=== PATIENT | female | born 1970 | race Caucasian/White ===

== ENCOUNTER 2022-03-29 09:17 | Inpatient (IN) | payer MEDICARE, SELFPAY ==
[2022-03-29] VITALS (14 sets, daily range): BP systolic 128–147; BP diastolic 73–97; PULSE 75–103; RESP 18–20; TEMP 36.6–36.9; O2SAT 88–97; BMI 38.6
--- NOTE | 2022-03-29 09:51 | CRLHL7_ITS ---
For Patients: As a result of the Cures Act, medical imaging exams and procedure reports are released immediately into your electronic medical record. You may view this report before your referring provider. If you have questions, please contact your health care provider. INDICATION: DISORIENTED, RECENT COVID TECHNIQUE: Chest 1 view COMPARISON: 02/08/2019 FINDINGS: Lower lung volumes. No dense infiltrate. No CHF or effusion. No pneumothorax. Stable mediastinum. IMPRESSION: Lower lung volumes. No infiltrate. Dictated by All Otero MD @ 03/29/2022 10:33:55 AM (Electronically Signed)
--- NOTE | 2022-03-29 09:51 | CRLHL7_ITS ---
For Patients: As a result of the Cures Act, medical imaging exams and procedure reports are released immediately into your electronic medical record. You may view this report before your referring provider. If you have questions, please contact your health care provider. INDICATION: DISORIENTED RECENT COVID COMPARISON: 02/03/2020 TECHNIQUE: A CT volumetric acquisition was performed of the brain without IV contrast. Please note that all CT scans at this facility use dose modulation, iterative reconstruction, and/or weight-based dosing when appropriate to reduce radiation dose to as low as reasonably achievable. FINDINGS: The CT images reveal a normal appearance of the cerebral ventricles and basal cisterns. There is no evidence of intracranial hemorrhage, tissue infarction or mass effect. The mastoid air cells and middle ear cavities are clear. The calvarium appears intact. Mild fluid is now present within the paranasal sinuses bilaterally. Clear middle ear cavities and mastoid air cells. IMPRESSION: No intracranial pathology. Acute bilateral pansinus disease. Please note that all CT scans at this facility use dose modulation, iterative reconstruction, and/or weight-based dosing when appropriate to reduce radiation dose to as low as reasonably achievable. Dictated by All Otero MD @ 03/29/2022 10:32:46 AM (Electronically Signed)
--- NOTE | 2022-03-29 09:54 | ED.GENADULT ---
HPI - General Adult General Time Seen by Provider: 09:55 Date Seen: 03/29/22 Chief complaint: Dizziness/Vertigo Stated complaint: Nauseous, disoriented Time Seen by Provider: 03/29/22 09:50 Source: patient, RN notes reviewed and old records reviewed Mode of arrival: ambulatory Limitations: altered mental status ( Patient wildly awake and alert but disoriented, having difficulty with recollection) History of Present Illness HPI narrative: patient is a 51-year-old female coming into the ER stating she just does not feel well. She had COVID maybe about a week and a half ago, admit she can not really remember the details. She remembers that she had a cough and fever, is still coughing. Her main concern is she is extremely nauseated. She has not thrown up. She states she has had abdominal surgery before. She states she has had a bowel blockage, has had mesh put in her abdomen. Review of outside records show she has had a gastric bypass. She has maybe had a little bit of a headache. Her main complaint is nausea. Maybe some mild abdominal pain, she is not really sure. No diarrhea. She has not been eating or drinking. Does not think she has had ongoing fevers. She states she just does not feel good. She can not remember her medicines. Nursing staff was able to go on to [facility] and obtain some information. Will have to review that and get appropriate labs on her. She certainly knows where she is but states she just is really disoriented and very nauseated. There is no focal deficits to her exam. She is not giving me any history of arms or legs not working she is able to speak to me. 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 We will certainly watch her closely, review or history and treat accordingly here in the ED. Related Data Home Medications Medication Instructions Recorded Confirmed dextroamphetamine-amphetamine 30 03/29/22 mg tablet epinephrine 0.3 mg/0.3 mL 03/29/22 injection, auto-injector ferrous gluconate 324 mg (38 mg mg 03/29/22 iron) tablet gabapentin 400 mg capsule mg 03/29/22 lorazepam 1 mg tablet mg 03/29/22 naloxone 4 mg/actuation nasal spray intranasal 03/29/22 quetiapine 50 mg tablet mg 03/29/22 Allergies Allergy/AdvReac Type Severity Reaction Status Date / Time erythromycin base Allergy Hives Verified 03/29/22 11:12 Penicillins Allergy Hives Verified 03/29/22 11:12 shellfish derived Allergy Anaphylaxis Verified 03/29/22 10:20 Sulfa (Sulfonamide Allergy hives, Verified 03/29/22 11:12 Antibiotics) angioedema tetracycline Allergy Hives Verified 03/29/22 11:12 venom-honey bee Allergy Anaphylaxis Verified 03/29/22 10:20 cyclobenzaprine AdvReac psychosis Verified 03/29/22 10:20 diphenhydramine AdvReac agitation Verified 03/29/22 10:20 [From Benadryl] duloxetine [From Cymbalta] AdvReac restless Verified 03/29/22 11:12 legs escitalopram AdvReac behavioral Verified 03/29/22 11:12 disturbances ibuprofen [From Advil] AdvReac stomach Verified 03/29/22 10:20 upset methocarbamol AdvReac tremors Verified 03/29/22 11:12 naproxen AdvReac gi upset Verified 03/29/22 11:12 olanzapine [From Zyprexa] AdvReac restless Verified 03/29/22 11:12 legs pregabalin [From Lyrica] AdvReac mental Verified 03/29/22 11:12 status change prochlorperazine AdvReac behavioral Verified 03/29/22 11:12 disturbances risperidone AdvReac anxiety Verified 03/29/22 11:12 and stuttering sumatriptan AdvReac tachycardia Verified 03/29/22 11:12 venlafaxine [From Effexor] AdvReac mental Verified 03/29/22 11:12 status change Review of Systems Status of ROS: Reports: unobtainable due to mental status ( she is disoriented but alert and interactive.) PFSH PFSH Social History Smoking Status: Never smoker How often do you have a drink containing alcohol: never AUDIT-C Alcohol total score: 0 Non-prescribed substance use: denies use Exam Const: Vital Signs, click to edit/add: Vital Signs - 24 hr 03/29/22 09:27 03/29/22 10:28 03/29/22 11:00 Temperature 98.4 F Pulse Rate [Left P ulse Oximeter] 79 85 Respiratory Rate 18 18 Blood Pressure [Ri ght Upper Arm] 133/81 131/84 Pulse Oximetry 96 90 96 Oxygen Delivery Me thod Room Air Nasal Cannula Oxygen Flow Rate 1 03/29/22 11:00 03/29/22 11:30 03/29/22 12:00 Temperature Pulse Rate [Left P ulse Oximeter] 103 H 93 Respiratory Rate 18 18 Blood Pressure [Ri t Upper Arm] 147/86 H 130/74 Pulse Oximetry 88 Oxygen Delivery Me thod Room Air Nasal Cannula Room Air Oxygen Flow Rate 1 1 Documenting provider has reviewed patient's vital signs: yes Common normals: no limitations, alert and well nourished General appearance: cooperative and comfortable Nutritional appearance: obese Orientation/consciousness: Yes awake, Yes oriented to person and Yes confused (Is readily awake, but certainly disoriented) Other: She is confused about her own medical conditions but is alert and interactive. Skin is cool and she is sweaty. HENMT: Common normals: normocephalic, head/scalp atraumatic, hearing grossly normal bilaterally, external ears normal, EAC's normal, TM's normal bilaterally, external nose normal and nasal mucous membranes and turbinates normal Head and scalp: normocephalic and atraumatic Nose: external nose normal and nasal mucous membranes and turbinates normal External ear: external ears normal External auditory canal: EAC's normal Tympanic membrane: TM's normal bilaterally Other: She has got sick stranding of her saliva in her mouth. Membranes are dry. Dentition otherwise normal. Eye: Common normals: PERRL, EOMs intact bilaterally, conjunctivae normal and no scleral icterus Conjunctiva: conjunctiva(e) normal Pupil: PERRL Neck & C-Spine: Common normals: full ROM, no lymphadenopathy, supple, no meningeal signs, no JVD and thyroid normal Thyroid: thyroid normal Resp: Common normals: normal respiratory effort, no retractions and no use of accessory muscles Other: I do think a hear crackles posteriorly along her right lung base but her inspiratory effort is not that good. Cardio: Common normals: no JVD, regular rate, regular rhythm, S1 normal heart sound, S2 normal heart sound, no gallops, no clicks and no murmurs Rate: regular rate Rhythm: regular rhythm Heart sounds: S1 normal and S2 normal GI: Other: Abdomen is obese baseline, difficult to say if there is distension, do not hear much for bowel sounds. Does not seem to be tender when I palpate, no rebound or guarding. Extremity: Common normals: no calf tenderness and no pedal edema Neuro: Common normals: CN's II-XII intact bilaterally, moves all extremities, no focal motor deficits and no sensory deficits noted Sensorium/orientation: awake, alert and oriented to person Meningeal signs: no meningeal signs Speech: speech normal Course Course Hospital Course: We are going to establish an IV, have her on cardiac monitoring pulse oximetry. Will obtain an EKG as well. I will start with a portable chest x-ray, head CT. She may need further advanced imaging including but not limited to her head, chest, abdomen pelvis. This could be COVID encephalopathy, cardiac complications, metabolic derangements, infectious etiology, ongoing COVID issues. Differential is vast. Will watch her closely. She is obviously dry with the nausea and will initiate a L of fluid over 2 hours, 4 mg Zofran. When I talked about anti nausea medicines she did recollect that she cannot tolerate some of them, believes that her intolerance is are to things like Compazine and other nausea medicines. Reevaluation(s) Reevaluation #1: Patient is feeling better from her nausea. Upon talking to her now, she thinks maybe her home test was positive a couple days ago. She is really unclear. She feels quite disoriented. She knows her date of and can arrival that off, can rattle some normal statistics about her life like her address. She really can not tell me what day or date it is. She does not feel safe with her current mental status. 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 She has had some episodes of mild hypoxia but has recovered here back in the low 90s, 92-93%. Her CT showing some sinusitis disease but I do wonder if it is COVID. Her white count is normal, no evidence that this should necessarily be treated with antibiotics. She states she is no longer on Suboxone but does endorse she has used in the past. Time: 11:40 Consultations Consultation #1: Have called our hospitalist, they will finish up there current details and come down to the ED to talk to me about this patient. I am requesting hospitalization, need to sort out whether or not we consider giving her remdesivir or not. She would not at this time get the dosing for hypoxia but could consider the 3 day dosing. I will need to talk to the hospitalist about this, admittedly it is unclear as to how long she has been sick. Time: 11:54 Vital Signs Vital signs: Initial Vital Signs Temperature 98.4 F 03/29/22 09:27 Temperature Source Oral 03/29/22 09:27 Pulse Rate 79 03/29/22 09:27 Respiratory Rate 18 03/29/22 09:27 Blood Pressure 133/81 03/29/22 09:27 Blood Pressure Mean 98 03/29/22 09:27 Blood Pressure Position Supine 03/29/22 09:27 Pulse Oximetry 96 03/29/22 09:27 Oxygen Delivery Method 03/29/22 09:27 Vital Signs Temperature 98.4 F 03/29/22 09:27 Pulse Rate 79 03/29/22 09:27 Respiratory Rate 18 03/29/22 09:27 Blood Pressure 133/81 03/29/22 09:27 Pulse Oximetry 96 03/29/22 09:27 Oxygen Delivery Method 03/29/22 09:27 Temperature 98.4 F 03/29/22 09:27 Pulse Rate 93 03/29/22 12:00 Respiratory Rate 18 03/29/22 12:00 Blood Pressure 130/74 03/29/22 12:00 Pulse Oximetry 88 03/29/22 11:00 Oxygen Delivery Method 03/29/22 12:00 Oxygen Flow Rate 1 03/29/22 11:30 Medical Decision Making Medical Records Medical records reviewed: Yes I reviewed the patient's medical records Medical records narrative: Allergies are multiple and include Benadryl with agitation, shellfish with anaphylaxis, Hymenoptera with honey bee anaphylaxis, ibuprofen with stomach upset, cyclobenzaprine with behavioral disturbances, Cymbalta with restless leg, Effexor with mental status change, erythromycin with hives, escitalopram with behavioral disturbances, Lyrica with mental status change, methocarbamol with tremors, naproxen with GI upset, penicillin with hives, prochlorperazine with behavioral disturbances, risperidone with anxiety, sulfa with hives and angioedema, sumatriptan with tachycardia, tetracycline with hives, Zyprexa with restless legs/feet. Current medicines listed in epic are vitamin-C, vitamin-D, vitamin B12, EpiPen p.r.n., ferrous gluconate, gabapentin, hydroxyzine, Lamictal, multivitamin, Seroquel, Suboxone which patient states she is not taking. Past medical history is noted to be significant for DVT of upper extremities listed in 2009 Migraines Narcotic abuse Mild major depression Sleep apnea History of abnormal Pap smear History of surgery for bowel obstruction in 2014, prior gastric bypass in 2007 History of right shoulder surgery 2011 Lab Data Lab results reviewed: Yes I reviewed the patient's lab results Labs: Lab Results 03/29/22 03/29/22 03/29/22 Range/Units 10:07 10:07 10:07 WBC 4.80 (4.50-11.00) K/uL RBC 5.09 (4.00-5.20) m/uL Hgb 13.9 (12.0-16.0) gm/dL Hct 44.0 (33.0-51.0) % MCV 86 (80-100) fL MCH 27 (26-34) pg MCHC 32 (32-36) gm/dL RDW Coeff of Yessi 15.9 H (11.5-15.5) % Plt Count 306 (140-440) K/uL Neut % (Auto) 69.2 (42.0-72.0) % Lymph % (Auto) 24.2 (20-44) % [place] % (Auto) 5.4 (0.0-11.0) % Eos % (Auto) 0.8 (0.0-7.0) % Baso % (Auto) 0.4 (0.0-3.0) % Neut # (Auto) 3.32 (1.7-7.0) K/uL Lymph # (Auto) 1.16 (0.90-2.90) K/uL [place] # (Auto) 0.30 (0.00-0.90) K/UL Eos # (Auto) 0.04 (0.00-0.50) K/uL Baso # (Auto) 0.02 (0.00-0.30) K/uL Abs Immat Gran (auto) 0.00 (0.00-0.30) K/uL Diff Slide Review Acceptable Review (Acceptable) D-Dimer Quant (PE/DVT) 0.41 (0.00-0.50) ug/ml VBG pH (7.32-7.43) VBG pCO2 (40-50) mmHG VBG pO2 (25-47) mmHG VBG HCO3 (21-28) mmol/L Sodium 138 (135-149) mmol/L Potassium 3.8 (3.6-5.1) mmol/L Chloride 106 (96-114) mmol/L Carbon Dioxide 21 (20-32) mmol/L BUN 9 (7-30) mg/dL Creatinine 0.5 (0.5-1.5) mg/dL Estimated Creat Clear 140.71 Estimated GFR 112 ml/min Glucose 122 H (60-115) mg/dL Lactate (0.5-1.9) mmol/L Calcium 9.8 (8.4-10.6) mg/dL Magnesium 1.7 (1.5-2.6) mg/dL Total Bilirubin 0.5 (0.1-1.5) mg/dL AST 43 H (12-35) U/L ALT 66 H (4-35) U/L Alkaline Phosphatase 160 H (40-150) U/L C-Reactive Protein 1.6 H (0.5-1.0) mg/dL NT-Pro-B Natriuret Pep 363 H (0-125) PG/mL Total Protein 7.3 (6.0-8.3) g/dL Albumin 4.3 (3.3-5.0) g/dL Procalcitonin (<0.50) ng/mL Urine Color (Yellow) Urine Appearance (Clear) Urine pH (5.0-8.5) Ur Specific [place] (1.000-1.030) Urine Protein (Negative) Urine Glucose (UA) (Negative) Urine Ketones (Negative) Urine Blood (Negative) Urine Nitrite (Negative) Urine Bilirubin (Negative) Urine Urobilinogen (0.2-1.0) Ur Leukocyte Esterase (Negative) Urine RBC (0-2) Urine WBC (0-5) Ur Squamous Epith Cells (None-Few) Urine Bacteria (None) Urine Opiates Screen (Negative) Ur Oxycodone Screen (Negative) Urine Methadone Screen (Negative) Ur Propoxyphene Screen (Negative) Ur Barbiturates Screen (Negative) U Tricyclic Antidepress (Negative) Ur Phencyclidine Scrn (Negative) Ur Amphetamines Screen (Negative) U Methamphetamines Scrn (Negative) U Benzodiazepines Scrn (Negative) Urine Cocaine Screen (Negative) U Marijuana (THC) Screen (Negative) Ur Drug Screen Comment SARS-CoV-2 Ag (Rapid) (Negative) POC Troponin I (0.01-0.04) ng/ml 03/29/22 03/29/22 03/29/22 Range/Units 10:07 10:07 10:07 WBC (4.50-11.00) K/uL RBC (4.00-5.20) m/uL Hgb (12.0-16.0) gm/dL Hct (33.0-51.0) % MCV (80-100) fL MCH (26-34) pg MCHC (32-36) gm/dL RDW Coeff of Yessi (11.5-15.5) % Plt Count (140-440) K/uL Neut % (Auto) (42.0-72.0) % Lymph % (Auto) (20-44) % [place] % (Auto) (0.0-11.0) % Eos % (Auto) (0.0-7.0) % Baso % (Auto) (0.0-3.0) % Neut # (Auto) (1.7-7.0) K/uL Lymph # (Auto) (0.90-2.90) K/uL [place] # (Auto) (0.00-0.90) K/UL Eos # (Auto) (0.00-0.50) K/uL Baso # (Auto) (0.00-0.30) K/uL Abs Immat Gran (auto) (0.00-0.30) K/uL Diff Slide Review (Acceptable) D-Dimer Quant (PE/DVT) (0.00-0.50) ug/ml VBG pH 7.472 H (7.32-7.43) VBG pCO2 32 L (40-50) mmHG VBG pO2 62.1 H (25-47) mmHG VBG HCO3 24 (21-28) mmol/L Sodium (135-149) mmol/L Potassium (3.6-5.1) mmol/L Chloride (96-114) mmol/L Carbon Dioxide (20-32) mmol/L BUN (7-30) mg/dL Creatinine (0.5-1.5) mg/dL Estimated Creat Clear Estimated GFR ml/min Glucose (60-115) mg/dL Lactate 1.1 (0.5-1.9) mmol/L Calcium (8.4-10.6) mg/dL Magnesium (1.5-2.6) mg/dL Total Bilirubin (0.1-1.5) mg/dL AST (12-35) U/L ALT (4-35) U/L Alkaline Phosphatase (40-150) U/L C-Reactive Protein (0.5-1.0) mg/dL NT-Pro-B Natriuret Pep (0-125) PG/mL Total Protein (6.0-8.3) g/dL Albumin (3.3-5.0) g/dL Procalcitonin 0.10 (<0.50) ng/mL Urine Color (Yellow) Urine Appearance (Clear) Urine pH (5.0-8.5) Ur Specific [place] (1.000-1.030) Urine Protein (Negative) Urine Glucose (UA) (Negative) Urine Ketones (Negative) Urine Blood (Negative) Urine Nitrite (Negative) Urine Bilirubin (Negative) Urine Urobilinogen (0.2-1.0) Ur Leukocyte Esterase (Negative) Urine RBC (0-2) Urine WBC (0-5) Ur Squamous Epith Cells (None-Few) Urine Bacteria (None) Urine Opiates Screen (Negative) Ur Oxycodone Screen (Negative) Urine Methadone Screen (Negative) Ur Propoxyphene Screen (Negative) Ur Barbiturates Screen (Negative) U Tricyclic Antidepress (Negative) Ur Phencyclidine Scrn (Negative) Ur Amphetamines Screen (Negative) U Methamphetamines Scrn (Negative) U Benzodiazepines Scrn (Negative) Urine Cocaine Screen (Negative) U Marijuana (THC) Screen (Negative) Ur Drug Screen Comment SARS-CoV-2 Ag (Rapid) (Negative) POC Troponin I 0.02 (0.01-0.04) ng/ml 03/29/22 03/29/22 03/29/22 Range/Units 10:33 11:30 11:37 WBC (4.50-11.00) K/uL RBC (4.00-5.20) m/uL Hgb (12.0-16.0) gm/dL Hct (33.0-51.0) % MCV (80-100) fL MCH (26-34) pg MCHC (32-36) gm/dL RDW Coeff of Yessi (11.5-15.5) % Plt Count (140-440) K/uL Neut % (Auto) (42.0-72.0) % Lymph % (Auto) (20-44) % [place] % (Auto) (0.0-11.0) % Eos % (Auto) (0.0-7.0) % Baso % (Auto) (0.0-3.0) % Neut # (Auto) (1.7-7.0) K/uL Lymph # (Auto) (0.90-2.90) K/uL [place] # (Auto) (0.00-0.90) K/UL Eos # (Auto) (0.00-0.50) K/uL Baso # (Auto) (0.00-0.30) K/uL Abs Immat Gran (auto) (0.00-0.30) K/uL Diff Slide Review (Acceptable) D-Dimer Quant (PE/DVT) (0.00-0.50) ug/ml VBG pH (7.32-7.43) VBG pCO2 (40-50) mmHG VBG pO2 (25-47) mmHG VBG HCO3 (21-28) mmol/L Sodium (135-149) mmol/L Potassium (3.6-5.1) mmol/L Chloride (96-114) mmol/L Carbon Dioxide (20-32) mmol/L BUN (7-30) mg/dL Creatinine (0.5-1.5) mg/dL Estimated Creat Clear Estimated GFR ml/min Glucose (60-115) mg/dL Lactate (0.5-1.9) mmol/L Calcium (8.4-10.6) mg/dL Magnesium (1.5-2.6) mg/dL Total Bilirubin (0.1-1.5) mg/dL AST (12-35) U/L ALT (4-35) U/L Alkaline Phosphatase (40-150) U/L C-Reactive Protein (0.5-1.0) mg/dL NT-Pro-B Natriuret Pep (0-125) PG/mL Total Protein (6.0-8.3) g/dL Albumin (3.3-5.0) g/dL Procalcitonin (<0.50) ng/mL Urine Color Yellow (Yellow) Urine Appearance Slightly Cloudy A (Clear) Urine pH 7.0 (5.0-8.5) Ur Specific [place] 1.025 (1.000-1.030) Urine Protein Trace A (Negative) Urine Glucose (UA) Negative (Negative) Urine Ketones 4+ A (Negative) Urine Blood Negative (Negative) Urine Nitrite Negative (Negative) Urine Bilirubin 1+ A (Negative) Urine Urobilinogen 1.0 (0.2-1.0) Ur Leukocyte Esterase Negative (Negative) Urine RBC 0-2 (0-2) Urine WBC 0-2 (0-5) Ur Squamous Epith Cells Few (None-Few) Urine Bacteria Few A (None) Urine Opiates Screen POSITIVE A* (Negative) Ur Oxycodone Screen Negative (Negative) Urine Methadone Screen Negative (Negative) Ur Propoxyphene Screen Negative (Negative) Ur Barbiturates Screen Negative (Negative) U Tricyclic Antidepress Negative (Negative) Ur Phencyclidine Scrn Negative (Negative) Ur Amphetamines Screen Negative (Negative) U Methamphetamines Scrn Negative (Negative) U Benzodiazepines Scrn POSITIVE A* (Negative) Urine Cocaine Screen Negative (Negative) U Marijuana (THC) Screen Negative (Negative) Ur Drug Screen Comment See Note SARS-CoV-2 Ag (Rapid) positive (Negative) POC Troponin I (0.01-0.04) ng/ml Imaging Data CT scan - head: Attestation: I have reviewed the pertinent imaging results. Radiologist's impression: Patient: CLIFTON GARCIA Facility:?[facility] Patient ID:?[id number] Site Patient ID:?[id number]. Site :?[id number] Study:?CT Head WITHOUT-03/29/2022 10:19:11 AM Ordering Physician:Stevo Benitez Final Report: INDICATION: DISORIENTED RECENT COVID COMPARISON: 02/03/2020 TECHNIQUE: A CT volumetric acquisition was performed of the brain without IV contrast. Please note that all CT scans at this facility use dose modulation, iterative reconstruction, and/or weight-based dosing when appropriate to reduce radiation dose to as low as reasonably achievable. FINDINGS: The CT images reveal a normal appearance of the cerebral ventricles and basal cisterns. There is no evidence of intracranial hemorrhage, tissue infarction or mass effect. The mastoid air cells and middle ear cavities are clear. The calvarium appears intact. Mild fluid is now present within the paranasal sinuses bilaterally. Clear middle ear cavities and mastoid air cells. IMPRESSION: No intracranial pathology. Acute bilateral pansinus disease. Please note that all CT scans at this facility use dose modulation, iterative reconstruction, and/or weight-based dosing when appropriate to reduce radiation dose to as low as reasonably achievable. Dictated by All Otero MD @ 03/29/2022 10:32:46 AM (Electronic Signature) Chest x-ray: Attestation: I have reviewed the pertinent imaging results. Radiologist's impression: Patient: CLIFTON GARCIA Facility:?[facility] Patient ID:?[id number] Site Patient ID:?[id number]. Site :?[id number] Study:?XRay Chest 1 VIEW-03/29/2022 10:22:27 AM Ordering Physician:?Marily Benitez Final Report: INDICATION: DISORIENTED, RECENT COVID TECHNIQUE: Chest 1 view COMPARISON: 02/08/2019 FINDINGS: Lower lung volumes. No dense infiltrate. No CHF or effusion. No pneumothorax. Stable mediastinum. IMPRESSION: Lower lung volumes. No infiltrate. Dictated by All Otero MD @ 03/29/2022 10:33:55 AM (Electronic Signature) ECG Data Attestation: I personally reviewed and interpreted this ECG as follows: (Sinus rhythm, 88 beats per minute. No acute ischemic change. QT corrected 459 milliseconds.) Discharge Plan Discharge Clinical Impression: Acute dehydration, Encephalopathy due to 2019 novel coronavirus, COVID-19 Patient Disposition: Admitted As Inpatient Condition: Stable Prescriptions: No Action gabapentin 400 mg capsule Label Comments: TAKE 1 CAPSULE BY MOUTH FOUR TIMES DAILY dextroamphetamine-amphetamine 30 mg tablet lorazepam 1 mg tablet Label Comments: TAKE 1 TABLET BY MOUTH TWICE DAILY NEEDED epinephrine 0.3 mg/0.3 mL auto-injector Label Comments: INJECT 0.3 ML INTRAMUSCULARLY ONCE FOR 1 DOSE quetiapine 50 mg tablet Label Comments: TAKE 1 TABLET BY MOUTH THREE TIMES DAILY NEEDED ferrous gluconate 324 mg (38 mg iron) tablet naloxone 4 mg/actuation spray,non-aerosol INTRANASAL Label Comments: CALL 911. SPR CONTENTS OF ONE SPRAYER (0.1ML) INTO ONE NOSTRIL. REPEAT IN 2-3 MIN IF SYMPTOMS OF OPIOID EMERGENCY PERSIST, ALTERNATE NOSTRILS
--- OUTSIDE RECORDS SUMMARY | 2022-03-29 10:06 | XMS_ITS | Encounter Summary ---
:1970 Author Organization [facility] Address [address] [place] [address] Care Team Providers Name Role Phone Taylor Downing MD Primary Care Provider Reason for Visit Reason Comments Medication Request Encounter Details Date Type Department Care Team Description 02/05/2022 Telephone [facility] Taylor Downing MD Medication Request Practice [id number] [facility] [address] [place], [place] [id number] [phone] (Wo rk) Social History Tobacco Use Types Packs/Day Years Used Date Smoking Tobacco: Former Cigarettes 06/1998 - 02/04/2009 Smokeless Tobacco: Never Alcohol Use Standard Drinks/Week Comments No 0 (1 standard drink = 0.6 oz pure alcoho l) Sex Assigned at Date Recorded Female 06/28/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 Pharmacy states: Drug not covered by patient plan. The preferred alternative is Alt drug therapy preferred product required. Please call/fax the pharmacy to change medication along with strength, directions, quantity, and refills. documented in this encounter Plan of Treatment Upcoming Encounters Date Type Specialty Care Team Description 05/04/2022 Appointment Gastroenterology Inés Levy MD [address] [facility] [address] [id number] (Wo rk) documented as of this encounter Visit Diagnoses Not on filedocumented in this encounter Care Teams Hide Dropper Relationship Specialty Start Date End Date Taylor Downing MD PCP - General Family Practice 02/01/19 [address] [place] [address] documented as of this encounter
--- OUTSIDE RECORDS SUMMARY | 2022-03-29 10:06 | XMS_ITS | Clinical Summary ---
:1970 Author Organization [facility] Address [address] [place] [address] Care Team Providers Name Role Phone Taylor Downing MD Primary Care Provider Source Comments You are receiving this document as you are listed as the primary care provider,follow-up provider, or the patient has been referred to you for consultation.This is in compliance with the Medicare and Medicaid EHR Incentive Program,which states Providers who transition their patient to another setting of careor provider of care or refers their patient to another provider of care shouldprovide summarycare record for each transition of care or referral. [place] Allergies Active Allergy Reactions Severity Noted Date Comments Bee Venom Anaphylaxis High 07/31/2015 Cyclobenzaprine 05/03/2004 PN: LW React ion: Stimulation; HU T Comment: Psycho sis ; HUT Reaction: Behavioral Disturbances; H UT Noted: [id number] Diphenhydramine 05/03/2004 PN: LW React ion: Stimulation; HU T Comment: Advers e reaction; HUT Reaction: Agita tion; HUT Severity: H igh; HUT Noted: 2016 1127 Duloxetine Other, see comments 02/02/2016 HUT Reac tion: Restless Legs/F eet; HUT Noted: 2015 828 Erythromycin 05/03/2004 PN: LW Reaction : HIVES; HUT Reac tion: Hives; HUT Note d: [id number] Escitalopram Other, see comments 06/09/2010 HUT Reac tion: Behavioral Disturbances; H UT Noted: [id number] Honey Bee Venom Anaphylaxis High 07/31/2015 Ibuprofen Other, see comments 12/17/2015 HUT Reac tion: Stomach Upset; HUT Reaction Type: Intolerance; HU T Noted: [id number] Iodine-131 Other, see comments 11/17/2010 Pregabalin Other, see comments 02/10/2016 Psychosi s; HUT Reaction: Menta l Status Change; HUT Noted: [id number] Methocarbamol Other, see comments 05/13/2017 Tremors ; HUT Reaction: Tremo rs; HUT Noted: 2014 115 Naproxen Gastrointestinal 11/07/2009 HUT Reactio n: Gastrointestina l; HUT Noted: 2009 603 Nsaids Other, see comments 11/17/2010 Olanzapine Other, see comments 04/10/2018 HUT Reac tion: Restless Legs/F eet Penicillins 05/03/2004 PN: LW Reaction : HIVES; HUT Reac tion: Hives; HUT Note d: [id number] Prochlorperazine 05/03/2004 PN: LW Reac tion: Stimulation; HU T Comment: Compaz ine; HUT Reaction: Behavioral Disturbances; H UT Noted: [id number] Risperidone Anxiety 05/23/2017 Also stuttering ; HUT Comment: Al so stuttering ; HU T Reaction: Anxie ty; HUT Noted: 2016 1217 Shellfish-Derived Anaphylaxis High 07/31/2015 HUT Reacti on: Products Anaphylaxis; HU T Severity: High; HUT Noted: [id number] Sulfa Antibiotics 05/03/2004 PN: LW Georgiana ction: Anaphylatic Rx; HUT Reaction: Hives ; HUT Reaction: Angioedema; HUT Noted: [id number] Sumatriptan Tachycardia 07/03/2010 HUT Reaction: Tachycardia; HU T Noted: [id number] Tetracycline 05/03/2004 PN: LW Reaction : HIVES; HUT Reac tion: Hives; HUT Note d: [id number] Venlafaxine Other, see comments 12/17/2015 Venlafaxine & Related Other, see comments 12/17/2015 HUT Reaction: Mental Status Change Medications Medication Sig Dispensed Refills Start Date End Date Status amphetamine-dextroamphe TK 1 T PO TID 0 01/30/2018 Active tamine (ADDERALL) 20 MG PRN tablet ascorbic acid 500 MG Take 500 mg by 0 08/08/2015 Active tablet mouth. Cyanocobalamin (B-12) Take 1,000 mcg 0 09/17/2016 Active 1000 MCG TBCR by mouth. Cholecalciferol Take 5,000 Units 0 04/22/2017 Active (VITAMIN D3) 5000 units by mouth. TABS QUEtiapine (SEROQUEL) TK 1 T PO BID 0 02/03/2018 Active 50 MG tablet multivitamin with Take 1 Tablet by 0 09/17/2016 Active minerals tablet mouth. LORazepam (ATIVAN) 0.5 TK 1 T PO BID 0 03/03/2020 Active MG tablet PRN methylPREDNISolone Follow package 21 Tablet 0 06/27/2021 Active (MEDROL 21 TABLET directions DOSEPACK) 4 MG tabletIndications: Chronic bilateral low back pain without sciatica gabapentin (NEURONTIN) Take 1 Capsule 270 Capsule 1 02/05/2022 Active 400 MG capsule (400 mg) by mouth 4 times a day. lamoTRIgine (LAMICTAL) Take 1 Tablet 360 Tablet 0 02/05/2022 Active 25 MG tablet (25 mg) by mouth daily. ferrous gluconate Take 1 Tablet 180 Tablet 3 02/05/2022 Active (FERGON) 324 (38 Fe) MG (324 mg) by tabletIndications: mouth two times Restless legs syndrome a day with (RLS) meals. aluminum chloride apply sparingly 35 mL 02/05/2022 Active (DRYSOL) 20 % external to skin with solutionIndications: excessive Axillary hyperhidrosis sweating for 1-5 nights to get appropriate response hydrocortisone 2.5 % Apply topically 30 g 1 02/05/2022 Active cream two times a day. For 2-3 weeks Active Problems Problem Noted Date Physical deconditioning 03/02/2019 Hernia of abdominal wall 03/02/2019 Opioid use disorder, severe, on maintenance therapy Drug abuse 05/10/2017 Overview: Pharmacy reports gabapetnin abuse According to the SUBSTATION OPERATOR HELPER, between March 21 and May 07, 2017 she filled prescriptions for 240 tabs of 600 mg, 388 tabs of 300 mg, 150 tabs of 400 mg, 60 tabs of 100 mg. Bipolar affective disorder, current episode mixed 06/2016 Chronic low back pain 04/21/2017 History of narcotic use 03/21/2017 History of migraine 03/21/2017 Migraine without status migrainosus, not intractable 0 09/27/2016 Sleep disturbance 08/11/2016 Status post gastric bypass for obesity 02/10/2016 Attention deficit hyperactivity disorder 02/10/2016 Fibromyalgia 02/10/2016 Severe episode of recurrent major depressive disorder 07/31/2015 Stimulant abuse 07/18/2015 Benzodiazepine overdose of undetermined intent 016 Bipolar affective disorder 07/01/2015 Fibromyalgia 04/18/2012 B12 deficiency 07/27/2011 Recurrent cold sores 10/12/2010 Vitamin D deficiency 09/11/2010 Overview: vitamin D deficiency OCD (obsessive compulsive disorder) 06/09/2010 Anemia 05/12/2010 ADD (attention deficit disorder) 05/12/2010 Insomnia 04/26/2010 Overview: Insomnia, unspecified S/P gastric bypass 11/07/2009 Other abnormal Papanicolaou smear of cervix and cervic al HPV(795.09) 11/07/2009 Sleep apnea 11/07/2009 Major depressive disorder, recurrent episode, severe 0 11/07/2009 Overview: depression Migraines 11/07/2009 Overview: Horrible reaction to Imitrex Severe obesity (BMI 35.0-39.9) with comorbidity 2009 Resolved Problems Problem Noted Date Resolved Date CAREPLAN: CONTROLLED SUBSTANCE 08/11/2016 0 Overview: 08/11/2016 Patient currently using hydrocodone 5 mg tablets, 75 per month, for her fibromyalgia. It is my hope that she will be returning to the pain specialist in [place] this summer. Explained to her that I would be willing to use hydrocodone until that time. Encounter for long-term (current) use of high-risk medicatio n 03/08/2012 04/21/2017 Overview: Controlled substance agreement for Adder all XR 20 mg daily, dispense 30 tabs monthly on file and signed 03/08/12 . Designated pharmacy: [facility]. Prescribing physician: Dr Sha arias. Diagnosis: ADD Pain medication agreement 01/04/2012 04/21/2017 Overview: Controlled substance agreement for Adder all XR 30mg Qty. 30 , Adderall 30mg 3 times a day Qty. 90 on file and s igned 01/04/12. Designated pharmacy: [facility] Prescribing radha regalado: Dr. Renee Diagnosis: ADD. 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 Tramadol 50 mg tablets number 60 per mon th. DVT of upper extremity (deep vein thrombosis) 07/03/2010 05/23/2017 Overview: At site of IV. 8.1.2009. 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 [facility] 12/29-12/31/09 Encounters Date Type Specialty Care Team Description 03/09/2022 Telephone Family Taylor Deleon MD 02/05/2022 Lab Visit Laboratory H/O gastric byp ass; Screening for t hyroid disorder; High risk medic ation use; Screening for d iabetes mellitus; Screening rhett sterol level 02/05/2022 Office Visit Family Taylor Deleon MD [facility] for Medicare annual wellness exam (Primary Dx); Restless legs s yndrome (RLS); Axillary hyperh idrosis; H/O gastric byp ass; Screening for t hyroid disorder; High risk medic ation use; Screening for d iabetes mellitus; Screening rhett sterol level; Screening for c ervical cancer; Screen for colo n cancer; Encounter for s creening mammogram for malignant neoplasm of breast; Rectal pain 02/05/2022 Telephone Family Taylor Deleon MD Medicati on Request 02/03/2022 Nurse Triage Family Taylor Deleon MD RECTAL P AIN from Last 3 Months Immunizations Name Administration Dates Next Due DTaP 10/31/2001, 01/06/1998, 04/02/1997, 02/05/1997, 11/27/1996 HepA Ped/Adol (1-18 yrs) 09/13/2007 HepB Ped/Adol (0-18 yrs) 07/30/1997, 10/11/1996 Hib (PRP-D) 01/06/1998 IPV (Polio) 10/31/2001 MMR 10/31/2001 Meningococcal, Unspecified 09/13/2007 Formulation Pneumococcal 7, PED 09/23/2000 Td 12/04/2002 Tdap 11/30/2012 Varicella 09/13/2007, 10/25/1997 Family History Medical History Relation Name Comments Cancer Father Heart Disease Father Hyperlipidemia Father Hypertension Father Hyperlipidemia Mother Cancer, Prostate Maternal Grandfather Psychiatry Maternal Grandmother Stroke Maternal Grandmother Cancer, Colon No Family History 1 Cancer, Breast No Family History 2 Cancer, Ovary No Family History 3 Relation Name Status Comments Father Mother Alive Brother Alive Daughter Zully Alive Maternal Grandfather Maternal Grandmother No Family History 1 No Family History 2 No Family History 3 Paternal Grandfather Paternal Grandmother Son Hermes Alive Social History Tobacco Use Types Packs/Day Years Used Date Smoking Tobacco: Former Cigarettes 1 06/1998 - 02/04/2009 Smokeless Tobacco: Never Alcohol Use Standard Drinks/Week Comments No 0 (1 standard drink = 0.6 oz pure alcoho l) Sex Assigned at Date Recorded Female 06/28/2021 5:52 PM [employer] Last Filed Vital Signs Vital Sign Reading Time Taken Comments Blood Pressure 132/93 02/05/2022 10:16 AM CDT Pulse 110 02/05/2022 10:16 AM CDT Temperature 36.6 ??C (97.9 ??F) 06/27/2021 10:22 AM [employer] Respiratory Rate 16 07/04/2019 12:32 PM [employer] Oxygen Saturation 96% 07/04/2019 12:32 PM [employer] Inhaled Oxygen Concentration - - Weight 121.1 kg (267 lb) 02/05/2022 10:13 AM CDT Height 177.8 cm (5' 10) 02/05/2022 10:13 AM CDT Body Mass Index 38.31 02/05/2022 10:13 AM CDT Plan of Treatment Upcoming Encounters Date Type Specialty Care Team Description 05/04/2022 Appointment Gastroenterology Inés Levy MD [address] [facility] [address] [address] (Wo rk) Health Maintenance Due Date Last Done Comments Hep C Screening (Preventive 1970 Services) HepB (1) 1970 07/30/1997, 10/11/1996 Mammogram 1970 COVID-19 Vaccine (#1) 1970 FIT Colon Cancer Screening 2012 Zoster/Shingles (1 of 2) 2018 Influenza (#1) 2022 Medicare Annual Wellness 02/05/2023 02/05/2022, 04/30/2019 Visit SMI: Fasting Lipid 02/05/2023 02/05/2022, 04/30/2019 SMI: Hgb A1C 02/05/2023 02/05/2022, 02/05/2022, 07/02/2019, Additional history exists DTaP/Tdap/Td (9 - Tdap) 09/11/2026 09/11/2016, 11/30/2012, 12/04/2002, Additional history exists Pap 02/05/2027 02/05/2022, 06/06/2008 (Completed) Hib Aged Out 01/06/1998 No longer eligib le based on patient 's age to complete this topic Pneumococcal Aged Out 09/23/2000 No longer eligib le based on patient 's age to complete this topic IPV (Polio) Aged Out 10/31/2001 No longer eligib le based on patient 's age to complete this topic HepA Aged Out 09/13/2007, 09/13/2007 No longer eligible based on patient 's age to complete this topic MCV4 Aged Out 09/13/2007 No longer eligib le based on patient 's age to complete this topic HIV Screening (Preventive Completed 04/30/2019 Services) Procedures Procedure Name Priority Date/Time Associated Diagnosis Comme nts HPV WITH 16 18 Routine 02/05/2022 1:33 PM Screening for Result s for this GENOTYPING, CDT cervical cancer procedure ar e in CERVICAL/ENDOCERVIC the resu lts AL section. PAP TEST Routine 02/05/2022 1:33 PM Screening for Results for this CDT cervical cancer procedure ar e in the results section. LIPID PANEL AND Routine 02/05/2022 10:59 AM Screening Resul ts for this DIRECT LDL(IF CDT cholesterol level procedure are in NEEDED) the results section. HGB A1C Routine 02/05/2022 10:59 AM Screening for Results for this CDT diabetes mellitus procedure are in the results section. COMP METABOLIC Routine 02/05/2022 10:59 AM High risk medicatio n Results for this PANEL CDT use procedure are i n the results section. TSH, SENSITIVE Routine 02/05/2022 10:59 AM Screening for Resul ts for this CDT thyroid disorder procedure a re in the results section. VITAMIN D Routine 02/05/2022 10:59 AM H/O gastric bypass Re sults for this 25-HYDROXY, TOTAL CDT procedure are in the results section. VITAMIN B12 ONLY Routine 02/05/2022 10:59 AM H/O gastric bypas s Results for this CDT procedure are i n the results section. FERRITIN Routine 02/05/2022 10:59 AM H/O gastric bypass Re sults for this CDT procedure are i n the results section. IRON PROFILE Routine 02/05/2022 10:59 AM H/O gastric bypass Re sults for this (IRON,TIBC,%SAT.(CA CDT procedur e are in LC)) the results section. COMPLETE BLOOD Routine 02/05/2022 10:59 AM H/O gastric bypass Results for this COUNT-NO DIFF CDT procedure are in the results section. from Last 3 Months Results PAP Test (02/05/2022 1:33 PM CDT) Component Value Ref Test Analysis Performed Pathologis t Range Method Time At Signature Case Report Pap ? Case: [id number] ? 02/25/2022 [facility] Authorizing Provider: ??Taylor Downing MD ? Collected: ? 02/05/2022 1333 ? 10:42 AM HOSP ITAL Ordering Location: ? [facility] ?Received: ?02/05/2022 1620 ? CDT ? Practice ? First Screen: ? Bonita Schroeder, CT (ASCP) ? Specimen: ?Pap Test, Rou mason, Cervix/Endocervix ? Pap Specimen Satisfactory for 02/25/2022 [facility] Adequacy evaluation, 10:42 AM HOSPITAL endocervical/israel CDT sformation zone component present. Pap (NILM) Negative 02/25/2022 [facility] Josephine ctronically Interpretation for 10:42 AM HOSPITAL billy d by lesly Schroeder CDT Bonita N, CT (ASCP) lesion or on 02/26/20 at malignancy. 10:42 AM Pap Other Atrophy. 02/25/2022 [facility] Findings 10:42 AM HOSPITAL CDT Pap Disclaimer The Pap test is a 02/25/2022 [facility] screening test 10:42 AM HOSPITAL designed to aid CDT in the detection of cervical cancer and its precursor lesions. It is not a diagnostic procedure and should not be used as the sole means of detecting cervical cancer. Both false-positive and false-negative results may occur. Gross The specimen is 02/25/2022 [facility] Description received in 10:42 AM [facility] SurePath fixative CDT and properly labeled. 1 Pap-stained SurePath slide is prepared. Embedded Images 02/25/2022 [facility] 10:42 AM HOSPITAL CDT Specimen Anatomical Collection Method Collection Time Receive d Time (Source) Location / / Volume Laterality Other Specimen ENTIRE ENDOCERVIX 02/05/2022 1:33 PM 4:20 Type / Unknown CDT PM CDT Comment: LMP: Patient's last menstrual p eriod was 04/26/2017. Taylor Downing MD LAB PATHOLOGY Performing Organization Address City/State/ZIP Code Phon e Number [address] [address] HPV with 16 18 Genotyping (02/05/2022 1:33 PM CDT) [facility] Method Time Signature HPV High Risk Not Detected Not detected 02/10/2022 [facility] Type 16 PCR 1:13 PM CDT HOSPITAL HPV High Risk Not Detected Not Detected 02/10/2022 [facility] Type 18 PCR 1:13 PM CDT HOSPITAL HPV High Risk Not Detected Not detected 02/10/2022 [facility] Other Than 1:13 PM CDT HOSPITAL 16/18 Specimen Anatomical Collection Method Collection Time Receive d Time (Source) Location / / Volume Laterality Cervical Broom ENTIRE ENDOCERVIX 02/05/2022 1:33 PM 4:20 / Unknown CDT PM CDT [facility] - 02/10/2022 1:13 PM CD T The [facility] HPV test is a qualitative in vitro test for the detection of Human Papillomavirus in SurePath patient specimens. The test utilizes amplification of target DNA by Polymerase Chain Reaction (PCR ) and nucleic acid hybridization for the detection of 14 high-risk (HR) HPV types. The assay tests for high risk types (16, 18, 31, 33, 35, 39, 45, 51, 52, 56, 58, 59, 66, and 68). Taylor Downing MD LAB_1 Performing Organization Address City/State/ZIP Code Phon e Number [address] [address] (ABNORMAL) Lipid Panel and Direct LDL(If Needed) (02/05/2022 10:59 AM CDT) [facility] Method Time Signature Cholesterol 240 (H) 0 - 199 02/05/2022 [facility] mg/dL 3:53 PM CDT CENTRAL LAB Triglyceride 200 (H) <=149 02/05/2022 [facility] mg/dL 3:53 PM CDT C[facility]AL LAB HDL Cholesterol 52 >=40 02/05/2022 [facility] mg/dL 3:53 PM CDT C[facility]AL [facility] LDL, Calculated 148 (H) <130 02/05/2022 [facility] mg/dL 3:53 PM CDT CEN[facility]AL LAB Non HDL Chol, 188 (H) <=159 02/05/2022 [facility] Calculated mg/dL 3:53 PM CDT CENTRAL LAB Cholesterol/HDL 4.6 02/05/2022 [facility] Ratio 3:53 PM CDT C[facility]TRAL LAB Hours Fasting N/A 02/05/2022 [facility] 3:53 PM CDT Specimen Anatomical Collection Method / Collection Time Recei carl Time (Source) Location / Volume Laterality Blood Venipuncture / 02/05/2022 10:59 2 Unknown AM CDT 10:59 AM CDT Taylor Downing MD LAB_1 Performing Organization Address City/[facility]/ZIP Code Phon e Number [facility] CENTRAL LAB [address] [address] [facility] [address] [place], [place] [phone], [facility] Vitamin D 25-Hydroxy, Total (02/05/2022 10:59 AM CDT) [facility] Method Time Signature Vitamin D, 33 30 - 80 02/05/2022 [email or web address] 25-OH, Total ng/mL 3:59 PM CDT CENTRAL LAB Specimen Anatomical Collection Method / Collection Time Recei carl Time (Source) Location / Volume Laterality Blood Venipuncture / 02/05/2022 10:59 2 Unknown AM CDT 10:59 AM CDT Taylor Downing MD LAB_1 Performing Organization Address City/State/ZIP Code Phon e Number [email or web address] CENTRAL LAB [address] [address] Comp Metabolic Panel (02/05/2022 10:59 AM CDT) [facility] [employer] Method Time Signature Sodium 142 136 - 145 02/05/2022 [email or web address] mmol/L 3:53 PM CDT CENTRAL LAB Potassium 3.8 3.5 - 5.1 02/05/2022 [email or web address] mmol/L 3:53 PM CDT CENTRAL LAB Chloride 107 98 - 109 02/05/2022 [facility] mmol/L 3:53 PM CDT CENTRAL LAB CO2 24 20 - 29 02/05/2022 [email or web address] mmol/L 3:53 PM CDT CENTRAL LAB Anion Gap 11 7 - 16 02/05/2022 [email or web address] mmol/L 3:53 PM CDT CENTRAL LAB Calcium 9.3 8.4 - 02/05/2022 [facility] 10.4 3:53 PM CDT CENTRAL LAB mg/dL BUN 9 7 - 26 02/05/2022 [facility] mg/dL 3:53 PM CDT CENTRAL LAB Creatinine 0.72 0.55 - 02/05/2022 [facility] 1.02 3:53 PM CDT CENTRAL LAB mg/dL GFR, Estimated >60 >60 02/05/2022 [facility] mL/min/1. 3:53 PM CDT CENTRAL LAB 73m2 Alkaline 127 40 - 150 02/05/2022 [facility] Phosphatase U/L 3:53 PM CDT CENTRAL LAB AST (SGOT) 12 10 - 40 02/05/2022 [facility] U/L 3:53 PM CDT CENTRAL LAB ALT (SGPT) 27 0 - 55 02/05/2022 [facility] U/L 3:53 PM CDT CENTRAL LAB Bilirubin, 0.2 0.2 - 1.2 02/05/2022 [facility] Total mg/dL 3:53 PM CDT CENTRAL LAB Protein, Total 6.9 6.4 - 8.3 02/05/2022 [facility] g/dL 3:53 PM CDT CENTRAL LAB Albumin 3.6 3.5 - 5.0 02/05/2022 [facility] g/dL 3:53 PM CDT CENTRAL LAB Glucose 85 70 - 100 02/05/2022 [facility] mg/dL 3:53 PM CDT CENTRAL LAB Comment: The given reference range is fo r the fasting state. Non-fasting reference range for glucose is 70 - 180 mg/dL. Hours Fasting N/A 02/05/2022 3:53 PM CDT [facility] Specimen Anatomical Collection Method / Collection Time Recei carl Time (Source) Location / Volume Laterality Blood Venipuncture / 02/05/2022 10:59 2 Unknown AM CDT 10:59 AM CDT Taylor Downing MD LAB_1 Performing Organization Address City/[facility] Code Phon e Number [email or web address] CENTRAL LAB [address] [address] [facility] [address] [place] [address] TSH (02/05/2022 10:59 AM CDT) [facility] gist Method Time Signature TSH, Sensitive 1.54 0.30 - 02/05/2022 [facility] 4.50 3:59 PM CDT CENTRAL LAB uIU/mL Specimen Anatomical Collection Method / Collection Time Recei carl Time (Source) Location / Volume Laterality Blood Venipuncture / 02/05/2022 10:59 2 Unknown AM CDT 10:59 AM CDT Taylor Downing MD LAB_1 Performing Organization Address [facility]/ZIP Code Phon e Number [email or web address] CENTRAL LAB [address] [address] (ABNORMAL) Complete Blood Count-No Diff (02/05/2022 10:59 AM CDT) athologist Signature WBC 6.6 3.5 - 10.5 02/05/2022 [facility] x10(9)/L 11:25 AM CDT LAB RBC 4.66 3.90 - 5.03 02/05/2022 [facility] x10(12)/L 11:25 AM CDT LAB Hemoglobin 12.9 12.0 - 15.5 02/05/2022 [facility] g/dL 11:25 AM CDT LAB HCT 41.2 34.9 - 44.5 02/05/2022 [facility] % 11:25 AM CDT LAB MCV 88.4 80.0 - 02/05/2022 [facility] 100.0 fL 11:25 AM CDT LAB MCH 27.7 27.6 - 33.3 02/05/2022 [facility] pg 11:25 AM CDT LAB MCHC 31.3 (L) 31.5 - 35.2 02/05/2022 [facility] g/dL 11:25 AM CDT LAB RDW 17.4 (H) 11.9 - 15.5 02/05/2022 [facility] % 11:25 AM CDT LAB Platelets 321 150 - 450 02/05/2022 [facility] x10(9)/L 11:25 AM CDT LAB Specimen Anatomical Collection Method / Collection Time Recei carl Time (Source) Location / Volume Laterality Blood Venipuncture / 02/05/2022 10:59 2 Unknown AM CDT 10:59 AM CDT Taylor Downing MD LAB_1 Performing Organization Address City/State/ZIP Code Phon e Number [facility] [address] [place] [phone] Ferritin (02/05/2022 10:59 AM CDT) athologist Signature Ferritin 24 - 02/05/2022 [facility] ng/mL 3:59 PM CDT CENTRAL LAB Specimen Anatomical Collection Method / Collection Time Recei carl Time (Source) Location / Volume Laterality Blood Venipuncture / 02/05/2022 10:59 2 Unknown AM CDT 10:59 AM CDT Taylor Downing MD LAB_1 Performing Organization Address City/[facility]/ZIP Code Phon e Number [facility] CENTRAL LAB [address] [address] (ABNORMAL) Hgb A1C (02/05/2022 10:59 AM CDT) Patholo gist Method Time Signature Hemoglobin A1C 5.9 (H) <=5.6 % 02/05/2022 [facility] 4:47 PM CDT CENTRAL LAB Specimen Anatomical Collection Method / Collection Time Recei carl Time (Source) Location / Volume Laterality Blood Venipuncture / 02/05/2022 10:59 2 Unknown AM CDT 10:59 AM CDT Narrative [facility] CENTRAL LAB - 02/05/2022 4:47 PM CDT For patients not previously diagnosed with diabetes: 5.7-6.4%: Increased risk for diabetes 6.5% and greater: Diagnostic for diabete s For patients diagnosed with diabetes: <8.0%: Goal of therapy for ages 18-75 Clinicians may recommend a higher or low er goal for specific individuals. Taylor Downing MD LAB_1 Performing Organization Address [facility]/ZIP Code Phon e Number [facility] [address] [place] [phone] Vitamin B12 Only (02/05/2022 10:59 AM CDT) P athologist Signature Vitamin B12 680 213 - 816 02/05/2022 [facility] pg/mL 3:59 PM CDT CENTRAL LAB Specimen Anatomical Collection Method / Collection Time Recei carl Time (Source) Location / Volume Laterality Blood Venipuncture / 02/05/2022 10:59 2 Unknown AM CDT 10:59 AM CDT Taylor Downing MD LAB_1 Performing Organization Address [facility] Phon e Number [facility] CENTRAL LAB [address] [address] (ABNORMAL) Iron Profile (Iron,TIBC,%Sat.(Calc)) (02/05/2022 10:59 AM CDT) Component Value Ref Test Analysis Performed At [facility] gist Range Method Time Signature Iron 40 (L) 50 - 170 02/05[facility]2022 [facility] mcg/dL 3:53 PM CDT CENTRAL LAB Transferrin 282 180 - 02/05/2022 [facility] 382 3:53 PM CDT CENTRAL LAB mg/dL TIBC, Calculated 353 240 - 02/05/2022 [facility] 450 3:53 PM CDT CENTRAL LAB mcg/dL % Saturation, 11 10 - 50 02/05/2022 [facility] Calculated % 3:53 PM CDT CENTRAL LAB TIBC Low iron, 02/05/2022 [facility] Interpretation normal 3:53 PM CDT CENTRAL LAB TIBC, possible iron deficiency. Specimen Anatomical Collection Method / Collection Time Recei carl Time (Source) Location / Volume Laterality Blood Venipuncture / 02/05/2022 10:59 2 Unknown AM CDT 10:59 AM CDT Taylor Downing MD LAB_1 Performing Organization Address City/State/ZIP Code Phon e Number [facility] CENTRAL LAB [address] [address] from Last [address] (Home) [facility] [phone] [place], [place] (Work) [address] Yessica Herrera Personal/Family Self 1970 [address] (Home) [place] [address] Yessica Herrera Personal/Family Self 1970 [address] (Home) [place] [address] Yessica Herrera Conversion No Self 1970 [address] Payment Plan (Home) [place] [address] Advance Directives Latest Code Status on File Code Status Date Activated Date Inactivated Comments Full Code 07/31/2015 3:00 AM 07/30/2015 6:00 PM Full Code 07/31/2015 3:00 AM 08/08/2015 4:50 AM Care Teams Alum Operator Relationship Specialty Start Date End Date Taylor Downing MD PCP - General Family Practice 02/01/19 [address] [place] [address]
--- OUTSIDE RECORDS SUMMARY | 2022-03-29 10:07 | XMS_ITS | Encounter Summary ---
:1970 Author Organization [facility] Address [address] [place] [address] Care Team Providers Name Role Phone Taylor Downing MD Primary Care Provider Encounter Details Date Type Department Care Team Description 02/05/2022 Lab Visit [place] Zainab ory H/O gastric bypass; [address] [facility] Screening for thyroid disord er; [place], [place] [address] High risk medication use; [phone] Screening for d iabetes mellitus; Screening rhett sterol level Social History Tobacco Use Types Packs/Day Years Used Date Smoking Tobacco: Former Cigarettes 1 06/1998 - 02/04/2009 Smokeless Tobacco: Never Alcohol Use Standard Drinks/Week Comments No 0 (1 standard drink = 0.6 oz pure alcoho l) Sex Assigned at Date Recorded 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 VITAMIN D Routine 02/05/2022 10:59 AM H/O gastric bypass Re sults for this 25-HYDROXY, TOTAL CDT procedure are in the results section. COMP METABOLIC Routine 02/05/2022 10:59 AM High risk medicatio n Results for this PANEL CDT use procedure are i n the results section. TSH, SENSITIVE Routine 02/05/2022 10:59 AM Screening for Resul ts for this CDT thyroid disorder procedure a re in the results section. COMPLETE BLOOD Routine 02/05/2022 10:59 AM H/O gastric bypass Results for this COUNT-NO DIFF CDT procedure are in the results section. FERRITIN Routine 02/05/2022 10:59 AM H/O gastric bypass Re sults for this CDT procedure are i n the results section. HGB A1C Routine 02/05/2022 10:59 AM Screening for Results for this CDT diabetes mellitus procedure are in the results section. VITAMIN B12 ONLY Routine 02/05/2022 10:59 AM H/O gastric bypas s Results for this CDT procedure are i n the results section. IRON PROFILE Routine 02/05/2022 10:59 AM H/O gastric bypass Re sults for this (IRON,TIBC,%SAT.(CA CDT procedur e are in LC)) the results section. documented in this encounter Results (ABNORMAL) Lipid Panel and Direct LDL(If Needed) (02/05/2022 10:59 AM CDT) [facility] Method Time Signature Cholesterol 240 (H) 0 - 199 02/05/2022 [facility] mg/dL 3:53 PM CDT CENTRAL LAB Triglyceride 200 (H) <=149 02/05/2022 [facility] mg/dL 3:53 PM CDT CENTRAL LAB HDL Cholesterol 52 >=40 02/05/2022 [facility] mg/dL 3:53 PM CDT CENTRAL LAB LDL, Calculated 148 (H) <130 02/05/2022 [facility] mg/dL 3:53 PM CDT CENTRAL LAB Non HDL Chol, 188 (H) <=159 02/05/2022 [facility] Calculated mg/dL 3:53 PM CDT CENTRAL LAB Cholesterol/HDL 4.6 02/05/2022 [facility] Ratio 3:53 PM CDT CENTRAL LAB Hours Fasting N/A 02/05/2022 [facility] 3:53 PM CDT Specimen Anatomical Collection Method / Collection Time Recei carl Time (Source) Location / Volume Laterality Blood Venipuncture / 02/05/2022 10:59 2 Unknown AM CDT 10:59 AM CDT Taylor Downing MD LAB_1 Performing Organization Address [facility] Phon e Number [facility] CENTRAL LAB [address] [address] [facility] [address] [place] [address], [facility] (ABNORMAL) Hgb A1C (02/05/2022 10:59 AM CDT) [employer] Method Time Signature Hemoglobin A1C 5.9 (H) <=5.6 % [facility] C[facility]AL LAB Specimen Anatomical Collection Method / Collection Time Recei carl Time (Source) Location / Volume Laterality Blood Venipuncture / 02/05/2022 10:59 2 Unknown AM CDT 10:59 AM CDT Narrative [facility] CENTRAL LAB - 02/05/2022 4:47 PM CDT For patients not previously diagnosed with diabetes: 5.7-6.4%: Increased risk for diabetes 6.5% and greater: Diagnostic for diabete s For patients diagnosed with diabetes: <8.0%: Goal of therapy for ages 18-75 Clinicians may recommend a higher or low er goal for specific individuals. Taylor Downing MD LAB_1 Performing Organization Address [facility] Phon e Number [facility] LAB [address] [address] Comp Metabolic Panel (02/05/2022 10:59 AM CDT) [employer] Method Time Signature Sodium 142 136 - 145 02/05/2022 [facility] mmol/L 3:53 PM CDT CENTRAL LAB Potassium 3.8 3.5 - 5.1 02/[facility]/2022 [facility]/L 3:53 PM CDT CENTRAL LAB Chloride 107 98 - 109 02/05/2022 [facility] mmol/L 3:53 PM CDT CENTRAL LAB CO2 24 20 - 29 02/05/2022 [facility] mmol/L 3:53 PM CDT CENTRAL LAB Anion Gap 11 7 - 16 02/05/2022 [facility] mmol/L 3:53 PM CDT CENTRAL LAB Calcium 9.3 8.4 - 02/05/2022 [facility] 10.4 3:53 PM CDT CENTRAL LAB mg/dL BUN 9 7 - 26 02/05/2022 [facility] mg/dL 3:53 PM CDT CENTRAL LAB Creatinine 0.72 0.55 - 02/05/2022 [facility] 1.02 3:53 PM CDT CENTRAL LAB mg/dL GFR, Estimated >60 >60 02/05/2022 [facility] mL/min/1. 3:53 PM CDT CENTRAL LAB 73m2 Alkaline 127 40 - 150 02/05/2022 [facility] Phosphatase U/L 3:53 PM CDT CENTRAL LAB AST (SGOT) 12 10 - 40 02/05/2022 [facility] U/L 3:53 PM CDT CENTRAL LAB ALT (SGPT) 27 0 - 55 02/05/2022 [facility] U/L 3:53 PM CDT CENTRAL LAB Bilirubin, 0.2 0.2 - 1.2 02/05/2022 [facility] Total mg/dL 3:53 PM CDT CENTRAL LAB Protein, Total 6.9 6.4 - 8.3 02/05/2022 [facility] g/dL 3:53 PM CDT CENTRAL LAB Albumin 3.6 3.5 - 5.0 02/05/2022 [facility] g/dL 3:53 PM CDT CENTRAL LAB Glucose 85 70 - 100 02/05/2022 [facility] mg/dL 3:53 PM CDT CENTRAL [...] Taylor Downing MD LAB_1 Performing Organization Address City/[facility]/ZIP Code Phon e Number [facility] CENTRAL LAB [address] [address] [facility] [address] [place] [address], [facility] TSH (02/05/2022 10:59 AM CDT) [facility] Method Time Signature TSH, Sensitive 1.54 0.30 - 02/05/2022 [facility] 4.50 3:59 PM CDT CENTRAL LAB uIU/mL Specimen Anatomical Collection Method / Collection Time Recei carl Time (Source) Location / Volume Laterality Blood Venipuncture / 02/05/2022 10:59 2 Unknown AM CDT 10:59 AM CDT Taylor Downing MD LAB_1 Performing Organization Address [facility]/ZIP Code Phon e Number [facility] CENTRAL LAB [address] [address] Vitamin D 25-Hydroxy, Total (02/05/2022 10:59 AM CDT) [facility] Method Time Signature Vitamin D, 33 30 - 80 02/05/2022 [facility] 25-OH, Total ng/mL 3:59 PM CDT CENTRAL LAB Specimen Anatomical Collection Method / Collection Time Recei carl Time (Source) Location / Volume Laterality Blood Venipuncture / 02/05/2022 10:59 2 Unknown AM CDT 10:59 AM CDT Taylor Downing MD LAB_1 Performing Organization Address City/[facility]/ZIP Code Phon e Number [facility] CENTRAL LAB [address] [address] Vitamin B12 Only (02/05/2022 10:59 AM CDT) athologist Signature Vitamin B12 680 213 - 816 02/05/2022 [facility] pg/mL 3:59 PM CDT CENTRAL LAB Specimen Anatomical Collection Method / Collection Time Recei carl Time (Source) Location / Volume Laterality Blood Venipuncture / 02/05/2022 10:59 2 Unknown AM CDT 10:59 AM CDT Taylor Downing MD LAB_1 Performing Organization Address [facility] Phon e Number [facility] CENTRAL LAB [address] [address] Ferritin (02/05/2022 10:59 AM CDT) P athologist Signature Ferritin 24 02/05/2022 [facility] ng/mL 3:59 PM CDT CENTRAL LAB Specimen Anatomical Collection Method / Collection Time Recei carl Time (Source) Location / Volume Laterality Blood Venipuncture / 02/05/2022 10:59 2 Unknown AM CDT 10:59 AM CDT Taylor Downing MD LAB_1 Performing Organization Address [facility] Phon e Number [facility] CENTRAL LAB [address] [address] (ABNORMAL) Iron Profile (Iron,TIBC,%Sat.(Calc)) (02/05/2022 10:59 AM CDT) Component Value Ref Test Analysis [facility] gist Range Method Time Signature Iron 40 (L) 50 - 170 02/05/2022 [facility] mcg/dL 3:53 PM CDT CENTRAL LAB Transferrin 282 180 - 02/05/2022 [facility] 382 3:53 PM CDT CENTRAL LAB mg/dL TIBC, Calculated 353 240 - 02/05/2022 [facility] 450 3:53 PM CDT CENTRAL LAB mcg/dL % Saturation, 11 10 - 50 02/05/2022 [facility] Calculated % 3:53 PM CDT CENTRAL LAB TIBC Low iron, 02/05/2022 [facility] Interpretation normal 3:53 PM CDT CENTRAL LAB TIBC, possible iron deficiency. Specimen Anatomical Collection Method / Collection Time Recei carl Time (Source) Location / Volume Laterality Blood Venipuncture / 02/05/2022 10:59 2 Unknown AM CDT 10:59 AM CDT Taylor Downing MD LAB_1 Performing Organization Address [facility] Phon e Number [facility] CENTRAL LAB [address] [address] (ABNORMAL) Complete Blood Count-No Diff (02/05/2022 10:59 AM CDT) P athologist Signature WBC 6.6 3.5 - 10.5 02/05/2022 [facility] x10(9)/L 11:25 AM CDT LAB RBC 4.66 3.90 - 5.03 02/05/2022 [place] x10(12)/L 11:25 AM CDT LAB Hemoglobin 12.9 12.0 - 15.5 02/05/2022 [facility] g/dL 11:25 AM CDT LAB HCT 41.2 34.9 - 44.5 02/05/2022 [facility] % 11:25 AM CDT LAB MCV 88.4 80.0 - 02/05/2022 [place] 100.0 fL 11:25 AM CDT LAB MCH 27.7 27.6 - 33.3 02/05/2022 [facility] pg 11:25 AM CDT LAB MCHC 31.3 (L) 31.5 - 35.2 02/05/2022 [facility] g/dL 11:25 AM CDT LAB RDW 17.4 (H) 11.9 - 15.5 02/05/2022 [place] % 11:25 AM CDT LAB Platelets 321 150 - 450 02/05/2022 [place] x10(9)/L 11:25 AM CDT LAB Specimen Anatomical Collection Method / Collection Time Recei carl Time (Source) Location / Volume Laterality Blood Venipuncture / 02/05/2022 10:59 2 Unknown AM CDT 10:59 AM CDT Taylor Downing MD LAB_1 Performing Organization Address City/State/ZIP Code Phon e Number [facility] [address] [place] [address] documented in this encounter Visit Diagnoses Diagnosis H/O gastric bypass Bariatric surgery status Screening for thyroid disorder High risk medication use Encounter for long-term (current) use of other medications Screening for diabetes mellitus Screening cholesterol level Screening for lipoid disorders documented in this encounter Care Teams Engraving Supervisor Relationship Specialty Start Date End Date Taylor Downing MD PCP - General Family Practice 02/01/19 [address] [place] [address] documented as of this encounter
--- OUTSIDE RECORDS SUMMARY | 2022-03-29 10:07 | XMS_ITS | Encounter Summary ---
:1970 Author Organization [employer] Address [address] [place] [address] Care Team Providers Name Role Phone Taylor Downing MD Primary Care Provider Reason for Visit Reason Onset Date Comments Refill 03/25/2020 traMADol (ULTRAM) 50 MG tablet Encounter Details Date Type Department Care Team Description 03/25/2020 Refill [facility] Taylor Downing MD Refill (traMADol Practice [address] (ULTRAM) 50 MG tablet) [address] [place], [place] [address] [phone] (Wo rk) Social History Tobacco Use Types Packs/Day Years Used Date Smoking Tobacco: Former Cigarettes 1 06/1998 - 02/04/2009 Smokeless Tobacco: Never Alcohol Use Standard Drinks/Week Comments No 0 (1 standard drink = 0.6 oz pure alcoho l) Sex Assigned at Date Recorded 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 She reports that she is taking one in the morning and one at bedtime and is requesting a refill to get her through until she is seen on 04/[address] Downing. She wants this sent to covering provider since PCP is not in clinic today. Med pended. Oliva Pierce LPN 03/27/2020, 9:47 AM Savana Spivey - 03/27/2020 9:12 AM CDT Pt scheduled VV for next week Tuesday. Pt is wondering if she could get enough medication to last her till appt. No medication left. Savana Spivey 03/27/2020, 9:16 AM Taylor Downing MD - 03/26/2020 12:56 PM CDT Please have patient schedule STV or video visit to discuss refill, thanks. Taylor Downing MD 03/26/2020, 12:56 PM Interface, Out [employer] Prov Query - 03/25/2020 10:40 AM CDT traMADol (ULTRAM) 50 MG tablet None Exists (controlled substance) -> Medication cannot be delegated. Last qualifying visit: 03/12/2020 (with TAYLOR DOWNING) Next scheduled visit: None Last ordered by TAYLOR DOWNING: 03/12/2020 (13 days ago) QTY: 15, Refills: 0, Sig: take 1 tablet by mouth at bedtime as needed for pain. (unchanged) Powered by [facility], Reference: [id number], 03/25/2020 10:40:25 AM CDT, Pool: BRITO RN ([id number]) Interface, Out [facility] [employer] Query - 03/25/2020 10:40 AM CDT The following is the most recent Careplan note pulled in by [facility]: 08/11/2016 Patient currently using hydrocodone 5 mg tablets, 75 per month, for her fibromyalgia. It is my hope that she will be returning to the pain specialist in [place] this summer. Explained to her that I would be willing to use hydrocodone until that time. documented in this encounter Plan of Treatment Upcoming Encounters Date Type Specialty Care Team Description 05/04/2022 Appointment Gastroenterology Inés Levy MD [address] [place] [address] (Wo rk) documented as of this encounter Visit Diagnoses Diagnosis Restless legs syndrome (RLS) Muscle spasm Spasm of muscle documented in this encounter Care Teams Forge Utility Worker Relationship Specialty Start Date End Date Taylor Downing MD PCP - General Family Practice 02/01/19 [address] [place] [address] documented as of this encounter
--- OUTSIDE RECORDS SUMMARY | 2022-03-29 10:07 | XMS_ITS | Encounter Summary ---
:1970 Author Organization [facility] Address [address] [place] [address] Care Team Providers Name Role Phone Taylor Downing MD Primary Care Provider Reason for Visit Reason Onset Date Comments Refill 03/25/2021 Encounter Details Date Type Department Care Team Description 03/25/2021 Refill [facility] Taylor Downing MD Refill [address] 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
--- OUTSIDE RECORDS SUMMARY | 2022-03-29 10:07 | XMS_ITS | Encounter Summary ---
:1970 Author Organization [facility] Address [address] [place] [address] Care Team Providers Name Role Phone Taylor Downing MD Primary Care Provider Reason for Visit Reason Comments BACK PAIN Encounter Details Date Type Department Care Team Description 06/19/2021 Nurse Triage 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 Directed to [facility] urgent care. Pt will go this weekend, unable to go today. Call sooner prn Reason for Disposition ??? Patient wants to be seen Answer Assessment - Initial Assessment Questions 1. ONSET: When did the pain begin? 3 weeks 2. LOCATION: Where does it hurt? (upper, mid or lower back) Low back 3. SEVERITY: How bad is the pain? (e.g., Scale 1-10; mild, moderate, or severe) - MILD (1-3): doesn't interfere with normal activities - MODERATE (4-7): interferes with normal activities or awakens from sleep - SEVERE (8-10): excruciating pain, unable to do any normal activities #7-8 4. PATTERN: Is the pain constant? (e.g., yes, no; constant, intermittent) constant 5. RADIATION: Does the pain shoot into your legs or elsewhere? buttocks 6. CAUSE: What do you think is causing the back pain? May have over done a few weeks ago. lifting 7. BACK OVERUSE: Any recent lifting of heavy objects, strenuous work or exercise? As above 8. MEDICATIONS: What have you taken so far for the pain? (e.g., nothing, acetaminophen, NSAIDS) Tylenol, prednisone 9. NEUROLOGIC SYMPTOMS: Do you have any weakness, numbness, or problems with bowel/bladder control? no 10. OTHER SYMPTOMS: Do you have any other symptoms? (e.g., fever, abdominal pain, burning with urination, blood in urine) none 11. : Is there any chance you are ? (e.g., yes, no; LMP) Protocols used: BACK [id number] ONAL COVERAGE SPECIALIST Andree Herrera - 06/19/2021 9:52 AM CST Symptoms Describe your symptoms (if pain, include location): Low back pain numbness and tingling with sharp pain When did they start? About 3 weeks ago What have you tried at home (please specify medication name, if any)? Heat made it worse, ice did not help at all Have you recently been seen for this? No [Building Illuminating Engineer/Appt Center: Refer to Symptoms Indicating Need for Triage list to determine urgency level and next steps - if Urgent or Routine, schedule appointment within the appropriate timeframe.If patient wants to speak to an RN, please warm transfer/route to RN for further triage.] [Building Illuminating Engineer/Appt Center: Add/verify patient preferred pharmacy is highlighted in blue in the Pharmacy Selection under Meds & Orders] [Building Illuminating Engineer/Appt Center: If this call is after 3 p.m., communicate to patient: If we are not able to get back to you by the end of the day and your symptoms worsen, please contact the Careline [phone] OR at .] Is it okay to leave a detailed message on your voicemail? Yes I can transfer you to talk to a Triage Nurse or I am happy to get you scheduled with your primary wound care physician or one of their partners for a Video/Phone Visit to take care of your concern. Which would you prefer? Triage Nurse Andree Herrera Please warm transfer/route to Care Team Support RN / Primary RN / Triage Pool for further triage -OR- follow your regular process ONAL COVERAGE SPECIALIST documented in this encounter Plan of Treatment Upcoming Encounters Date Type Specialty Care Team Description 05/04/2022 Appointment Gastroenterology Inés Levy MD [address] [facility] [address] [address] (Wo rk) documented as of this encounter Visit Diagnoses Not on filedocumented in this encounter Care Teams Ladies' Locker Room Attendant Relationship Specialty Start Date End Date Taylor Downing MD PCP - General Family Practice 02/01/19 [address] [place] [address] documented as of this encounter
--- OUTSIDE RECORDS SUMMARY | 2022-03-29 10:07 | XMS_ITS | Encounter Summary ---
:1970 Author Organization [facility] Address [address] [place] [address] Care Team Providers Name Role Phone Taylor Downing MD Primary Care Provider Encounter Details Date Type Department Care Team Description 03/25/2020 Lab Visit [facility] Restless legs syndrome (RLS) ; [address] [facility] Status post gastric bypass f or obesity [place], [place] [address] Social History Tobacco Use Types Packs/Day Years Used Date Smoking Tobacco: Former Cigarettes 1 06/1998 - 02/04/2009 Smokeless Tobacco: Never Alcohol Use Standard Drinks/Week Comments No 0 (1 standard drink = 0.6 oz pure alcoho l) Sex Assigned at Date Recorded 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 Has she been taking her iron supplement over the last several months? Taylor Downing MD 03/26/2020, 5:21 PM Taylor Downing MD - 03/25/2020 10:50 AM CDT STV on 04/02. Taylor Downing MD 03/31/2020, 9:25 AM documented in this encounter Plan of Treatment Upcoming Encounters Date Type Specialty Care Team Description 05/04/2022 Appointment Gastroenterology Inés Levy MD [address] [place] [address] (Wo rk) documented as of this encounter Procedures Procedure Name Priority Date/Time Associated Comments Diagnosis CBC AND DIFFERENTIAL Routine 03/25/2020 10:49 Restless legs Re sults for this PANEL AM CDT syndrome (RLS) procedure are in the results section. COMPLETE BLOOD Routine 03/25/2020 10:49 Restless legs Results for this COUNT-W/DIFF AM CDT syndrome (RLS) procedure are in the results section. FERRITIN Routine 03/25/2020 10:49 Restless legs Results fo r this AM CDT syndrome (RLS) procedure are in the results section. VITAMIN B12 ONLY Routine 03/25/2020 10:49 Status post gastric Results for this AM CDT bypass for obesity procedure are in the results section. IRON PROFILE Routine 03/25/2020 10:49 Restless legs Results fo r this (IRON,TIBC,%SAT.(CALC AM CDT syndrome (RLS) proc edure are in )) the results section. documented in this encounter Results Vitamin B12 Only (03/25/2020 10:49 AM CDT) P athologist Signature Vitamin B12 306 213 - 816 03/28/2020 [facility] pg/mL 12:13 PM CDT [facility] Specimen Anatomical Collection Method / Collection Time Recei cral Time (Source) Location / Volume Laterality Blood Venipuncture / 03/25/2020 10:49 0 Unknown AM CDT 10:49 AM CDT Taylor Downing MD LAB_1 Performing Organization Address City/State/ZIP Code Phon e Number [facility] [address] [place] [address] (ABNORMAL) Complete Blood Count-W/Diff (03/25/2020 10:49 AM CDT) Analysis Performed At Patho logist Time Signature WBC 6.7 3.5 - 10.5 03/25/2020 [facility] x10(9)/L 10:51 AM CDT LAB RBC 5.11 (H) 3.90 - 03/25/2020 [facility] 5.03 10:51 AM CDT LAB x10(12)/L Hemoglobin 13.9 12.0 - 03/25/2020 [facility] 15.5 g/dL 10:51 AM CDT LAB HCT 43.5 34.9 - 03/25/2020 [facility] 44.5 % 10:51 AM CDT LAB MCV 85.1 80.0 - 03/25/2020 [facility] 100.0 fL 10:51 AM CDT LAB MCH 27.2 (L) 27.6 - 03/25/2020 [place] 33.3 pg 10:51 AM CDT LAB MCHC 32.0 31.5 - 03/25/2020 [place] 35.2 g/dL 10:51 AM CDT LAB RDW 14.7 11.9 - 03/25/2020 [facility] 15.5 % 10:51 AM CDT LAB Platelets 345 150 - 450 03/25/2020 [place] x10(9)/L 10:51 AM CDT LAB Neutrophil 3.5 1.7 - 7.0 03/25/2020 [place] Absolute 10(9)/L 10:51 AM CDT LAB Lymphocyte 2.3 1.0 - 4.8 03/25/2020 [place] Absolute 10(9)/L 10:51 AM CDT LAB Monocytes 0.4 0.2 - 0.9 03/25/2020 [place] Absolute 10(9)/L 10:51 AM CDT LAB Eosinophil 0.4 0.0 - 0.5 03/25/2020 [place] Absolute 10(9)/L 10:51 AM CDT LAB Basophil 0.1 0.0 - 0.3 03/25/2020 [place] Absolute 10(9)/L 10:51 AM CDT LAB Immature Gran % 0.0 0.0 - 0.5 03/25/2020 [facility] % 10:51 AM CDT LAB Specimen Anatomical Collection Method / Collection Time Recei carl Time (Source) Location / Volume Laterality Blood Venipuncture / 03/25/2020 10:49 0 Unknown AM CDT 10:49 AM CDT Taylor Downing MD LAB_1 Performing Organization Address City/[facility]/ZIP Code Phon e Number [facility] [address] [place] [address] Ferritin (03/25/2020 10:49 AM CDT) P athologist Signature Ferritin 9 9 - 204 03/25/2020 [facility] ng/mL 3:14 PM CDT CENTRAL [facility] Specimen Anatomical Collection Method / Collection Time Recei carl Time (Source) Location / Volume Laterality Blood Venipuncture / 03/25/2020 10:49 0 Unknown AM CDT 10:49 AM CDT Taylor Downing MD LAB_1 Performing Organization Address [facility] Code Phon e Number [facility] [address] [address] (ABNORMAL) Iron Profile (Iron,TIBC,%Sat.(Calc)) (03/25/2020 10:49 AM CDT) Component Value Ref Test Analysis Performed At Patholo gist Range Method Time Signature Iron 39 (L) 50 - 170 03/25/2020 [facility] mcg/dL 2:56 PM CDT CEN[facility]AL [facility] Transferrin 371 180 - 03/25/2020 [facility] 382 2:56 PM CDT CEN[facility]AL LAB mg/dL TIBC, Calculated 464 (H) 240 - 03/25/2020 [facility] 450 2:56 PM CDT CENTRAL LAB mcg/dL % Saturation, 8 (L) 10 - 50 03/25/2020 [facility] Calculated % 2:56 PM CDT CENTRAL LAB TIBC Pattern of 03/25/2020 [facility] Interpretation iron 2:56 PM CDT C[facility]AL [facility] deficiency . Specimen Anatomical Collection Method / Collection Time Recei carl Time (Source) Location / Volume Laterality Blood Venipuncture / 03/25/2020 10:49 0 Unknown AM CDT 10:49 AM CDT Taylor Downing MD LAB_1 Performing Organization Address City/[facility]/ZIP Code Phon e Number [facility] [address] [address] documented in this encounter Visit Diagnoses Diagnosis Restless legs syndrome (RLS) Status post gastric bypass for obesity Bariatric surgery status documented in this encounter Care Teams Singer Back Tender Relationship Specialty Start Date End Date Taylor Downing MD PCP - General Family Practice 02/01/19 [address] [place] [address] documented as of this encounter
--- OUTSIDE RECORDS SUMMARY | 2022-03-29 10:07 | XMS_ITS | Encounter Summary ---
:1970 Author Organization [facility] Address [address] [place] [address] Care Team Providers Name Role Phone Taylor Downing MD Primary Care Provider Reason for Visit Reason Comments Prior Authorization For Medication Encounter Details Date Type Department Care Team Description 03/13/2020 Telephone [facility] Taylor Downing MD Prior Authorization For Practice [address] [facility] Medication [address] [place], [place] [address] [phone] Social History Tobacco Use Types Packs/Day Years Used Date Smoking Tobacco: Former Cigarettes 06/1998 - 02/04/2009 Smokeless Tobacco: Never Alcohol Use Standard Drinks/Week Comments No 0 (1 standard drink = 0.6 oz pure alcoho l) Sex Assigned at Date Recorded 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 Roopa Mortensen CMA 03/20/2020, 2:33 PM Rosemarie Castillo LPN - 03/19/2020 1:40 PM CDT [id number] [id number]'s phone number. Rosemarie SofíaPhyllis Castillo LPN Roopa Mortensen CMA - 03/18/2020 6:46 PM CDT Left patient message to call back. Roopa Mortensen CMA 03/18/2020, 6:46 PM Roopa Mortensen CMA - 03/14/2020 6:11 PM CDT Left patient message to call back. Roopa Mortensen CMA 03/14/2020, 6:11 PM Taylor Downing MD - 03/14/2020 8:22 AM CDT Dry katty is not covered under insurance. There is an OTC option called Certain Melecio I would recommend-should be available at most drug stores. Taylor Downing MD 03/14/2020, 8:23 AM Evelyn Lara [facility] - 03/13/2020 4:42 PM CDT PA was denied for aluminum chloride (DRYSOL) 20 % external solution Reasoning: The Medicare rule in the Prescription Drug Manual (Chapter 6, Section 20.1) says drugs used for the treatment and maintenance of cosmetic purposes are excluded from Medicare Part D coverage. [employer] follows Medicare rules. The information we have about your case says your drug is being used for cosmetic purposes and per Medicare rules is not covered. Payer: [employer] Electronic appeal: Supported Appeal deadline: March 20, 2020 (In 1 week) View History Please send alternative medication if appropriate or appeal the denial in prior auth folder Evelyn Lara CMA 03/13/2020, 4:43 PM Evelyn Lara CMA - 03/13/2020 4:42 PM CDT ----- Message from KAILASH Alvarez sent at 03/13/2020 4:39 PM CDT ----- Regarding: FW: Rx Prior Auth Response ----- Message ----- From: Interface, In Pharmacy [facility] Sent: 03/13/2020 4:38 PM CDT To: [facility] Subject: Rx Prior Auth Response Electronic Prior Authorization message received. documented in this encounter Plan of Treatment Upcoming Encounters Date Type Specialty Care Team Description 05/04/2022 Appointment Gastroenterology Inés Levy MD [address] [facility] N [address] (Wo rk) documented as of this encounter Visit Diagnoses Not on filedocumented in this encounter Care Teams Hospital Nursing Assistant Relationship Specialty Start Date End Date Taylor Downing MD PCP - General Family Practice 02/01/19 [address] [place] [address] documented as of this encounter
--- OUTSIDE RECORDS SUMMARY | 2022-03-29 10:07 | XMS_ITS | Encounter Summary ---
:1970 Author Organization [facility] Address [address] [place] [address] Care Team Providers Name Role Phone Taylor Downing MD Primary Care Provider Encounter Details Date Type Department Care Team Description 07/05/2019 Notes/Orders [facility] Taylor Downing MD Low iron stores Practice [address] [facility] (Primary Dx) [address] [place] [address] [phone] Social History Tobacco Use Types Packs/Day Years Used Date Smoking Tobacco: Former Cigarettes Quit : 02/04/2009 Smokeless Tobacco: Never Alcohol Use Standard Drinks/Week Comments No 0 (1 standard drink = 0.6 oz pure alcoho l) Sex Assigned at Date Recorded 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
--- OUTSIDE RECORDS SUMMARY | 2022-03-29 10:07 | XMS_ITS | Encounter Summary ---
:1970 Author Organization [facility] Address [address] [place] [address] Care Team Providers Name Role Phone Taylor Downing MD Primary Care Provider Reason for Visit Reason Comments Refill traMADol (ULTRAM) 50 MG tabl et [Pharmacy Med Name: TRAMADOL 50MG TABLETS] Encounter Details Date Type Department Care Team Description 03/27/2020 Refill [facility] Taylor Downing MD Refill (traMADol Practice [address] (ULTRAM) 50 MG tablet [address] [place], [place] [Pharmacy Med Name: [place], [place] [address] TRAMADOL 50MG TABLETS]) [phone] (Wo rk) Social History Tobacco Use Types Packs/Day Years Used Date Smoking Tobacco: Former Cigarettes 1 06/1998 - 02/04/2009 Smokeless Tobacco: Never Alcohol Use Standard Drinks/Week Comments No 0 (1 standard drink = 0.6 oz pure alcoho l) Sex Assigned at Date Recorded 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 It is my hope that she will be returning to the pain specialist in [place] this summer. Explained to her that I would be willing to use hydrocodone until that time. Interface, Out [employer] Prov Query - 03/27/2020 11:41 AM CDT traMADol (ULTRAM) 50 MG tablet [Pharmacy Med Name: TRAMADOL 50MG TABLETS] None Exists (controlled substance) -> Medication cannot be delegated. Last qualifying visit: 03/12/2020 (with TAYLOR DOWNING) Next scheduled visit: 04/02/2020 (with TAYLOR DOWNING) Last ordered by TAYLOR DOWNING: 03/12/2020 (15 days ago) QTY: 15, Refills: 0, Sig: take 1 tablet by mouth at bedtime as needed for pain. (unchanged) Powered by [employer], Reference: [id number], 03/27/2020 11:41:01 AM CDT, Pool: BRITO RN ([id number]) documented in this encounter Plan of Treatment Upcoming Encounters Date Type Specialty Care Team Description 05/04/2022 Appointment Gastroenterology Inés Levy MD [address] [place] [address] (Wo rk) documented as of this encounter Visit Diagnoses Diagnosis Restless legs syndrome (RLS) Muscle spasm Spasm of muscle documented in this encounter Care Teams Processing Rep Relationship Specialty Start Date End Date Taylor Downing MD PCP - General Family Practice 02/01/19 [address] [place] [address] documented as of this encounter
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
--- OUTSIDE RECORDS SUMMARY | 2022-03-29 10:07 | XMS_ITS | Encounter Summary ---
:1970 Author Organization [facility] Address [address] [place] [address] Care Team Providers Name Role Phone Taylor Downing MD Primary Care Provider Reason for Visit Reason Comments SKIN PROBLEM inner thighs cry patches Hair/Scalp Problem Consult/Transfer Care (Routine) - Closed Specialty Diagnoses / Procedures Referred By Contact Refer red To Contact Diagnoses Seborrheic dermatitis of scalp Hair loss Hilario Dupree, ROGELIOC [address] [place], [place] [address] Referral ID Status Reason Start Date Expiration Date Visits Requ ested Visits Authorized [id number] Closed 04/30/2019 07/29/2020 1 1 Encounter Details Date Type Department Care Team Description 05/11/2019 Initial Consult Inés Pierce, Androgene tic alopecia (Primary Dx); Dermatology MD Seborrheic keratoses; [address] Encounter for long-term (cur rent) [place] [address] [facility] [phone] [place], [place] [id number] Social History Tobacco Use Types Packs/Day Years Used Date Smoking Tobacco: Former Cigarettes Quit : 02/04/2009 Smokeless Tobacco: Never Alcohol Use Standard Drinks/Week Comments No 0 (1 standard drink = 0.6 oz pure alcoho l) Sex Assigned at Date Recorded 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 SKIN PROBLEM inner thighs cry patches ??? Hair/Scalp Problem SUBJECTIVE: HPI: Yessica Herrera is a 48 y.o. female presenting for evaluation of hair loss on her scalp for the past six weeks. She denies it following up more than normal, but she just notices is thinner than it used to be. She is using minoxidil solution for the past three weeks. She also has some rough bumps on her upper thighs that she would like me to look at. ROS: Feeling well overall. Skin as above. Medications and allergies were reviewed and updated in the electronic health record. Past medical history was reviewed and was significant for no history of renal disease or family history of breast cancer PHYSICAL EXAM: No acute distress. Alert and oriented. Well-nourished. Visible skin exam was conducted to include the head/face, ears, eyelids/conjunctiva, lips, neck, right and left hands including fingernails and was normal with the following exceptions: nonscarring alopecia on the vertex and bilateral frontotemporal scalp Neg hair pull Stuck-on brown papule(s) on upper thighs ASSESSMENT AND PLAN: Yessica was seen today for skin problem and hair/scalp problem. Diagnoses and all orders for this visit: Androgenetic alopecia - spironolactone (ALDACTONE) 100 MG tablet; Take 1 Tablet by mouth daily. -5% minoxidil to scalp once daily Seborrheic keratoses Reassurance given Encounter for long-term (current) use of medications - Basic Metabolic Panel (BMP); Future -2 weeks Follow-up 6 mo Inés Mcallister MD NESS SUPPORT ASSOCIATE documented in this encounter Plan of Treatment Upcoming Encounters Date Type Specialty Care Team Description 05/04/2022 Appointment Gastroenterology Inés Levy MD [address] [place] [facility] N [address] (Wo rk) documented as of this encounter Visit Diagnoses Diagnosis Androgenetic alopecia - Primary Other alopecia Seborrheic keratoses Encounter for long-term (current) use of medications Encounter for long-term (current) use of other medications documented in this encounter Care Teams Dispensary Technician Relationship Specialty Start Date End Date Taylor Downing MD PCP - General Family Practice 02/01/19 [address] [place] [address] documented as of this encounter
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
--- OUTSIDE RECORDS SUMMARY | 2022-03-29 10:07 | XMS_ITS | Encounter Summary ---
:1970 Author Organization [facility] Address [address] [place] [address] Care Team Providers Name Role Phone Taylor Downing MD Primary Care Provider Encounter Details Date Type Department Care Team Description 11/20/2020 Notes/Orders [facility] Taylor Downing MD Screening for colon Medicine [address] [facility] cancer [address] [place], [place] [phone] Social History Tobacco Use Types Packs/Day Years Used Date Smoking Tobacco: Former Cigarettes 06/1998 - 02/04/2009 Smokeless Tobacco: Never Alcohol Use Standard Drinks/Week Comments No 0 (1 standard drink = 0.6 oz pure alcoho l) Sex Assigned at Date Recorded 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
--- OUTSIDE RECORDS SUMMARY | 2022-03-29 10:07 | XMS_ITS | Encounter Summary ---
:1970 Author Organization [email or web address] Address [address] [place] [address] Care Team Providers Name Role Phone Taylor Downing MD Primary Care Provider Encounter Details Date Type Department Care Team Description 07/02/2019 Lab Visit [facility] Restless legs syndrome [address] 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 METHYLMALONIC ACID Routine 07/02/2019 9:48 AM Restless legs Re sults for this QUANT [facility]NAGERS syndrome (RLS) procedure are in the results section. COMPLETE BLOOD Routine 07/02/2019 9:48 AM Restless legs Result s for this COUNT-W/DIFF [facility]ACTICE MANAGERS syndrome (RLS) procedure are in the results section. BASIC METABOLIC PANEL Routine 07/02/2019 9:48 AM Restless legs Results for this PRACTICE MANAGERS syndrome (RLS) procedure are in the results section. MAGNESIUM Routine 07/02/2019 9:48 AM Restless legs Results for this PRACTICE MANAGERS syndrome (RLS) procedure are in the results section. FERRITIN Routine 07/02/2019 9:48 AM Restless legs Results for this PRACTICE MANAGERS syndrome (RLS) procedure are in the results section. TSH, SENSITIVE (WITH Routine 07/02/2019 9:48 AM Restless legs Results for this REFLEX) PRACTICE MANAGERS syndrome (RLS) procedure are in the results section. VITAMIN B12 ONLY Routine 07/02/2019 9:48 AM Restless legs Resu lts for this [facility]ACTICE MANAGERS syndrome (RLS) procedure are in the results section. IRON PROFILE Routine 07/02/2019 9:48 AM Restless legs Results for this (IRON,TIBC,%SAT.(CALC) PRACTICE MANAGERS syndrome (RLS) pro cedure are in ) the results section. documented in this encounter Results (ABNORMAL) Complete Blood Count-W/Diff (07/02/2019 9:48 AM PRACTICE MANAGERS) Analysis Performed At Patho logist Time Signature WBC 7.1 3.5 - 10.5 07/02/2019 [facility] x10(9)/L 10:08 AM [facility] RBC 4.34 3.90 - 07/02/2019 [facility] 5.03 10:08 AM [facility] x10(12)/L Hemoglobin 12.0 12.0 - 07/02/2019 [facility] 15.5 g/dL 10:08 AM [facility] HCT 38.6 34.9 - 07/02/2019 [facility] 44.5 % 10:08 AM [facility] MCV 88.9 80.0 - 07/02/2019 [facility] 100.0 fL 10:08 AM [facility] MCH 27.6 27.6 - 07/02/2019 [facility] 33.3 pg 10:08 AM [facility] MCHC 31.1 (L) 31.5 - 07/02/2019 [facility] 35.2 g/dL 10:08 AM [facility] RDW 14.9 11.9 - 07/02/2019 [facility] 15.5 % 10:08 AM [facility] Platelets 364 150 - 450 07/02/2019 [facility] x10(9)/L 10:08 AM [facility] Neutrophil 5.4 1.7 - 7.0 07/02/2019 [facility] Absolute 10(9)/L 10:08 AM [facility] Lymphocyte 1.3 1.0 - 4.8 07/02/2019 [facility] Absolute 10(9)/L 10:08 AM [facility] Monocytes 0.3 0.2 - 0.9 07/02/2019 [facility] Absolute 10(9)/L 10:08 AM [facility] Eosinophil 0.1 0.0 - 0.5 07/02/2019 [facility] Absolute 10(9)/L 10:08 AM [facility] Basophil 0.0 0.0 - 0.3 07/02/2019 [facility] Absolute 10(9)/L 10:08 AM [facility] Immature Gran % 0.0 0.0 - 0.5 07/02/2019 [facility] % 10:08 AM [facility] Specimen Anatomical Collection Method / Collection Time Recei carl Time (Source) Location / Volume Laterality Blood Venipuncture / 07/02/2019 9:48 07/02/2019 9:48 Unknown AM [facility] AM [facility] Taylor Downing MD LAB_1 Performing Organization Address City/[facility]/ZIP Code Phon e Number [facility] [address] [place] [address] Magnesium (07/02/2019 9:48 AM [facility]) P athologist Signature Magnesium 1.9 1.6 - 2.6 07/02/2019 [facility] mg/dL 3:09 PM [facility] Specimen Anatomical Collection Method / Collection Time Recei carl Time (Source) Location / Volume Laterality Blood Venipuncture / 07/02/2019 9:48 07/02/2019 9:48 Unknown AM [facility] AM [facility] Taylor Downing MD LAB_1 Performing Organization Address City/[facility]/ZIP Code Phon e Number [facility] [address] [address] Basic Metabolic Panel (07/02/2019 9:48 AM [facility]) Patholo gist Method Time Signature Sodium 143 136 - 145 07/02/2019 [facility] mmol/L 3:09 PM [facility] Potassium 3.7 3.5 - 5.1 07/02/2019 [facility] mmol/L 3:09 PM [facility] Chloride 108 98 - 109 07/02/2019 [facility] mmol/L 3:09 PM [facility] CO2 28 20 - 29 07/02/2019 [facility] mmol/L 3:09 PM [facility] Anion Gap 7 7 - 16 07/02/2019 [facility] mmol/L 3:09 PM [facility] Calcium 10.2 8.4 - 07/02/2019 [facility] 10.4 3:09 PM [facility] mg/dL BUN 8 7 - 26 07/02/2019 [facility] mg/dL 3:09 PM [facility] Creatinine 0.79 0.55 - 07/02/2019 [facility] 1.02 3:09 PM [facility] mg/dL GFR, Estimated >60 >60 07/02/2019 [facility] mL/min/1. 3:09 PM [facility] 73m2 GFR, Est If >60 >60 07/02/2019 [facility] mL/min/1. 3:09 PM [facility] Serbian 73m2 Glucose 96 70 - 100 07/02/2019 [facility] mg/dL 3:09 PM [facility] Comment: The given reference range is fo r the fasting state. Non-fasting reference range for glucose is 70 - 180 mg/dL. Hours Fasting 12 07/02/2019 3:09 PM PRACTICE MANAGERS [facility] Specimen Anatomical Collection Method / Collection Time Recei carl Time (Source) Location / Volume Laterality Blood Venipuncture / 07/02/2019 9:48 07/02/2019 9:48 Unknown AM [facility]ACT[facility] AM [facility] Taylor Downing MD LAB_1 Performing Organization Address City/State/ZIP Code Phon e Number [facility] [address] [address] [facility] [address] [place], [place] [phone], [place] TSH, SENSITIVE with FT4, FT3 (if needed) (07/02/2019 9:48 AM [facility]ACT[facility]ERS) athologist Signature TSH, Reflex 3.46 0.30 - 07/02/2019 [facility] 4.50 3:42 PM [facility] uIU/mL Specimen Anatomical Collection Method / Collection Time Recei carl Time (Source) Location / Volume Laterality Blood Venipuncture / 07/02/2019 9:48 07/02/2019 9:48 Unknown AM [facility]ACT[facility]ERS AM [facility] Narrative [facility] - 07/02/2019 3:42 PM [facility] Lab will automatically reflex to Free T4 when TSH results are <0.30 uIU/mL or >4.50 mIU/mL. Taylor Downing MD LAB_1 Performing Organization Address City/[facility]/ZIP Code Phon e Number [facility] [address] [address] Methylmalonic Acid Quant (07/02/2019 9:48 AM [facility]) [facility] gist Method Time Signature Methylmalonic 0.17 0.00 - 07/04/2019 [facility] Acid 0.40 12:41 PM [facility] umol/L Comment: INTERPRETIVE INFORMATION: MMA Serum/Plas ma, ?V itamin B12 Status Test developed and characteristics deter mined by [facility]. See Compliance Statement B : [email or web address] [employer]/CS Performed by [facility], [address] [place] [id number] [email or web address], Zhang Phillips MD, Lab. Director Specimen Anatomical Collection Method / Collection Time Recei carl Time (Source) Location / Volume Laterality Blood Venipuncture / 07/02/2019 9:48 07/02/2019 9:48 Unknown AM [facility]ACT[facility]ERS AM [facility] Taylor Downing MD LAB_1 Performing Organization Address [facility] Phon e Number [facility] [address] [phone] Vitamin B12 Only (07/02/2019 9:48 AM [facility]) athologist Signature Vitamin B12 321 213 816 07/02/2019 [facility] pg/mL 3:39 PM [facility] Specimen Anatomical Collection Method / Collection Time Recei carl Time (Source) Location / Volume Laterality Blood Venipuncture / 07/02/2019 9:48 07/02/2019 9:48 Unknown AM PRACTICE [facility]NAGERS AM [facility] Taylor Downing MD LAB_1 Performing Organization Address [facility] Phon e Number [facility] [address] [address] Ferritin (07/02/2019 9:48 AM [facility]) P athologist Signature Ferritin 39 9 - 204 07/02/2019 [facility] ng/mL 3:42 PM [facility] Specimen Anatomical Collection Method / Collection Time Recei carl Time (Source) Location / Volume Laterality Blood Venipuncture / 07/02/2019 9:48 07/02/2019 9:48 Unknown AM PRACTICE [facility]NAGERS AM [facility] Taylor Downing MD LAB_1 Performing Organization Address [facility] Phon e Number [facility] [address] [address] (ABNORMAL) Iron Profile (Iron,TIBC,%Sat.(Calc)) (07/02/2019 9:48 AM [facility]ACT[facility]) Component Value Ref Test Analysis Performed At [facility] gist Range Method Time Signature Iron 36 (L) 50 - 170 07/02/2019 [facility] mcg/dL 3:09 PM [facility] Transferrin 270 180 - 07/02/2019 [facility] 382 3:09 PM [facility] mg/dL TIBC, Calculated 338 240 - 07/02/2019 [facility] 450 3:09 PM [facility] mcg/dL % Saturation, 11 10 - 50 07/02/2019 [facility] Calculated % 3:09 PM [facility] TIBC Low iron, 07/02/2019 [facility] Interpretation normal 3:09 PM [facility] TIBC, possible iron deficiency. Specimen Anatomical Collection Method / Collection Time Recei carl Time (Source) Location / Volume Laterality Blood Venipuncture / 07/02/2019 9:48 07/02/2019 9:48 Unknown AM PRACTICE [facility]NAGERS AM [facility] Taylor Downing MD LAB_1 Performing Organization Address [facility] Phon e Number [facility] [address] [address] documented in this encounter Visit Diagnoses Diagnosis Restless legs syndrome (RLS) documented in this encounter Care Teams Home Designer Relationship Specialty Start Date End Date Taylor Downing MD PCP - General Family Practice 02/01/19 [address] [place] [address] documented as of this encounter
--- OUTSIDE RECORDS SUMMARY | 2022-03-29 10:07 | XMS_ITS | Encounter Summary ---
:1970 Author Organization [employer] Address [address] [place] [address] Care Team Providers Name Role Phone Taylor Downing MD Primary Care Provider Encounter Details Date Type Department Care Team Description 04/30/2019 Lab Visit [facility] S/P gastric bypass; [address] [facility] Screening cholesterol level; [place], [place] [address] Screening for diabetes diogo brewster; [phone] Screening for H IV (human immunodeficiency virus) Social History Tobacco Use Types Packs/Day Years Used Date Smoking Tobacco: Former Cigarettes Quit : 02/04/2009 Smokeless Tobacco: Never Alcohol Use Standard Drinks/Week Comments No 0 (1 standard drink = 0.6 oz pure alcoho l) Sex Assigned at Date Recorded Female 06/28/2021 5:52 PM INFANT CHILDCARE PROVIDER documented as of this encounter Progress Notes Hilario Dupree PA-C - 04/30/2019 12:30 PM CST Your lab results are in and look pretty good. Your electrolytes, hemoglobin, Iron, vit d and b12, and blood sugars were all within normal limits. Your cholesterol was elevated but overall your 10 year cardiac risk is low at 1.63%. All in all, everything looks really good. If you have any further questions or concerns please let me know. NT CHILDCARE PROVIDER documented in this encounter Plan of Treatment Upcoming Encounters Date Type Specialty Care Team Description 05/04/2022 Appointment Gastroenterology Inés Levy MD [address] [place] [address] (Wo rk) documented as of this encounter Procedures Procedure Name Priority Date/Time Associated Diagnosis Comme nts CBC AND DIFFERENTIAL Routine 04/30/2019 11:24 S/P gastric bypa ss Results for this PANEL AM INFANT CHILDCARE PROVIDER procedure are i n the results section. HIV 1/2 AG/AB 4TH Routine 04/30/2019 11:24 Screening for HIV R esults for this GEN AM INFANT CHILDCARE PROVIDER (human immunodeficiency proc edure are in virus) the results section. LIPID PANEL AND Routine 04/30/2019 11:24 Screening cholesterol Results for this DIRECT LDL(IF AM INFANT CHILDCARE PROVIDER level procedure are in NEEDED) the results section. VITAMIN D Routine 04/30/2019 11:24 S/P gastric bypass Resul ts for this 25-HYDROXY, TOTAL AM INFANT CHILDCARE PROVIDER procedure are in the results section. COMPLETE BLOOD Routine 04/30/2019 11:24 S/P gastric bypass Res ults for this COUNT-W/DIFF AM INFANT CHILDCARE PROVIDER procedure are i n the results section. COMP METABOLIC PANEL Routine 04/30/2019 11:24 S/P gastric bypa ss Results for this AM INFANT CHILDCARE PROVIDER procedure are i n the results section. FERRITIN Routine 04/30/2019 11:24 S/P gastric bypass Resul ts for this AM INFANT CHILDCARE PROVIDER procedure are i n the results section. HGB A1C Routine 04/30/2019 11:24 Screening for diabetes R esults for this AM INFANT CHILDCARE PROVIDER mellitus procedure are i n the results section. VITAMIN B12 ONLY Routine 04/30/2019 11:24 S/P gastric bypass R esults for this AM INFANT CHILDCARE PROVIDER procedure are i n the results section. IRON PROFILE Routine 04/30/2019 11:24 S/P gastric bypass Resul ts for this (IRON,TIBC,%SAT.(LORY AM INFANT CHILDCARE PROVIDER procedu re are in C)) the results section. documented in this encounter Results (ABNORMAL) Complete Blood Count-W/Diff (04/30/2019 11:24 AM INFANT CHILDCARE PROVIDER) Analysis Performed At Patho logist Time Signature WBC 6.8 3.5 - 10.5 04/30/2019 [facility] x10(9)/L 11:53 AM INFANT CHILDCARE PROVIDER LAB RBC 4.70 3.90 - 04/30/2019 [facility] 5.03 11:53 AM INFANT CHILDCARE PROVIDER LAB x10(12)/L Hemoglobin 13.3 12.0 - 04/30/2019 [facility] 15.5 g/dL 11:53 AM INFANT CHILDCARE PROVIDER LAB HCT 42.5 34.9 - 04/30/2019 [facility] 44.5 % 11:53 AM INFANT CHILDCARE PROVIDER LAB MCV 90.4 80.0 - 04/30/2019 [facility] 100.0 fL 11:53 AM INFANT CHILDCARE PROVIDER LAB MCH 28.3 27.6 - 04/30/2019 [facility] 33.3 pg 11:53 AM INFANT CHILDCARE PROVIDER LAB MCHC 31.3 (L) 31.5 - 04/30/2019 [facility] 35.2 g/dL 11:53 AM INFANT CHILDCARE PROVIDER LAB RDW 14.3 11.9 - 04/30/2019 [facility] 15.5 % 11:53 AM INFANT CHILDCARE PROVIDER LAB Platelets 332 150 - 450 04/30/2019 [facility] x10(9)/L 11:53 AM INFANT CHILDCARE PROVIDER LAB Neutrophil 4.7 1.7 - 7.0 04/30/2019 [facility] Absolute 10(9)/L 11:53 AM INFANT CHILDCARE PROVIDER LAB Lymphocyte 1.6 1.0 - 4.8 04/30/2019 [facility] Absolute 10(9)/L 11:53 AM INFANT CHILDCARE PROVIDER LAB Monocytes 0.3 0.2 - 0.9 04/30/2019 [facility] Absolute 10(9)/L 11:53 AM INFANT CHILDCARE PROVIDER LAB Eosinophil 0.2 0.0 - 0.5 04/30/2019 [facility] Absolute 10(9)/L 11:53 AM INFANT CHILDCARE PROVIDER LAB Basophil 0.0 0.0 - 0.3 04/30/2019 [facility] Absolute 10(9)/L 11:53 AM INFANT CHILDCARE PROVIDER LAB Immature Gran % 0.0 0.0 - 0.5 04/30/2019 [facility] % 11:53 AM INFANT CHILDCARE PROVIDER LAB Specimen Anatomical Collection Method / Collection Time Recei carl Time (Source) Location / Volume Laterality Blood Venipuncture / 04/30/2019 11:24 9 Unknown AM INFANT CHILDCARE PROVIDER 11:24 AM INFANT CHILDCARE PROVIDER Hilario Dupree PA-C LAB_1 Performing Organization Address City/State/ZIP Code Phon e Number [facility] [address] [place] [address] HIV 1/2 Ag/Ab 4th Generation (04/30/2019 11:24 AM INFANT CHILDCARE PROVIDER) [facility] Signature HIV 1/2 Negative Negative 04/30/2019 [facility] Antigen/Anti (Non (Non 3:42 PM INFANT CHILDCARE PROVIDER CENTRAL LAB body (4th Reactive) Reactive) generation) Comment: HIV-1 p24 Antigen and HIV-1/HIV -2 Antibody not detected Specimen Anatomical Collection Method / Collection Time Recei carl Time (Source) Location / Volume Laterality Blood Venipuncture / 04/30/2019 11:24 9 Unknown AM INFANT CHILDCARE PROVIDER 11:24 AM INFANT CHILDCARE PROVIDER Hilario Dupree PA-C LAB_1 Performing Organization Address [facility] Phon e Number [facility] [address] [address] Hgb A1C (04/30/2019 11:24 AM INFANT CHILDCARE PROVIDER) [facility] Signature Hemoglobin A1C 5.3 <=5.6 % 04/30/2019 [facility] 3:37 PM INFANT CHILDCARE PROVIDER CENTRAL LAB Specimen Anatomical Collection Method / Collection Time Recei carl Time (Source) Location / Volume Laterality Blood Venipuncture / 04/30/2019 11:24 9 Unknown AM INFANT CHILDCARE PROVIDER 11:24 AM INFANT CHILDCARE PROVIDER Hilario Dupree PA-C LAB_1 Performing Organization Address City/[facility] Phon e Number [facility] [address] [address] (ABNORMAL) Lipid Panel and Direct LDL(If Needed) (04/30/2019 11:24 AM INFANT CHILDCARE PROVIDER) [facility] Signature Cholesterol 230 (H) 0 - 199 04/30/2019 [facility] mg/dL 3:34 PM INFANT CHILDCARE PROVIDER CENTRAL LAB Triglyceride 187 (H) <=149 04/30/2019 [facility] mg/dL 3:34 PM INFANT CHILDCARE PROVIDER CENTRAL LAB HDL Cholesterol 49 >=40 04/30/2019 [facility] mg/dL 3:34 PM INFANT CHILDCARE PROVIDER CENTRAL LAB LDL, Calculated 144 (H) <130 04/30/2019 [facility] mg/dL 3:34 PM INFANT CHILDCARE PROVIDER CENTRAL LAB Non HDL Chol, 181 mg/dL 04/30/2019 [facility] Calculated 3:34 PM INFANT CHILDCARE PROVIDER CENTRAL LAB Cholesterol/HDL 4.7 04/30/2019 [facility] Ratio 3:34 PM INFANT CHILDCARE PROVIDER CENTRAL LAB Hours Fasting 12 04/30/2019 [facility] B 3:34 PM INFANT CHILDCARE PROVIDER Specimen Anatomical Collection Method / Collection Time Recei carl Time (Source) Location / Volume Laterality Blood Venipuncture / 04/30/2019 11:24 9 Unknown AM INFANT CHILDCARE PROVIDER 11:24 AM INFANT CHILDCARE PROVIDER Hilario Dupree PA-C LAB_1 Performing Organization Address City/State/ZIP Code Phon e Number [facility] [address] [phone] [facility] [address] [place], [place] [phone] 0 [phone], [facility] CMP - Comp Metabolic Panel (04/30/2019 11:24 AM INFANT CHILDCARE PROVIDER) [facility] gist Method Time Signature Sodium 145 136 - 145 04/30/2019 [facility] mmol/L 3:34 PM INFANT CHILDCARE PROVIDER CENTRAL LAB Potassium 4.0 3.5 - 5.1 04/30/2019 [facility] mmol/L 3:34 PM INFANT CHILDCARE PROVIDER CENTRAL LAB Chloride 109 98 - 109 04/30/2019 [facility] mmol/L 3:34 PM INFANT CHILDCARE PROVIDER CENTRAL LAB CO2 26 20 - 29 04/30/2019 [facility] mmol/L 3:34 PM INFANT CHILDCARE PROVIDER CENTRAL LAB Anion Gap 10 7 - 16 04/30/2019 [facility] mmol/L 3:34 PM INFANT CHILDCARE PROVIDER CENTRAL LAB Calcium 10.4 8.4 - 04/30/2019 [facility] 10.4 3:34 PM INFANT CHILDCARE PROVIDER CENTRAL LAB mg/dL BUN 10 7 - 26 04/30/2019 [facility] mg/dL 3:34 PM INFANT CHILDCARE PROVIDER CENTRAL LAB Creatinine 0.80 0.55 - 04/30/2019 [facility] 1.02 3:34 PM INFANT CHILDCARE PROVIDER CENTRAL LAB mg/dL GFR, Estimated >60 >60 04/30/2019 [facility] mL/min/1. 3:34 PM INFANT CHILDCARE PROVIDER CENTRAL LAB 73m2 GFR, Est If >60 >60 04/30/2019 [facility] mL/min/1. 3:34 PM INFANT CHILDCARE PROVIDER CENTRAL LAB Swiss 73m2 Alkaline 131 40 - 150 04/30/2019 [facility] Phosphatase U/L 3:34 PM INFANT CHILDCARE PROVIDER CENTRAL LAB AST (SGOT) 14 10 - 40 04/30/2019 [facility] U/L 3:34 PM INFANT CHILDCARE PROVIDER CENTRAL LAB ALT (SGPT) 16 0 - 55 04/30/2019 [facility] U/L 3:34 PM INFANT CHILDCARE PROVIDER CENTRAL LAB Bilirubin, 0.3 0.2 - 1.2 04/30/2019 [facility] Total mg/dL 3:34 PM INFANT CHILDCARE PROVIDER CENTRAL LAB Protein, Total 7.0 6.4 - 8.3 04/30/2019 [facility] g/dL 3:34 PM INFANT CHILDCARE PROVIDER CENTRAL LAB Albumin 3.9 3.5 - 5.0 04/30/2019 [facility] g/dL 3:34 PM INFANT CHILDCARE PROVIDER CENTRAL LAB Glucose 98 70 - 100 04/30/2019 [facility] mg/dL 3:34 PM INFANT CHILDCARE PROVIDER CENTRAL LAB Comment: The given reference range is fo r the fasting state. Non-fasting reference range for glucose is 70 - 180 mg/dL. Hours Fasting 12 04/30/2019 3:34 PM INFANT CHILDCARE PROVIDER [facility] Specimen Anatomical Collection Method / Collection Time Recei carl Time (Source) Location / Volume Laterality Blood Venipuncture / 04/30/2019 11:24 9 Unknown AM INFANT CHILDCARE PROVIDER 11:24 AM INFANT CHILDCARE PROVIDER Hilario Dupree PA-C LAB_1 Performing Organization Address City/[facility] Code Phon e Number [facility] [address] [address] [facility] [address] [place] [address], [place] Ferritin (04/30/2019 11:24 AM INFANT CHILDCARE PROVIDER) P athologist Signature Ferritin 53 9 - 204 04/30/2019 [facility] ng/mL 3:43 PM INFANT CHILDCARE PROVIDER CENTRAL LAB Specimen Anatomical Collection Method / Collection Time Recei carl Time (Source) Location / Volume Laterality Blood Venipuncture / 04/30/2019 11:24 9 Unknown AM INFANT CHILDCARE PROVIDER 11:24 AM INFANT CHILDCARE PROVIDER Hilario Dupree PA-C LAB_1 Performing Organization Address [facility]/ZIP [facility] Phon e Number [facility] [address] [address] Iron Profile (Iron,TIBC,%Sat.(Calc)) (04/30/2019 11:24 AM INFANT CHILDCARE PROVIDER) [facility] Method Time Signature Iron 51 50 - 170 04/30/2019 [facility] mcg/dL 3:34 PM INFANT CHILDCARE PROVIDER CENTRAL LAB Transferrin 256 180 - 382 04/30/2019 [facility] mg/dL 3:34 PM INFANT CHILDCARE PROVIDER CENTRAL LAB TIBC, 320 240 - 450 04/30/2019 [facility] Calculated mcg/dL 3:34 PM INFANT CHILDCARE PROVIDER CENTRAL LAB % Saturation, 16 10 - 50 % 04/30/2019 [facility] Calculated 3:34 PM INFANT CHILDCARE PROVIDER CENTRAL LAB Specimen Anatomical Collection Method / Collection Time Recei carl Time (Source) Location / Volume Laterality Blood Venipuncture / 04/30/2019 11:24 9 Unknown AM INFANT CHILDCARE PROVIDER 11:24 AM INFANT CHILDCARE PROVIDER Hilario Dupree PA-C LAB_1 Performing Organization Address [facility]/ZIP Code Phon e Number [facility] CENTRAL LAB [address] [address] Vitamin B12 Only (04/30/2019 11:24 AM INFANT CHILDCARE PROVIDER) athologist Signature Vitamin B12 441 213 - 816 04/30/2019 [facility] pg/mL 3:51 PM INFANT CHILDCARE PROVIDER CENTRAL LAB Specimen Anatomical Collection Method / Collection Time Recei carl Time (Source) Location / Volume Laterality Blood Venipuncture / 04/30/2019 11:24 9 Unknown AM INFANT CHILDCARE PROVIDER 11:24 AM INFANT CHILDCARE PROVIDER Hilario Dupree PA-C LAB_1 Performing Organization Address City/[facility] Phon e Number [facility] C[facility]AL [facility] [address] [address] Vitamin D 25-Hydroxy, Total (04/30/2019 11:24 AM INFANT CHILDCARE PROVIDER) [facility] Method Time Signature Vitamin D, 48 30 - 80 04/30/2019 [facility] 25-OH, Total ng/mL 3:44 PM INFANT CHILDCARE PROVIDER CENTRAL LAB Specimen Anatomical Collection Method / Collection Time Recei carl Time (Source) Location / Volume Laterality Blood Venipuncture / 04/30/2019 11:24 9 Unknown AM INFANT CHILDCARE PROVIDER 11:24 AM INFANT CHILDCARE PROVIDER Hilario Dupree PA-C LAB_1 Performing Organization Address City/State/ZIP Code Phon e Number [facility] [address] [address] documented in this encounter Visit Diagnoses Diagnosis S/P gastric bypass Bariatric surgery status Screening cholesterol level Screening for lipoid disorders Screening for diabetes mellitus Screening for HIV (human immunodeficienc y virus) Special screening examination for other specified viral diseases documented in this encounter Care Teams Grounds Manager Relationship Specialty Start Date End Date Taylor Downing MD PCP - General Family Practice 02/01/19 [address] [place] [address] documented as of this encounter
--- OUTSIDE RECORDS SUMMARY | 2022-03-29 10:07 | XMS_ITS | Encounter Summary ---
:1970 Author Organization [employer] Address [address] [place] [address] Care Team Providers Name Role Phone Taylor Downing MD Primary Care Provider Encounter Details Date Type Department Care Team Description 04/28/2020 Notes/Orders [place] Taylor Downing MD Contact with or Family Practice [address] [facility] exposure to viral [address] [place], [place] [phone] Social History Tobacco Use Types Packs/Day Years Used Date Smoking Tobacco: Former Cigarettes 06/1998 - 02/04/2009 Smokeless Tobacco: Never Alcohol Use Standard Drinks/Week Comments No 0 (1 standard drink = 0.6 oz pure alcoho l) Sex Assigned at Date Recorded Female 06/28/2021 5:52 PM PANELBEATER documented as of this encounter Plan of Treatment Upcoming Encounters Date Type Specialty Care Team Description 05/04/2022 Appointment Gastroenterology Inés Levy MD [address] [facility] N [address] (Wo rk) documented as of this encounter Results Asymptomatic - 2019 Novel Coronavirus (COVID-19) (04/28/2020 2:55 PM PANELBEATER) [facility] Method Time Signature SARS Not Detected Not Detected 05/01/2020 [facility] CORONAVIRUS 2 10:22 AM RNA IN PANELBEATER RESPIRATORY SPECIMEN BY ABBE W Comment: Results and Interpretation Negative: SARS-CoV-2 not detected Testing did not identify the presence of SARS-CoV-2 (the virus that causes COVID-19) in the patient's sample. Many factors can impact the sensitivity of this test, including variability in sample collection technique, stage of infection, or the presence of interfering substances. Collection of multiple samples may be necessary to detect the SARS-CoV- 2 virus. If clinically indicated, consider collecting a new sample for COVID-19 testing or testing for other respiratory viruses. Methods and Limitations This test was developed for the detectio n of nucleic acids from the SARS-CoV-2 virus by RT-PCR in individuals who meet SARS-CoV-2 clinical and/or epidemiological criteria. This test has not been FDA cleared or ap proved. This test has been authorized by FDA und er an EUA for use by the authorized laboratory. This test is only authorized for the duration of time that the Auto Air Conditioning Apprentice of the [facility] declares circumstances exist j ustifying the authorization of the emerg ency use of in vitro diagnostic tests for detection of SARS-CoV-2 virus and/or diagnosis of COVID-19 infection under section 564(b)(1) of the Act, 21 U.S.C. 360bb b-3(b)(1), unless the authorization is t erminated or revoked sooner. To learn more about this test, go to htt [email or web address]/-yilqmpl Performed by: LACEY Worrell [id number], CLIA [id number], [address] [place] [address] Membership Director: Te Colin, Ph D, FAC, FFSC ([facility]) Specimen Anatomical Collection Method Collection Time Receive d Time (Source) Location / / Volume Laterality Swab (Source Non-blood 04/28/2020 2:55 PM 0 4:59 Required) Collection / PANELBEATER PM PANELBEATER Unknown Taylor Downing MD LAB_1 Performing Organization Address City/State/ZIP Code Phon e Number [place] [address] [facility] [place] [address] documented in this encounter Visit Diagnoses Diagnosis Contact with or exposure to viral diseas e Contact with or exposure to other viral diseases documented in this encounter Care Teams Managed Care Manager Relationship Specialty Start Date End Date Taylor Downing MD PCP - General Family Practice 02/01/19 [address] [place] [address] documented as of this encounter
--- OUTSIDE RECORDS SUMMARY | 2022-03-29 10:07 | XMS_ITS | Encounter Summary ---
:1970 Author Organization [facility] Address [address] [place] [address] Care Team Providers Name Role Phone Taylor Downing MD Primary Care Provider Reason for Referral Consult/Transfer Care (Routine) - New Request Specialty Diagnoses / Procedures Referred By Contact Refer red To Contact Diagnoses [place] [address] [place], [place] [address] Referral ID Status Reason Start Date Expiration Date Visits V isits Requested Authorized [id number] New Request 02/05/2022 05/07/2023 1 1 Scheduling Instructions Your provider has recommended an appoint ment with [facility] Surgery Department. You may call [phone] to schedule yo ur appointment. Procedure/Equipment (Routine) - Incomplete Specialty Diagnoses / Procedures Referred By Contact Refer red To Contact Diagnoses Encounter for screening mammogram for malignant neoplasm of breast Taylor Downing MD Procedures MM Mammogram Screening Bilat W 3D Ti W CAD [address] [place], [place] [address] Referral ID Status Reason Start Date Expiration Date Visits V isits Requested Authorized [id number] Incomplete 02/05/2022 05/07/2023 1 1 Procedure/Equipment (Routine) - New Request Specialty Diagnoses / Procedures Referred By Contact Refer red To Contact Diagnoses Screen [place] [address] [place], [place] [address] Referral ID Status Reason Start Date Expiration Date Visits V isits Requested Authorized [id number] New Request 02/05/2022 05/07/2023 1 1 Scheduling Instructions Your provider has recommended an appoint ment with [facility]. You can quickly make your appoin tment online at [employer]/schedule. You can also call [phone] for help scheduling your appointment. We suggest you call your health insurance company about your coverage and benefits for this appointment. Reason for Visit Reason Comments Medicare Annual Wellness RECTAL PAIN Encounter Details Date Type Department Care Team Description 02/05/[address] [facility] Taylor Downing MD Encounter for Medicare annual wellness e xam (Primary Dx); Practice [address] [facility] Restless legs syndrome (RLS); [address] [place], [place] Axillary hyperhidrosis; [place] [address] H/O gastric bypass; [id number] Screening for thyroid disord er; High risk medication use; Screening for diabetes mellitus; Screening rhett sterol level; Screening for c ervical cancer; Screen for colo n cancer; Encounter for s creening mammogram for malignant neoplasm of breast; Rectal pain Social History Tobacco Use Types Packs/Day Years Used Date Smoking Tobacco: Former Cigarettes 1 06/1998 - 02/04/2009 Smokeless Tobacco: Never Alcohol Use Standard Drinks/Week Comments No 0 (1 standard drink = 0.6 oz pure alcoho l) Sex Assigned at Date Recorded Female 06/28/2021 5:52 PM [employer] documented as of this encounter Last Filed Vital Signs Vital Sign Reading Time Taken Comments Blood Pressure 132/93 02/05/2022 10:16 AM CDT Pulse 110 02/05/2022 10:16 AM CDT Temperature - - Respiratory Rate - - Oxygen Saturation - - Inhaled Oxygen Concentration - - Weight 121.1 kg (267 lb) 02/05/2022 10:13 AM CDT Height 177.8 cm (5' 10) 02/05/2022 10:13 AM CDT Body Mass Index 38.31 02/05/2022 10:13 AM CDT documented in this encounter Patient Instructions Patient InstructionsRoopa Mortensen, [place] - 02/05/2022 10:00 AM CDT Annual Wellness Visit Summary Your care team is recommending the following tests, procedures or services. Some of these recommendations may not be fully covered by Medicare or your insurance. If you have questions, check with your insurance to determine coverage before completing these services. Health Maintenance Due Health Maintenance Due Topic Date Due ??? Hep C Screening (Preventive Services) Never done ??? Cervical Cancer Screening Due Never done ??? HepB (1) 1970 ??? Mammogram Never done ??? COVID-19 Vaccine (1) Never done ??? FIT Colon Cancer Screening Never done ??? Zoster/Shingles (1 of 2) Never done ??? SMI: Fasting Lipid 04/30/2020 ??? SMI: Hgb A1C 07/02/2020 ??? Influenza (1) Never done If your Medicare Welcome or Annual Wellness Visit is showing you are due in the above list, this will be updated after this visit. You had this completed today and are not due for another year. Healthy Weight Matters Understanding body mass index Your BMI is on your After Visit Summary under ???Today???s Visit.?? You can also find a BMI calculator on the National [place] of Health website at www.nhlbi.nih.gov/health/educational/lose_wt/BMI/bmicalc.htm. BMI ranges for adults BMI BMI categories Below 18.5 Underweight 18.5 to 24.9 Normal weight 25.0 to 29.9 Overweight 30.0 and above Obese If you are overweight or have obesity, your risk increases for developing health problems, such as type 2 diabetes, heart disease, high blood pressure and stroke. Your BMI measurement alone cannot predict your health risk. But if you know your BMI is high, you can take steps to set healthy goals and improve your overall well-being. What can I do to improve my BMI? Losing weight is an important way to reduce your BMI and improve your overall health and well- being. Start small. Aim to lose a few pounds to begin rather than worry about your ideal weight. Here are some tips: + Be physically active. Do activities that you enjoy, give you energy and are safe for you to do.Gradually build up the intensity (how hard your body is working) of activity. Long-term, aim for 30 minutes or more of activity most days of the week. Remember to check with your doctor before starting anyphysical activity program. + Eat real (not processed) food. Eat mostly vegetables, fruit, whole grains and lean proteins. That way, you--not food manufacturers--control the ingredients that go into your meals. + Aim for 5 servings of fruits and vegetables a day. Choose a variety of vegetables with different colors. Have fresh fruit for dessert. Limit deep-fried vegetables, such as luxembourger fries. + Choose lean protein, such as chicken or fish. Try non-meat sources of protein such as beans, soy and other legumes. + Choose whole grains. Whole grain foods, such as whole-wheat bread, brown rice, barley, quinoa and oatmeal, contain the entire grain kernel and are better for your health. Limit refined grains, such as white bread and rice. + Satisfy hunger with unsaturated fat. Fat helps you feel satisfied. Choose unsaturated fats, such as canola or olive oils, nuts and seeds, oil-based dressings and avocados. Limit saturated fats, whichare found in animal products and some plant oils, such as coconut and palm oils. + Pay attention to portion sizes. Use smaller plates, bowls and glasses. Portion out foods before you eat. + Drink water or unsweetened beverages. Avoid soda, sweetened coffees and teas, energy drinks and sports drinks, which are full of added sugar that your body does not need. Water is always the best option. + Eat mindfully. Take time to fully enjoy your food and pay attention to what you are eating. Make meals last 15 to 30 minutes. This gives your body a chance to become satisfied and tell your brain to stop eating. Pay attention to what you are eating, rather than doing other activities such as watching TV or driving. This helps you pay attention to your body???s signals of hunger and fullness. + Share meals when eating at restaurants, or put half of the entr??e in a to-go container before youstart eating. Nutrition Services One-on-one visits with a registered dietitian are available at various clinic locations to help you develop a personalized plan for managing your weight. We also offer classes led by dietitians on a variety of topics. To schedule an appointment, find the clinic that works best for you. + For [facility], call [phone]. + For [facility], call [phone]. + For [facility], call [phone]. + For [facility], call [phone]. + For [facility], call [phone]. [id number] (10/2018) ??[facility] documented in this encounter Progress Notes Taylor Downing MD - 02/05/2022 10:00 AM CDT Addended by: TAYLOR DOWNING on: 02/11/2022 10:57 AM Modules accepted: Orders Taylor Downing MD - 02/05/2022 10:00 AM CDT Medicare Annual Wellness Visit Subjective/Historical: Yessica Herrera is a 51 y.o. old female with h/o gastric bypass, bipolar, ADHD: Chief Complaint Patient presents with Medicare Annual Wellness RECTAL PAIN Current Concerns: Other Symptoms Description: Rectal pain, on and off a few times a week for the last 3 months, usually has looser stools, has done sitz baths with no relief How long have you had the symptoms? 3 month(s) How frequent are your symptoms: comes and goes How often do you have these symptoms? several times a week What seems to trigger or make symptoms worse? Having to bear down to have a BM What seems to make symptoms better? N/A Last Pap 2011. She typically has loose stools at baseline since her gastric bypass, usually about 3 stools daily. Her stools haven't changed from her baseline however she will experience rectal pain following some BM's, BM's are not hard/she is not straining, and then pain will last about 2-3 hours after BM's. Feelslike rectal pain may be triggered when she bears down to have BM but isn't pushing harder than usual. Ongoing sx x 3 months. Denies fevers, chills, tactile fevers, SOB, chest pain/pressure/tightness, wheezing, nausea, vomiting, abdominal pain, lightheadedness/dizziness/passing out, fatigue, muscle aches, BRBPR, darkening stools, changes in appetite, rectal drainage/discharge. Has not had prior colonoscopy. States she's been working on her diet, eating when she's hungry and choosing healthy options. Medicare Annual Wellness Smart Form MEDICARE ANNUAL WELLNESS CONCERNS 02/05/2022 Unable to complete Mini-Cog due to: - In general, would you say your health is: Fair In general, would you say your dental health is: Fair Do you or any of your family members have any concerns about your memory? No Does urination or leaking urine cause any problems with your daily activities or sleep? Do you have difficulty hearing? Do you have concerns about your sexual health? How many servings of fruits and vegetables do you eat a day? 0 to 1 Do you get at least 2 1/2 hours of physical activity in an average week? No Do you have anyone nearby who can help you when needed? Do you have difficulty doing any of the following activities? No difficulties Do you have someone to help you with the activities that are difficult? - Do you miss taking medicine or skip a dose more than once a week? Do you feel unsteady when walking? Yes If yes, do you use a? None Do you have rugs (not carpet) in your home? Have you had any auto accidents in the last 12 months while you were driving? Do you always fasten your seat belt when you are in an automobile? Do you take illegal drugs or use prescription medications for reasons other than prescribed by a doctor? Do you have concerns about your finances? Do you ever worry you'll run out of food or medicines before you have money to buy more? Mini-Cog Assessment Word Recall: 2 Clock Draw: 2 Total: 4 Her mom is in memory care now due to dementia, this has been difficult. Mood is overall OK, follows with outside psych. Has been taking oral iron supplement, would like rx refill today. Review of Systems CONSTITUTIONAL: Negative EYES: no visual blurring, no double vision, no glaucoma, no cataracts, no eye pain, no color blindness ENT: no abnormally frequent URIs, no decrease in hearing, no persistently sore throat, no tinnitus, no vertigo RESPIRATORY: no shortness of breath, no cough, no sputum CARDIOVASCULAR: no palpitations, no irregular heart beats, no chest pain, no exertional chest pain or pressure GASTROINTESTINAL: normal appetite, no dysphagia, no nausea, no abdominal pain, no melena GENITOURINARY: no dysuria, no frequency, no hematuria MUSCULOSKELETAL: no weakness, no nocturnal cramping, no muscle pains SKIN: no rash, no itch, no scaling, no hair changes, no nail changes NEUROLOGIC: no numbness or tingling of hands, no numbness or tingling of feet, no syncope PSYCHIATRIC: no sleep disturbances, no anxiety, no depression HEMATOLOGIC/LYMPHATIC/IMMUNOLOGIC: no fevers, no night sweats, no chills, no weight loss ENDOCRINE: no cold intolerance, no heat intolerance, no polydypsia, no polyphagia Observed BP (!) 132/93 (BP Location: Right Arm, BP Cuff Size: Large) Pulse (!) 110 Ht 5' 10 (1.778 m) Wt 267 lb (121.1 kg) LMP 04/26/2017 BMI 38.31 kg/m?? repeat P 96 General: patient appears well, alert and oriented x 3, pleasant, cooperative. Neck: supple and free of adenopathy, or masses. No thyromegaly. Eyes: PERRL, no conjunctival injection b/l. Ears: normal Chest: clear to IPPA. Heart: heart sounds are normal, no murmurs, clicks, gallops or rubs. Peripheral pulses are normal. Abdomen: soft, no tenderness, masses or organomegaly. Breasts: deferred Pelvis: EGBUS showing atrophic changes, normal cervix without lesions, polyps or tenderness, uterus normal size, shape, consistency, no mass or tenderness, adnexa not palpated. Extremities are normal. Neuro: screening neurological exam is normal without focal findings. Rectal: no mucosal inflammation/drainage/discharge, skin tag at 6 o clock that appears mildly erythematous. LN: No palpable cervical, supraclavicular or inguinal LN's. Assessment/Plan 1. Encounter for Medicare annual wellness exam 2. Restless legs syndrome (RLS) 3. Axillary hyperhidrosis 4. H/O gastric bypass 5. Screening for thyroid disorder 6. High risk medication use 7. Screening for diabetes mellitus 8. Screening cholesterol level 9. Screening for cervical cancer 10. Screen for colon cancer 11. Encounter for screening mammogram for malignant neoplasm of breast 12. Rectal pain Refills for drysol, epipen, ferrous sulfate per Epic, SERD. F/u basic BW. Discussed trying anusol for irritated skin tag, SERD however this does not explain patient's reported intermittent rectal pain, sometimes occurring following BM's, over the last 3 months. Advised visitwith colorectal, order placed. Advised colonoscopy, order placed. Mammo order placed. Declinles COVID 19 and flu vaccines. I spent an additional 40 minutes discussing non MAW related issues with patient today. Counseling and education provided today includes proper nutrition and health habits, fall prevention, and for those items ordered above. See plan for future preventive services in Patient Instructions. Taylor Downing MD 02/05/2022, 10:18 AM documented in this encounter Plan of Treatment Upcoming Encounters Date Type Specialty Care Team Description 05/04/2022 Appointment Gastroenterology Inés Levy MD [address] [facility] N [id number] (Wo rk) Scheduled Orders Name Type Priority Associated Diagnoses Order S chedule MM Mammogram Screening Imaging New Routine Encounter for Expe cted: 02/05/2022 Bilat W 3D Ti W CAD screening mammogram (Approximate), for malignant neoplasm Expir es: 02/05/2023 of breast Iron Profile Lab Routine H/O gastric bypass Expected: (Iron,TIBC,%Sat.(Calc) 05/13, Expires: ) 06/13/2022 Complete Blood Lab Routine H/O gastric bypass Expecte d: Count-No Diff 05/13/2022, Ex jeffrey: 06/13/2022 Ferritin Lab Routine H/O gastric bypass Expected: 05/13/2022, Exp ires: 06/13/2022 Scheduled Referrals Name Type Priority Associated Diagnoses Order S chedule Colonoscopy-Preventative Referral Routine Screen for colon cancer Ordered: 02/05/2022 Colorectal Surgery Referral Routine Rectal pain Ordered: 02/05/2022 Consult-Adults documented as of this encounter Procedures Procedure Name Priority Date/Time Associated Diagnosis Comme nts PAP TEST Routine 02/05/2022 1:33 PM Screening for Results for this CDT cervical cancer procedure ar e in the results section. HPV WITH 16 18 Routine 02/05/2022 1:33 PM Screening for Result s for this GENOTYPING, CDT cervical cancer procedure ar e in CERVICAL/ENDOCERVIC the resu lts [place] section. documented in this encounter Results HPV with 16 18 Genotyping (02/05/2022 1:33 PM CDT) [facility] Method Time Signature HPV High Risk Not Detected Not detected 02/10/2022 [facility] Type 16 PCR 1:13 PM CDT HOSPITAL HPV High Risk Not Detected Not Detected 02/10/2022 [facility] Type 18 PCR 1:13 PM CDT HOSPITAL HPV High Risk Not Detected Not detected 02/10/2022 [facility] Other Than 1:13 PM CDT [facility] 16/18 Specimen Anatomical Collection Method Collection Time Receive d Time (Source) Location / / Volume Laterality Cervical Broom ENTIRE ENDOCERVIX 02/05/2022 1:33 PM 4:20 / Unknown CDT PM CDT [facility] - 02/10/2022 1:13 PM CD [...] Organization Address City/State/ZIP Code Phon e Number [facility] [address] [address] PAP Test (02/05/2022 1:33 PM CDT) Component Value Ref Test Analysis Performed Pathologis t Range Method Time At Signature Case Report Pap ? Case: [id number] ? 02/25/2022 [facility] Authorizing Provider: ??Taylor Downing MD ? Collected: ? 02/05/2022 1333 ? 10:42 AM HOSP ITAL Ordering Location: ? [facility] Family ?Received: ?02/05/2022 1620 ? CDT ? Practice ? First Screen: ? Alexandre, Bonita N, CT (ASCP) ? Specimen: ?Pap Test, Rou mason, Cervix/Endocervix ? Pap Specimen Satisfactory for 02/25/2022 [facility] Adequacy evaluation, 10:42 AM HOSPITAL endocervical/israel CDT sformation zone component present. Pap (NILM) Negative 02/25/2022 [facility] Josephine ctronically Interpretation for 10:42 AM HOSPITAL billy d by Alexandre intraepithelial CDT Bonita Marci, CT (ASCP) lesion or on 02/26/20 at malignancy. 10:42 AM Pap Other Atrophy. 02/25/2022 [facility] Findings 10:42 AM HOSPITAL CDT Pap Disclaimer [...] may occur. Gross The specimen is 02/25/2022 [facility] Description received in 10:42 AM [facility] SurePath fixative CDT and properly labeled. 1 Pap-stained SurePath slide is prepared. Embedded Images 02/25/2022 [facility] 10:42 AM HOSPITAL CDT Specimen Anatomical Collection Method Collection Time Receive d Time (Source) Location / / Volume Laterality Other Specimen ENTIRE ENDOCERVIX 02/05/2022 1:33 PM 4:20 Type / Unknown CDT PM CDT Comment: LMP: Patient's last menstrual p eriod was 04/26/2017. Taylor Downing MD LAB PATHOLOGY Performing Organization Address City/State/ZIP Code Phon e Number [address] [address] (ABNORMAL) Lipid Panel and Direct LDL(If Needed) (02/05/2022 10:59 AM CDT) [facility] Method Time Signature Cholesterol 240 (H) [...] CDT [facility]AL [facility] Hours Fasting N/A 02/05/2022 [facility] 3:53 PM CDT Specimen Anatomical Collection Method / Collection Time Recei carl Time (Source) Location / Volume Laterality Blood Venipuncture / 02/05/2022 10:59 2 Unknown AM CDT 10:59 AM CDT Taylor Downing MD LAB_1 Performing Organization Address [facility] Phon e Number [facility] [address] [address] [facility] [address] [place] [address], [facility] (ABNORMAL) Hgb A1C (02/05/2022 10:59 AM CDT) [facility] Method Time Signature Hemoglobin A1C 5.9 (H) <=5.6 % 02/05/2022 [facility] 4:47 PM CDT CENTRAL LAB Specimen Anatomical Collection Method / Collection Time Recei carl Time (Source) Location / Volume Laterality Blood Venipuncture / 02/05/2022 10:59 2 Unknown AM CDT 10:59 AM CDT Narrative [facility] - 02/05/2022 4:47 PM CDT For patients not previously diagnosed with diabetes: 5.7-6.4%: Increased risk for diabetes 6.5% and greater: Diagnostic for diabete s For patients diagnosed with diabetes: <8.0%: Goal of therapy for ages 18-75 Clinicians may recommend a higher or low er goal for specific individuals. Taylor Downing MD LAB_1 Performing Organization Address City/[facility] Phon e Number [facility] [address] [address] Comp Metabolic Panel (02/05/2022 10:59 AM CDT) [facility] Method Time Signature Sodium 142 136 - 145 [facility] mmol/L 3:53 PM CDT [facility]AL LAB Potassium 3.8 3.5 - 5.1 02/05/2022 [facility] mmol/L 3:53 PM CDT CENTRAL LAB Chloride 107 98 - 109 02/05/2022 [facility] mmol/L 3:53 PM CDT CENTRAL LAB CO2 24 20 - 29 02/05/2022 [facility] mmol/L 3:53 PM CDT CENTRAL LAB Anion Gap 11 7 - 16 02/05/2022 [facility] mmol/L 3:53 PM CDT CENTRAL LAB Calcium 9.3 8.4 - 02/05/2022 [facility] 10.4 3:53 PM CDT CENTRAL LAB mg/dL BUN 9 7 - 26 02/05/2022 [facility] mg/dL 3:53 PM CDT CENTRAL LAB Creatinine 0.72 0.55 - 02/05/2022 [facility] 1.02 3:53 PM CDT CENTRAL LAB mg/dL GFR, Estimated >60 >60 02/05/2022 [facility] mL/min/1. 3:53 PM CDT CENTRAL LAB 73m2 Alkaline 127 40 - 150 02/05/2022 [facility] Phosphatase U/L 3:53 PM CDT CENTRAL LAB AST (SGOT) 12 10 - 40 02/05/2022 [facility] U/L 3:53 PM CDT CENTRAL LAB ALT (SGPT) 27 0 - 55 02/05/2022 [facility] U/L 3:53 PM CDT CENTRAL LAB Bilirubin, 0.2 0.2 - 1.2 02/05/2022 [facility] Total mg/dL 3:53 PM CDT CENTRAL LAB Protein, Total 6.9 6.4 - 8.3 02/05/2022 [facility] g/dL 3:53 PM CDT CENTRAL LAB Albumin 3.6 3.5 - 5.0 02/05/2022 [facility] g/dL 3:53 PM CDT CENTRAL LAB Glucose 85 70 - 100 02/05/2022 [facility] mg/dL 3:53 PM CDT CENTRAL LAB Comment: The given reference range is fo r the fasting state. Non-fasting reference range for glucose is 70 - 180 mg/dL. Hours Fasting N/A 02/05/2022 3:53 PM CDT [facility] LAB Specimen Anatomical Collection Method / Collection Time Recei carl Time (Source) Location / Volume Laterality Blood Venipuncture / 02/05/2022 10:59 2 Unknown AM CDT 10:59 AM CDT Taylor Downing MD LAB_1 Performing Organization Address [facility]/[place] [facility] [place] Number [facility]AL LAB [address] [address] [facility] [address] [place], [place] [phone], [place] TSH (02/05/2022 10:59 AM CDT) [facility] Method Time Signature TSH, Sensitive 1.54 0.30 - 02/05/2022 [facility] 4.50 3:59 PM CDT CENTRAL LAB uIU/mL Specimen Anatomical Collection Method / Collection Time Recei carl Time (Source) Location / Volume Laterality Blood Venipuncture / 02/05/2022 10:59 2 Unknown AM CDT 10:59 AM CDT Taylor Downing MD LAB_1 Performing Organization Address [facility]/ZIP Code Phon e Number [facility] C[facility]AL LAB [address] [address] Vitamin D 25-Hydroxy, Total (02/05/2022 10:59 AM CDT) [facility] Method Time Signature Vitamin D, 33 30 - 80 02/05/2022 [facility] 25-OH, Total ng/mL 3:59 PM CDT CENTRAL LAB Specimen Anatomical Collection Method / Collection Time Recei carl Time (Source) Location / Volume Laterality Blood Venipuncture / 02/05/2022 10:59 2 Unknown AM CDT 10:59 AM CDT Taylor Downing MD LAB_1 Performing Organization Address [facility]/ZIP Code Phon e Number [facility] C[facility]AL LAB [address] [address] Vitamin B12 Only (02/05/2022 10:59 AM CDT) athologist Signature Vitamin B12 680 213 - 816 02/05/2022 [facility] pg/mL 3:59 PM CDT CENTRAL LAB Specimen Anatomical Collection Method / Collection Time Recei carl Time (Source) Location / Volume Laterality Blood Venipuncture / 02/05/2022 10:59 2 Unknown AM CDT 10:59 AM CDT Taylor Downing MD LAB_1 Performing Organization Address [facility] Phon e Number [facility] C[facility]AL LAB [address] [address] Ferritin (02/05/2022 10:59 AM CDT) P athologist Signature Ferritin 24 - 02/05/2022 [facility] ng/mL 3:59 PM CDT CENTRAL LAB Specimen Anatomical Collection Method / Collection Time Recei carl Time (Source) Location / Volume Laterality Blood Venipuncture / 02/05/2022 10:59 2 Unknown AM CDT 10:59 AM CDT Taylor Downing MD LAB_1 Performing Organization Address [facility] Phon e Number [facility] C[facility]TRAL [facility] [address] [address] (ABNORMAL) Iron Profile (Iron,TIBC,%Sat.(Calc)) (02/05/2022 10:59 AM CDT) Component Value Ref Test Analysis Performed At [facility] gist Range Method Time Signature Iron 40 (L) 50 - 170 02/05/2022 [facility] mcg/dL 3:53 PM CDT CENTRAL LAB Transferrin 282 180 - 02/05/2022 [facility] 382 3:53 PM CDT CENTRAL LAB mg/dL TIBC, Calculated 353 240 - 02/05/2022 [facility] RS 450 3:53 PM CDT CENTRAL LAB mcg/dL % Saturation, 11 10 - 50 02/05/2022 [facility] Calculated % 3:53 PM CDT CENTRAL LAB TIBC Low iron, 02/05/2022 [facility] Interpretation normal 3:53 PM CDT CENTRAL LAB TIBC, possible iron deficiency. Specimen Anatomical Collection Method / Collection Time Recei carl Time (Source) Location / Volume Laterality Blood Venipuncture / 02/05/2022 10:59 2 Unknown AM CDT 10:59 AM CDT Taylor Downing MD LAB_1 Performing Organization Address City/State/ZIP Code Phon e Number [facility] [address] [address] (ABNORMAL) Complete Blood Count-No Diff (02/05/2022 10:59 AM CDT) P athologist Signature WBC 6.6 3.5 - 10.5 02/05/2022 [facility] x10(9)/L 11:25 AM CDT LAB RBC 4.66 3.90 - 5.03 02/05/2022 [facility] x10(12)/L 11:25 AM CDT LAB Hemoglobin 12.9 12.0 - 15.5 02/05/2022 [facility] g/dL 11:25 AM CDT LAB HCT 41.2 34.9 - 44.5 02/05/2022 [facility] % 11:25 AM CDT LAB MCV 88.4 80.0 - 02/05/2022 [facility] 100.0 fL 11:25 AM CDT LAB MCH 27.7 27.6 - 33.3 02/05/2022 [facility] pg 11:25 AM CDT LAB MCHC 31.3 (L) 31.5 - 35.2 02/05/2022 [facility] g/dL 11:25 AM CDT LAB RDW 17.4 (H) 11.9 - 15.5 02/05/2022 [facility] % 11:25 AM CDT LAB Platelets 321 150 - 450 02/05/2022 [facility] x10(9)/L 11:25 AM CDT LAB Specimen Anatomical Collection Method / Collection Time Recei carl Time (Source) Location / Volume Laterality Blood Venipuncture / 02/05/2022 10:59 2 Unknown AM CDT 10:59 AM CDT Taylor Downing MD LAB_1 Performing Organization Address City/[facility]/ZIP Code Phon e Number [facility] [address] [place] [phone] documented in this encounter Visit Diagnoses Diagnosis Encounter for Medicare annual wellness e xam - Primary Restless legs syndrome (RLS) Axillary hyperhidrosis Primary focal hyperhidrosis H/O gastric bypass Bariatric surgery status Screening for thyroid disorder High risk medication use Encounter for long-term (current) use of other medications Screening for diabetes mellitus Screening cholesterol level Screening for lipoid disorders Screening for cervical cancer Screening for malignant neoplasm of the cervix Screen for colon cancer Special screening for malignant neoplasm s, colon Encounter for screening mammogram for ma lignant neoplasm of breast Other screening mammogram Rectal pain Anal or rectal pain documented in this encounter Care Teams Resaw Carriage Operator Relationship Specialty Start Date End Date Taylor Downing MD PCP - General Family Practice 02/01/19 [address] [place] [address] documented as of this encounter
--- OUTSIDE RECORDS SUMMARY | 2022-03-29 10:07 | XMS_ITS | Encounter Summary ---
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 documented as of this encounter Progress Notes Michael Larry MD - 07/04/2019 12:00 AM CST [facility] Maintenance Report 07/04/2019 Yessica Herrera Health Maintenance Date Due Completion Dates Mammogram for age 45-75 2013 11/25/2011 Pap test for age 21-65 11/24/2014 11/25/2011, 06/06/2008 (Outside) Override on 06/06/2008: Completed outside of [facility] Colonoscopy through age 75 2018 --- Zoster (shingles) series for age 50+ (1 of 2) 2018 --- BMI (ht and wt on same day) for age 18+ 11/09/2018 05/11/2018, 03/21/2017, 02/02/2016, 11/10/2015, 10/28/2015, 09/29/2015, 09/22/2015 Influenza for age 50-64 02/04/2019 --- Depression screening for age 12+ 07/07/2019 07/07/2018, 07/04/2018, 06/25/2018, 06/14/2018, 03/29/2018, 03/20/2018, 03/20/2018, 03/20/2018, 03/19/2018, 03/10/2018, 09/08/2017, 07/28/2017, 07/28/2017, 07/15/2017, 07/13/2017, 06/28/2017, 06/27/2017, 06/14/2017, 05/06/2017, 05/06/2017, 05/06/2017, 05/04/2017, 05/04/2017, 05/04/2017, 04/06/2017, 03/21/2017, 02/02/2016, 01/23/2016, 01/21/2016, 11/10/2015, 09/04/2015, 09/04/2015, 07/30/2015, 07/16/2015, 07/08/2015, 07/01/2015 Lipids for age 45-75 04/21/2022 04/21/2017, 11/25/2011, 02/15/2011 Tetanus booster 11/30/2022 11/30/2012, 12/04/2002 ING ASSISTANT documented in this encounter Plan of Treatment Upcoming Encounters Date Type Specialty Care Team Description 05/04/2022 Appointment Gastroenterology Inés Levy MD [address] [facility] N [id number] (Wo rk) documented as of this encounter Visit Diagnoses Not on filedocumented in this encounter Care Teams Phlebotomy Coordinator Relationship Specialty Start Date End Date Taylor Downing MD PCP - General Family Practice 02/01/19 [address] [place] [address] documented as of this encounter
--- OUTSIDE RECORDS SUMMARY | 2022-03-29 10:07 | XMS_ITS | Encounter Summary ---
:1970 Author Organization [employer] Address [address] [place] [address] Care Team Providers Name Role Phone Taylor Downing MD Primary Care Provider Reason for Visit Reason Comments RECTAL PAIN Encounter Details Date Type Department Care Team Description 02/03/2022 Nurse Triage [facility] Taylor Downing MD RECTAL PAIN Practice [address] [facility] [address] [place] [address] [place], [place] [address] [phone] Social History Tobacco Use Types Packs/Day Years Used Date Smoking Tobacco: Former Cigarettes 1 06/1998 - 02/04/2009 Smokeless Tobacco: Never Alcohol Use Standard Drinks/Week Comments No 0 (1 standard drink = 0.6 oz pure alcoho l) Sex Assigned at Date Recorded Female 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 Nithya Ramírez RN - 02/03/2022 10:03 AM CDT Time placed on hold for pt to see Taylor Downing MD for rectal pain, on 02/05/22 at 10 am. CA, please schedule pt. Nithya Ramírez RN 02/03/2022, 10:03 AM Nithya Ramírez RN - 02/03/2022 10:00 AM CDT Reason for Disposition ??? MODERATE-SEVERE rectal pain (i.e., interferes with school, work, or sleep) Answer Assessment - Initial Assessment Questions 1. SYMPTOM: What's the main symptom you're concerned about? (e.g., pain, itching, swelling, rash) Rectal pain 2. ONSET: When did the pain start? 3 months 3. RECTAL PAIN: Do you have any pain around your rectum? How bad is the pain? (Scale 1-10; or mild, moderate, severe) - MILD (1-3): doesn't interfere with normal activities - MODERATE (4-7): interferes with normal activities or awakens from sleep, limping - SEVERE (8-10): excruciating pain, unable to have a bowel movement moderate 4. RECTAL ITCHING: Do you have any itching in this area? How bad is the itching? (Scale 1-10; ormild, moderate, severe) - MILD - doesn't interfere with normal activities - MODERATE-SEVERE: interferes with normal activities or awakens from sleep no 5. CONSTIPATION: Do you have constipation? If Yes, ask: How bad is it? no 6. CAUSE: What do you think is causing the anus symptoms? unknown 7. OTHER SYMPTOMS: Do you have any other symptoms? (e.g., rectal bleeding, abdominal pain, vomiting, fever) Occasional rectal bleeding 8. : Is there any chance you are ? When was your last menstrual period? Recent period Protocols used: Rectal [id number] Andree Herrera - 02/03/2022 9:56 AM CDT Symptoms Describe your symptoms (if pain, include location): Rectal pain, bleeding not severe, same days worse than others When did they start? Been ongoing for 3 months What have you tried at home (please specify medication name, if any)? Suppositories, preperation H, and tucks no relief Have you recently been seen for this? No [Quality Management Coordinator/Appt Center: Refer to Symptoms Indicating Need for Triage list to determine urgency level and next steps - if Urgent or Routine, schedule appointment within the appropriate timeframe.If patient wants to speak to an RN, please warm transfer/route to RN for further triage.] [Quality Management Coordinator/Appt Center: Add/verify patient preferred pharmacy is highlighted in blue in the Pharmacy Selection under Meds & Orders] [Quality Management Coordinator/Appt Center: If this call is after 3 p.m., communicate to patient: If we are not able to get back to you by the end of the day and your symptoms worsen, please contact the Careline [phone] OR at .] Is it okay to leave a detailed message on your voicemail? Yes I can transfer you to talk to a Triage Nurse or I am happy to get you scheduled with your primary critical care technician or one of their partners for a Video/Phone Visit to take care of your concern. Which would you prefer? Triage Nurse Andree Herrera Please warm transfer/route to Care Team Support RN / Primary RN / Triage Pool for further triage -OR- follow your regular process documented in this encounter Plan of Treatment Upcoming Encounters Date Type Specialty Care Team Description 05/04/2022 Appointment Gastroenterology Inés Levy MD [address] [facility] N [address] (Wo rk) documented as of this encounter Visit Diagnoses Not on filedocumented in this encounter Care Teams Dairy Specialist Relationship Specialty Start Date End Date Taylor Downing MD PCP - General Family Practice 02/01/19 [address] [place] [address] documented as of this encounter
--- OUTSIDE RECORDS SUMMARY | 2022-03-29 10:07 | XMS_ITS | Encounter Summary ---
:1970 Author Organization [employer] Address [address] [place] [address] Care Team Providers Name Role Phone Taylor Downing MD Primary Care Provider Encounter Details Date Type Department Care Team Description 04/28/[address] [address] [facility] [facility] [place] [address] disease [phone] Social History Tobacco Use Types Packs/Day Years Used Date Smoking Tobacco: Former Cigarettes 06/1998 - 02/04/2009 Smokeless Tobacco: Never Alcohol Use Standard Drinks/Week Comments No 0 (1 standard drink = 0.6 oz pure alcoho l) Sex Assigned at Date Recorded Female 06/28/2021 5:52 PM CERTIFIED OPHTHALMIC ASSISTANT documented as of this encounter Plan of Treatment Upcoming Encounters Date Type Specialty Care Team Description 05/04/2022 Appointment Gastroenterology Inés Levy MD [address] [facility] N [id number] (Wo rk) documented as of this encounter Procedures Procedure Name Priority Date/Time Associated Comments Diagnosis 2019 NOVEL Routine 04/28/2020 2:55 PM Contact with or Result s for this CORONAVIRUS CERTIFIED OPHTHALMIC ASSISTANT exposure to viral procedure are in disease the results section. documented in this encounter Results Asymptomatic - 2019 Novel Coronavirus (COVID-19) (04/28/2020 2:55 PM CERTIFIED OPHTHALMIC ASSISTANT) [facility] Method Time Signature SARS Not Detected Not Detected 05/01/2020 ROHIT CORONAVIRUS 2 10:22 AM RNA IN CERTIFIED OPHTHALMIC ASSISTANT RESPIRATORY SPECIMEN BY ABBE W Comment: Results [...] for the duration of time that the Doll Eye Setter of the [facility] declares circumstances exist j ustifying the authorization of the emerg ency use of in vitro diagnostic tests for detection of SARS-CoV-2 virus and/or diagnosis of COVID-19 infection under section 564(b)(1) of the Act, 21 U.S.C. 360bb b-3(b)(1), unless the authorization is t erminated or revoked sooner. To learn more about this test, go to htt ps://www.[employer]/pages/ejpmo34-ujrvcdk Performed by: LACEY Worrell [id number], CLIA [id number], [address] [place] [address] Ticketing Agent: Te Colin, Ph D, [facility] ([facility]) Specimen Anatomical Collection Method Collection Time Receive d Time (Source) Location / / Volume Laterality Swab (Source Non-blood 04/28/2020 2:55 PM 0 4:59 Required) Collection / CERTIFIED OPHTHALMIC ASSISTANT PM CERTIFIED OPHTHALMIC ASSISTANT Unknown Taylor Downing MD LAB_1 Performing Organization Address City/State/ZIP Code Phon e Number [place] [address] [place] [address] documented in this encounter Visit Diagnoses Diagnosis Contact with or exposure to viral diseas e Contact with or exposure to other viral diseases documented in this encounter Care Teams Organizational Development Manager Relationship Specialty Start Date End Date Taylor Downing MD PCP - General Family Practice 02/01/19 [address] [place] [address] documented as of this encounter
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
--- OUTSIDE RECORDS SUMMARY | 2022-03-29 10:07 | XMS_ITS | Encounter Summary ---
:1970 Author Organization [employer] Address [address] [place] [address] Care Team Providers Name Role Phone Taylor Downing MD Primary Care Provider Reason for Visit Reason Comments BACK PAIN, LOW Encounter Details Date Type Department Care Team Description 06/27/2021 Office Visit [facility] Te Vega, Chroni c bilateral low Orthopedic Urgent DO back pain without Care [address] red (HRC) [address] [place], [place] (Primary Dx) [place], [place] [phone] Social History Tobacco Use Types Packs/Day Years Used Date Smoking Tobacco: Former Cigarettes 1 06/1998 - 02/04/2009 Smokeless Tobacco: Never Alcohol Use Standard Drinks/Week Comments No 0 (1 standard drink = 0.6 oz pure alcoho l) Sex Assigned at Date Recorded Female 06/28/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 [facility] Medication Requests: Prescriptions are not filled on Weekends or on Weekdays after 3:00PM For all medication refills: Request a refill using [employer]bitt or contact your Pharmacy NOTE: As always, if prescribed a new medication today, inquire with your pharmacist on any potential interaction with you current medications, or potential side effects. Discontinue the new medication and notify us if you have any concerning side effects. MRI Scheduling: To schedule an MRI at [facility] please call [phone] Paperwork Requests: Questions regarding FMLA or disability paperwork please call [phone] Phone lines are answered 8AM to 5PM Tuesday - Tuesday. General Scheduling: To schedule an appointment, please call [phone] [facility] Nurse Line: [phone] Workers??? Compensation: Please contact our department for any Work Comp concerns at Email: [email or web address] Diagnosis: Chronic Low Back Pain Back Strain Plan: Follow Up: As needed if symptoms are not improving or worsen. If you have any questions regarding your visit or next steps, please contact us at [phone]. Medications: Your physician has sent a prescription for a Medrol Dosepak and Tizanadine to your preferred pharmacy. Take this medication as instructed. Please be sure to review all information providedon your prescription regarding this drug and any potential side effects you may experience. Ask yourpharmacist if any questions arise. Please note: Refills of any prescribed medications are not guaranteed and are at the discretion of your provider. Imaging Research Phlebotomist: [facility] [address] [place] [address]. Call [phone] to schedule. Medication Requests: Prescriptions are filled on Weekdays before 3:00PM For all medication refills: Request a refill using [employer] or contact your Pharmacy Paperwork Requests: FMLA or disability paperwork can be faxed to: Wanda - [phone] Please allow 7-10 business days for completion of all paperwork. [facility] Worker's Compensation Services: E-mail Address: [email or web address] To request copies of your medical records, call: [phone] (option 4) ERIZER documented in this encounter Progress Notes Te Ya, DO - 06/27/2021 12:00 AM CST NAME: YESSICA HERRERA CSN: [id number] CLINIC NOTE DATE OF SERVICE: 06/27/2021 : 1970 CHIEF COMPLAINT: Low back pain. DATE OF INJURY: 2 weeks ago. HPI: This is a 51-year-old female who says she was lifting and turning her 3- pound grandson about 2 weeks ago. She started having pain in the low back bilaterally. She has a history of right-sided low back pain that comes and goes. She says the pain is not going down her legs. It is about an 8/10 on the pain scale and feels like someone pushing constantly in the low back area. She notes in the pastshe has had prescriptions of tizanidine, Medrol Clive and Ultram, which helped her. She came in today as it is not getting better with Tylenol and she says she can't take Advil due to gastric bypass. However, he she did take some yesterday and it tore my stomach up. VITAL SIGNS: Patient's height 70 inches, weight 280 pounds, temp 98 degrees Fahrenheit and on physical exam actually. PAST MEDICAL HISTORY: Significant for fibromyalgia, bipolar disorder, opiate use disorder and morbidobesity as well as 31 total comorbidities. PHYSICAL EXAM: GENERAL: This is an overall well-appearing morbidly obese 51-year-old female in no acute distress. PSYCH: Normal affect. CARDIOVASCULAR: Pulses regular and equal in both lower extremities. NEUROLOGIC: Sensation is preserved in the legs. It is equal on both sides. RHEUM: No deformities barber ggesting autoimmune disease. RESPIRATORY: Patient is breathing normally. SKIN: No ecchymosis or lesions. LOW BACK MSK: Exam reveals a negative straight leg test bilaterally, 5/5 lower extremity strength with knee flexion, extension and hip flexion. Patient has slightly increased lordosis of the lumbarspine. Increased kyphotic curve of the thoracic spine. She is quite tender to palpation. Quadratus lumborum bilaterally. Diminished range of motion with flexion and extension. ASSESSMENT: Low back strain, acute on chronic back pain. PLAN: I go over options with Yessica. Tizanidine and Medrol worked for her before, so I do prescribe for her both of those things. Tizanidine 4 mg up to 3 times daily and a Medrol Clive. Additionally, we talked about additional pain medications. I recommend she stick to Tylenol for oral medications for pain and offered a Toradol injection in clinic, which would not affect her gastric bypass as this bypasses the stomach. She is in agreement with that plan and she will follow up as needed. She declined any acute physical therapy today. DO MALCOLM GARBER/RODRIGO /[id number] ERIZER documented in this encounter Plan of Treatment Upcoming Encounters Date Type Specialty Care Team Description 05/04/2022 Appointment Gastroenterology Inés Levy MD [address] [facility] N [address] (Wo rk) documented as of this encounter Visit Diagnoses Diagnosis Chronic bilateral low back pain without sciatica - Primary documented in this encounter Administered Medications Inactive Administered Medications - up to 3 most recent administrations Medication Order MAR Action Action Date Dose Rate Site ketorolac (TORADOL) Given 06/27/2021 11:22 AM 15 mg Right Deltoid injection 15 mg MERCERIZER 15 mg, Intramuscular, ONCE, On 06/27/21 at 1145, For 1 dose documented in this encounter Care Teams On Call Pharmacy Technician Relationship Specialty Start Date End Date Taylor Downing MD PCP - General Family Practice 02/01/19 [address] [place] [address] documented as of this encounter
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
--- OUTSIDE RECORDS SUMMARY | 2022-03-29 10:08 | XMS_ITS | Encounter Summary ---
:1970 Author Organization [employer] Address [address] [place] [address] Care Team Providers Name Role Phone Justine Blake MD Primary Care Provider Reason for Visit Reason Comments External Hospital Follow-up Suicide attemp Patient Care Coordination Encounter Details Date Type Department Care Team Description 09/21/2016 Telephone [place] [facility] Justine Blake, [facility] MD Follow-up (Suicide [address] attemp); Patient Care [place], [place] [address] [place], [place] Coordination [phone] (Wo rk) Social History Tobacco Use Types Packs/Day Years Used Date Smoking Tobacco: Never Sex Assigned at Date Recorded Female 06/28/2021 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 Hospital Discharge: Patient did not qualify: Patient discharged from the mental health, See note 09/15 per PCP documented in this encounter Plan of Treatment Upcoming Encounters Date Type Specialty Care Team Description 05/04/2022 Appointment Gastroenterology Inés Levy MD [address] [facility] [address] [address] (Wo rk) documented as of this encounter Visit Diagnoses Not on filedocumented in this encounter Care Teams Ceramist Relationship Specialty Start Date End Date Justine Blake MD PCP - General 07/18/00 01/31/19 [address] [place], [place] [id number] documented as of this encounter
--- OUTSIDE RECORDS SUMMARY | 2022-03-29 10:08 | XMS_ITS | Encounter Summary ---
:1970 Author Organization [facility] Address [address] [place] [address] Care Team Providers Name Role Phone Justine Blake MD Primary Care Provider Reason for Referral Consult/Transfer Care (Routine) - Closed Specialty Diagnoses / Procedures Referred By Contact Refer red To Contact Diagnoses Fibromyalgia Carolina Guzman MD [address] [place], [place] [address] Referral ID Status Reason Start Date Expiration Date Visits Requ ested Visits Authorized [id number] Closed 05/12/2017 08/11/2018 1 1 Scheduling Instructions Your provider has recommended an appoint ment for a pain consultation within [facility]. For scheduling at our [facility] or [place] location please call [phone]. To schedule at our [facility] location call [phone]. If you prefer, a torch solderer will contact you eddie stoner the next 3 business days to assist you in setting up this appointment. 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 documented as of this encounter Last Filed Vital Signs Vital Sign Reading Time Taken Comments Blood Pressure 116/89 05/12/2017 10:22 AM SELF SEALING FUEL TANK BUILDER Pulse 130 05/12/2017 10:22 AM SELF SEALING FUEL TANK BUILDER Temperature 36.9 ??C (98.4 ??F) 05/12/2017 10:22 AM SELF SEALING FUEL TANK BUILDER Respiratory Rate 20 05/12/2017 10:22 AM SELF SEALING FUEL TANK BUILDER Oxygen Saturation - - Inhaled Oxygen Concentration - - Weight 114.3 kg (252 lb) 05/12/2017 10:22 AM SELF SEALING FUEL TANK BUILDER Height - - Body Mass Index 37.21 09/06/2016 4:59 PM CDT documented in this encounter Progress Notes Carolina Guzman MD - 05/12/2017 10:40 AM CST Review of her record from [facility] and from [place] through care everywhere: Last visit here 09/27/16 She has been seeing [place] doctors in [facility] in [place]. There is a note on May 06 that they would no longer refill her gabapentin. According to the ETHNOGRAPHIC MATERIALS CONSERVATOR, between March 21 and May 07 she filled prescriptions for 240 tabs of 600 mg, 388 tabs of 300 mg, 150 tabs of 400 mg, 60 tabs of 100 mg. She also filled 60 tabs of 5 mg zolpidem, 10 tabs of 5 mg oxycodone, and 60 tabs of 50 mg tramadol, the last on April 21. Current Outpatient Prescriptions (issued from [facility]) ??? gabapentin (NEURONTIN) 100 MG capsule 1-2 tabs daily 60 Cap April 04, 2017 0 ??? gabapentin (NEURONTIN) 400 MG capsule Take 1 Cap three times a day. 270 Cap January 17. 1 ??? lamoTRIgine (LAMICTAL) 25 MG tablet Take 2 two times a day. 360 Tab September 27. Ran out late December.0 ??? topiramate (TOPAMAX) 100 MG tablet Take 1 Tab daily. 90 Tab September 27. Ran out late March 06 ??? venlafaxine (EFFEXOR) 75 MG tablet Take 2 Tabs two times a day. 3601 Tab September 27. Ran out late March. 1 Meds from [place] 09/17/16: Lamictal 25mg QD Topamax 150mg QD Effexor 125mg BID From outside medication reconciliation record: gabapentin 600mg QID, #120, 3 dispenses in 3 months. Last 04/08/17 gabapentin 300mg TID, #90, 8 dispenses in 3 months, last 04/28/17 Oxycodone 5mg #10, 03/30/17 #18 03/01/17 Tramadol 50mg BID, #60, 04/21/17 Zolpidem 5mg HS, #30 05/06/17. 2 dispense in 2 months. Resperidone 1mg daily #30, 05/06/17 and 0.25mg BID PRN #60 05/06/17. Atomoxetine 40mg QD, 3 dispense in 2 months, #30, last 04/14/17. Adderall 20mg TID, #90 03/01/17 SEALING FUEL TANK BUILDER Carolina Guzman MD - 05/12/2017 10:40 AM CST Historical: Chief Complaint Patient presents with ??? MEDICATION CHECK Medication Check: Which medication(s) are you here to have reviewed/refilled? Gabapentin Do you have difficulty taking medications as prescribed? No Do you have medication side effect concerns? No Patient requested gabapentin 600 mg. She states that she has been adjusting the dose and now wants to go back to 600 mg. Says that she takes it 4 times a day. She takes it for fibromyalgia and joint pain. I reviewed the ETHNOGRAPHIC MATERIALS CONSERVATOR with her noting the multiple prescriptions for gabapentin as noted below. She said that she had left her medications in [place] when she had to come [facility] the [facility] because of an emergency with one of her children. She asked for a few days worth until she could arrange to get the meds that were left behind, but later said that she had no way to get them as there was no one who could send him to her. She told me that she has been traveling a lot and is not sure where she will end up living. I have personally reviewed the patient's allergies, medications and past medical history in detail and updated the patient record as necessary. Observed:BP 116/89 Pulse (!) 130 Temp 98.4 ??F (36.9 ??C) (Oral) Resp 20 Wt 252 lb (114.3 kg) LMP 04/26/2017 BMI 37.21 kg/m2 Assessment/Plan: Excessive use of gabapentin. I explained to the patient that given the large amount of gabapentin she has received in the last 7 weeks, I could not give her a prescription for any controlled medication. I offered her a pain clinicreferral. Carolina Guzman MD SEALING FUEL TANK BUILDER documented in this encounter Plan of Treatment Upcoming Encounters Date Type Specialty Care Team Description 05/04/2022 Appointment Gastroenterology Inés Levy MD [address] [facility] [address] (Wo rk) Scheduled Referrals Name Type Priority Associated Diagnoses Order S chedule Pain Consult - Adult Referral Routine Fibromyalgia Ordered : 05/12/2017 documented as of this encounter Visit Diagnoses Diagnosis Fibromyalgia - Primary Mylagia and myositis, unspecified documented in this encounter Care Teams Slabber Light Relationship Specialty Start Date End Date Justine Blake MD PCP - General 07/18/00 01/31/19 [address] [place] [address] documented as of this encounter
--- OUTSIDE RECORDS SUMMARY | 2022-03-29 10:08 | XMS_ITS | Encounter Summary ---
:1970 Author Organization [employer] Address [address] [place] [address] Care Team Providers Name Role Phone Justine Blake MD Primary Care Provider Reason for Visit Reason Comments Medication Questions red flags cna gna Encounter Details Date Type Department Care Team Description 08/21/[address] [facility] Gillian Kirk, 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 Patient needs to be seen to establish care before further refills will be given Gillian Kirk PA-C Herbie Beverly - 08/21/2018 2:50 PM CDT Re: gabapentin 100 mg, based on ACCOUNTS OFFICER report, is Dr. Yelena rodriguez for pharmacy to fill the rx? Per [facility] [place], filled 400 mg 2 days ago and 600 mg in June, but I'd recommend running the ACCOUNTS OFFICER report as there is a 300 mg rx as well as multiple other controlled substances including Suboxone, Zubsolv, Zolpidem, lorazepam, and Vyvanse filled at various pharmacies from various prescribers in [place], [place], and [place] and 6 different pharmacies. There is also a note in Epic from February about drug-seeking behavior at [facility] and they wanted to get pt off meds due to significant abuse. Please call pharmacy to inform whether we should continue with fill. Thanks! Herbie Beverly 08/21/2018, 2:54 PM documented in this encounter Plan of Treatment Upcoming Encounters Date Type Specialty Care Team Description 05/04/2022 Appointment Gastroenterology Inés Levy MD [address] [facility] [address] [address] (Wo rk) documented as of this encounter Visit Diagnoses Not on filedocumented in this encounter Care Teams Business Support Administrator Relationship Specialty Start Date End Date Justine Blake MD PCP - General 07/18/00 01/31/19 [address] [place] [address] documented as of this encounter
--- OUTSIDE RECORDS SUMMARY | 2022-03-29 10:08 | XMS_ITS | Encounter Summary ---
:1970 Author Organization [facility] Address [address] [place] [address] Care Team Providers Name Role Phone Justine Blake MD Primary Care Provider Reason for Referral Procedure/Equipment (Routine) - Incomplete Specialty Diagnoses / Procedures Referred By Contact Refer red To Contact Diagnoses Fibromyalgia Kirby Mercado DPM Procedures XR Foot Rt AP/Lat Standing [address] [place] [address] Referral ID Status Reason Start Date Expiration Date Visits V isits Requested Authorized [id number] Incomplete 02/14/2018 05/16/2019 1 1 Procedure/Equipment (Routine) - Incomplete Specialty Diagnoses / Procedures Referred By Contact Refer red To Contact Diagnoses Fibromyalgia Kirby Mercado DPM Procedures XR Foot Lt AP/Lat Standing [address] [place] [address] Referral ID Status Reason Start Date Expiration Date Visits V isits Requested Authorized [id number] Incomplete 02/14/2018 05/16/2019 1 1 Reason for Visit Consult/Transfer Care (Routine) - Closed Specialty Diagnoses / Procedures Referred By Contact Refer red To Contact Diagnoses Pain in both feet Rashard De MD [address] [place], [place] [address] Referral ID Status Reason Start Date Expiration Date Visits Requ ested Visits Authorized [id number] Closed 02/13/2018 2019 1 1 Encounter Details Date Type Department Care Team Description 02/14/2018 Office Visit [facility] Kirby Mercado Fibr omyalgia (Primary Ankle Surgery/Podiat ry DPM Dx) 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 non-diabetic female who presents for initial evaluation Chief complaint: Bilateral foot pain Preferred name: Yessica Blood sugar this a.m.: NA Accompanied by: unaccompanied. How long have you had this problem: Over 5 year. Increased past 6 months History of condition: numbness, constant, worsening, radiating, recurrent, tightness/pain and pulling feeling Treatment so far: ice, new shoes, stretching, store-bought inserts, injection and decreased activity Pain scale: 3-5 at rest, 8 at it's worst Employment status: retired Occupation: Daily activities: care taking in general, movies, crafts Tobacco use: Quit 2008 Positive review of systems: chills, joint stiffness, limping, numbness, weakness, depression, anxiety, back pain and joint or muscle pain. Negative review of systems: fever, heartburn, rash, open wound, blood in stool, chest pain with activity, leg pain when walking, shortness of breath with activity, chronic cough, easy bleeding/bruising, excessive thirst, fatigue, swelling of ankles and painful urination Personal medical history: Mental health problems; Bipolar Family medical history: osteoporosis, heart disease and Cancer and stroke Other pertinent history: n/a Specific questions or requests from the provider? Xrays requested Did you have X-rays taken today? No; requesting to be done today Long-standing bilateral foot pain, focusing around the left first metatarsal phalangeal joint. She describes hypersensitivity and irregular temperature sensation. Symptoms radiate up the leg, but not past the knee. Already diagnosed with fibromyalgia. History of hammertoe correction in the past. Currently on gabapentin. History of drug seeking behavior. She wants tramadol today. Objective: General Assessment: Patient is alert and fully cooperative with history and exam. No sign of emotional or physical distress is noted during the visit. Musculoskeletal: Hammertoes of the lesser digits bilaterally. X-rays show hammertoe correction of the bilateral fifth toes and the left fourth toe. Some degenerative change at the left fourth metatarsal phalangeal joint. Calcaneal spurs. Vascular: Adequate pedal pulses bilaterally. Neurologic: Altered sensation in hypersensitivity, worse around the left first metatarsal phalangealjoint. Integument: Skin is intact today. Heme/Lymph/Immunologic: No lower extremity lymphedema is noted. No urticaria or rash. Respiratory: Breathing is regular and unlabored while sitting. No evidence of respiratory distress. HEENT: Hearing is intact to spoken word. No evidence of visual impairment is identified that would impact self care or ambulation. Patient is verbal. Psychiatric: Affect is pleasant and appropriate. No unusual or concerning anxiety or depression is noted. Patient appears motivated to follow directions and improve health. Assessment: Fibromyalgia, peripheral neuropathy, hammertoes Plan: Treatment options for this type nerve pain are poor. Continue with gabapentin. She asks me for tramadol today, but I would refer her back to primary care for that sort of treatment. She might consider hammertoe surgery in the future. documented in this encounter Plan of Treatment Upcoming Encounters Date Type Specialty Care Team Description 05/04/2022 Appointment Gastroenterology Inés Levy MD [address] [facility] [place] [address] (Wo rk) documented as of this encounter Results XR Foot Lt AP/Lat Standing (02/14/2018 3:16 PM CDT) Anatomical Region Laterality Modality Lower Extremity, Foot, Foot & Ankle Comp uted Radiography Specimen (Source) Anatomical Collection Method Collection Time Re ceived Time Location / / Volume Laterality 02/14/2018 3:16 PM CDT Narrative 02/14/2018 9:14 PM CDT [facility] XR FOOT LT AP/LAT STANDING 02/14/2018 3:16 PM INDICATION: Pain, hammertoes COMPARISON: None. FINDINGS: No fracture or dislocation. Sm all plantar and Achilles heel spurs. Hammertoe deformities of the second through fifth toes. Procedure Note Chaparro Ledezma MD - 02/14/2018Form atting of this note might be different from the original. [facility] XR FOOT LT AP/LAT STANDING 02/14/2018 3:16 PM INDICATION: Pain, hammertoes COMPARISON: None. FINDINGS: No fracture or dislocation. Sm all plantar and Achilles heel spurs. Hammertoe deformities of the second through fifth toes. Kirby RICO RAD GD XR Foot Rt AP/Lat Standing (02/14/2018 3:16 PM CDT) Anatomical Region Laterality Modality Lower Extremity, Foot, Foot & Ankle Comp uted Radiography Specimen (Source) Anatomical Collection Method Collection Time Re ceived Time Location / / Volume Laterality 02/14/2018 3:16 PM CDT Narrative 02/14/2018 9:15 PM CDT [facility] XR FOOT RT AP/LAT STANDING 02/14/2018 3:16 PM INDICATION: Pain, hammertoes. COMPARISON: None. FINDINGS: No fracture or dislocation. No significant degenerative changes in the right foot. Small plantar calcaneal spur. Hammertoe deformities of the third through fifth toes. Procedure Note Chaparro Ledezma MD - 02/14/2018Form atting of this note might be different from the original. [facility] XR FOOT RT AP/LAT STANDING 02/14/2018 3:16 PM INDICATION: Pain, hammertoes. COMPARISON: None. FINDINGS: No fracture or dislocation. No significant degenerative changes in the right foot. Small plantar calcaneal spur. Hammertoe deformities of the third through fifth toes. Kirby T [place] DPM RAD GD documented in this encounter Visit Diagnoses Diagnosis Fibromyalgia - Primary Mylagia and myositis, unspecified Fibromyalgia Mylagia and myositis, unspecified Fibromyalgia Mylagia and myositis, unspecified documented in this encounter Care Teams Continuous Process Coffee Roaster Relationship Specialty Start Date End Date Justine Blake MD PCP - General 07/18/00 01/31/19 [address] [place] [address] documented as of this encounter
--- OUTSIDE RECORDS SUMMARY | 2022-03-29 10:08 | XMS_ITS | Encounter Summary ---
:1970 Author Organization [facility] Address [address] [place] [address] Care Team Providers Name Role Phone Justine Blake MD Primary Care Provider Reason for Visit Reason Comments External Hospital Follow-up suicidal ideation Patient Care Coordination Encounter Details Date Type Department Care Team Description 09/14/2016 Telephone [facility] Justine Blake, [facility] MD Follow-up (suicidal [address] ideation); Patient Care [place], [place] [address] [place], [place] Coordination [phone] (Wo rk) Social History Tobacco Use Types Packs/Day Years Used Date Smoking Tobacco: Never Sex Assigned at Date Recorded 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 Suicideal ideation documented in this encounter Plan of Treatment Upcoming Encounters Date Type Specialty Care Team Description 05/04/2022 Appointment Gastroenterology Inés Levy MD [address] [facility] [address] [address] (Wo rk) documented as of this encounter Visit Diagnoses Not on filedocumented in this encounter Care Teams Tunneling Machine Operator Relationship Specialty Start Date End Date Justine Blake MD PCP - General 07/18/00 01/31/19 [address] [place] [address] documented as of this encounter
--- OUTSIDE RECORDS SUMMARY | 2022-03-29 10:08 | XMS_ITS | Encounter Summary ---
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 [place] [address] (Wo rk) documented as of this encounter Visit Diagnoses Not on filedocumented in this encounter Care Teams Reactor Fueling Supervisor Relationship Specialty Start Date End Date Taylor Downing MD PCP - General Family Practice 02/01/19 [address] [place], [place] [id number] documented as of this encounter
--- OUTSIDE RECORDS SUMMARY | 2022-03-29 10:08 | XMS_ITS | Encounter Summary ---
:1970 Author Organization [facility] Address [address] [place] [address] Care Team Providers Name Role Phone Justine Costa MD Primary Care Provider Reason for Visit Reason Onset Date Comments Refill 02/15/2018 gabapentin 100 Encounter Details Date Type Department Care Team Description 02/15/2018 Refill [facility] Unassigned, Provider Refill (gabapentin 100) Pharmacy [address] [place] [id number] [place] [address] Social History Tobacco Use Types Packs/Day Years Used Date Smoking Tobacco: Never Smokeless Tobacco: Never Sex Assigned at Date Recorded 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 Last qualifying visit: 05/12/2017 (in [facility]) Next scheduled visit: None Last ordered by JUSTINE COSTA: 04/04/2017 (317 days ago) QTY: 60, Refills: 0, Si-2 tabs daily (unchanged) Powered by [employer], Reference: [id number], 02/15/2018 11:09:42 AM CDT, Pool: BRITO RN ([id number]) Jeana Farrar - 02/15/2018 11:09 AM CDT Last fill from a [facility] on 08-30-2016 for a quantity of 540. documented in this encounter Plan of Treatment Upcoming Encounters Date Type Specialty Care Team Description 05/04/2022 Appointment Gastroenterology Inés Levy MD [address] [facility] [address] [address] (Wo rk) documented as of this encounter Visit Diagnoses Not on filedocumented in this encounter Care Teams Precision Inspector Relationship Specialty Start Date End Date Justine Costa MD PCP - General 07/18/00 01/31/19 [address] [place] [address] documented as of this encounter
--- OUTSIDE RECORDS SUMMARY | 2022-03-29 10:08 | XMS_ITS | Encounter Summary ---
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 Gabapentin. Pharmacist went into the monitoringprogram. Patient has been getting from different doctors,pharmacies and paying [place] for some. MOGRAPH OBSERVER documented in this encounter Plan of Treatment Upcoming Encounters Date Type Specialty Care Team Description 05/04/2022 Appointment Gastroenterology Inés Levy MD [address] [place] [address] [address] (Wo rk) documented as of this encounter Visit Diagnoses Not on filedocumented in this encounter Care Teams Compensation Specialist Relationship Specialty Start Date End Date Justine Blake MD PCP - General 07/18/00 01/31/19 [address] [place] [address] documented as of this encounter
--- OUTSIDE RECORDS SUMMARY | 2022-03-29 10:08 | XMS_ITS | Encounter Summary ---
:1970 Author Organization [facility] Address [address] [place] [address] Care Team Providers Name Role Phone Justine Blake MD Primary Care Provider Reason for Visit Reason Comments FOLLOW-UP,HOSPITAL Encounter Details Date Type Department Care Team Description 09/27/2016 Office Visit [facility] Justine Blake lar affective disorder, remission status unspecified (Primary Dx); Derrick Calderon MD Fibromyalgia; [address] [facility] [address] [facility] Other migraine without status migrainosu s, [place] [id number] Social History Tobacco Use Types Packs/Day Years Used Date Smoking Tobacco: Never Sex Assigned at Date Recorded 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 She has a history of bipolar disorder, ADD, drug abuse and recent admission for suicide attempt. I did talk to one of the physicians a few of them. I agreed to take her back as a patient. They were adjusting her medications. They cautioned about prescribing any type of narcotic or benzodiazepine. I am in agreement with her plan. She is here today to get refills on her medications and adjustment on the doses. She is going to be moving to [place] on September 29. Likely she will be back sometime in January for a short time and then back again to [place]. She does have a pain clinic out there and hopefully she will find behavioral health so that she can establish a relationship with the counselor out there. Objective:BP 121/82 mmHg Pulse 76 Resp 20 She appears well. Somewhat anxious. Assessment: Medication adjustment. Plan: She is given refills today on her Lamictal, gabapentin, Effexor and Topamax. I had upped the dose on all of these medications. She is going to gradually titrate up once she gets down to [place]. She did ask for some hydrocodone for her chronic pain. This was declined today. Hopefully with the higher dose of gabapentin, things will start to improve. documented in this encounter Plan of Treatment Upcoming Encounters Date Type Specialty Care Team Description 05/04/2022 Appointment Gastroenterology Inés Levy MD [address] [facility] N [address] (Wo rk) documented as of this encounter Visit Diagnoses Diagnosis Bipolar affective disorder, remission st atus unspecified ([facility]) - Primary Fibromyalgia Mylagia and myositis, unspecified Other migraine without status migrainosu s, not intractable documented in this encounter Care Teams Department Clinician Relationship Specialty Start Date End Date Justine Blake MD PCP - General 07/18/00 01/31/19 [address] [place] [address] documented as of this encounter
--- OUTSIDE RECORDS SUMMARY | 2022-03-29 10:08 | XMS_ITS | Encounter Summary ---
:1970 Author Organization [facility] Address [address] [place] [address] Care Team Providers Name Role Phone Taylor Downing MD Primary Care Provider Reason for Visit Reason Comments BLOATED ABDOMINAL PAIN Encounter Details Date Type Department Care Team Description 02/01/2019 Nurse Triage Careline Tricia Fowler, BLOATED; ABDOMINAL [address] 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 Pain is mainly in upper abdomen (if needed ask: is it mainly above the belly button?) ? ? [1] SEVERE pain (e.g., excruciating) AND [2] present > 1 hour Pain is present and severe only when she presses on LUQ. Answer Assessment - Initial Assessment Questions 1. LOCATION: Where does it hurt? LUQ 2. RADIATION: Does the pain shoot anywhere else? (e.g., chest, back) Yes shoots into LLQ when she presses on it and tends to drift to RUQ 3. ONSET: When did the pain begin? (e.g., minutes, hours or days ago) Pain with pressing on it started 1 months ago, bloating started 6-8 months ago, has gotten worse over last 2-3 months 4. SUDDEN: Gradual or sudden onset? gradual 5. PATTERN Does the pain come and go, or is it constant? - If constant: Is it getting better, staying the same, or worsening? (Note: Constant means the pain never goes away completely; most serious pain is constant and it progresses) - If intermittent: How long does it last? Do you have pain now? (Note: Intermittent means the pain goes away completely between bouts) Comes and goes 6. SEVERITY: How bad is the pain? (e.g., Scale 1-10; mild, moderate, or severe) - MILD (1-3): doesn't interfere with normal activities, abdomen soft and not tender to touch - MODERATE (4-7): interferes with normal activities or awakens from sleep, tender to touch - SEVERE (8-10): excruciating pain, doubled over, unable to do any normal activities severe 7. RECURRENT SYMPTOM: Have you ever had this type of abdominal pain before? If so, ask: When was the last time? and What happened that time? no 8. CAUSE: What do you think is causing the abdominal pain? No idea afraid it may be related to her Gastric Bypass, done in 2007 9. RELIEVING/AGGRAVATING FACTORS: What makes it better or worse? (e.g., movement, antacids, bowel movement) Just leaving abd alone, not pushing on it 10. OTHER SYMPTOMS: Has there been any vomiting, diarrhea, constipation, or urine problems? Loose stool yesterday. Over the past 2-3 months put on additional 40 lbs, (Was 220, now is 260 lbs) Protocols used: ABDOMINAL PAIN - [id number], ABDOMINAL PAIN - [id number] Tricia Fowler RN - 02/01/2019 2:12 PM CDT Verified patient identity using three identifiers: Yes Situation/Background (brief explanation of current symptoms/situation): Pt c/o I have a massive stomach, it looks like I am 9 month , but I am 48 yrs old, has been this way for past 2-3 months. Denies constipation, but has irregular BM's, some BM's cause severe rectal pain with trying to have a BM, then when the BM finally comes pt reports rectal burning and smell is atrocious. Last BM was yesterday , it was very loose and color was greenish brown. Diet has been consistent due to Hx Gastric Bypass in 2003. Bloated all the time, if I push on LUQ it causes nausea and makes her feel like shecould pass out, it so painful. Without pushing I'm fine, but with pushing on left side pain is a 9/10. Pain just noticed 1 month. Has not had the time to call to make appt due to travel to [place]. I cannot loose weight, I swim, walk. My stomach has passed my bra size of 44 D. Denies nausea, vomitingor fever. Denies UTI sxs. Not drinking much so urine bright yellow. Mouth is dry, denies dizziness or lightheadedness, last voided this morning at 8 AM, of a normal amt. It is harder to pee due to theGabapentin (has been on it for past 2 yrs for Fibromyalgia). Reviewed with patient pertinent medical history(as it related to the call):Hx Gastric Bypass 2007, Hx Bowel Obstruction 2014, Had emergency surgery, for twisted intestine. Hx Umbilical Hernia Repair, at time of Gastric Bypass, 2007 Reviewed with patient pertinent medications (as they relate to call):yes Gabapentin, Suboxin, Lamictal, Reviewed with patient pertinent allergies (as they relate to call). Yes Bee venom; Shellfish-derivedproducts; Cyclobenzaprine; Diphenhydramine; Duloxetine; Erythromycin; Escitalopram; Ibuprofen; Iodine-131; Lyrica [pregabalin]; Methocarbamol; Naproxen; Nsaids; Penicillins; Prochlorperazine; Risperidone; Sulfa antibiotics; Sumatriptan; Tetracycline; and Venlafaxine documented in this encounter Plan of Treatment Upcoming Encounters Date Type Specialty Care Team Description 05/04/2022 Appointment Gastroenterology Inés Levy MD [address] [place] [address] [address] (Wo rk) documented as of this encounter Visit Diagnoses Not on filedocumented in this encounter Care Teams Catshovel Driver Relationship Specialty Start Date End Date Taylor Downing MD PCP - General Family Practice 02/01/19 [address] [place] [address] documented as of this encounter
--- OUTSIDE RECORDS SUMMARY | 2022-03-29 10:08 | XMS_ITS | Encounter Summary ---
:1970 Author Organization [employer] Address [address] [place] [address] Care Team Providers Name Role Phone Justine Blake MD Primary Care Provider Reason for Visit Reason Comments Refill gabapentin (NEURONTIN) 400 M G capsule [Pharmacy Med Name: GABAPENTIN 400MG CAPSULES] Encounter Details Date Type Department Care Team Description 02/01/2017 Refill [facility] Wes Wright MD Refill (gabapentin Practice [address] (NEURONTIN) 400 MG [address] [place], [place] capsule [Pharmacy Med [place], [place] [phone] Name: GABAPENTIN 400MG [phone] (Wo rk) CAPSULES]) Social History Tobacco Use Types Packs/Day Years Used Date Smoking Tobacco: Never Sex Assigned at Date Recorded 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 -> This medication cannot be delegated per protocol. Last qualifying visit: 09/27/2016 (in Family Practice) Next scheduled visit: None Last ordered by WES WRIGHT M: 01/17/2017 (15 days ago) QTY: 270, Refills: 1, Sig: take 1 cap by mouth three times a day. (changed but equivalent) Powered by [employer], Reference: [id number], 02/01/2017 3:34:28 AM CDT, Pool: AV REFILL RN ([id number]) documented in this encounter Plan of Treatment Upcoming Encounters Date Type Specialty Care Team Description 05/04/2022 Appointment Gastroenterology Inés Levy MD [address] [facility] N [address] (Wo rk) documented as of this encounter Visit Diagnoses Not on filedocumented in this encounter Care Teams Certified Ophthalmic Technician Relationship Specialty Start Date End Date Justine Blake MD PCP - General 07/18/00 01/31/19 [address] [place] [address] documented as of this encounter
--- OUTSIDE RECORDS SUMMARY | 2022-03-29 10:08 | XMS_ITS | Encounter Summary ---
:1970 Author Organization [employer] Address [address] [place] [address] Care Team Providers Name Role Phone Justine Blake MD Primary Care Provider Reason for Visit Reason Comments Refill gabapentin (NEURONTIN) 100 M G capsule [Pharmacy Med Name: GABAPENTIN 100MG CAPS] Encounter Details Date Type Department Care Team Description 05/29/2018 Refill [facility] Gillian Kaufman, Ref ill (gabapentin Practice PA-C (NEURONTIN) 100 MG [address] [address] capsule [Pharmacy Med [place], [place] [address] [place], [place] Name: GABAPENTIN 100MG [phone] [address] CAPS]) [phone] (Wo rk) Social History Tobacco Use Types Packs/Day Years Used Date Smoking Tobacco: Never Smokeless Tobacco: Never Sex Assigned at Date Recorded 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 -> Medication cannot be delegated. Last qualifying visit: 05/12/2017 (in FAMILY PRACTICE) Next scheduled visit: None Last ordered by GILLIAN KAUFMAN M: 04/03/2018 (56 days ago) QTY: 60, Refills: 1, Si-2 caps daily (changed) Powered by [employer], Reference: [id number], 05/29/2018 9:42:39 AM AUTOMOBILE SERVICE STATION MECHANIC, Pool: REFILL RN ([id number]) MOBILE SERVICE STATION MECHANIC documented in this encounter Plan of Treatment Upcoming Encounters Date Type Specialty Care Team Description 05/04/2022 Appointment Gastroenterology Inés Levy MD [address] [facility] N [address] (Wo rk) documented as of this encounter Visit Diagnoses Not on filedocumented in this encounter Care Teams Will Call Clerk Relationship Specialty Start Date End Date Justine Blake MD PCP - General 07/18/00 01/31/19 [address] [place] [address] documented as of this encounter
--- OUTSIDE RECORDS SUMMARY | 2022-03-29 10:08 | XMS_ITS | Encounter Summary ---
:1970 Author Organization [employer] Address [address] [place] [address] Care Team Providers Name Role Phone Taylor Downing MD Primary Care Provider Reason for Referral Consult/Transfer Care (Routine) - Closed Specialty Diagnoses / Procedures Referred By Contact Refer red To Contact Diagnoses Seborrheic dermatitis of scalp Hair loss Hilario Dupree PA-C [address] [place], [place] [address] Referral ID Status Reason Start Date Expiration Date Visits Requ ested Visits Authorized [id number] Closed 04/30/2019 07/29/2020 1 1 Scheduling Instructions Your provider has recommended an appoint ment with Letty Mcfarlane. You may call [phone] to schedule your appoi ntment. If you do not schedule an appointment within the next 1 to 3 business days, we will call you to help arrange your appointment. We suggest you call your [employer] insurance company about your coverage and benefits for this appointment. TANK WORKER Reason for Visit Reason Comments CYST on head becoming painful Medicare Annual Wellness Encounter Details Date Type Department Care Team Description 04/30/2019 Office Visit [facility] Hilario Dupree for Medicare annual wellness exam (Primary Dx); Derrick Matta PA-C Seborrheic dermatitis of scalp; [address] [facility] [address] Screening for breast cancer; [place], [place] Screen for colon cancer; [phone] Encounter for screening for malignant ne oplasm of colon; [phone] S/P gastric byp ass; (Work) Screening cholesterol level; [phone] Screening for d iabetes mellitus; (Fax) Screening for H IV (human immunodeficiency virus); Hair loss Social History Tobacco Use Types Packs/Day Years Used Date Smoking Tobacco: Former Cigarettes Quit : 02/04/2009 Smokeless Tobacco: Never Alcohol Use Standard Drinks/Week Comments No 0 (1 standard drink = 0.6 oz pure alcoho l) Sex Assigned at Date Recorded Female 06/28/2021 5:52 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 documented as of this encounter Last Filed Vital Signs Vital Sign Reading Time Taken Comments Blood Pressure 124/87 04/30/2019 11:00 AM PAN TANK WORKER Pulse 88 04/30/2019 11:00 AM PAN TANK WORKER Temperature - - Respiratory Rate 18 04/30/2019 11:00 AM PAN TANK WORKER Oxygen Saturation - - Inhaled Oxygen Concentration - - Weight 101.2 kg (223 lb) 04/30/2019 11:00 AM PAN TANK WORKER Height 175.3 cm (5' 9) 04/30/2019 11:00 AM PAN TANK WORKER Body Mass Index 32.93 04/30/2019 11:00 AM PAN TANK WORKER documented in this encounter Patient Instructions Patient InstructionsEvelyn Lara, [place] - 04/30/2019 11:10 AM CST Annual Wellness Visit Summary Your care team is recommending the following tests, procedures or services. Some of these recommendations may not be fully covered by Medicare or your insurance. If you have questions, check with your insurance to determine coverage before completing these services. Health Maintenance Due Health Maintenance Due Topic Date Due ??? SMI: Fasting Lipid 1970 ??? SMI: Glucose 1970 ??? Drug Screen 1970 ??? Careplan Update 1970 ??? Prescription Monitoring Program 1968 ??? Medicare Annual Wellness Visit 1970 ??? Colon Cancer Screening Plan Due 1970 ??? Cervical Cancer Screening Due 1968 ??? Mammogram 1970 ??? HIV Screening (Preventive Services) 1984 ??? Zoster (1 of 2) 2018 ??? Influenza (1) 02/04/2019 If your Medicare Welcome or Annual Wellness Visit is showing you are due in the above list, this will be updated after this visit. You had this completed today and are not due for another year. Fecal Immunochemical Test Instructions We have ordered a FIT (Fecal Immunochemical testing) test for you today. The test will look for the presence of blood in your stool. This test order is effective for 5 years. You will repeat this test annually. There will be specific instructions inside the kit on how you obtain the sample and details on how you return the kit once the sample is collected. For the following four years, the kit will be mailed directly to you. Please return the kit as soon as possible. TANK WORKER documented in this encounter Progress Notes Hilario Dupree PA-C - 04/30/2019 11:10 AM CST Medicare Annual Subjective/Historical: Yessica Herrera is a 48 y.o. old female Chief Complaint Patient presents with ??? CYST on head becoming painful ??? Medicare Annual Wellness Yessica Herrera is a 48 y.o. female who presents with concerns for hair loss and painful cysts of her scalp. She endorsed a chronic history of cysts on her scalp and hair loss. These symptoms have been present for many years and she is treating her hair loss with Shukri. She denied any OTC medicated shampoo use. Has not tried any prescription medications for this. Denied any fevers or chills. She endorsed that her flares worsen with product use in her hair. Denied any other rashes or bruising. Expressed interest in routine metabolic lab work with recommended screenings. No additional concerns were addressed, and remainder of ROS was negative. Current Concerns: Painful cysts on head x many years, but worsening in the past 6 mo Mini-Cog Assessment Not performed due to pt being < 65 years old with no cognitive or memory impairment Additional Assessments Completed: PHQ9 was administered today with a total score of: 16 Has a Health Care Directive on file? no. Pertinent Positives from Medicare Wellness Form: No flowsheet data found. The patient's health maintenance, problem list, past medical history, past surgical history, family history, medication list, allergies, and immunization records have been reviewed and updated in the patient record as necessary. Observed Vitals: BP 124/87 (BP Location: Right Arm, BP Cuff Size: Large) Pulse 88 Resp 18 Ht 5' 9 (1.753 m) Wt 223 lb (101.2 kg) LMP 04/26/2017 BMI 32.93 kg/m?? Physical Exam: General Appearance: alert, well appearing and in no apparent distress HEENT: lids normal, sclera clear and conjunctiva normal and oropharynx clear, ear canals clear and TMs normal Neck: no lymphadenopathy and no thyromegaly or nodules Heart: regular rate and rhythm and no murmurs, gallops or rubs Lungs: clear to ausculation and no wheezes, rales or rhonchi Abdomen: soft, nondistended, nontender, no palpable masses and no organomegaly Skin: multiple scabbed papules on scalp Assessment/Plan Encounter for Medicare annual wellness exam Seborrheic dermatitis of scalp - fluocinonide (LIDEX) 0.05 % external solution; Apply to scalp 2 times per day for no more than twoweeks as needed for dermatitis. - Dermatology Consult-Adult/Peds Screening for breast cancer - MM Mammogram Screening Bilat W 3D Ti W CAD; Future Screen for colon cancer - MM Mammogram Screening Bilat W 3D Ti W CAD; Future Encounter for screening for malignant neoplasm of colon - FIT Collection Kit Prep - FIT COLON RECTAL CANCER SCREENING - Year 1; Future - FIT COLON RECTAL CANCER SCREENING - Year 2; Future - FIT COLON RECTAL CANCER SCREENING - Year 3; Future - FIT COLON RECTAL CANCER SCREENING - Year 4; Future - FIT COLON RECTAL CANCER SCREENING - Year 5; Future S/P gastric bypass - Vitamin D 25-Hydroxy, Total; Future - Vitamin B12 Only; Future - Complete Blood Count -W/Diff; Future - Iron Profile (Iron,TIBC,%Sat.(Calc)); Future - Ferritin; Future - CMP - Comp Metabolic Panel; Future Screening cholesterol level - Lipid Panel and Direct LDL(If Needed); Future Screening for diabetes mellitus - Hgb A1C; Future Screening for HIV (human immunodeficiency virus) - HIV 1/2 Ag/Ab 4th Generation; Future Hair loss - Dermatology Consult-Adult/Peds MDM: It was a pleasure meeting eYssica today, and I was happy to assist with her concerns. Her signs and symptoms were consistent with seborrheic dermatitis of the scalp and elected to treat with Lidex topical solution. Administration and side effects were discussed, and all questions were answered. I also elected to provide her a referral for Dermatology for her concerns of hair loss. Discussed that Iwould follow up with her lab results, and she was agreeable to fit colon cancer screening, as well as, fit colon cancer screening. Advised follow-up in clinic for any other acute changes in her health.Patient was in agreement with plan, and had no further questions. Counseling and education provided today includes proper nutrition and health habits, fall prevention, and for those items ordered above. Plan for future preventive services in Patient Instructions. Hilario Dupree PA-C 04/27/2019, 11:23 AM Voice recognition software ([employer]) was used to generate this note. As a result, wrong word or '[id number]' substitutions may have occurred due to the inherent limitations of voice recognition software. There may be errors in the script that have gone undetected. Please consider this when interpreting information found in this chart. TANK WORKER documented in this encounter Plan of Treatment Upcoming Encounters Date Type Specialty Care Team Description 05/04/2022 Appointment Gastroenterology Inés Levy MD [address] [facility] N [address] (Wo rk) Scheduled Orders Name Type Priority Associated Diagnoses Order S chedule FIT COLON RECTAL CANCER Lab Routine Encounter for scr eening Expected: 04/29/2021, SCREENING - Year 3 for malignant neoplasm of Expires: 04/29/2022 colon FIT COLON RECTAL CANCER Lab Routine Encounter for scr eening Expected: 04/29/2022, SCREENING - Year 4 for malignant neoplasm of Expires: 04/29/2023 colon FIT COLON RECTAL CANCER Lab Routine Encounter for scr eening Expected: 04/29/2023, SCREENING - Year 5 for malignant neoplasm of Expires: 04/28/2024 colon Scheduled Referrals Name Type Priority Associated Diagnoses Order S chedule Dermatology Referral Routine Seborrheic dermatitis Ordere d: 04/30/2019 Consult-Adult/Peds of scalp Hair loss documented as of this encounter Procedures Procedure Name Priority Date/Time Associated Comments Diagnosis FIT COLLECTION KIT Routine 04/30/2019 11:11 AM Encounter for R esults for this PREP PAN TANK WORKER screening for procedure are in malignant neoplasm the resul ts of colon section. documented in this encounter Results HIV 1/2 Ag/Ab 4th Generation (04/30/2019 11:24 AM PAN TANK WORKER) [facility] Method Time Signature HIV 1/2 Negative Negative 04/30/2019 [facility]/Anti (Non (Non 3:42 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 CENTRAL LAB body (4th Reactive) Reactive) generation) Comment: HIV-1 p24 Antigen and HIV-1/HIV -2 Antibody not detected Specimen Anatomical Collection Method / Collection Time Recei carl Time (Source) Location / Volume Laterality Blood Venipuncture / 04/30/2019 11:24 9 Unknown AM PAN TANK WORKER 11:24 AM PAN TANK WORKER Hilario Dupree PA-C LAB_1 Performing Organization Address [facility] Phon e Number Fusion [facility] C[facility]AL LAB [address] [address] Hgb A1C (04/30/2019 11:24 AM PAN TANK WORKER) [facility] Time Signature Hemoglobin A1C 5.3 <=5.6 % 04/30/2019 [facility] 3:37 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 CENTRAL LAB Specimen Anatomical Collection Method / Collection Time Recei carl Time (Source) Location / Volume Laterality Blood Venipuncture / 04/30/2019 11:24 9 Unknown AM PAN TANK WORKER 11:24 AM PAN TANK WORKER Hilario Dupree PA-C LAB_1 Performing Organization Address [facility] Phon e Number [facility] CENTRAL LAB [address] [address] (ABNORMAL) Lipid Panel and Direct LDL(If Needed) (04/30/2019 11:24 AM PAN TANK WORKER) [facility] Method Time Signature Cholesterol 230 (H) 0 - 199 04/30/2019 [facility] mg/dL 3:34 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 CENTRAL LAB Triglyceride 187 (H) <=149 04/30/2019 [facility] mg/dL 3:34 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 CENTRAL LAB HDL Cholesterol 49 >=40 04/30/2019 [facility] mg/dL 3:34 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 CENTRAL LAB LDL, Calculated 144 (H) <130 04/30/2019 [facility] mg/dL 3:34 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 CENTRAL LAB Non HDL Chol, 181 mg/dL 04/30/2019 [facility] Calculated 3:34 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 CENTRAL LAB Cholesterol/HDL 4.7 04/30/2019 [facility] Ratio 3:34 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 CENTRAL LAB Hours Fasting 12 04/30/2019 [place] 3:34 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 Specimen Anatomical Collection Method / Collection Time Recei carl Time (Source) Location / Volume Laterality Blood Venipuncture / 04/30/2019 11:24 9 Unknown AM PAN TANK WORKER 11:24 AM PAN TANK WORKER Hilario Dupree PA-C LAB_1 Performing Organization Address City/State/ZIP Code Phon e Number [facility] C[facility]AL LAB [address] [address] [place] [facility] [address] [place] [address], [facility] CMP - Comp Metabolic Panel (04/30/2019 11:24 AM PAN TANK WORKER) [facility] Method Time Signature Sodium 145 136 - 145 04/30/2019 [facility] mmol/L 3:34 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 CENTRAL LAB Potassium 4.0 3.5 - 5.1 04/30/2019 [facility] mmol/L 3:34 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 CENTRAL LAB Chloride 109 98 - 109 04/30/2019 [facility] mmol/L 3:34 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 CENTRAL LAB CO2 26 20 - 29 04/30/2019 [facility] mmol/L 3:34 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 CENTRAL LAB Anion Gap 10 7 - 16 04/30/2019 [facility] mmol/L 3:34 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 CENTRAL LAB Calcium 10.4 8.4 - 04/30/2019 [facility] 10.4 3:34 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 CENTRAL LAB mg/dL BUN 10 7 - 26 04/30/2019 [facility] mg/dL 3:34 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 CENTRAL LAB Creatinine 0.80 0.55 - 04/30/2019 [facility] 1.02 3:34 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 CENTRAL LAB mg/dL GFR, Estimated >60 >60 04/30/2019 [facility] mL/min/1. 3:34 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 CENTRAL LAB 73m2 GFR, Est If >60 >60 04/30/2019 [facility] mL/min/1. 3:34 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 CENTRAL LAB Moldovan 73m2 Alkaline 131 40 - 150 04/30/2019 [facility] Phosphatase U/L 3:34 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 CENTRAL LAB AST (SGOT) 14 10 - 40 04/30/2019 [facility] U/L 3:34 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 CENTRAL LAB ALT (SGPT) 16 0 - 55 04/30/2019 [facility] U/L 3:34 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 CENTRAL LAB Bilirubin, 0.3 0.2 - 1.2 04/30/2019 [facility] Total mg/dL 3:34 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 CENTRAL LAB Protein, Total 7.0 6.4 - 8.3 04/30/2019 [facility] g/dL 3:34 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 CENTRAL LAB Albumin 3.9 3.5 - 5.0 04/30/2019 [facility] g/dL 3:34 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 CENTRAL LAB Glucose 98 70 - 100 04/30/2019 [facility] mg/dL 3:34 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 CENTRAL LAB Comment: The given reference range is fo r the fasting state. Non-fasting reference range for glucose is 70 - 180 mg/dL. Hours Fasting 12 04/30/2019 3:34 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 [facility] LAB Specimen Anatomical Collection Method / Collection Time Recei carl Time (Source) Location / Volume Laterality Blood Venipuncture / 04/30/2019 11:24 9 Unknown AM PAN TANK WORKER 11:24 AM PAN TANK WORKER Hilario Dupree PA-C LAB_1 Performing Organization Address City/State/ZIP Code Phon e Number [facility] [address] [address] [place] [facility] [address] [place], [place] [phone], [facility] Ferritin (04/30/2019 11:24 AM PAN TANK WORKER) athologist Signature Ferritin 53 9 - 204 04/30/2019 [facility] ng/mL 3:43 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 CENTRAL LAB Specimen Anatomical Collection Method / Collection Time Recei carl Time (Source) Location / Volume Laterality Blood Venipuncture / 04/30/2019 11:24 9 Unknown AM PAN TANK WORKER 11:24 AM PAN TANK WORKER Hilario Dupree PA-C LAB_1 Performing Organization Address [facility]/ZIP Code Phon e Number [facility] [address] [address] Iron Profile (Iron,TIBC,%Sat.(Calc)) (04/30/2019 11:24 AM PAN TANK WORKER) [facility] Method Time Signature Iron 51 50 - 170 04/30/2019 [facility] mcg/dL 3:34 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 CENTRAL LAB Transferrin 256 180 - 382 04/30/2019 [facility] mg/dL 3:34 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 CENTRAL LAB TIBC, 320 240 - 450 04/30/2019 [facility] Calculated mcg/dL 3:34 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 CENTRAL LAB % Saturation, 16 10 - 50 % 04/30/2019 [facility] Calculated 3:34 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 CENTRAL LAB Specimen Anatomical Collection Method / Collection Time Recei carl Time (Source) Location / Volume Laterality Blood Venipuncture / 04/30/2019 11:24 9 Unknown AM PAN TANK WORKER 11:24 AM PAN TANK WORKER Hilario Dupree PA-C LAB_1 Performing Organization Address [facility]/ZIP Code Phon e Number [facility] [address] [address] Vitamin B12 Only (04/30/2019 11:24 AM PAN TANK WORKER) P athologist Signature Vitamin B12 441 213 - 816 04/30/2019 [facility] pg/mL 3:51 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 CENTRAL LAB Specimen Anatomical Collection Method / Collection Time Recei carl Time (Source) Location / Volume Laterality Blood Venipuncture / 04/30/2019 11:24 9 Unknown AM PAN TANK WORKER 11:24 AM PAN TANK WORKER Hilario Dupree PA-C LAB_1 Performing Organization Address [facility] Phon e Number [facility] CENTRAL LAB [address] [address] Vitamin D 25-Hydroxy, Total (04/30/2019 11:24 AM PAN TANK WORKER) Patholo gist Method Time Signature Vitamin D, 48 30 - 80 04/30/2019 [facility] 25-OH, Total ng/mL 3:44 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 CENTRAL LAB Specimen Anatomical Collection Method / Collection Time Recei carl Time (Source) Location / Volume Laterality Blood Venipuncture / 04/30/2019 11:24 9 Unknown AM PAN TANK WORKER 11:24 AM PAN TANK WORKER Hilario Dupree PA-C LAB_1 Performing Organization Address City/[facility]/ZIP Code Phon e Number [facility] CENTRAL LAB [address] [address] FIT Collection Kit Prep (04/30/2019 11:11 AM PAN TANK WORKER) P athologist Signature FIT Kit Prep Fit Kit 04/30/2019 [place] Given 1:00 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 LAB Specimen Anatomical Collection Method Collection Time Receive d Time (Source) Location / / Volume Laterality Stool 04/30/2019 11:11 04/30/2019 AM PAN TANK WORKER 11:11 AM PAN TANK WORKER Hilario Dupree PA-C LAB_1 Performing Organization Address City/[facility] Phon e Number [place] [facility] [address] [place] [phone] documented in this encounter Visit Diagnoses Diagnosis Encounter for Medicare annual wellness e xam - Primary Seborrheic dermatitis of scalp Other seborrheic dermatitis Screen for colon cancer Special screening for malignant neoplasm s, colon Encounter for screening for malignant ne oplasm of colon Special screening for malignant neoplasm s, colon S/P gastric bypass Bariatric surgery status Screening cholesterol level Screening for lipoid disorders Screening for diabetes mellitus Screening for HIV (human immunodeficienc y virus) Special screening examination for other specified viral diseases Hair loss Alopecia, unspecified documented in this encounter Care Teams Front Office Specialist Relationship Specialty Start Date End Date Taylor Downing MD PCP - General Family Practice 02/01/19 [address] [place], [place] [phone] documented as of this encounter
--- OUTSIDE RECORDS SUMMARY | 2022-03-29 10:08 | XMS_ITS | Encounter Summary ---
:1970 Author Organization [facility] Address [address] [place] [address] Care Team Providers Name Role Phone Justine Blake MD Primary Care Provider Reason for Visit Procedure/Equipment (Routine) - Incomplete Specialty Diagnoses / Procedures Referred By Contact Refer red To Contact Diagnoses Fibromyalgia Kirby Mercado DPM Procedures XR Foot Lt AP/Lat Standing [address] [place] [address] Referral ID Status Reason Start Date Expiration Date Visits V isits Requested Authorized [id number] Incomplete 02/14/2018 05/16/2019 1 1 Encounter Details Date Type Department Care Team Description 02/14/2018 Imaging [facility] Kirby Shultz DPM Fibromyalgia Radiology [address] 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 documented in this encounter Results XR Foot Lt AP/Lat Standing (02/14/2018 3:16 PM CDT) Anatomical Region Laterality Modality Lower Extremity, Foot, Foot & Ankle Comp uted Radiography Specimen (Source) Anatomical Collection Method Collection Time Re ceived Time Location / / Volume Laterality 02/14/2018 3:16 PM CDT Narrative 02/14/2018 9:14 PM CDT [facility] XR FOOT LT AP/LAT STANDING 02/14/2018 3:16 PM INDICATION: Pain, hammertoes COMPARISON: None. FINDINGS: No fracture or dislocation. Sm all plantar and Achilles heel spurs. Hammertoe deformities of the second through fifth toes. Procedure Note Chaparro Ledezma MD - 02/14/2018Form atting of this note might be different from the original. [facility] XR FOOT LT AP/LAT STANDING 02/14/2018 3:16 PM INDICATION: Pain, hammertoes COMPARISON: None. FINDINGS: No fracture or dislocation. Sm all plantar and Achilles heel spurs. Hammertoe deformities of the second through fifth toes. Kirby Meracdo DPM RAD GD documented in this encounter Visit Diagnoses Diagnosis Fibromyalgia Mylagia and myositis, unspecified documented in this encounter Care Teams Nuclear Operations Specialist Relationship Specialty Start Date End Date Justine Blake MD PCP - General 07/18/00 01/31/19 [address] [place] [address] documented as of this encounter
--- OUTSIDE RECORDS SUMMARY | 2022-03-29 10:08 | XMS_ITS | Encounter Summary ---
:1970 Author Organization [employer] Address [address] [place] [address] Care Team Providers Name Role Phone Justine Blake MD Primary Care Provider Reason for Visit Reason Comments QUESTIONS, GENERAL Continuation of Care w/ PCP after suicide attempt Encounter Details Date Type Department Care Team Description 09/15/2016 Telephone [facility] Justine Blake, Lalo RAMOS, database designer (Continuation of Care [address] [facility] [address] [facility] w/ PCP after suicide [place], [place] [address] [place], [place] attempt) [phone] (Wo rk) Social History Tobacco Use Types Packs/Day Years Used Date Smoking Tobacco: Never Sex Assigned at Date Recorded Female 06/28/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 Hamilton at the [facility]. Apparently, she attempted suicide. She took an overdose of medication as well as several lacerations to her forearms. She is stablenow. Dr. Hamilton is calling to see if we would continue to follow her as an outpatient. She wanted tofollow with us but was concerned because she had not been completely honest regarding her drug use and so forth. I told him that we would be happy to follow her again. She is planning on going to [place] between October and January. She then will be back with us when she returns. She had been seeing behavioral health so hopefully she will go back to counseling as well. Currently, they are starting her on Effexor as well as Lamictal. She is also on gabapentin. He emphasizes the fact that she is not receiving any narcotics. No benzodiazepines. No Ambien. So, if patient calls for any of those medications, they will be denied. We will wait for the patient to contact our clinic. Federica Drew - 09/15/2016 10:[address] Hamilton is calling to speak directly to pt's provider. Transferred to PCP. Federica Drew 09/15/2016, 10:43 AM documented in this encounter Plan of Treatment Upcoming Encounters Date Type Specialty Care Team Description 05/04/2022 Appointment Gastroenterology Inés Levy MD [address]roc[address] [facility] N [address] (Wo rk) documented as of this encounter Visit Diagnoses Not on filedocumented in this encounter Care Teams Wood Fence Installer Relationship Specialty Start Date End Date Justine Blake MD PCP - General 07/18/00 01/31/19 [address] [place] [address] documented as of this encounter
--- OUTSIDE RECORDS SUMMARY | 2022-03-29 10:08 | XMS_ITS | Encounter Summary ---
:1970 Author Organization [employer] Address [address] [place] [address] Care Team Providers Name Role Phone Taylor Downing MD Primary Care Provider Reason for Referral Procedure/Equipment (Routine) - Closed Specialty Diagnoses / Procedures Referred By Contact Refer red To Contact Diagnoses Encounter for long-term (current) [place] [address] [place], [place] [address] Referral ID Status Reason Start Date Expiration Date Visits Requ ested Visits Authorized [id number] Closed 01/18/2017 04/19/2018 1 1 Scheduling Instructions Your provider has recommended that you s chedule a Lab Visit. A personnel scheduler will contact you within the next 3 business days to a ssist you in setting up this appointment. If you have not been contacted please call your clinic to schedule your appointment. Encounter Details Date Type Department Care Team Description 01/17/[address] 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 Referral order placed in chart. Nima Mora CMA 01/18/2017, 10:02 AM documented in this encounter Plan of Treatment Upcoming Encounters Date Type Specialty Care Team Description 05/04/2022 Appointment Gastroenterology Inés Levy MD [address] [facility] N [address] (Wo rk) Scheduled Referrals Name Type Priority Associated Diagnoses Order S chedule Lab Visit Referral Routine Encounter for long-term (cur rent) use Ordered: 01/18/2017 of medications documented as of this encounter Visit Diagnoses Diagnosis Encounter for long-term (current) use of medications - Primary Encounter for long-term (current) use of other medications documented in this encounter Care Teams Marketing Development Manager Relationship Specialty Start Date End Date Taylor Downing MD PCP - General Family Practice 02/01/19 [address] [place] [address] documented as of this encounter
--- OUTSIDE RECORDS SUMMARY | 2022-03-29 10:08 | XMS_ITS | Encounter Summary ---
:1970 Author Organization [employer] Address [address] [place] [address] Care Team Providers Name Role Phone Justine Blake MD Primary Care Provider Reason for Visit Reason Onset Date Comments Refill Refill 08/18/2018 Encounter Details Date Type Department Care Team Description 08/18/2018 Refill [facility] Uriah Patel MD Refill; Refill [address] [facility] [address] [place], [place] [address] [place] [address] [phone] (Wo rk) Social History Tobacco Use Types Packs/Day Years Used Date Smoking Tobacco: Never Smokeless Tobacco: Never Sex Assigned at Date Recorded 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 Medication already sent - Letter sent as follow up. Rebekah Lozoya Rebekah Lozoya - 08/21/2018 8:43 AM CDT Medication Refill - Overdue Visit Called patient, was: Unable to reach patient 1st call attempted. Left message to call back. Rebekah Lozoya Gillian Kirk PA-C - 08/18/2018 5:14 PM CDT Please let her know gabapentin was refilled but it's been over a year since she was last seen. Needsto pick a new PCP and schedule OV Gillian Kirk PA-C Interface, Out Surescripts Prov Query - 08/18/2018 4:44 PM CDT gabapentin (NEURONTIN) 100 MG capsule [Pharmacy Med Name: GABAPENTIN 100MG CAPS] None Exists -> Medication cannot be delegated. Last qualifying visit: 05/12/2017 ([facility]) Next scheduled visit: None Last ordered by URIAH PATEL: 05/31/2018 (79 days ago) QTY: 60, Refills: 1, Sig: take one to two capsules by mouth every day (unchanged) Powered by [employer], Reference: [id number], 08/18/2018 4:44:34 PM CDT, Pool: SURYA REFILL RN ([id number]) documented in this encounter Plan of Treatment Upcoming Encounters Date Type Specialty Care Team Description 05/04/2022 Appointment Gastroenterology Inés Levy MD [address] [place] [address] [address] (Wo rk) documented as of this encounter Visit Diagnoses Not on filedocumented in this encounter Care Teams Rn Maternal Child Relationship Specialty Start Date End Date Justine Blake MD PCP - General 07/18/00 01/31/19 [address] [place] [address] documented as of this encounter
--- OUTSIDE RECORDS SUMMARY | 2022-03-29 10:08 | XMS_ITS | Encounter Summary ---
:1970 Author Organization [employer] Address [address] [place] [address] Care Team Providers Name Role Phone Justine Blake MD Primary Care Provider Reason for Visit Reason Onset Date Comments Refill 04/03/2018 100MG GABAPENTIN Encounter Details Date Type Department Care Team Description 04/03/2018 Refill [facility] Uriah Patel, Doris fill (100MG Pharmacy GABAPENTIN) [address] [facility] [address] [place], [place] [address] [place], [place] [phone] (Wo rk) Social History Tobacco Use Types Packs/Day Years Used Date Smoking Tobacco: Never Smokeless Tobacco: Never Sex Assigned at Date Recorded 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 Last qualifying visit: 05/12/2017 (in [facility]) Next scheduled visit: None Last ordered by URIAH PATEL: 02/15/2018 (47 days ago) QTY: 60, Refills: 0, Si-2 tabs daily(unchanged) Powered by [employer], Reference: [id number], 04/03/2018 11:55:28 AM CDT, Pool: AV REFILL RN ([id number]) Jeana Farrar - 04/03/2018 11:54 AM CDT Last fill from a [facility] on 02-15-2018 for a quantity of 60. documented in this encounter Plan of Treatment Upcoming Encounters Date Type Specialty Care Team Description 05/04/2022 Appointment Gastroenterology Inés Levy MD [address] [facility] N [address] (Wo rk) documented as of this encounter Visit Diagnoses Not on filedocumented in this encounter Care Teams Junior Qa Analyst Relationship Specialty Start Date End Date Justine Blake MD PCP - General 07/18/00 01/31/19 [address] [place] [address] documented as of this encounter
--- OUTSIDE RECORDS SUMMARY | 2022-03-29 10:08 | XMS_ITS | Encounter Summary ---
:1970 Author Organization [facility] Address [address] [place] [address] Care Team Providers Name Role Phone Justine Blake MD Primary Care Provider Reason for Visit Procedure/Equipment (Routine) - Incomplete Specialty Diagnoses / Procedures Referred By Contact Refer red To Contact Diagnoses Fibromyalgia Kirby Mercado DPM Procedures XR Foot Rt AP/Lat Standing [address] [place] [address] Referral ID Status Reason Start Date Expiration Date Visits V isits Requested Authorized [id number] Incomplete 02/14/2018 05/16/2019 1 1 Encounter Details Date Type Department Care Team Description 02/14/2018 Imaging [facility] Kirby Shultz DPM Fibromyalgia Radiology [address] 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 documented in this encounter Results XR Foot Rt AP/Lat Standing (02/14/2018 3:16 PM CDT) Anatomical Region Laterality Modality Lower Extremity, Foot, Foot & Ankle Comp uted Radiography Specimen (Source) Anatomical Collection Method Collection Time Re ceived Time Location / / Volume Laterality 02/14/2018 3:16 PM CDT Narrative 02/14/2018 9:15 PM CDT [facility] XR FOOT RT AP/LAT STANDING 02/14/2018 3:16 PM INDICATION: Pain, hammertoes. COMPARISON: None. FINDINGS: No fracture or dislocation. No significant degenerative changes in the right foot. Small plantar calcaneal spur. Hammertoe deformities of the third through fifth toes. Procedure Note Chaparro Ledezma MD - 02/14/2018Form atting of this note might be different from the original. [facility] XR FOOT RT AP/LAT STANDING 02/14/2018 3:16 PM INDICATION: Pain, hammertoes. COMPARISON: None. FINDINGS: No fracture or dislocation. No significant degenerative changes in the right foot. Small plantar calcaneal spur. Hammertoe deformities of the third through fifth toes. Kirby Mercado DPM RAD GD documented in this encounter Visit Diagnoses Diagnosis Fibromyalgia Mylagia and myositis, unspecified documented in this encounter Care Teams Automotive Brake Specialist Relationship Specialty Start Date End Date Justine Blake MD PCP - General 07/18/00 01/31/19 [address] [place] [address] documented as of this encounter
--- OUTSIDE RECORDS SUMMARY | 2022-03-29 10:08 | XMS_ITS | Encounter Summary ---
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
--- OUTSIDE RECORDS SUMMARY | 2022-03-29 10:09 | XMS_ITS | Encounter Summary ---
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
--- OUTSIDE RECORDS SUMMARY | 2022-03-29 10:09 | XMS_ITS | Encounter Summary ---
:1970 Author Organization [employer] Address [address] [place] [address] Care Team Providers Name Role Phone Justine Blake MD Primary Care Provider Reason for Visit Reason Comments MEDICATION CHECK MENOPAUSE, MENOPAUSAL, SYMPTOMS, NOS Encounter Details Date Type Department Care Team Description 08/11/2016 Office Visit [facility] Justine Blake tijerry depression (Primary Dx); Derrick Calderon MD Fibromyalgia; [address] [facility] [address] [facility] [place] [address] [phone] Social History Tobacco Use Types Packs/Day Years Used Date Smoking Tobacco: Never Assessed Sex Assigned at Date Recorded Female 06/28/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 documented as of this encounter Last Filed Vital Signs Vital Sign Reading Time Taken Comments Blood Pressure 109/66 08/11/2016 1:08 PM GUARD IMMIGRATION Pulse 86 08/11/2016 1:08 PM GUARD IMMIGRATION Temperature - - Respiratory Rate - - Oxygen Saturation - - Inhaled Oxygen Concentration - - Weight 98.7 kg (217 lb 9.6 oz) 08/11/2016 1:08 PM GUARD IMMIGRATION Height 176.5 cm (5' 9.5) 08/11/2016 1:08 PM GUARD IMMIGRATION Body Mass Index 31.67 08/11/2016 1:08 PM GUARD IMMIGRATION documented in this encounter Progress Notes Justine Blake MD - 08/11/2016 2:23 PM CST Subjective: 38-year-old female with history of fibromyalgia comes in to discuss her medications. Allyson has been traveling from [place] to help with her mother's issues and then to [place] to help with her daughter who is going blind. She is having a lot of situational stress. Not sleeping well. She has a history of fibromyalgia and it has been more painful lately. Also going through menopause. She finds herself in a very dark place. She is not suicidal but wonders if maybe she should talk to someone. I totally agree that I think she would benefit from some kind of counseling. She is encouraged to make an appointment. In the meantime, we talked about sleeping better. She has tried trazodone and states that it does not work. I do not want her to be on an addictive medication. Had been on gabapentin but is noticing more and more that it seems to be giving her some diarrhea. We talked about amitriptyline and she wouldbe willing to try that. A prescription is given today. In addition to this, she uses gabapentin as well as hydrocodone for her chronic pain. States that she saw a pain specialist on an [place]. Planning to go back to see him when she returns this summer. In the meantime, she is requesting a hydrocodone prescription. I explained to her that I was not comfortable using narcotics for chronic pain. However, I would be willing to cover her for a couple of months until she returns to [place]. She also uses Adderall for attention deficit/hyperactivity disorder. Does not feel that this is related to her not sleeping at night as she feels it is worn off easily before it is time for her to go to bed. Objective:BP 109/66 mmHg Pulse 86 Ht 5' 9.5 (1.765 m) Wt 217 lb 9.6 oz (98.703 kg) BMI 31.68 kg/m2 LMP 12/12/2015 She is alert. Comfortable. I did not examine her further today. Assessment: Situational stress. Chronic pain with her fibromyalgia. Menopausal symptoms. Plan: I did refill her hydrocodone today. I also gave her prescription for amitriptyline. She is given information on menopause. Strongly encouraged her to set up an appointment with behavioral health for counseling. Will call as needed. D IMMIGRATION documented in this encounter Plan of Treatment Upcoming Encounters Date Type Specialty Care Team Description 05/04/2022 Appointment Gastroenterology Inés Levy MD [address] [facility] [address] (Wo rk) documented as of this encounter Visit Diagnoses Diagnosis Reactive depression (HRC) - Primary Dysthymic disorder Fibromyalgia Mylagia and myositis, unspecified Sleep disturbance Sleep disturbance, unspecified documented in this encounter Care Teams Stripper Black And White Relationship Specialty Start Date End Date Justine Blake MD PCP - General 07/18/00 01/31/19 [address] [place] [address] documented as of this encounter
--- OUTSIDE RECORDS SUMMARY | 2022-03-29 10:09 | XMS_ITS | Encounter Summary ---
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
--- OUTSIDE RECORDS SUMMARY | 2022-03-29 10:09 | XMS_ITS | Encounter Summary ---
:1970 Author Organization [employer] [facility] Address [address] [place] [address] Care Team Providers Name Role Phone Justine Blake MD Primary Care Provider Reason for Visit Reason Comments PHP Screening Encounter Details Date Type Department Care Team Description 08/24/2016 Telephone [facility] Partial Mario Andres MD PHP Screening Hospitalization Prog estefanía [address] [facility] [address] [place] [address] [place] [address] [phone] Social History Tobacco Use Types Packs/Day Years Used Date Smoking Tobacco: Never Assessed Sex Assigned at Date Recorded 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 Winnie Ramirez LICSW - 08/24/2016 2:51 PM CDT Telephone Call: Rn Informatics LM with client requesting a call back. Plan to screen for [facility]. SURESH Garza 08/24/2016, 2:52 PM Leena Valderrama - 08/24/2016 9:35 AM CDT Received order for [facility]. documented in this encounter Plan of Treatment Upcoming Encounters Date Type Specialty Care Team Description 05/04/2022 Appointment Gastroenterology Inés Levy MD [address] [facility] N [address] (Wo rk) documented as of this encounter Visit Diagnoses Not on filedocumented in this encounter Care Teams Home Teaching Grades 7 And 8 Teacher Relationship Specialty Start Date End Date Justine Blake MD PCP - General 07/18/00 01/31/19 [address] [place] [address] documented as of this encounter
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
--- OUTSIDE RECORDS SUMMARY | 2022-03-29 10:09 | XMS_ITS | Encounter Summary ---
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
--- OUTSIDE RECORDS SUMMARY | 2022-03-29 10:09 | XMS_ITS | Encounter Summary ---
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
--- OUTSIDE RECORDS SUMMARY | 2022-03-29 10:09 | XMS_ITS | Encounter Summary ---
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 Last Filed Vital Signs Vital Sign Reading Time Taken Comments Blood Pressure 130/80 08/29/2006 1:16 PM CDT Pulse 70 08/29/2006 1:16 PM CDT Temperature - - Respiratory Rate - - Oxygen Saturation - - Inhaled Oxygen Concentration - - Weight - - Height - - Body Mass Index - - documented in this encounter Progress Notes Vito Bentley MD - 08/29/2006 12:01 AM CDT Progress Notes signed by Vito Bentley MD at 08/29/06 4298 Author: Vito Bentley MD Service: (none) Author Type: Physician Filed: 09/25/10 1811 Note Time: 08/29/06 0001 Status: Signed Attorney Law Clerk: Vito Bentley MD (Physician) COMPANY NAME: [employer] DATE OF INJURY: July 30, 2006 IS CONDITION WORK RELATED: Yes SUBJECTIVE The patient returns complaining of increased low back pain. She was last seen by Dr. Werner, on August 04, and was doing well. Dr. Werner returned her to full activity, recommended she follow-up in one week's time she states she was doing okay never made a follow-up visit. She has now had a recurrence of low back pain. It's worse on the left side, but is bilateral she really doesn't have any pain lower extremities, denies any numbness tingling or weakness. She has run out of Vicodin, states that she finds the pain intolerable. She does have a few of the muscle relaxants left. She is also using ibuprofen as needed. She now states that she's had waxing and waning back pain throughout the month, and thinks that she should fully comply with the therapy program to see if she can return to full activity. Apparently she didn't complete the program as previously recommended. Adverse Drug Reactions: Patient has multiple allergies and adverse reactions, see last word. Medications: Reviewed. See Medication List in LastWord. OBJECTIVE: Vital Signs : Blood pressure is 130/80 Reviewed; See Flowsheet Charting in LastWord. On examination the patient is in obvious discomfort, has some difficulty getting up from a seated position. In the standing position she has normal lumbar lordosis. There is palpation tenderness in the left low back and upper buttock area. There is less tenderness in the right low back area. There is no pelvic tilt or shift. When asked to bend forward, she brings her fingertips down to about mid thigh height. Extension is about 25% of normal. In the seated position DTRs are symmetric and within normal limits at the knees and ankles. Straight leg raising is productive of mild low back pain. Cutaneous sensation is intact to light touch. ASSESSMENT: Low back pain recurrent PLAN: We discussed appropriate pain medication. I told her that I was reluctant to give her much of the Vicodin, which is more for acute pain, and her pain is getting to be more chronic.. I will give her 10 tablets for this acute flare. I will also renew her muscle relaxant, and encourage her to take the ibuprofen as she is doing. I think is most important that she gets into his therapy program, and I would like to refer her to Dr Bray at the [facility] [place]. I have emphasized the importance of structured therapy. 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 See her back in about two weeks' time for recheck. The patient was discharged ambulatory and in stable condition. *SH~DNS~SOAP documented in this encounter Plan of Treatment Upcoming Encounters Date Type Specialty Care Team Description 05/04/2022 Appointment Gastroenterology Inés Levy MD [address] [facility] N [address] (Wo rk) documented as of this encounter Visit Diagnoses Not on filedocumented in this encounter Care Teams Metal Sprayer Relationship Specialty Start Date End Date Justine Blake MD PCP - General 07/18/00 01/31/19 [address] [place] [address] documented as of this encounter
--- OUTSIDE RECORDS SUMMARY | 2022-03-29 10:09 | XMS_ITS | Encounter Summary ---
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 Please refer to previous notes. In summary, Yessica was hospitalized for a drug overdose, extreme depression and chemical dependency. She is now in an after care program and is drug free. She is feeling much better. She has more energy. She no longer gets as many headaches or has as many physical complaints. Her marriage is going well. Her children are doing well. She's in today to discuss a few things as her insurance will be changing this August. She would like some medication for acne. She is allergic to PEN, EES, and TCN. Because of this she is given Retin A gel 0.1% to be used daily. She is to avoid moisturizers. Also, we discussed recurrent lower right abdominal pain. This has been ongoing for months. Comes and goes. Lasts about an hour when it is present. There does not seem to be any pattern to it. She has been worked up for this in the past with normal ultrasounds. She is s/p cholecystectomy and perhaps she does have some adhesions. Otherwise this may be a bowel complaint. At any rate, it sounds mechanical in that at times when she is lifting something she will note transient pain. She is reassured about this and will return at a time when she is symptomatic and then we can decide if she needs any further workup. Finally, she is requesting medication for her migraines. Apparently the Imitrex takes her headache away but leaves her with significant side effects that are uncomfortable and she prefers not to use that. She does not want an narcotics. She was given Midrin and instructed on it's use. Will get back to me as needed. cc: CTOR OF HUMAN RESOURCES documented in this encounter Plan of Treatment Upcoming Encounters Date Type Specialty Care Team Description 05/04/2022 Appointment Gastroenterology Inés Levy MD [address] [facility] N [address] (Wo rk) documented as of this encounter Visit Diagnoses Diagnosis Other, mixed, or unspecified nondependen t drug abuse, unspecified Other acne Abdominal pain, unspecified site Headache(784.0) Headache documented in this encounter Care Teams Gum Sprayer Relationship Specialty Start Date End Date Justine Blake MD PCP - General 05/18/1996 07/15/00 [address] [place] [address] documented as of this encounter
--- OUTSIDE RECORDS SUMMARY | 2022-03-29 10:09 | XMS_ITS | Encounter Summary ---
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 Last Filed Vital Signs Vital Sign Reading Time Taken Comments Blood Pressure 117/82 09/06/2016 4:59 PM CDT Pulse 91 09/06/2016 4:59 PM CDT Temperature 36.4 ??C (97.5 ??F) 09/06/2016 4:59 PM CDT Respiratory Rate 18 09/06/2016 4:59 PM CDT Oxygen Saturation 96% 09/06/2016 4:59 PM CDT Inhaled Oxygen Concentration - - Weight 103.4 kg (228 lb) 09/06/2016 4:59 PM CDT Height 175.3 cm (5' 9) 09/06/2016 4:59 PM CDT Body Mass Index 33.67 09/06/2016 4:59 PM CDT documented in this encounter Progress Notes Lena Gonzalez MD - 09/06/2016 8:55 PM CDT SUBJECTIVE: This is a 46-year-old female who comes in today complaining of a migraine headache that has been going on for couple days. Is actually her first a couple of months but she does have a history and she has been on a number of different medications for pain can she also is being treated for fibromyalgia.Presently she is on gabapentin seen and she does have some hydrocodone. She came in tonight mainly with tramadol in mind. She emailed Dr. Page earlier today and was told that she should be seen by Dr. Page prior to receiving any tramadol. I offered her some Toradol which we generally use for migraines in urgent care. The patient said that the migraine is typical on the right side into and behind her right eye and then in the posterior skull without any aura. She did try one hydrocodone without any relief. OBJECTIVE: 46-year-old female who is awake and talkative, she does not appear to be uncomfortable. Skin is warmdry and color is good. Pupils are equal and reactive and cranial nerves II through XII are intact. She is slightly photophobic Patient has a supple neck. She has good strength in upper and lower extremities. ASSESSMENT: Migraine headache PLAN: I offered the patient the Toradol injection and before the nurse could draw it up and return to the room to administer if the patient had left. She did not say think anybody and she left the clinic. documented in this encounter Nursing Notes Lena Gonzalez MD - 09/06/2016 5:10 PM CDT Administer zofran 4 mg now. Lena Gonzalez MD documented in this encounter Plan of Treatment Upcoming Encounters Date Type Specialty Care Team Description 05/04/2022 Appointment Gastroenterology Inés Levy MD [address] [facility] [address] (Wo rk) documented as of this encounter Visit Diagnoses Diagnosis Migraine without aura and with status mi grainosus, not intractable - Primary Migraine without aura, without mention o f intractable migraine with status migrainosus documented in this encounter Care Teams Aircraft Steel Fabricator Relationship Specialty Start Date End Date Justine Blake MD PCP - General 07/18/00 01/31/19 [address] [place] [address] documented as of this encounter
--- OUTSIDE RECORDS SUMMARY | 2022-03-29 10:09 | XMS_ITS | Encounter Summary ---
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 documented as of this encounter Last Filed Vital Signs Vital Sign Reading Time Taken Comments Blood Pressure 140/70 08/01/2006 3:22 PM SPECIALIST EMPLOYEE LABOR RELATIONS C: Non In vasive BP Cuff Pulse 88 08/01/2006 3:22 PM SPECIALIST EMPLOYEE LABOR RELATIONS Temperature - - Respiratory Rate - - Oxygen Saturation - - Inhaled Oxygen Concentration - - Weight - - Height - - Body Mass Index - - documented in this encounter Progress Notes Vito Bentley MD - 08/01/2006 12:01 AM CST Progress Notes signed by Vito Bentley MD at 08/09/06 1810 Author: Vito Bentley MD Service: (none) Author Type: Physician Filed: 09/25/10 1737 Note Time: 08/01/06 0001 Status: Signed Operation Research Analyst: Vito Bentley MD (Physician) NAME: YESSICA GARCIA MR#: [id number] ACCT: [id number] VISIT: [id number] DICTATING CLINICIAN: Vito Bentley MD JOB: [id number] LOC: 1819 CLINIC OCCUPATIONAL MEDICINE REPORT DATE OF VISIT: 08/01/2006 SUBJECTIVE: COMPANY NAME: [employer]. DATE OF INJURY: 07/30/06. IS CONDITION WORK RELATED? Yes. 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 On 07/30/06 she slipped on some very slick ice while out on the ramp, and struck her knee. She has had discomfort in the knee ever since, and has been favoring the knee, and this has been causing back pain. She relates most of the pain the low back and right side as well as pain in the knee. Her pain is about 8 on a scale of 10. She is made worse by over-use, better with rest. She notes that she had a previous back injury which was quite similar to this, and which resolved with conservative treatment. MEDICATIONS: She is on no medications at this time. ADR/ALLERGIES: SHE DOES REPORT AN ALLERGY TO PENICILLIN WHICH HIVES. She rates her current pain at about 8 on a scale of 10. 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 SOCIAL HISTORY: She is , does not use tobacco. Drinks beer once a week or so. COMPLETE 12-SYSTEM REVIEW: Negative. OBJECTIVE: VS: BP: 140/70. P: 88. The patient appears in obvious discomfort, has an antalgic gait, and prefers sitting to standing. In the standing position she has slight decreased lumbar lordosis. There is palpation tenderness in the right low back area. Range of motion is markedly diminished secondary to discomfort in flexion and extension. Heel walking and toe walking was done without any sign of muscle weakness. In the seated position DTR's are symmetric and within normal limits at the knees and ankles. Straight-leg raising produces low back discomfort. Cutaneous sensation is intact to light touch. Inspection of the knee reveals minimal effusion. There is palpation tenderness to palpation of the patella, though I am able to move the patella relatively easily with minimal to mild discomfort. There is very slight medial joint line tenderness. Range of motion of the knee is near normal with flexion and extension. Drawer sign is negative for instability. There is no real instability to varus or valgus stress. Felecia's sign does produce Felecia's test with diffuse discomfort in the medial aspect of the knee. Cutaneous sensation is intact to light touch and pulses are full. ASSESSMENT: Right knee strain with a secondary low back pain after a fall at work. PLAN: I am going to have her go through a short course of therapy, will give her some Vicodin for pain control as well as Skelaxin as a muscle relaxant and ibuprofen. Work limitations will be written and I will see her back on 08/10/06 for a recheck. FOLLOW-UP DATE: 08/10/06. MAXIMUM MEDICAL IMPROVEMENT: UNDETERMINED PERMANENT PARTIAL DISABILITY RATING: UNDETERMINED [id number] C: 08/02/06 16:54 DOCUMENT: [id number] IALIST EMPLOYEE LABOR RELATIONS documented in this encounter Plan of Treatment Upcoming Encounters Date Type Specialty Care Team Description 05/04/2022 Appointment Gastroenterology Inés Levy MD [address] [facility] N [address] (Wo rk) documented as of this encounter Visit Diagnoses Not on filedocumented in this encounter Care Teams Wood Grainer Relationship Specialty Start Date End Date Justine Blake MD PCP - General 07/18/00 01/31/19 [address] [place] [address] documented as of this encounter
--- OUTSIDE RECORDS SUMMARY | 2022-03-29 10:09 | XMS_ITS | Encounter Summary ---
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
--- OUTSIDE RECORDS SUMMARY | 2022-03-29 10:09 | XMS_ITS | Encounter Summary ---
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 documented as of this encounter Last Filed Vital Signs Vital Sign Reading Time Taken Comments Blood Pressure 135/81 07/27/2006 1:45 PM C: Dynamap BULLDOZER OPERATOR Pulse 74 07/27/2006 1:45 PM BULLDOZER OPERATOR Temperature 36.8 ??C (98.2 ??F) 07/27/2006 1:45 PM ORAL C: 3 6.8 C BULLDOZER OPERATOR Respiratory Rate 20 07/27/2006 1:45 PM BULLDOZER OPERATOR Oxygen Saturation 99% 07/27/2006 1:45 PM C: Oximeter Spot BULLDOZER OPERATOR Check(OSC) Inhaled Oxygen - - Concentration Weight - - Height - - Body Mass Index - - documented in this encounter Progress Notes Russ Lopes - 07/27/2006 12:01 AM CST Progress Notes signed by Russ Lopes MD at 07/29/06 0920 Author: Russ Lopes MD Service: (none) Author Type: (none) Filed: 09/25/10 1731 Note Time: 07/27/06 0001 Status: Signed Distribution District Supervisor: Russ Lopes MD (Physician) NAME: YESSICA GARCIA MR#: [id number] ACCT: [id number] VISIT: [id number] DICTATING CLINICIAN: RUSS LOPES MD JOB: [id number] LOC: 520 CLINIC PROGRESS NOTE DATE OF VISIT: 07/27/2006 SUBJECTIVE: : 1970. CHIEF COMPLAINT: Cough, fever and back pain and diarrhea. Yessica is a 36-year-old woman who has not been feeling well for about a week. The first 2 days she had a deep cough and intense headache and fever. Although, the fever started to diana now and the headache is improved somewhat too but she aches all over. She has a deep bronchial type of cough with thick greenish phlegm. She has now developed some loose bowels and her back has now become sore mostly because of laying around. She does have a history of previously back problems and usually it has been very until she has had something like this with bad coughing and having to lay around. ADR/ALLERGIES: SHE HAS SEVERAL BUT PREDOMINANTLY PENICILLIN, ERYTHROMYCIN, TETRACYCLINE AND SULFA. MEDICATIONS: Include naproxen and Prozac. OBJECTIVE: VS: BP: 135/81. T: 98.2. P: 74. R: 20. Oxygen saturation 99% on room air. Exam reveals an actually moderately ill-appearing woman whose skin is clammy but her ears were clear. Pharynx was negative. NECK: Supple without adenopathy. LUNGS: Bilateral rhonchi, only partly clearing with coughing and also scattered wheezes, although, expansion was equal and I did not detect any rales or decreased areas of breath sounds. ASSESSMENT: 1. Probable influenza. 2. Low back pain. 3. Diarrhea. PLAN: Recommended plenty of clear liquids. Prescribed guaifenesin with codeine as well as Levaquin 500 mg, 1 daily times 7 days, this because of her multiple allergies and also Percocet, #24, 1 or 2 every 4 hours as needed for pain. Recheck p.r.n. RFB:[id number] C: 07/28/06 12:51 DOCUMENT: [id number] DOZER OPERATOR documented in this encounter Plan of Treatment Upcoming Encounters Date Type Specialty Care Team Description 05/04/2022 Appointment Gastroenterology Inés Levy MD [address] [facility] N [address] (Wo rk) documented as of this encounter Visit Diagnoses Not on filedocumented in this encounter Care Teams Plant Machinist Relationship Specialty Start Date End Date Justine Blake MD PCP - General 07/18/00 01/31/19 [address] [place] [address] documented as of this encounter
--- OUTSIDE RECORDS SUMMARY | 2022-03-29 10:09 | XMS_ITS | Encounter Summary ---
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
--- OUTSIDE RECORDS SUMMARY | 2022-03-29 10:09 | XMS_ITS | Encounter Summary ---
:1970 Author Organization [employer] Address [address] [place] [address] Care Team Providers Name Role Phone Justine Blake MD Primary Care Provider Reason for Visit Reason Comments MEDICATION CHECK Encounter Details Date Type Department Care Team Description 02/10/2016 Office Visit [facility] Justine Blake (Primary Dx); Derrick Calderon MD Attention deficit hyperactivity disorder (ADHD), unspecified ADHD type [address] [facility] [address] [place] [address] [phone] Social History Tobacco Use Types Packs/Day Years Used Date Smoking Tobacco: Never Assessed Sex Assigned at Date Recorded Female 06/28/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 She has a couple of concerns today. She has a history of fibromyalgia. She does a lot of traveling. She tends to use gabapentin which works very well for her. She will use up to 600 mg three times a day. May get by with lessthan that at times. Wonders if she can refill that today. States that she is sleeping okay. Nose that she needs to try to exercise but it is difficult with her work and her travel. In addition to this, she has a history of adult attention deficit/hyperactivity disorder. This was diagnosed years ago. She had been on Adderall in the past and it worked very well for her. She wondersif she can refill that medication here. Objective:BP 127/82 mmHg Pulse 90 Temp(Src) 97.9 ??F (36.6 ??C) (Tympanic) Wt 238 lb (107.956 kg) LMP 02/10/2016 She appears well. I did not examine her further today. Assessment: Attention deficit/hyperactivity disorder. Fibromyalgia. Plan: Medications are refilled today. She will follow with me as needed. documented in this encounter Plan of Treatment Upcoming Encounters Date Type Specialty Care Team Description 05/04/2022 Appointment Gastroenterology Inés Levy MD [address] [facility] N [address] (Wo rk) documented as of this encounter Visit Diagnoses Diagnosis Fibromyalgia - Primary Mylagia and myositis, unspecified Attention deficit hyperactivity disorder (ADHD), unspecified ADHD type (HRC) documented in this encounter Care Teams Construction Area Manager Relationship Specialty Start Date End Date Justine Blake MD PCP - General 07/18/00 01/31/19 [address] [place] [address] documented as of this encounter
--- OUTSIDE RECORDS SUMMARY | 2022-03-29 10:09 | XMS_ITS | Encounter Summary ---
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 encounter Last Filed Vital Signs Vital Sign Reading Time Taken Comments Blood Pressure 110/80 09/29/2006 2:07 PM CDT Pulse 60 09/29/2006 2:07 PM CDT Temperature - - Respiratory Rate 14 09/29/2006 2:07 PM CDT Oxygen Saturation - - Inhaled Oxygen Concentration - - Weight - - Height - - Body Mass Index - - documented in this encounter Progress Notes Neel Beverly - 09/29/2006 12:01 AM CDT Progress Notes signed by Neel Beverly MD at 10/03/06 9830 Author: Neel Beverly MD Service: (none) Author Type: Physician Filed: 09/25/10 1852 Note Time: 09/29/06 0001 Status: Signed Sound Truck Operator: Neel Beverly MD (Physician) NAME: YESSICA GARCIA MR#: [id number] ACCT: [id number] VISIT: [id number] DICTATING CLINICIAN: Neel Beverly MD JOB: [id number] LOC: 1819 CLINIC OCCUPATIONAL MEDICINE REPORT DATE OF VISIT: 09/29/2006 SUBJECTIVE: EMPLOYER: [employer]. PROBLEM: Low back pain. Ms. Garcia makes an unexpected return visit. She is happy to report that her back symptoms have completely resolved. She has been seen here by my partners, Dr. Werner and Dr. Bentley. She was last seen by Dr. Werner on 09/05/06. At that time she was still having significant back pain. Dr. Werner had recommended MRI scan. However, shortly thereafter she began to note fairly rapid improvement in her back symptoms and more recently she states that her back symptoms have completely resolved. For this reason she did not pursue the MRI scan. She has completed a few sessions with a chiropractor and has been doing some regular exercises. She now feels that these exercises have been very helpful in making her more flexible and increasing her strength. She feels that this is contributing to her overall improvement. She is very anxious to get back to normal work activities given the change in clinical status. She is no longer using any pain medication. OBJECTIVE: VS: Stable. Patient appears comfortable, moving freely throughout exam. Her current pain is ranked 0/10 in intensity. BACK: Examination reveals no specific midline or paralumbar tenderness. Her lumbar motion is completely normal. Heel and toe raise are normal as well. She is able to do a full squat maneuver comfortably without any back discomfort. ASSESSMENT: Acute low back pain, now doing quite well with resolution of symptoms. Based on available information this has been considered a work injury. PLAN: Ms. Garcia sustained a back injury dating back to April. She has been experiencing back discomfort for several months. There was concern at the recent visit about underlying mechanical issues in her back. I did discuss these issues at some length today. Nonetheless, she is doing very well. She has had no back symptoms now for some time. It would seem appropriate, therefore, to allow her to resume her normal activities. We did discuss some strategies to get back to work comfortably, to use her work as a conditioning tool, and try to dietrich off any significant flares of pain. She should exercise good body mechanics. She should keep up with her routine stretches and also consider getting involved in more core strengthening. She was appreciative of all these recommendations today. If not seen back by 10/13/06, we will assume her to be at MMI with 0% PPD. If she has any unexpected changes in her symptoms or new concerns regarding her back or return to work, she should plan on seeing Dr. Werner prior to this. Again, she was very comfortable with this revised plan. FOLLOW-UP DATE: UNDETERMINED MAXIMUM MEDICAL IMPROVEMENT: UNDETERMINED PERMANENT PARTIAL DISABILITY RATING: UNDETERMINED [id number] C: 09/30/06 15:11 DOCUMENT: [id number] documented in this encounter Plan of Treatment Upcoming Encounters Date Type Specialty Care Team Description 05/04/2022 Appointment Gastroenterology Inés Levy MD [address] [facility] N [address] (Wo rk) documented as of this encounter Visit Diagnoses Not on filedocumented in this encounter Care Teams Payroll Administrative Assistant Relationship Specialty Start Date End Date Justine Blake MD PCP - General 07/18/00 01/31/19 [address] [place] [address] documented as of this encounter
--- OUTSIDE RECORDS SUMMARY | 2022-03-29 10:09 | XMS_ITS | Encounter Summary ---
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 encounter Last Filed Vital Signs Vital Sign Reading Time Taken Comments Blood Pressure 120/82 09/05/2006 1:53 PM CDT Pulse 60 09/05/2006 1:53 PM CDT Temperature - - Respiratory Rate - - Oxygen Saturation - - Inhaled Oxygen Concentration - - Weight - - Height - - Body Mass Index - - documented in this encounter Progress Notes Ildefonso Werner - 09/05/2006 12:01 AM CDT Progress Notes signed by Ildefonso Werner MD at 09/12/06 0912 Author: Ildefonso Werner MD Service: (none) Author Type: Physician Filed: 09/25/10 1820 Note Time: 09/05/06 0001 Status: Signed Link Wire Fabric Machine Tender: Ildefonso Werner MD (Physician) NAME: YESSICA GARCIA MR#: [id number] ACCT: [id number] VISIT: [id number] DICTATING CLINICIAN: Ildefonso Werner MD JOB: [id number] LOC: 1819 CLINIC OCCUPATIONAL MEDICINE REPORT DATE OF VISIT: 09/05/2006 SUBJECTIVE: EMPLOYER: [employer]. DATE OF INJURY: 04/16/06. IS THIS A WORK RELATED INJURY? Ms Garcia comes in for evaluation of her low back. She states that she is doing about the same. She is maybe 10% better. She is now into a week and a half of symptoms and reports that she still has severe pain and that she has difficulty moving about. She ices the back regularly. She is taking 6 Vicodin per day and that she is using her Robaxin and ibuprofen also. She has made it to work under the restrictions but is having difficulty with this. She has not had any focal weakness or loss of sensation. She notes that she has not had any problems with loss of bowel or bladder control. OBJECTIVE: VS: BP: 140/80. P: 80. R: 14. Exam reveals an uncomfortable appearing adult female. Inspection of the spine reveals a linear spine. Palpation reveals no asymmetry in tone, rather there is a diffuse increase in tone. Sitting leg raising produces only low back pain. Reflexes are considered symmetrical, though there is decrease at the knees bilaterally. Dorsiflexion of the left foot is associated with decreased strength. This was not previously noted. Range of motion is limited in flexion 30 degrees, extension 20 degrees. Gait is guarded. ASSESSMENT: Lumbar strain. PLAN: I have recommended continued duty limitations. I have refilled her Vicodin 30 tablets. I have also requested an MRI. At this point I would be concerned that there is either some other significant pathology going on or that she may have underlying disk disease with radiculopathy. In any case, restrictions are continued. She will follow up here in 1 week. FOLLOW-UP DATE: One week. MAXIMUM MEDICAL IMPROVEMENT: UNDETERMINED PERMANENT PARTIAL DISABILITY RATING: UNDETERMINED [id number] C: 09/06/06 10:09 DOCUMENT: [id number] HOLDER documented in this encounter Plan of Treatment Upcoming Encounters Date Type Specialty Care Team Description 05/04/2022 Appointment Gastroenterology Inés Levy MD [address] [facility] N [address] (Wo rk) documented as of this encounter Visit Diagnoses Not on filedocumented in this encounter Care Teams Athlete Marketing Agent Relationship Specialty Start Date End Date Justine Blake MD PCP - General 07/18/00 01/31/19 [address] [place] [address] documented as of this encounter
--- OUTSIDE RECORDS SUMMARY | 2022-03-29 10:09 | XMS_ITS | Encounter Summary ---
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 N [address] (Wo rk) documented as of this encounter Visit Diagnoses Not on filedocumented in this encounter Care Teams Skin Grader Relationship Specialty Start Date End Date Justine Blake MD PCP - General 07/18/00 01/31/19 [address] [place], [place] [id number] documented as of this encounter
--- OUTSIDE RECORDS SUMMARY | 2022-03-29 10:09 | XMS_ITS | Encounter Summary ---
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 Yessica is a 33-year-old woman who comes in for evaluation of low back pain. She mentions that she has had chronic back pain since her early 20s. So for the past 14 or 15 years, she has been bothered by back pain. She sees Dr. Novak at the [facility] and has been following with him for this. She has had an MRI in the past, about 2 years ago, which was normal and is scheduled to have an MRI this coming week on Tuesday as well as follow up with an orthopedic surgeon. She states that her back pain is primarily in the low back in the midline. It does radiate down towards her buttocks bilaterally. There is no radiation down into the feet. On a scale of 1-10, she rates this about an 8 and has had some difficulty with sleeping and moving because of this. There are no other symptoms such as fever, flank pain, dysuria or frequency. No GI complaints. No urinary incontinence or stool incontinence. No CREOSOTING ENGINEER complaints. She does not have any problems with gait or station and no numbness, tingling, paresthesias or weakness to the lower extremities. REVIEW OF SYSTEMS: On review of systems, she again denies any fevers, chills or sweats. There are no upper respiratory tract symptoms such as ear pain, nasal congestion or sore throat. She denies any chest pain or shortness of breath. No cough. No cardiovascular symptoms such as angina or palpitations. No GI or complaints. Other than her low back pain, she denies any other problems. PAST HISTORY: Remarkable for back pain. ADR/ALLERGIES: PENICILLIN, ERYTHROMYCIN AND TETRACYCLINE WHICH CAUSE HIVES AND SULFA DRUGS, SHE HAD AN ANAPHYLACTIC SHOCK REACTION REQUIRING HOSPITALIZATION. SHE STATES BENADRYL AND COMPAZINE GIVE HER EXCITATION. Patient is a smoker of one half to one pack of cigarettes per day times 20 plus years. MEDICATIONS: Other than her Skelaxin and she takes Percocet on an infrequent basis for her back pain, she has no other medications. OBJECTIVE: VS: BP: 150/80. T: 99.4. P: 100. R: 16. She is well-developed, well-nourished and in mild to moderate distress lying on the exam table. HEENT is grossly normal. NECK: Supple with full range of painless motion without stiffness or adenopathy. CHEST: Clear. HEART: Regular rhythm without murmurs. ABDOMEN: Benign. BACK: She is able to flex to approximately 90 degrees before having discomfort. Lateral motion is 10 degrees. Extension is 5 degrees. She can stand on alternate feet, toes and heels. Her gait and station is normal. She has some increased lordosis and paravertebral muscle spasm. Straight-leg raising sign is negative bilaterally. Reflexes are 2+ and equal at the knees and at the ankles. ASSESSMENT: Low back pain. PLAN: DIAGNOSTIC: None at this time. TREATMENT: She has Skelaxin at home. Encouraged her to take those as directed and given a prescription for Percocet 5/325 may take one or two every 8 hours as needed for pain. Follow up with her primary physician tomorrow and continue to have her diagnostic and therapeutic evaluation done. ADDENDUM: She also has had physical therapy in the past and massage therapy. WS:[id number] C: 05/04/04 14:34 DOCUMENT: [id number] NE MERCHANT documented in this encounter Plan of Treatment Upcoming Encounters Date Type Specialty Care Team Description 05/04/2022 Appointment Gastroenterology Inés Levy MD [address] [facility] N [address] (Wo rk) documented as of this encounter Visit Diagnoses Not on filedocumented in this encounter Care Teams Shredder Picker Relationship Specialty Start Date End Date Justine Blake MD PCP - General 07/18/00 01/31/19 [address] [place] [address] documented as of this encounter
--- OUTSIDE RECORDS SUMMARY | 2022-03-29 10:09 | XMS_ITS | Encounter Summary ---
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
--- OUTSIDE RECORDS SUMMARY | 2022-03-29 10:09 | XMS_ITS | Encounter Summary ---
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 called and said she needed a refill of Vicodin. She was seen here yesterday and was given #[address] Bentley denied the refill request Pt. was told the Rx was denied She said she wanted something stronger for pain. She was instructed to return to the clinic if she was having so much pain Created on 30Aug2006 10:36am by SURESH HALL RINTENDENT OVERHEAD DISTRIBUTION documented in this encounter Plan of Treatment Upcoming Encounters Date Type Specialty Care Team Description 05/04/2022 Appointment Gastroenterology Inés Levy MD [address] [place] [address] [facility] N [address] (Wo rk) documented as of this encounter Visit Diagnoses Not on filedocumented in this encounter Care Teams Powder Mill Operator Relationship Specialty Start Date End Date Justine Blake MD PCP - General 07/18/00 01/31/19 [address] [place] [address] documented as of this encounter
--- OUTSIDE RECORDS SUMMARY | 2022-03-29 10:09 | XMS_ITS | Encounter Summary ---
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
--- OUTSIDE RECORDS SUMMARY | 2022-03-29 10:09 | XMS_ITS | Encounter Summary ---
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
--- OUTSIDE RECORDS SUMMARY | 2022-03-29 10:09 | XMS_ITS | Encounter Summary ---
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 documented as of this encounter Last Filed Vital Signs Vital Sign Reading Time Taken Comments Blood Pressure 124/88 12/13/2004 1:06 PM CDT Pulse 74 12/13/2004 1:06 PM CDT Temperature 37.3 ??C (99.1 ??F) 12/13/2004 1:06 PM CDT C: 37 .3 C Respiratory Rate 16 12/13/2004 1:06 PM CDT Oxygen Saturation - - Inhaled Oxygen Concentration - - Weight - - Height - - Body Mass Index - - documented in this encounter Progress Notes Vito Cai MD - 12/13/2004 12:01 AM CDT Progress Notes signed by Vito Cai MD at 12/16/04 1130 Author: Vito Cai MD Service: (none) Author Type: Physician Filed: 09/25/10 0543 Note Time: 12/13/04 0001 Status: Signed Mine Environmental Engineer: Vito Cai MD (Physician) NAME: YESSICA GARCIA MR: [id number] ACCT: [id number] VISIT: [id number] DICTATING CLINICIAN: VITO CAI MD,MPH JOB: [id number] CLINIC PROGRESS NOTE DATE OF VISIT: 12/13/2004 SUBJECTIVE: Yessica Garcia is a 34-year-old female who comes in complaining of low back pain. She notes that she was doing some yard work over the last week, and she began having moderate amount of discomfort in the low back area. She tried to rest the back, use heat and Advil but she still has persistent discomfort. She also used some Skelaxin that she has had from previous back injuries. She notes she has had a long history of back pain, has been seen here on occasion but her primary care is at [facility]. She has had an MR scan at least on two occasions, but they have reassured her that there is nothing seriously disrupted in the back and she just pursues conservative therapy. She has a hard time lying flat on her back now, which is the way she usually sleeps. She is not sleeping well because of that. She denies any radiating pain down the lower extremities, she states all the discomfort is in the low back itself. Again she can recall no acute trauma other than the yard work that she has been doing over the last week. She is on no medications. ADR/ALLERGIES: SEE LASTWORD. OBJECTIVE: VS: BP: 124/88. T: 99.1. P: 74. R: 16. She appears to be in mild discomfort, though moves about the room in fluid motion. In the standing position, she has normal lumbar lordosis. There is low back palpation tenderness in the midline. No sciatic notch tenderness. Range of motion is slightly diminished with fingertips being brought down to about mid tibia height. Extension is near normal. Heel walking and toe walking are done without any sign of muscle weakness. In the seated position, DTRs are symmetric and straight-leg raising is negative. Cutaneous sensation is intact to light touch. ASSESSMENT: Low back pain in a patient who apparently has a history of chronic low back pain. PLAN: I am going to have her continue using her ibuprofen and Skelaxin. I will give her some Percocet 5/325 for immediate treatment of pain. She is to follow up with her personal physician at [facility] and get some physical therapy ordered. Followup here will be on an as needed basis. She is instructed to follow up with her doctor at [facility] after this. [facility]:[id number] C: 12/14/04 18:18 DOCUMENT: [id number] documented in this encounter Plan of Treatment Upcoming Encounters Date Type Specialty Care Team Description 05/04/2022 Appointment Gastroenterology Inés Levy MD [address] [facility] N [address] (Wo rk) documented as of this encounter Visit Diagnoses Not on filedocumented in this encounter Care Teams Rn On Site Relationship Specialty Start Date End Date Justine Blake MD PCP - General 07/18/00 01/31/19 [address] [place] [address] documented as of this encounter
--- OUTSIDE RECORDS SUMMARY | 2022-03-29 10:09 | XMS_ITS | Encounter Summary ---
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 documented as of this encounter Last Filed Vital Signs Vital Sign Reading Time Taken Comments Blood Pressure 112/70 08/04/2006 2:51 PM UX DESIGN MANAGER Pulse 72 08/04/2006 2:51 PM UX DESIGN MANAGER Temperature - - Respiratory Rate - - Oxygen Saturation - - Inhaled Oxygen Concentration - - Weight - - Height - - Body Mass Index - - documented in this encounter Progress Notes Ildefonso Werner - 08/04/2006 12:01 AM CST Progress Notes signed by Ildefonso Werner MD at 08/08/06 1130 Author: Ildefonso Werner MD Service: (none) Author Type: Physician Filed: 09/25/10 1742 Note Time: 08/04/06 0001 Status: Signed Refinisher: Ildefonso Werner MD (Physician) NAME: YESSICA GARCIA MR#: [id number] ACCT: [id number] VISIT: [id number] DICTATING CLINICIAN: Ildefonso Werner MD JOB: [id number] LOC: 1819 CLINIC OCCUPATIONAL MEDICINE REPORT DATE OF VISIT: 08/04/2006 SUBJECTIVE: DOI identified as 08/14/98. EMPLOYER: [employer]. Ms. Garcia comes in for recheck of her low back. She saw Dr. Bentley a week ago and states that she has been gradually improving. At this point she is having what is described as minimal pain in her low back. She has no radiation past the upper thigh and no numbness or tingling. This lady is otherwise in good health. MEDICATIONS: Her only medicine ? and ibuprofen. She had decreased use of the Vicodin. She is not on any therapy. OBJECTIVE: VS: BP: 112/70. P: 72. R: 14. Exam reveals a well-appearing adult female who moves with consistent guarding. Inspection of the spine reveals a flattened lordotic curve. Palpation reveals no asymmetry in tone, but there is tenderness in the lower paralumbars into the SI joint. Sitting and straight-leg raising produce low back pain. Reflexes are considered symmetrical. Strength is symmetrical. Straight-leg raise is negative. Range of motion is limited in flexion to 70 degrees, extension 30 degrees. Gait is guarded. ASSESSMENT: Lumbar strain, improved but not resolved. PLAN: I have recommended this lady can return to her regular job. 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 Given this, and after some discussion, I agreed to release her. FOLLOW-UP DATE: She will follow up here in 1 week. MAXIMUM MEDICAL IMPROVEMENT: She is not yet at [facility]. PERMANENT PARTIAL DISABILITY RATING: Undetermined. MNG:[id number] C: 08/05/06 16:10 DOCUMENT: [id number] DESIGN MANAGER documented in this encounter Plan of Treatment Upcoming Encounters Date Type Specialty Care Team Description 05/04/2022 Appointment Gastroenterology Inés Levy MD [address] [facility] N [address] (Wo rk) documented as of this encounter Visit Diagnoses Not on filedocumented in this encounter Care Teams Contract Sheltered Workshop Supervisor Relationship Specialty Start Date End Date Justine Blake MD PCP - General 07/18/00 01/31/19 [address] [place], [place] [id number] documented as of this encounter
--- OUTSIDE RECORDS SUMMARY | 2022-03-29 10:10 | XMS_ITS | Encounter Summary ---
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 24 yr. old WF here for mental health concerns. She has a hx of depression and is approx. 8 wks. post at this time. She has been seen by Mental Health by Dr. Oshea in [facility] and has been placed on Zoloft. She was taking Zoloft at 150 mg. q day, she stopped herself from this thinking that it was just covering up her problems. She declares that she had a hard weekend, feeling more depressed, crying, very angry at life and feeling frustrated that she is not doing anything and has no purpose in this world. She does admit to having suicidal thoughts with a plan of overdosing on pills,though she would not ever carry this out since she does not know how to leave her children. She has two children at home and a who is not aware of her problems. She would really just like to run away from all of it, taking her and 2 kids and moving to [place] or [place]. She is not interested on going back on Zoloft nor on Prozac that she has been on in the past. She is wondering if she needs admission. She is not in any support groups at all and I think she is openly willing to talk about it, though she does not have an opportunity to do this. She admits that she is not eating and is having difficulty sleeping and she definitely has poor self-esteem. She questions whether or not she feels safe at home, mostly because she is not sure what she would want to do,but when asked again she admits that she really couldn't leave her children. O. Pleasant 24 yr. old,but crying during our interview, good fair eye contact and answering all questions appropriately with a clear speech. She did not seem threatened at all and was very open to our conversation. A. Depression. P. I think at this time she is safe to carry on, on her own, however, she does need to speak with mental health providers today. I have talked to Dr. Oshea who is not available,but his nurse would be able to see her at 12:30 to help her and direct her as appropriate. I did mention that perhaps she could be on a different antidepressant medication if Zoloft was not her choice such as Paxil and that the purpose of these medicines was to help balance the chemical imbalance that she to try to make her feel better. I think she will be thinking about that and hopefully she will be confronted again in mental health. She is going to mental health today directly from this office. cc: documented in this encounter Plan of Treatment Upcoming Encounters Date Type Specialty Care Team Description 05/04/2022 Appointment Gastroenterology Inés Levy MD [address] [address] (Wo rk) documented as of this encounter Visit Diagnoses Diagnosis Depressive disorder, not elsewhere class ified documented in this encounter Care Teams Supervisor Wall Mirror Department Relationship Specialty Start Date End Date Justine Blake MD PCP - General 05/18/1996 07/15/00 [address] [place] [address] documented as of this encounter
--- OUTSIDE RECORDS SUMMARY | 2022-03-29 10:10 | XMS_ITS | Encounter Summary ---
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
--- OUTSIDE RECORDS SUMMARY | 2022-03-29 10:10 | XMS_ITS | Encounter Summary ---
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
--- OUTSIDE RECORDS SUMMARY | 2022-03-29 10:10 | XMS_ITS | Encounter Summary ---
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 documented as of this encounter Plan of Treatment Upcoming Encounters Date Type Specialty Care Team Description 05/04/2022 Appointment Gastroenterology Inés Levy MD [address] [facility] N [address] (Wo rk) documented as of this encounter Visit Diagnoses Diagnosis Normal delivery Delayed and secondary hemorrh age, with delivery Outcome of delivery, single liveborn documented in this encounter Care Teams Freelance Graphic Designer Relationship Specialty Start Date End Date Justine Blake MD PCP - General 05/18/1996 07/15/00 [address] [place], [place] [id number] documented as of this encounter
--- OUTSIDE RECORDS SUMMARY | 2022-03-29 10:10 | XMS_ITS | Encounter Summary ---
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
--- OUTSIDE RECORDS SUMMARY | 2022-03-29 10:10 | XMS_ITS | Encounter Summary ---
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 for purpose of detox and stabilization on 04/11/95. Patient was transferred from Psych. Unit. [facility] was [facility] on 04/12/95. Patient was referred to [facility] for questions regarding costs of room and board and out of pocket expense. A: 304.00 P: As outlined above. For further detail, please review [facility] Discharge Summary. cc: Vito Mcwilliams MA, LP,CCDCR FIC RATE COMPUTER documented in this encounter Plan of Treatment Upcoming Encounters Date Type Specialty Care Team Description 05/04/2022 Appointment Gastroenterology Inés Levy MD [address] [facility] N [address] (Wo rk) documented as of this encounter Visit Diagnoses Not on filedocumented in this encounter Care Teams Clothing Patternmaker Relationship Specialty Start Date End Date Justine Blake MD PCP - General 05/18/1996 07/15/00 [address] [place] [address] documented as of this encounter
--- OUTSIDE RECORDS SUMMARY | 2022-03-29 10:10 | XMS_ITS | Encounter Summary ---
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 [id number] REFERRING PROVIDER: Dr. Pearson, [facility] INDICATION FOR ULTRASOUND: Dov's duct cyst. Utilizing both the transabdominal and transvaginal transducer, the pelvic organs were imaged. The uterus did appear to be smooth in its contour, normal in its echogenic pattern and size. The uterus measured 6.8 x 4.5 cm. in the longitudinal plane. The endometrial cavity measured 8 mm. in its anteroposterior diameter. There was no free fluid in the cul-de-sac. The right ovary measured 3.2 x 2.2 cm. in the longitudinal plane. The left ovary measured 4.0 x 3.5 cm. in the longitudinal plane. The left ovary contained a simple ovarian follicle that measured 2.3 x 2.3 cm. in the longitudinal plane. The balance of the pelvic organs visualized appeared to be unremarkable. A: Normal pelvic ultrasound. We are unable to well-image the intravaginal Dov's duct cyst. It is however clinically palpable on exam. P: The patient will return to the outpatient clinic for additional management as indicated. cc: Sajan Pearson MD E EXAMINER documented in this encounter Plan of Treatment Upcoming Encounters Date Type Specialty Care Team Description 05/04/2022 Appointment Gastroenterology Inés Levy MD [address] [facility] [address] (Wo rk) documented as of this encounter Visit Diagnoses Diagnosis Abdominal or pelvic swelling, mass, or l ump Abdominal or pelvic swelling, mass or osman mp, unspecified site documented in this encounter Care Teams Blade Sharpener Relationship Specialty Start Date End Date Justine Blake MD PCP - General 05/18/1996 07/15/00 [address] [place] [address] documented as of this encounter
--- OUTSIDE RECORDS SUMMARY | 2022-03-29 10:10 | XMS_ITS | Encounter Summary ---
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
--- OUTSIDE RECORDS SUMMARY | 2022-03-29 10:10 | XMS_ITS | Encounter Summary ---
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 She has been on Zoloft since the of her baby. She had difficulty with depression after her last delivery. She is feeling quite depressed. Feels that it has gone on longer than with her first delivery. She does see mental health on a regular basis. She is currently taking 150mg of Zoloft. She was also on Minocin for acne. Does not feel that this is working very well and wonders if she can take anything different. She is on 50mg b.i.d. Will increase this to 100mg b.i.d. She has not had a period yet. She is not breast feeding. She and her are using condoms. She mainly is concerned about going back to work and leaving her child with the day care provider. She thought that maybe she will be laid off in and then she is considering day care in her home. Much of her stress and anxiety and depression are centered around feeling somewhat trapped with the children, then on the other hand feeling badly about leaving them with day care. At any rate, she will continue with Mental Health and call me if I can do anything in that regard. O: No thyromegaly. Breasts are without masses or tenderness. Abd. benign. Perineum is well healed. Cervix is fine. Uterus is small and anterior. No adnexal masses or tenderness. A: . Depression. P: Continue with Mental Health and Zoloft. Increase Minocin to 100mg b.i.d., call as needed. cc: documented in this encounter Plan of Treatment Upcoming Encounters Date Type Specialty Care Team Description 05/04/2022 Appointment Gastroenterology Inés Levy MD [address] [facility] N [address] (Wo rk) documented as of this encounter Visit Diagnoses Diagnosis Depressive disorder, not elsewhere class ified Routine follow-up documented in this encounter Care Teams Vat Overhauler Relationship Specialty Start Date End Date Justine Blake MD PCP - General 05/18/1996 07/15/00 [address] [place] [address] documented as of this encounter
--- OUTSIDE RECORDS SUMMARY | 2022-03-29 10:10 | XMS_ITS | Encounter Summary ---
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 Horn today and Dr. Horn called me concerned about this pt. and asked if we could see her today. We did fit the pt. in and she tells me that she has gone off of her medication this last week and is no longer taking the Zoloft or the Valium that was prescribed for her. She feels that those medications were making her very tired especially since she also takes Inderal for her headaches. She currently is feeling quite down; quite depressed; has thoughts about wanting to hurt herself but has no actual plan to carry out any of those thoughts. She has thought of possibly overdosing but states at those times she has had nothing at home to overdose with. The only attempt she had was years ago where she thought about taking a knife to her wrist. Unclear at this point if she actually did cut herself or not. She states that she has a brother who has tried suicide on 2 times. She also reports that her does not know that she is depressed and also infers that there may be some marital conflict. She seems very vague about coming right out and saying if there is trouble in the marriage. She does say that she just wishes for a different life; that she'd like to feel peaceful. She's seems sad, she has tears in her eyes today. We did discuss possible hospitalization for her; she has never been in the hospital before. A: Pt. with major depression currently in an exacerbation and not on medications. P: We did discuss hospitalization and we did offer her that option. The plan however was for her to discuss this tonight with her and I did give her an appointment tomorrow to see Tracee Melloallyson. She could come in with her for the appointment and they could discuss issues and think about hospitalization at another time if things do not get better. She was able to contract for safety today. cc: Cammy Waller, RNC, BA T ANALYST documented in this encounter Plan of Treatment Upcoming Encounters Date Type Specialty Care Team Description 05/04/2022 Appointment Gastroenterology Inés Levy MD [address] [facility] N [address] (Wo rk) documented as of this encounter Visit Diagnoses Not on filedocumented in this encounter Care Teams Sprayer Machine Relationship Specialty Start Date End Date Justine Blake MD PCP - General 05/18/1996 07/15/00 [address] [place] [address] documented as of this encounter
--- OUTSIDE RECORDS SUMMARY | 2022-03-29 10:10 | XMS_ITS | Encounter Summary ---
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
--- OUTSIDE RECORDS SUMMARY | 2022-03-29 10:10 | XMS_ITS | Encounter Summary ---
:1970 Author Organization [facility] Address [address] [place] [address] Care Team Providers Name Role Phone Justine Blake MD Primary Care Provider Encounter Details Date Type Department Care Team Description 04/06/1995 Office Visit Justine Blake MD Depressive disorder, not elsewhere class ified; [address] [facility] Other, mixed, or unspecified nondependen t drug abuse, [place] [address] (Wo nanci) Social History Tobacco Use Types Packs/Day Years Used Date Smoking Tobacco: Never Assessed Sex Assigned at Date Recorded 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 documented as of this encounter Plan of Treatment Upcoming Encounters Date Type Specialty Care Team Description 05/04/2022 Appointment Gastroenterology Inés Levy MD [address] [facility] N [id number] (Wo rk) documented as of this encounter Visit Diagnoses Diagnosis Depressive disorder, not elsewhere class ified Other, mixed, or unspecified nondependen t drug abuse, unspecified documented in this encounter Care Teams Stakes Player Relationship Specialty Start Date End Date Justine Blake MD PCP - General 05/18/1996 07/15/00 [address] [place] [address] documented as of this encounter
--- OUTSIDE RECORDS SUMMARY | 2022-03-29 10:10 | XMS_ITS | Encounter Summary ---
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 cc: Rich Rosario MA, LP AL SERVICE CLERK documented in this encounter Plan of Treatment Upcoming Encounters Date Type Specialty Care Team Description 05/04/2022 Appointment Gastroenterology Inés Levy MD [address] [place] [facility] [address] (Wo rk) documented as of this encounter Visit Diagnoses Not on filedocumented in this encounter Care Teams Electro Mechanical Technician Relationship Specialty Start Date End Date Justine Blake MD PCP - General 05/18/1996 07/15/00 [address] [place] [address] documented as of this encounter
--- OUTSIDE RECORDS SUMMARY | 2022-03-29 10:10 | XMS_ITS | Encounter Summary ---
:1970 Author Organization 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
--- OUTSIDE RECORDS SUMMARY | 2022-03-29 10:10 | XMS_ITS | Encounter Summary ---
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 cc: III CUTTER documented in this encounter Plan of Treatment Upcoming Encounters Date Type Specialty Care Team Description 05/04/2022 Appointment Gastroenterology Inés Levy MD [address] [place] [address] [address] (Wo rk) documented as of this encounter Visit Diagnoses Diagnosis Other general counseling and advice for contraceptive management documented in this encounter Care Teams Ingot Buggy Operator Relationship Specialty Start Date End Date Justine Blake MD PCP - General 05/18/1996 07/15/00 [address] [place] [address] documented as of this encounter
--- OUTSIDE RECORDS SUMMARY | 2022-03-29 10:10 | XMS_ITS | Encounter Summary ---
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 . History of labor and is on Terbutaline 5 mg q 6 hrs. She also takes some Tylenol with codeine for headaches. Starting last night she began noting a very pruritic rash. Started under the arms and along the lateral hip area.Seems to be spreading over the lower abdomen, under the bra line and the medial and lateral thighs. She cannot seem to correlate it with taking the Terbutaline or other meds. She had been on Macrobid but stopped that almost 5 days ago. No difficulty breathing. No swelling of the mucous membranes. O: Erythematous, excoriated areas along the lateral abdomen and medial thigh area. Also some in the axillary areas. The face and distal extremities seem to be spared. A: Rash of uncertain etiology, possibly related to the Terbutaline although I think this is doubtful. Possibly urticaria of . P: Cool tepid baths. Ice packs to the very pruritic areas. She is also told to try Benadryl in limited amounts. For now will cont. with the terbutaline as she does have 3-4 contractions per hour. Will call me should symptoms worsen. Otherwise see me next week. cc: documented in this encounter Plan of Treatment Upcoming Encounters Date Type Specialty Care Team Description 05/04/2022 Appointment Gastroenterology Inés Levy MD [address] [facility] N [address] (Wo rk) documented as of this encounter Visit Diagnoses Diagnosis Rash and other nonspecific skin eruption documented in this encounter Care Teams Senior Data Warehouse Developer Relationship Specialty Start Date End Date Justine Blake MD PCP - General 05/18/1996 07/15/00 [address] [place] [address] documented as of this encounter
--- OUTSIDE RECORDS SUMMARY | 2022-03-29 10:11 | XMS_ITS | Encounter Summary ---
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
--- OUTSIDE RECORDS SUMMARY | 2022-03-29 10:11 | XMS_ITS | Encounter Summary ---
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
--- OUTSIDE RECORDS SUMMARY | 2022-03-29 10:11 | XMS_ITS | Encounter Summary ---
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
--- OUTSIDE RECORDS SUMMARY | 2022-03-29 10:11 | XMS_ITS | Encounter Summary ---
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
--- OUTSIDE RECORDS SUMMARY | 2022-03-29 10:11 | XMS_ITS | Encounter Summary ---
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
--- OUTSIDE RECORDS SUMMARY | 2022-03-29 10:11 | XMS_ITS | Encounter Summary ---
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
--- OUTSIDE RECORDS SUMMARY | 2022-03-29 10:11 | XMS_ITS | Encounter Summary ---
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
--- OUTSIDE RECORDS SUMMARY | 2022-03-29 10:11 | XMS_ITS | Encounter Summary ---
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 N [address] (Wo rk) documented as of this encounter Visit Diagnoses Diagnosis Supervision of other normal documented in this encounter Care Teams Rug Hooker Hand Relationship Specialty Start Date End Date Justine Blake MD PCP - General 05/18/1996 07/15/00 [address] [place], [place] [phone] documented as of this encounter
--- OUTSIDE RECORDS SUMMARY | 2022-03-29 10:11 | XMS_ITS | Encounter Summary ---
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
--- OUTSIDE RECORDS SUMMARY | 2022-03-29 10:11 | XMS_ITS | Encounter Summary ---
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
--- OUTSIDE RECORDS SUMMARY | 2022-03-29 10:11 | XMS_ITS | Encounter Summary ---
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
--- OUTSIDE RECORDS SUMMARY | 2022-03-29 10:11 | XMS_ITS | Encounter Summary ---
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
--- OUTSIDE RECORDS SUMMARY | 2022-03-29 10:11 | XMS_ITS | Encounter Summary ---
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
--- OUTSIDE RECORDS SUMMARY | 2022-03-29 10:11 | XMS_ITS | Encounter Summary ---
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
--- OUTSIDE RECORDS SUMMARY | 2022-03-29 10:11 | XMS_ITS | Encounter Summary ---
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
--- OUTSIDE RECORDS SUMMARY | 2022-03-29 10:11 | XMS_ITS | Encounter Summary ---
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
--- OUTSIDE RECORDS SUMMARY | 2022-03-29 10:11 | XMS_ITS | Encounter Summary ---
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
--- OUTSIDE RECORDS SUMMARY | 2022-03-29 10:11 | XMS_ITS | Encounter Summary ---
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 N [address] (Wo rk) documented as of this encounter Visit Diagnoses Diagnosis Supervision of other normal documented in this encounter Care Teams Data Warehouse Architect Relationship Specialty Start Date End Date Justine Blake MD PCP - General 05/18/1996 07/15/00 [address] [place], [place] [phone] documented as of this encounter
--- OUTSIDE RECORDS SUMMARY | 2022-03-29 10:11 | XMS_ITS | Encounter Summary ---
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 Here for headache in the typical fashion that she has been having with this . It began about 9:30 last night over the back of the head, some migration toward the front. No vomiting. Stomach feels full. No full nausea yet. Has responded in the past to IM Demerol. Has been using some Tylenol #3 without benefit. O. Appears mildly uncomfortable in the office. There is tenderness at the base of the skull and back. Accupressure does little or nothing to relieve this. A. Recurrent Migraine. P. Demerol 125 mg. IM, f/u as scheduled with Dr. Blake. cc: documented in this encounter Plan of Treatment Upcoming Encounters Date Type Specialty Care Team Description 05/04/2022 Appointment Gastroenterology Inés Levy MD [address] [facility] N [address] (Wo rk) documented as of this encounter Visit Diagnoses Diagnosis Headache(784.0) Headache documented in this encounter Care Teams Flaring Machine Operator Relationship Specialty Start Date End Date Justine Blake MD PCP - General 05/18/1996 07/15/00 [address] [place] [address] documented as of this encounter
--- OUTSIDE RECORDS SUMMARY | 2022-03-29 10:11 | XMS_ITS | Encounter Summary ---
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
--- OUTSIDE RECORDS SUMMARY | 2022-03-29 10:12 | XMS_ITS | Encounter Summary ---
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
--- OUTSIDE RECORDS SUMMARY | 2022-03-29 10:12 | XMS_ITS | Encounter Summary ---
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 N [address] (Wo rk) documented as of this encounter Visit Diagnoses Diagnosis Routine general medical examination at [facility] Routine general medical examination at [facility] care facility documented in this encounter Care Teams Night Baker Relationship Specialty Start Date End Date Justine Blake MD PCP - General 05/18/1996 07/15/00 [address] [place] [address] documented as of this encounter
--- OUTSIDE RECORDS SUMMARY | 2022-03-29 10:12 | XMS_ITS | Encounter Summary ---
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 [id number] REFERRING PROVIDER: INDICATION FOR ULTRASOUND: Vaginal ultrasound examination was performed. The uterus was noted to be in midline, anteverted position, normal outline and texture. A very tiny gestational sac was seen in the endometrial cavity. It measured 3.5 x 3.4 mm. sac on longitudinal section. It is too early to see an embryo or even a yolk sac. No free fluid is noted in the pelvic cavity. The left ovary showed a small corpus luteum cyst which is thin-walled, completely anechoic, benign looking without septations or excrescences. This ovary on the left was 3.6 x 2.9 cm. as a whole. The cystic portion measured 1.9 x 1.7 cm. The right ovary looked normal and this ovary was 3.5 x 3.1 cm. No pelvic masses noted. No free fluid noted. A: Very early intrauterine , possibly about 4 weeks according to this ultrasound. P: The patient is being referred back to the [facility] for further management. She has been given an appointment for repeat ultrasound in 14 days for confirming viability. cc: Nash Hernandez MD GNER documented in this encounter Plan of Treatment Upcoming Encounters Date Type Specialty Care Team Description 05/04/2022 Appointment Gastroenterology Inés Levy MD [address] [facility] N [address] (Wo rk) documented as of this encounter Visit Diagnoses Diagnosis Other screening Other specified screening documented in this encounter Care Teams Delivery Truck Driver Heavy Relationship Specialty Start Date End Date Justine Blake MD PCP - General 05/18/1996 07/15/00 [address] [place] [address] documented as of this encounter
--- OUTSIDE RECORDS SUMMARY | 2022-03-29 10:12 | XMS_ITS | Encounter Summary ---
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
--- OUTSIDE RECORDS SUMMARY | 2022-03-29 10:12 | XMS_ITS | Encounter Summary ---
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
--- OUTSIDE RECORDS SUMMARY | 2022-03-29 10:12 | XMS_ITS | Encounter Summary ---
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
--- OUTSIDE RECORDS SUMMARY | 2022-03-29 10:12 | XMS_ITS | Encounter Summary ---
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 N [address] (Wo rk) documented as of this encounter Visit Diagnoses Not on filedocumented in this encounter Care Teams Minute Clerk Relationship Specialty Start Date End Date Taylor Downing MD PCP - General Family Practice 02/01/19 [address] [place] [address] documented as of this encounter
--- OUTSIDE RECORDS SUMMARY | 2022-03-29 10:12 | XMS_ITS | Encounter Summary ---
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 Headache is the usual typical headache for her. It starts in her occiput and goes around towards the left frontal area. She frequently gets headaches. Usually does well with prophylaxis which she can't do now because she is . She is 12 wks. gestation. O: Exam reveals head & neck Nl. FROM of her neck. No fever. She has normal EOM's. Pupils equal and reactive. Disc margins sharp. Venous pulsations present. Reflexes Nl. Gait Nl. A: Headache. P: 100 mg I.M. Demerol. cc: IAL EVENT ASSISTANT documented in this encounter Plan of Treatment Upcoming Encounters Date Type Specialty Care Team Description 05/04/2022 Appointment Gastroenterology Inés Levy MD [address] [place] N [address] (Wo rk) documented as of this encounter Visit Diagnoses Diagnosis Headache(784.0) Headache documented in this encounter Care Teams Business Process Modeler Relationship Specialty Start Date End Date Justine Blake MD PCP - General 05/18/1996 07/15/00 [address] [place] [address] documented as of this encounter
--- OUTSIDE RECORDS SUMMARY | 2022-03-29 10:12 | XMS_ITS | Encounter Summary ---
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 N [address] (Wo rk) documented as of this encounter Visit Diagnoses Diagnosis Unspecified migraine documented in this encounter Care Teams Fishing Gear Mechanic Relationship Specialty Start Date End Date Justine Blake MD PCP - General 05/18/1996 07/15/00 [address] [place] [address] documented as of this encounter
--- OUTSIDE RECORDS SUMMARY | 2022-03-29 10:12 | XMS_ITS | Encounter Summary ---
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 1) She c/o 2 week history of sever fatigue. She says she has been tired, falling asleep, weak and having some mild nausea. She has been attempting since probably last January and her last menstrual period was March 12. She has had multiple HCG's, all of which have been negative. 2) Also has been having some back and hip pain that starts in her paraspinal muscles and radiates into her left buttock and down sometimes to her knee. She says last night she had a terrible time sleeping. 3) She's also noted that her skin has erupted. She's having more difficulty with zits. 4) Her hair is more dyry. 5) Having gassiness and period stomach cramping. Has had no vaginal bleeding. 6) She also has a history of depression and anxiety. She had been on Prozac and stopped that several weeks ago and she is struggling with her anxiety. She sees for that. I encouraged her not to go on any medications with regards to anxiety and depression because of . O: HEENT Nl. Neck supple without masses or nodes. Lungs clear. Heart regular. No murmurs. Abdomen obese. No fullness, no masses. She has some mild tenderness in the descending colon. Her external genitalia are normal. Vaginal exam reveals her uterus to be about 6 week size. FHT's not audible. Back - some paraspinal muscle tenderness. SLR Nl. Pain does extend down into the SI notch on the left side. Blood count is normal. Preg test is positive . TSH and SGOT are pending. A: Back pain with some mild sciatica secondary probably to and her fatigue is secondary to . P: Will cancel her appt. with Dr. Blake for infertility this coming Tuesday and will schedule for ultrasound to confirm her dates as her last menstrual period was in March. Started on vits. Recommended the early classes. Stay off medications other than Tylenol and Sudafed. Given some back exercises and instructions for sleep positioning. F/u within a month with , her regular physician. cc: RESSIVE CARE NURSE documented in this encounter Plan of Treatment Upcoming Encounters Date Type Specialty Care Team Description 05/04/2022 Appointment Gastroenterology Inés Levy MD [address] [facility] [address] (Wo rk) documented as of this encounter Visit Diagnoses Diagnosis Supervision of other normal Malaise and fatigue Other malaise and fatigue Lumbago documented in this encounter Care Teams Recordings Librarian Relationship Specialty Start Date End Date Justine Blake MD PCP - General 05/18/1996 07/15/00 [address] [place] [address] documented as of this encounter
--- OUTSIDE RECORDS SUMMARY | 2022-03-29 10:12 | XMS_ITS | Encounter Summary ---
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 She has a long history of migraines which had been reasonably controlled on Inderal. However, she currently is trying to get and went off Inderal and control pills fairly recently. Awoke at 4 a.m. with her typical headache which was diffuse and pounding followed by nausea, photophobia. No emesis so far but feels close. She was seen in [facility] ER approximately a month ago for similar headache. O: Cranial nerves II-XII intact. Funduscopic exam unremarkable. No other exam done. A: Migraine. P: Demerol 75 with 50 of Vistaril with headache resolved. cc: documented in this encounter Plan of Treatment Upcoming Encounters Date Type Specialty Care Team Description 05/04/2022 Appointment Gastroenterology Inés Levy MD [address] [facility] N [address] (Wo rk) documented as of this encounter Visit Diagnoses Diagnosis Migraine, unspecified, without mention o f intractable migraine without mention of status migrainosus documented in this encounter Care Teams Signal Technician Relationship Specialty Start Date End Date Justine Blake MD PCP - General 05/18/1996 07/15/00 [address] [place] [address] documented as of this encounter
--- OUTSIDE RECORDS SUMMARY | 2022-03-29 10:12 | XMS_ITS | Encounter Summary ---
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 Castillo Correa MD cc: Radiology AV Justine Blake MD documented in this encounter Plan of Treatment Upcoming Encounters Date Type Specialty Care Team Description 05/04/2022 Appointment Gastroenterology Inés Levy MD [address] [place] N [address] (Wo rk) documented as of this encounter Procedures Procedure Name Priority Date/Time Associated Diagnosis Comme nts UNLISTED DX RADIOGRAPHIC 11/30/1993 Res ults for this PROCEDURE procedure are i n the results section . documented in this encounter Results RADIOLOGIC STUDY (11/30/1993) Anatomical Region Laterality Modality Other Specimen (Source) Anatomical Location Collection Method / Collectio n Time Received Time / Laterality Volume Narrative 11/30/1993 Ordered by an unspecified provider. Transcriptions Garrett Lyel - 11/30/1993 12:00 AM C DTORDERING PHYSICIAN CLINICAL DATA: INTERPRETATION: Normal. Castillo Correa MD cc: Radiology AV Justine Blake MD Physician Unknown [facility]APS documented in this encounter Visit Diagnoses Not on filedocumented in this encounter Care Teams Special Agent Secret Service Relationship Specialty Start Date End Date Justine Blake MD PCP - General 07/18/00 01/31/19 [address] [place] [address] documented as of this encounter
--- OUTSIDE RECORDS SUMMARY | 2022-03-29 10:12 | XMS_ITS | Encounter Summary ---
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 for 3 weeks and states that she does not think it is helping her depression. She is and has consulted with an OB-ROAD BUILDER regarding whether or not she can have the Prozac and they said that she can. She still thinks her mood is in the dumps and she still has a lot of anger and a lot of anxiety. In addition, she is not sleeping well at night. She also complains that she has migraine headaches about once a month and goes in for a Demerol shot and sees Dr. Blake. She asks today if there is some way that she can have something put on her chart so that they don't hassle her every time she needs a Demerol shot, and I let her know that there wouldn't be anything that we could do about that. I did recommend highly that she f/u with Ashley Cavanaugh about her anger issues. A: Pt. continues to have depressive sx. on the Prozac. P: She will call in l week and if Prozac is still not helping her, we will possibly change to Paxil. She is going to contact Ashley Cavanaugh. cc: Cammy Waller RN CCDP documented in this encounter Plan of Treatment Upcoming Encounters Date Type Specialty Care Team Description 05/04/2022 Appointment Gastroenterology Inés Levy MD [address] [facility] N [address] (Wo rk) documented as of this encounter Visit Diagnoses Not on filedocumented in this encounter Care Teams Tenter Relationship Specialty Start Date End Date Justine Blake MD PCP - General 05/18/1996 07/15/00 [address] [place] [address] documented as of this encounter
--- OUTSIDE RECORDS SUMMARY | 2022-03-29 10:12 | XMS_ITS | Encounter Summary ---
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 LMP was 03/12/94. However, she had an ultrasound done at about 4 wk. gestation on 06/23 giving her an EDC of 02/26/95. No bleeding. Does note some occasional cramping and pelvic pain. O: I am unable to palpate the size of the uterus. She does not have any tenderness on palpation. A: Pre-OB visit. P: She will return in one month for a complete P.E. Call if any problems. cc: MAKER documented in this encounter Plan of Treatment Upcoming Encounters Date Type Specialty Care Team Description 05/04/2022 Appointment Gastroenterology Inés Levy MD [address] [facility] N [address] (Wo rk) documented as of this encounter Visit Diagnoses Diagnosis Supervision of other normal documented in this encounter Care Teams Manager Net Relationship Specialty Start Date End Date Justine Blake MD PCP - General 05/18/1996 07/15/00 [address] [place] [address] documented as of this encounter
--- OUTSIDE RECORDS SUMMARY | 2022-03-29 10:12 | XMS_ITS | Encounter Summary ---
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
--- OUTSIDE RECORDS SUMMARY | 2022-03-29 10:12 | XMS_ITS | Encounter Summary ---
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
--- OUTSIDE RECORDS SUMMARY | 2022-03-29 10:12 | XMS_ITS | Encounter Summary ---
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
--- OUTSIDE RECORDS SUMMARY | 2022-03-29 10:12 | XMS_ITS | Encounter Summary ---
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
--- OUTSIDE RECORDS SUMMARY | 2022-03-29 10:12 | XMS_ITS | Encounter Summary ---
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 Pt. is here with severe Rt. base of thumb pain. She has seen orthopedics for similar pain on the Lt. 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 Dr. Lindsay subsequently referred her to Dr. Mike Alvarez a hand orthopedist and apparently steroid injections have been done. Unfortunately, Dr. Alvarez's notes are not contained in the chart. She now presents with pain in the other hand in exactly the same location. O. Hand is Nl. on inspection. Very tender at the base of the lst metacarpal between the thenar eminence and the abductor and extensor tendons of the thumb. The pain is severe in this area. Pt. states that she got good success with Cortisone, Lidocaine injections in the past in this area. CMS of the finger is intact and also of the thumb. X-rays are totally Nl. A. Pain, Base Of lst Metacarpal. Etiology uncertain. P. With her permission and her urging I cleansed the area thoroughly with Betadine and alcohol, l/2 cc. of LIdocaine injected with success with no further pain. The area was then f/u with injection of l/3 of a cc. of Celestone. With this above the pt. had good success with pain control. Also sent home with Tylenol #3 and strongy urged to see Dr. Mike Alvarez in the near future for this problem. Further advised to observe for redness,infection signs at the site of injection. She understands. cc: documented in this encounter Plan of Treatment Upcoming Encounters Date Type Specialty Care Team Description 05/04/2022 Appointment Gastroenterology Inés Levy MD [address] [facility] N [address] (Wo rk) documented as of this encounter Visit Diagnoses Diagnosis Unspecified disorder of joint, site unsp ecified documented in this encounter Care Teams Gameplay Programmer Relationship Specialty Start Date End Date Justine Blake MD PCP - General 05/18/1996 07/15/00 [address] [place] [address] documented as of this encounter
--- OUTSIDE RECORDS SUMMARY | 2022-03-29 10:12 | XMS_ITS | Encounter Summary ---
:1970 Author Organization [facility] Address [address] [place] [address] Care Team Providers Name Role Phone Taylor Downing MD Primary Care Provider Encounter Details Date Type Department Care Team Description 06/26/[address] 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
--- OUTSIDE RECORDS SUMMARY | 2022-03-29 10:12 | XMS_ITS | Encounter Summary ---
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 Has had multiple spells today of a sudden onset of a sensation that seems to come up from her feet up to the back of her head. Is also with nausea with a sudden urge to vomit. She can't really say that she has had any pain. She certainly has not had chest pain. She has not had SOB,but has had a real anxious feeling. This lasts for about 2 minutes and then dissipates. O. TM's, Nose,Throat are clear. Neck is supple without adenopathy or thyromegaly. Carotids - Equal without bruits. Lungs are clear. Heart is Nl. with rate and rhythm without murmur, S-3, S-4, or click. Abdomen reveals some mild discomfort on the Rt. side, both lower and upper abdomen, but more in the RUQ. She is s/p cholecystectomy for cholelithiasis. I did do a urine test as her LMP was early Mar. about the 2nd. Preg. Test was Neg. U/A was Neg. Hgb. l5. WBC 8,600 and an EKG was WNL. I am not quite sure what is going on for her. She may have a viral syndrome. She may have biliary colic inspite of being s/p cholecystectomy, some people who have biliary colic are stone formers and cont. to form stones even without the gallbladder being present. P. Larazapam 0.5 mg. po up to b.i.d. for about 5 days, have her do a clear liquid diet and then slowly advance her diet and f/u. I did do LFT's, should these return abnormal one should consider whether or no she will need a ERCP to look for common bile duct stones. cc: ARD/STEWARDESS ROOM documented in this encounter Plan of Treatment Upcoming Encounters Date Type Specialty Care Team Description 05/04/2022 Appointment Gastroenterology Inés Levy MD [address] [facility] [address] (Wo rk) documented as of this encounter Visit Diagnoses Diagnosis Abdominal pain documented in this encounter Care Teams Regional Vice President Surgical Sales Relationship Specialty Start Date End Date Justine Blake MD PCP - General 05/18/1996 07/15/00 [address] [place] [address] documented as of this encounter
--- OUTSIDE RECORDS SUMMARY | 2022-03-29 10:12 | XMS_ITS | Encounter Summary ---
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
--- OUTSIDE RECORDS SUMMARY | 2022-03-29 10:12 | XMS_ITS | Encounter Summary ---
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 Hx of migraine headaches in the past. Had been doing very well on the Inderal,but started today with significant headache,nausea, no vomiting. States that it feels like a headband across her head,but this is typical for her. No neurological sx's. O. I did not examine her secondary to her discomfort today. Neurologically she appears intact. A. Headache. P. She was given Imitrex today and really had quite significant relief from that. She was sent home with an Rx for Tylenol #3's along with the Imitrex injector. Will call as needed. cc: documented in this encounter Plan of Treatment Upcoming Encounters Date Type Specialty Care Team Description 05/04/2022 Appointment Gastroenterology Inés Levy MD [address] [facility] N [address] (Wo rk) documented as of this encounter Visit Diagnoses Diagnosis Headache(784.0) Headache documented in this encounter Care Teams Structural Design Engineer Relationship Specialty Start Date End Date Justine Blake MD PCP - General 05/18/1996 07/15/00 [address] [place] [address] documented as of this encounter
--- OUTSIDE RECORDS SUMMARY | 2022-03-29 10:12 | XMS_ITS | Encounter Summary ---
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 Here for headache. It is typical migraine that she has had frequently. Began around 4:30 this morning,occipital, and then going to the Lt. side of the head. Some vomiting. She is attempting , so is using only plain Tylenol and requests that only Demerol or Morphine be used for the headache. LMP was [id number]. She declines a UPT now. O. Lying in the dark office in apparent discomfort. A. Recurrent Migraine. P. Demerol l00 mg. IM. Discharged immediately to the care of another person to drive her home. cc: ODYNAMICIST documented in this encounter Plan of Treatment Upcoming Encounters Date Type Specialty Care Team Description 05/04/2022 Appointment Gastroenterology Inés Levy MD [address] [facility] N [address] (Wo rk) documented as of this encounter Visit Diagnoses Diagnosis Headache(784.0) Headache documented in this encounter Care Teams Senior Property Manager Relationship Specialty Start Date End Date Justine Blake MD PCP - General 05/18/1996 07/15/[address] [place] [address] documented as of this encounter
--- OUTSIDE RECORDS SUMMARY | 2022-03-29 10:12 | XMS_ITS | Encounter Summary ---
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
--- OUTSIDE RECORDS SUMMARY | 2022-03-29 10:12 | XMS_ITS | Encounter Summary ---
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 She has a history pf pain at the base of her left thumb. This was injected about 9 months ago with some relief but now symptoms have returned. 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 O: The hand looks normal. No swelling or redness. She has pain along the thenar prominence and at the base of the thumb metacarpal. Her range of motion is somewhat limited secondary to her pain. A: Persistent tendonitis of the thumb. P: Xray is taken today which looks fine. I would like to put her in a spica cast for 2 wks. to see if we can get things to calm down. She will f/u with me in 2 wks. cc: documented in this encounter Plan of Treatment Upcoming Encounters Date Type Specialty Care Team Description 05/04/2022 Appointment Gastroenterology Inés Levy MD [address] [facility] N [address] (Wo rk) documented as of this encounter Procedures Procedure Name Priority Date/Time Associated Diagnosis Comme nts RADEX HAND MINIMUM 3 11/30/1993 12:00 AM Enthesopathy, Site Nos VIEWS CDT documented in this encounter Results HAND 3 VIEWS (11/30/1993 12:00 AM CDT) Anatomical Region Laterality Modality Other Specimen (Source) Anatomical Location Collection Method / Collectio n Time Received Time / Laterality Volume 11/30/1993 Justine Blake MD RAD_1 documented in this encounter Visit Diagnoses Diagnosis Enthesopathy of unspecified site documented in this encounter Care Teams Production Technician Relationship Specialty Start Date End Date Justine Blake MD PCP - General 05/18/1996 07/15/00 [address] [place] [address] documented as of this encounter
--- OUTSIDE RECORDS SUMMARY | 2022-03-29 10:13 | XMS_ITS | Encounter Summary ---
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 Also, she continues to get migraines. She was on 20 mg. of Inderal t.i.d. I think that we can increase this, as I don't think she is on a therapeutic dose as yet. She would like to get involved with Emitrex self-injection technique. We talked about increasing her Inderal and then she was shown the video. Questions were answered regarding the Emitrex. Will increase the Inderal to 40 mg. b.i.d. for now. Gradually increase that to t.i.d. Also, with her next CARDOZO she will come in and have the Emitrex tx. while she is here in the clinic and can be observed. If it seems to be effective for her, will give her a Rx. and she can begin this at home. Otherwise f/u as needed. cc: TRUCTION AREA MANAGER documented in this encounter Plan of Treatment Upcoming Encounters Date Type Specialty Care Team Description 05/04/2022 Appointment Gastroenterology Inés Levy MD [address] [facility] N [address] (Wo rk) documented as of this encounter Visit Diagnoses Diagnosis Headache(784.0) Headache documented in this encounter Care Teams Cattle Driver Relationship Specialty Start Date End Date Justine Blake MD PCP - General 05/18/1996 07/15/00 [address] [place] [address] documented as of this encounter
--- OUTSIDE RECORDS SUMMARY | 2022-03-29 10:13 | XMS_ITS | Encounter Summary ---
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 of increasing LBP. Can recall no injury. Just gradual onset of increasing pain and after 15 min. in the bathtub last night she was barely able to sit, fairly uncomfortable night. Has not done any heavy lifting. No strenuous exercise. Can identify no precipitant. Has had some problems with LBP off and on. She notes some difficulty to evacuate the bowel secondary to pain. She is very uncomfortable driving and most comfortable position is sitting, leaning forward supporting her weight in part on her arms. She has had no pain with intercourse, however. No UTI sx. or any difficulty with urination and has noted no blood in the stool. She has had no fevers. Medications are limited to Inderal and an OCP. O: Large woman with some discomfort. Does assume her most comfortable sitting position readily. Moves with reasonable ease, however. Back: FROM observed. No significant scoliosis. Tender on palpation from about L4-5 to mid sacral level. SI joint is tender particularly on the left. She has some minor sciatic notch tenderness on the left, none on the right. Remainder of exam is unremarkable. There is no evidence of any swelling, erythema, calor in the posterior perirectal area. Has a normal anal appearance. DTR's are symmetric, grade II/III knees, ankles bilat. Downgoing toes bilat. EHL function is intact bilat. SLR sitting position is unremarkable. LS spine films are unremarkable on preliminary reading. A: Lumbosacral strain. P: Ibuprofen, 800 mg. p.o. t.i.d. p.c., Robaxin 750 mg. two p.o. q.i.d. x 2 days, then one p.o. q.i.d., Tylenol #3, 1-2 p.o. q.h.s. and q4-6h prn pain unresponsive to previous measures. F/u 7-10 days. Pt. has an appt. next week already with Dr. Blake and is aware of need to return promptly for worsening of sx. cc: documented in this encounter Plan of Treatment Upcoming Encounters Date Type Specialty Care Team Description 05/04/2022 Appointment Gastroenterology Inés Levy MD [address] [facility] N [address] (Wo rk) documented as of this encounter Visit Diagnoses Diagnosis Backache, unspecified documented in this encounter Care Teams Wiring Inspector Relationship Specialty Start Date End Date Justine Blake MD PCP - General 05/18/1996 07/15/00 [address] [place] [address] documented as of this encounter
--- OUTSIDE RECORDS SUMMARY | 2022-03-29 10:13 | XMS_ITS | Encounter Summary ---
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 In for f/u of back pain. The medicines helped,but now they are going and she really is no better. Cont. to have low back pain which radiates down both legs. No injury or strain that she is aware of. Now also complains of Lt. sided breast pain. No injury. No drainage from the nipple. No lumps are palpated. O. Breast Exam is Nl. Some fibrocystic changes in the lateral aspect of both breasts,but no discrete lesions are palpated. She has tenderness in the lower lumbar spine. Good ROM. No pain with SLR. Good strength in the lower extremities. DTR's are symmetric. A. Breast Pain, Probably Fibrocystic In Nature. LBP. P. Symptomatic treatment for the breast. She is given a referral for PT. Given a refill on her Robaxin, Ibuprofen, and Tylenol #3. Will f/u in l month or so. cc: documented in this encounter Plan of Treatment Upcoming Encounters Date Type Specialty Care Team Description 05/04/2022 Appointment Gastroenterology Inés Levy MD [address] [facility] N [address] (Wo rk) documented as of this encounter Visit Diagnoses Diagnosis Backache, unspecified Mastodynia documented in this encounter Care Teams Department Manager Relationship Specialty Start Date End Date Justine Blake MD PCP - General 05/18/1996 07/15/00 [address] [place] [address] documented as of this encounter
--- OUTSIDE RECORDS SUMMARY | 2022-03-29 10:13 | XMS_ITS | Encounter Summary ---
:1970 Author Organization [facility] Address [address] [place] [address] Care Team Providers Name Role Phone Justine Blake MD Primary Care Provider Encounter Details Date Type Department Care Team Description 06/26/1993 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
--- OUTSIDE RECORDS SUMMARY | 2022-03-29 10:13 | XMS_ITS | Encounter Summary ---
:1970 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
--- OUTSIDE RECORDS SUMMARY | 2022-03-29 10:13 | XMS_ITS | Encounter Summary ---
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 documented in this encounter Results Conversion Default Interface Order (09/27/1990 8:51 AM CDT) P athologist Signature PAP Smear See Detail No normal HP CONVERSION range Comment: CERVICAL SMEAR Specimen Adequacy: Satisfactory for int erpretation. Within normal limits. Endocervical cells present. Specimen (Source) Anatomical Collection Method Collection Time Re ceived Time Location / / Volume Laterality 09/27/1990 8:51 AM CDT Dionne Garcia MD LAB_1 Performing Organization Address City/State/ZIP Code Phon e Number HP CONVERSION documented in this encounter Visit Diagnoses Not on filedocumented in this encounter Care Teams Transcribing Machine Mechanic Relationship Specialty Start Date End Date Justine Blake MD PCP - General 07/18/00 01/31/19 [address] [place] [address] documented as of this encounter
--- OUTSIDE RECORDS SUMMARY | 2022-03-29 10:13 | XMS_ITS | Encounter Summary ---
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
--- OUTSIDE RECORDS SUMMARY | 2022-03-29 10:13 | XMS_ITS | Encounter Summary ---
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 N [address] (Wo rk) documented as of this encounter Visit Diagnoses Diagnosis Migraine, unspecified, without mention o f intractable migraine without mention of status migrainosus documented in this encounter Care Teams Mathematics Lecturer Relationship Specialty Start Date End Date Justine Blake MD PCP - General 05/18/1996 07/15/00 [address] [place], [place] [id number] documented as of this encounter
--- OUTSIDE RECORDS SUMMARY | 2022-03-29 10:13 | XMS_ITS | Encounter Summary ---
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
--- OUTSIDE RECORDS SUMMARY | 2022-03-29 10:13 | XMS_ITS | Encounter Summary ---
:1970 Author 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
[2022-03-29 10:15] LABS: HCO3 VBG 24 mmol/L (21-28); Lactate* 1.1 mmol/L (0.5-1.9); PCO2 VBG 32 mmHG (40-50); PO2 VBG 62.1 mmHG (25-47); pH VBG 7.472 (7.32-7.43)
[2022-03-29 10:17] LABS: Basophils Absolute Auto 0.02 K/uL (0.00-0.30); Basophils Percent Auto 0.4 % (0.0-3.0); Eosinophils Absolute Auto 0.04 K/uL (0.00-0.50); Eosinophils Percent Auto 0.8 % (0.0-7.0); Hemoglobin* 13.9 gm/dL (12.0-16.0); Lymphocytes Absolute Auto 1.16 K/uL (0.90-2.90); Lymphocytes Percent Auto 24.2 % (20-44); Mean Corpuscular HGB Conc 32 gm/dL (32-36); Mean Corpuscular Hemoglobin 27 pg (26-34); Mean Corpuscular Volume 86 fL (80-100); Monocytes Percent Auto 5.4 % (0.0-11.0); Neutrophils Absolute Auto 3.32 K/uL (1.7-7.0); Neutrophils Percent Auto 69.2 % (42.0-72.0); Platelet Count* 306 K/uL (140-440); RDW Coefficient of Variation % 15.9 % (11.5-15.5); Red Blood Count 5.09 m/uL (4.00-5.20)
[2022-03-29 10:21] LABS: Troponin, Point-of-Care* 0.02 ng/ml (0.01-0.04)
[2022-03-29 10:32] LABS: Albumin* 4.3 g/dL (3.3-5.0); Chloride* 106 mmol/L (96-114)
[2022-03-29 10:33] LABS: Potassium* 3.8 mmol/L (3.6-5.1); Sodium* 138 mmol/L (135-149)
[2022-03-29 10:35] LABS: Bilirubin Total* 0.5 mg/dL (0.1-1.5); Creatinine* 0.5 mg/dL (0.5-1.5); Est. Creatinine Clearance* 140.71; Estimated Glomerular Filt Rate 112 ml/min
[2022-03-29 10:36] LABS: Alanine Aminotransferase* 66 U/L (4-35); Alkaline Phosphatase* 160 U/L (40-150); Aspartate Amino Transferase* 43 U/L (12-35); Blood Urea Nitrogen* 9 mg/dL (7-30); Carbon Dioxide* 21 mmol/L (20-32); Glucose* 122 mg/dL (60-115); Total Protein* 7.3 g/dL (6.0-8.3)
[2022-03-29 10:37] LABS: Calcium* 9.8 mg/dL (8.4-10.6); D Dimer Quantitative* 0.41 ug/ml (0.00-0.50); Magnesium* 1.7 mg/dL (1.5-2.6)
[2022-03-29 10:39] LABS: C Reactive Protein* 1.6 mg/dL (0.5-1.0)
[2022-03-29 10:43] LABS: NT Pro B Type NatriureticPept* 363 PG/mL (0-125)
[2022-03-29] MEDS: 0.9 % SODIUM CHLORIDE 1000 ml 1,000 ML 500 ML IV (10:56)
[2022-03-29] MEDS: ONDANSETRON 2 MG/ML inj 4 MG IVP (10:57)
[2022-03-29 11:03] LABS: SARS Antigen* positive (Negative)
[2022-03-29 11:05] LABS: Slide Review Reflex Yes
[2022-03-29 11:06] LABS: Slide Review Acceptable Review (Acceptable)
[2022-03-29 11:48] LABS: Appearance Urine Slightly Cloudy (Clear); Bilirubin Urine 1+ (Negative); Blood Urine Negative (Negative); Color Urine Yellow (Yellow); Glucose Urine Negative (Negative); Ketones Urine 4+ (Negative); Leukocyte Esterase Urine Negative (Negative); Nitrite Urine Negative (Negative); Protein Urine Trace (Negative); Specific Gravity Urine 1.025 (1.000-1.030)
[2022-03-29 12:03] LABS: RBC Urine 0-2 (0-2); WBC Urine 0-2 (0-5)
[2022-03-29 12:04] LABS: Bacteria Urine Few; Squamous Epithelial Cell Urine Few (None-Few)
[2022-03-29 12:13] LABS: Amphetamine Screen Urine Negative (Negative); Opiate Screen Urine POSITIVE (Negative)
[2022-03-29 12:14] LABS: Barbiturate Screen Urine Negative (Negative); Benzodiazepines Screen Urine POSITIVE (Negative); Cannabinoid Screen Urine Negative (Negative); Cocaine Screen Urine Negative (Negative); Methadone Screen Urine Negative (Negative); Methamphetamines Screen Urine Negative (Negative); Oxycodone Screen Urine Negative (Negative); Phencyclidine Screen Urine Negative (Negative); Tricyclic Antidepressant Urine Negative (Negative)
--- NOTE | 2022-03-29 15:30 | PM.IMHP1 ---
Hospitalist- H&P: HPI History of Present Illness Date Seen: 03/30/22 Chief complaint: Nauseous, disoriented Narrative: ADMISSION HISTORY AND PHYSICAL - HOSPITALIST Chief Complaint: My mom has had covid and she seems confused this morning. HPI: 51-year-old Yessica is brought to the ED by her son. He went to check on her this morning after she did not respond to his texts yesterday and found her confused and tired. He knew she had been positive for COVID since the weekend of March 13. He and his had had COVID the week prior. Yessica cares for his children in his home and he was not surprised when his mother also became positive for COVID. At she was tired and coughed and still came over and then she said she was too tired to help them during her week. She is unvaccinated to COVID and has apparently never been infected that she knows of. The last time she was ?normal with conversation and texting was on Tuesday the . Lizandro, the son, texted her yesterday, the and she did not answer. On his way to work on the morning of the he went to check on her and found her confused and weak and tired. He brought her to the emergency. In the emergency room she really was not able to give much of an history. She had word-finding difficulty. She seemed nervous, complaining of nausea. She could not recall when she had taken medicines are when she was COVID positive. She did not have any focal neurological deficits. No fever. Coughing. Weak. Poor appetite/nausea without vomiting. She has been having diarrhea but this predates her COVID. She has been having some rectal pain secondary to what she proposes is a rectal fissure secondary to her diarrhea. Her son relates a longstanding history of depression and pain killer addiction. No known recreational drugs or drinking. She does have prescribed benzodiazepines, opioids and Adderall from her PCP. She has multiple drug allergies. I've updated the PFSH, medications and allergies in the Expanse tabs. INVESTIGATIONS: LABS/MICRO/ECG/IMAGING Blood pressures have been 130s to 140s over 80s to 90s Afebrile Pulse 80s to 90s Pulse ox 88% on room air 122 kilos CBC unremarkable, CRP is mildly elevated at 1.6 PH 7.47 BNP 363 Chemistries unremarkable, glucose 122. Normal renal function. Elevated AST ALT and alk-phos which are all relatively new Normal protein, albumin and procalcitonin 4+ ketones in her urine, 1+ bilirubin. Negative nitrite and leukocyte esterase. Urine culture and blood cultures are all pending Positive antigen for COVID Normal sinus rhythm Head CT: reveals no intracranial pathology, bilateral dalal sinus disease noted. Chest x-ray: Lower lung volumes. No dense infiltrate. No CHF or effusion. No pneumothorax. Stable mediastinum. REVIEW OF SYSTEMS: 12-point ROS completed with patient and negative unless otherwise stated in HPI or below. PHYSICAL EXAM: CODE STATUS: Full Code CONSTITUTIONAL: Alert. Speaking in relatively full sentences. There is an pretty obvious expressive aphasia as she tries to answer questions. VITAL SIGNS: see record. HEENT: Normocephalic, atraumatic. PERRL, EOMI, conjunctivae pink, no scleral icterus. Ears and nose externally normal. Pharynx normal. NECK: No JVD. No carotid bruit, no thyromegaly, no adenopathy. CHEST: Clear to auscultation bilaterally HEART: S1 and S2 normal. No harsh murmurs. Edema MUSCULOSKELETAL: No gross joint deformity or swelling. NEURO: Cranial nerves intact. Grossly intact. No asymmetric findings. SKIN: No rashes, petechiae, concerning changes PSYCHIATRIC: Euthymic. ADMIT TO MEDSURG: FLOOR CARE DVT: Lovenox GI: PO intake Time spent: 70 minutes examining patient, conferring with family and patient, care staff, developing care plan [facility] Medical History ADHD Depression Multiple allergies Obesity (BMI 30-39.9) OCD (obsessive compulsive disorder) Opioid dependence Personality disorder Sleep apnea Surgical History H/O exploratory laparotomy H/O gastric bypass H/O shoulder surgery History of vaginal surgery Social History (Updated 03/30/22 @ 00:03 by Clarice Munoz MD) Narrative: lives alone, two adult children in the area. Spoke with son, Lizandro, who is close to his mother. 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 has been on disability for years; Used to work for the [employer] and then [employer] prior to disability claims for chronic pain Highest level of school completed/degree received: 12th grade, no diploma Smoking Status: Never smoker How often do you have a drink containing alcohol: never AUDIT-C Alcohol total score: 0 Non-prescribed substance use: denies use Caffeine: No service: No Meds Home Medications and Allergies Home Medications Medication Instructions Recorded Confirmed Type dextroamphetamine-amphetamine 30 30 mg PO BID 03/29/22 03/29/22 History mg tablet epinephrine 0.3 mg/0.3 mL 0.3 ml subcut ONCE PRN 03/29/22 03/29/22 History injection, auto-injector ferrous gluconate 324 mg (38 mg mg 03/29/22 History iron) tablet gabapentin 400 mg capsule 400 mg PO QID 03/29/22 03/29/22 History hydrocodone 5 mg-acetaminophen 325 1 tab PO Q4H PRN pain 03/29/22 03/29/22 History mg tablet lorazepam 1 mg tablet mg 03/29/22 History naloxone 4 mg/actuation nasal spray intranasal 03/29/22 History quetiapine 50 mg tablet mg 03/29/22 History Allergies Allergy/AdvReac Type Severity Reaction Status Date / Time erythromycin base Allergy Hives Verified 03/29/22 11:12 Penicillins Allergy Hives Verified 03/29/22 11:12 shellfish derived Allergy Anaphylaxis Verified 03/29/22 10:20 Sulfa (Sulfonamide Allergy hives, Verified 03/29/22 11:12 Antibiotics) angioedema tetracycline Allergy Hives Verified 03/29/22 11:12 venom-honey bee Allergy Anaphylaxis Verified 03/29/22 10:20 cyclobenzaprine AdvReac psychosis Verified 03/29/22 10:20 diphenhydramine AdvReac agitation Verified 03/29/22 10:20 [From Benadryl] duloxetine [From Cymbalta] AdvReac restless Verified 03/29/22 11:12 legs escitalopram AdvReac behavioral Verified 03/29/22 11:12 disturbances ibuprofen [From Advil] AdvReac stomach Verified 03/29/22 10:20 upset methocarbamol AdvReac tremors Verified 03/29/22 11:12 naproxen AdvReac gi upset Verified 03/29/22 11:12 olanzapine [From Zyprexa] AdvReac restless Verified 03/29/22 11:12 legs pregabalin [From Lyrica] AdvReac mental Verified 03/29/22 11:12 status change prochlorperazine AdvReac behavioral Verified 03/29/22 11:12 disturbances risperidone AdvReac anxiety Verified 03/29/22 11:12 and stuttering sumatriptan AdvReac tachycardia Verified 03/29/22 11:12 venlafaxine [From Effexor] AdvReac mental Verified 03/29/22 11:12 status change Exam Const: Vital Signs, click to edit/add: Vital Signs - 24 hr 03/29/22 09:27 03/29/22 10:28 03/29/22 11:00 Temperature 98.4 F Pulse Rate [Left P ulse Oximeter] 79 85 Respiratory Rate 18 18 Blood Pressure [Le ft Arm] Blood Pressure [Ri ght Upper Arm] 133/81 131/84 Pulse Oximetry 96 90 96 Oxygen Delivery Me thod Room Air Nasal Cannula Oxygen Flow Rate 1 03/29/22 11:00 03/29/22 11:30 03/29/22 12:00 Temperature Pulse Rate [Left P ulse Oximeter] 103 H 93 Respiratory Rate 18 18 Blood Pressure [Le ft Arm] Blood Pressure [Ri ght Upper Arm] 147/86 H 130/74 Pulse Oximetry 88 Oxygen Delivery Me thod Room Air Nasal Cannula Room Air Oxygen Flow Rate 1 1 03/29/22 14:12 03/29/22 14:22 03/29/22 12:30 Temperature 98.0 F Pulse Rate [Left P ulse Oximeter] 82 75 Respiratory Rate 20 20 18 Blood Pressure [Le ft Arm] 132/97 H Blood Pressure [Ri ght Upper Arm] 139/83 Pulse Oximetry 93 89 95 Oxygen Delivery Me thod Room Air Room Air Room Air Oxygen Flow Rate 1 0 03/29/22 13:00 03/29/22 13:30 Temperature Pulse Rate [Left P ulse Oximeter] 96 90 Respiratory Rate 18 18 Blood Pressure [Le ft Arm] Blood Pressure [Ri ght Upper Arm] 128/92 H 130/73 Pulse Oximetry 92 91 Oxygen Delivery Me thod Room Air Room Air Oxygen Flow Rate Hospitalist - H&P: Result Labs Labs: Short CBC 03/29/22 Range/Units 10:07 WBC 4.80 (4.50-11.00) K/uL Hgb 13.9 (12.0-16.0) gm/dL Hct 44.0 (33.0-51.0) % Plt Count 306 (140-440) K/uL BMP 03/29/22 10:07 Sodium 138 Potassium 3.8 Chloride 106 Carbon Dioxide 21 BUN 9 Creatinine 0.5 Glucose 122 H Calcium 9.8 Liver Function 03/29/22 Range/Units 10:07 Total Bilirubin 0.5 (0.1-1.5) mg/dL AST 43 H (12-35) U/L ALT 66 H (4-35) U/L Alkaline Phosphatase 160 H (40-150) U/L Albumin 4.3 (3.3-5.0) g/dL Urine 03/29/22 Range/Units 11:30 Urine Color Yellow (Yellow) Urine Appearance Slightly Cloudy A (Clear) Urine pH 7.0 (5.0-8.5) Ur Specific [place] 1.025 (1.000-1.030) Urine Protein Trace A (Negative) Urine Glucose (UA) Negative (Negative) Assessment and Plan Assessment and plan (1) Encephalopathy due to 2019 novel coronavirus: Problem comment: date of illness: 03/14/22. Day 16. not vaccinated. +antigen at admission. coughing; tired; achy. not hypoxic. brain fog began 03/27-. last known well 03/26. No covid specific therapies indicated. lovenox for VTE; ordered brain MRI. PT/OT. Status: Acute (2) Expressive aphasia: Problem comment: clinically this seems dissimilar to covid fog we've seen in the past; she clearly has expressive aphasia. MRI ordered for am. not a drinker; takes benzos and opioids but not alarming doses; doesn't appear confused or intoxicated. OT/PT to assess. Status: Acute (3) Acute dehydration: Problem comment: +ketones; hydrate; orthostatics. Status: Acute (4) COVID-19: Problem comment: as in #1 Status: Acute (5) Opioid dependence: Problem comment: previous addiction issues; is under a strict drug agreement for #40 of 5mg hydrocodone a week from PCP Status: Acute (6) ADHD: Problem comment: home adderall dosing Status: Acute (7) Rectal pain: Problem comment: has been having chronic diarrhea; developed a fissure; has scope planned. Status: Acute (8) Multiple allergies: Status: Acute (9) Personality disorder: Status: Acute (10) Depression: Status: Acute (11) Obesity (BMI 30-39.9): Status: Acute (12) Sleep apnea: Status: Acute (13) OCD (obsessive compulsive disorder): Status: Acute
[2022-03-29] MEDS: GABAPENTIN 100 MG CAPSULE 400 MG PO ×2 (16:49→20:50)
--- NOTE | 2022-03-29 17:41 | PC.NURSE ---
Pt up to m/s floor for admit at 1400. Sats maintained above 90%. Pt restless in bed but fatigued. Forgetful and delayed responses, pt verbalized I feel confused and can't find my words.. Pt signing belongings form and paused multiple times when writing name. Reports abdominal discomfort and pain, asked for [place]. Mechanical Intern offered Tylenol and pt refused. Pt restless in bed and appeared anxious, pt declined meds or intervention for this. Pt reports diarrhea for 3+ months, last stool yesterday 03/28. Pt steady on feet with SBA in room.
[2022-03-29] MEDS: ACETAMINOPHEN 325 MG TABLET PO (18:45)
[2022-03-29] MEDS: LORazepam 0.5 MG TABLET PO (18:47)
[2022-03-29] MEDS: guaiFENesin 100 MG/ML CUP PO (22:35)
[2022-03-29] MEDS: HYDROCODONE-ACETAMIN 5-325 MG 1 TAB PO (22:35)
[2022-03-29] MEDS: SODIUM CHLORIDE NASAL SPRAY 1 SPRAY NOSTRIL-B (22:42)
[2022-03-30] VITALS (8 sets, daily range): BP systolic 123–133; BP diastolic 68–87; PULSE 75–89; RESP 18–24; TEMP 36.1–36.8; O2SAT 90–94
--- NOTE | 2022-03-30 00:11 | CRLHL7_ITS ---
For Patients: As a result of the Century Cures Act, medical imaging exams and procedure reports are released immediately into your electronic medical record. You may view this report before your referring provider. If you have questions, please contact your health care provider. INDICATION: COVID encephalopathy TECHNIQUE: Sagittal T1, axial FLAIR T2 and diffusion weighted images. COMPARISON: CT brain scans dated 03/29/2022 and 01/07/2020. FINDINGS: Ventricles are normal in size and configuration. Mild prominence of frontal convexity subarachnoid spaces. No acute ischemic infarction. No areas of diffusion restriction. No cytotoxic edema or mass effect. No evidence of intracranial hemorrhage. No subdural or epidural fluid collections. The brainstem and cerebellum appear normal. Usual expected flow voids within major cerebral arteries and dural and oral venous sinuses implies gross patency of these major vascular structures. The orbits and sella turcica are unremarkable. Mucosal thickening and short fluid levels are noted within the maxillary sphenoid ethmoid sinuses and at the base of the frontal air cells. IMPRESSION: 1. No evidence of acute infarction, intracranial hemorrhage, edema or mass effect. 2. Paranasal sinus inflammation. Dictated by Hilario Cortes MD @ 03/30/2022 9:53:34 AM (Electronically Signed)
[2022-03-30] MEDS: ACETAMINOPHEN 325 MG TABLET PO ×2 (01:09→09:24)
[2022-03-30] MEDS: LORazepam 0.5 MG TABLET PO ×3 (01:10→21:17)
--- NOTE | 2022-03-30 04:48 | PC.NURSE ---
[id number] Pt anxious at beginning of shift, prn medications helped and pt able to sleep. C/O headache 11/13, no relief from meds, applied ice which helped a little. 2LPM O2 required to keep sats >90% while sleeping, pt does not tolerate NC in nares due to drying out her nose, so placed in mouth by pt instead which pt tolerated.
[2022-03-30] MEDS: HYDROCODONE-ACETAMIN 5-325 MG 1 TAB PO ×3 (06:22→17:08)
[2022-03-30] MEDS: ONDANSETRON ODT 4 MG TAB PO (06:24)
--- NOTE | 2022-03-30 07:15 | CRLHL7_ITS ---
For Patients: As a result of the Century Cures Act, medical imaging exams and procedure reports are released immediately into your electronic medical record. You may view this report before your referring provider. If you have questions, please contact your health care provider. INDICATION: Elevated LFTs. TECHNIQUE: Ultrasound abdomen limited. Sonographic images of the right upper quadrant were obtained using shay-scale and color Doppler images. COMPARISON: CT abdomen and pelvis 09/21/2020. FINDINGS: Difficult limited exam due to body habitus and bowel gas present normal hepatopetal portal venous flow. Liver: Liver is dense, mildly heterogeneous, with increased echogenicity and difficult to penetrate. No suspicious masses. No intrahepatic biliary dilatation. Gallbladder: Surgically absent. Common bile duct: 12 mm. Pancreas: Limited visualization due to bowel gas. Right kidney: Normal in size. Right kidney measures 11.3 x 5.6 x 5.1 cm. Normal echotexture and cortex. No suspicious masses, stones, or hydronephrosis. Vasculature: Mid aorta measures 2.1 cm in diameter. IVC is unremarkable. IMPRESSION: 1. Nonspecific increased liver echogenicity with mildly heterogeneous echotexture most likely due to hepatic steatosis or less likely other chronic liver disease. 2. Gallbladder surgically absent. Common bile duct is dilated up to 12 mm most likely postsurgical change. Recommend correlation with labs. 3. Technically challenging and limited exam due to body habitus and bowel gas. Pancreas is not well visualized. Dictated by Lloyd Ho MD @ 03/30/2022 9:40:57 AM (Electronically Signed)
[2022-03-30] MEDS: GABAPENTIN 100 MG CAPSULE 400 MG PO ×4 (09:23→21:16)
[2022-03-30] MEDS: guaiFENesin 100 MG/ML CUP PO (09:24)
[2022-03-30] MEDS: ENOXAPARIN 40 MG/0.4 ML INJ SUBCUT (09:24)
--- NOTE | 2022-03-30 09:45 | PC.NURSE ---
Pt continues to have migrane despite tylenol and norco. Ativan given for anxiety/nausea. Opal already given this AM, will assess when this is due again. Breakfast ordered. pt required 2L 02 over night but sats above 90% on RA while awake. MRI done this morning, pt was NPO prior to exam.
--- NOTE | 2022-03-30 16:09 | PM.IMPN1 ---
Progress Note: A&P Assessment and plan (1) Encephalopathy due to 2019 novel coronavirus: Problem details: date of illness: 03/14/22. Day 16. not vaccinated. +antigen at admission. coughing; tired; achy. not hypoxic. brain fog began 03/27-. last known well 03/26. No covid specific therapies indicated. lovenox for VTE. PT/OT. Status: Acute Assessment and Plan: 1. Much improved today compared to yesterday when she 1st presented. (2) Expressive aphasia: Problem details: clinically this seems dissimilar to covid fog we've seen in the past; she clearly has expressive aphasia. MRI ordered for am. not a drinker; takes benzos and opioids but not alarming doses; doesn't appear confused or intoxicated. OT/PT to assess. Status: Acute Assessment and Plan: 1. Could she have had migraine equivalent yesterday? (3) Acute dehydration: Problem details: +ketones; hydrate; orthostatics. Status: Acute (4) COVID-19: Problem details: as in #1 Status: Acute (5) Opioid dependence: Problem details: previous addiction issues; is under a strict drug agreement for #40 of 5mg hydrocodone a week from PCP Status: Acute (6) ADHD: Problem details: home adderall dosing Status: Acute (7) Rectal pain: Problem details: has been having chronic diarrhea; developed a fissure; has scope planned. Status: Acute (8) Multiple allergies: Status: Acute (9) Personality disorder: Status: Acute (10) Depression: Status: Acute (11) Obesity (BMI 30-39.9): Status: Acute (12) Sleep apnea: Status: Acute (13) OCD (obsessive compulsive disorder): Status: Acute Plan 1. Continue with supportive measures. Time Spent With Patient Total time spent: 30 minutes Subjective Time Seen by Provider: 12:00 Date Seen: 03/30/22 Interval history: Hospital day 2. She is more awake, alert, interactive today. She remembers not being able to think of how she could reach her son or call 911. She does not remember why she could not think of that. Had migraine headache earlier today which has since resolved. No focal motor neurologic deficits from this. Exam Narrative: Exam Narrative: No acute distress, appears comfortable. Alert, oriented to self, place, time, and situation. Again does not recall a lot of the details how she arrived here. Friendly, cooperative. Mood and affect are congruent. Lungs are clear to auscultation. Heart tones with regular rhythm. Abdomen with active bowel sounds, soft, nontender. Extremities without edema. Moves all 4 extremities. No focal motor neurologic deficits. Skin is warm, dry, intact. Const: Vital Signs, click to edit/add: Vital Signs - 24 hr 03/29/22 19:00 03/29/22 23:00 03/29/22 23:00 Temperature 97.9 F 97.9 F Pulse Rate [Left P ulse Oximeter] 88 92 92 Respiratory Rate 20 20 20 Blood Pressure [Le ft Arm] 146/93 H 135/76 Pulse Oximetry 88 92 Oxygen Delivery Me thod Room Air Nasal Cannula Oxygen Flow Rate 0 2 03/30/22 02:58 03/30/22 06:45 03/30/22 07:00 Temperature 98.3 F 97.1 F L Pulse Rate [Left P ulse Oximeter] 88 84 Respiratory Rate 20 20 Blood Pressure [Le ft Arm] 124/68 130/79 Pulse Oximetry 93 92 90 Oxygen Delivery Me thod Nasal Cannula Nasal Cannula Nasal Cannula Oxygen Flow Rate 2 2 0 03/30/22 07:00 03/30/22 11:00 03/30/22 15:00 Temperature 96.9 F L 98.1 F Pulse Rate [Left P ulse Oximeter] 84 75 84 Respiratory Rate 18 18 18 Blood Pressure [Le ft Arm] 123/80 133/87 Pulse Oximetry 94 91 Oxygen Delivery Me thod Nasal Cannula Nasal Cannula Oxygen Flow Rate 0 2 03/30/22 15:00 Temperature Pulse Rate [Left P ulse Oximeter] 84 Respiratory Rate 18 Blood Pressure [Le ft Arm] Pulse Oximetry Oxygen Delivery Me thod Oxygen Flow Rate Documenting provider has reviewed patient's vital signs: yes Imaging MR Brain: Attestation: I have reviewed the pertinent imaging results. Radiologist's impression: 1. No evidence of acute infarction, intracranial hemorrhage, edema or mass effect. 2. Paranasal sinus inflammation. US - abdomen: Radiologist's impression: 1. Nonspecific increased liver echogenicity with mildly heterogeneous echotexture most likely due to hepatic steatosis or less likely other chronic liver disease. 2. Gallbladder surgically absent. Common bile duct is dilated up to 12 mm most likely postsurgical change. Recommend correlation with labs. 3. Technically challenging and limited exam due to body habitus and bowel gas. Pancreas is not well visualized.
--- NOTE | 2022-03-30 17:27 | PC.NURSE ---
Pt requiring more 02 today - 2L per NC with sats 88-91%- pt fatigued/sleeping majority of day. OT/PT in for eval. Migrane improving. Encouraged ambulation when feeling able. Egg salad sandwich for breakfast, lunch, and dinner. Encouraging fluids, pt needs reinforcement. congested cough. Mentation improving, less pauses between sentences and less word finding with interactions.
[2022-03-30] MEDS: SODIUM CHLORIDE 0.9 % (FLUSH) 10 ML SYRINGE IVF (21:18)
[2022-03-31] VITALS (7 sets, daily range): BP systolic 109–123; BP diastolic 65–73; PULSE 80–91; RESP 18–24; TEMP 36.5–36.7; O2SAT 91–94
[2022-03-31] MEDS: HYDROCODONE-ACETAMIN 5-325 MG 1 TAB PO ×2 (03:01→09:53)
[2022-03-31] MEDS: LORazepam 0.5 MG TABLET PO ×2 (03:01→09:57)
--- NOTE | 2022-03-31 06:49 | PC.NURSE ---
23-07: pleasant and cooperative. Indep in room. c/o headache 5/10, [place] given with relief. 2L O2 on while patient is asleep, maintaining sats 88-92%, pt prefers the NC to be placed in her mouth. VSS.
[2022-03-31 07:53] LABS: Basophils Absolute Auto 0.04 K/uL (0.00-0.30); Basophils Percent Auto 0.8 % (0.0-3.0); Eosinophils Percent Auto 1.9 % (0.0-7.0); Hematocrit 41.9 % (33.0-51.0); Lymphocytes Percent Auto 45.8 % (20-44); Mean Corpuscular HGB Conc 31 gm/dL (32-36); Mean Corpuscular Hemoglobin 27 pg (26-34); Mean Corpuscular Volume 88 fL (80-100); Neutrophils Absolute Auto 2.24 K/uL (1.7-7.0); Neutrophils Percent Auto 43.5 % (42.0-72.0); Platelet Count* 340 K/uL (140-440); RDW Coefficient of Variation % 16.2 % (11.5-15.5); Red Blood Count 4.77 m/uL (4.00-5.20); White Blood Count* 5.15 K/uL (4.50-11.00)
[2022-03-31 07:54] LABS: Slide Review Reflex No
[2022-03-31 07:57] LABS: HCO3 VBG 27 mmol/L (21-28); PCO2 VBG 44 mmHG (40-50); PO2 VBG 47.7 mmHG (25-47); pH VBG 7.386 (7.32-7.43)
[2022-03-31 08:02] LABS: Lactate* 1.1 mmol/L (0.5-1.9)
[2022-03-31 08:23] LABS: Iron* 53 ug/dL (37-170)
[2022-03-31 08:32] LABS: Percent Iron Saturation 19 % (20-50); Total Iron Binding Capacity 281 ug/dL (265-497)
[2022-03-31 08:36] LABS: INR 0.92 (0.91-1.10)
[2022-03-31 08:54] LABS: Chloride* 108 mmol/L (96-114)
[2022-03-31 08:55] LABS: Albumin* 3.9 g/dL (3.3-5.0); Potassium* 3.9 mmol/L (3.6-5.1); Sodium* 142 mmol/L (135-149)
[2022-03-31 08:57] LABS: Creatinine* 0.6 mg/dL (0.5-1.5); Est. Creatinine Clearance* 117.26; Estimated Glomerular Filt Rate 107 ml/min
[2022-03-31 08:58] LABS: Alanine Aminotransferase* 34 U/L (4-35); Alkaline Phosphatase* 105 U/L (40-150); Aspartate Amino Transferase* 23 U/L (12-35); Bilirubin Total* 0.5 mg/dL (0.1-1.5); Blood Urea Nitrogen* 11 mg/dL (7-30); Calcium* 9.1 mg/dL (8.4-10.6); Carbon Dioxide* 23 mmol/L (20-32); Gamma Glutamyl Transpeptidase* 108 U/L (8-55); Glucose* 96 mg/dL (60-115); Total Protein* 6.8 g/dL (6.0-8.3)
[2022-03-31 08:59] LABS: Magnesium* 1.9 mg/dL (1.5-2.6)
[2022-03-31 09:07] LABS: NT Pro B Type NatriureticPept* 74 PG/mL (0-125)
[2022-03-31 09:11] LABS: C Reactive Protein* < 0.5 mg/dL (0.5-1.0); Troponin I* < 0.01 ng/mL (0.01-0.04)
[2022-03-31] MEDS: ENOXAPARIN 40 MG/0.4 ML INJ SUBCUT (09:53)
[2022-03-31] MEDS: GABAPENTIN 100 MG CAPSULE 400 MG PO (09:53)
[2022-03-31] MEDS: SODIUM CHLORIDE 0.9 % (FLUSH) 10 ML SYRINGE IVF (09:54)
--- NOTE | 2022-03-31 12:22 | PM.DS1 ---
DS: Providers Provider Date Seen: 03/31/22 Date of admission: 03/30/22 10:28 Primary care physician: Taylor Downing MD Admitting Clinician: Hernandez Harvey MD Consults: 03/29/22 15:25 Consult to Occupational Therapy [CONS] Routine Comment: Reason(s) for OT Consult:: Evaluate and Treat Any Restrictions?:: No Restrictions Comment: MOCA - discern the expressive aphasia Consult to Physical Therapy [CONS] Routine Comment: Reason(s) for PT Consult:: Evaluate and Treat Any Restrictions?:: No Restrictions Attending Physician on discharge: Clarice Munoz MD [place] [facility] Date of Discharge: 03/31/22 DS: Diagnosis Discharge Diagnosis (1) Encephalopathy due to 2019 novel coronavirus: Status: Acute Problem details: date of illness: 03/14/22. not vaccinated. +antigen at admission. coughing; tired; achy. not hypoxic. brain fog began 03/27-. improved with supportive cares. (2) Expressive aphasia: Status: Acute Problem details: improved with supportive cares. (3) Rectal pain: Status: Acute Problem details: has been having chronic diarrhea; developed a fissure; has scope planned. recommending [facility] consult and nifedipine ointment. (4) Opioid dependence: Status: Acute Problem details: previous addiction issues; is under a strict drug agreement for #40 of 5mg hydrocodone a week from PCP (5) COVID-19: Status: Acute Problem details: as in #1 DS: Summary Hospital Course Hospital Course: HOSPITALIST DISCHARGE SUMMARY ATTENDING PHYSICIAN: Clarice Munoz MD FINAL DIAGNOSIS: COVID-19 encephalopathy with expressive aphasia Complicated migraine Chronic diarrhea with rectal pain HOSPITAL FOLLOWUP ISSUES: 1. [place] gastroenterology consult. She has a colonoscopy scheduled. I am recommending an office consult and a trial of nifedipine ointment for her rectal fissure. 2. Home med self-care for her COVID convalescent. I recommended balance diet, healthy sleep pattern, regular low intensity exercise. REFERRALS WHILE ADMITTED: PT, OT REFERRALS AFTER DISCHARGE: GI BRIEF HOSPITAL COURSE: 51-year-old Yessica was admitted from our emergency room after being evaluated for acute confusion and expressive aphasia. She was known to be COVID positive approximately 2 weeks prior to presentation. The symptoms of encephalopathy had begun 2 days prior to admission. Generally she was given supportive care, fluids and PT and OT evaluations. She improved rapidly. On discharge she had no further word-finding issues and after intact short-term memory. Brain MRI was unremarkable. Chronic diarrhea was also ongoing while admitted for COVID encephalopathy. I have asked her as an outpatient to seek a Gastroenterology consult and to that end and [place] [facility] referral was placed. Is also having rectal pain consistent with a rectal fissure secondary to 5 months of diarrhea. By send nifedipine ointment to be placed rectally twice a day p.r.n.. No other changes to her home medications were made. VITAL SIGN, MEDICATION, LAB/MICRO, IMAGING REVIEWED DISCHARGE MEDICATIONS: See Reconciled list REVIEW OF SYSTEMS No new chest pain or dyspnea Pain controlled No voiding difficulties Tolerating diet challenge PHYSICAL EXAM: CONSTITUTIONAL: AWAKE, ALERT, NO WORD-FINDING ISSUES NOTED VITAL SIGNS: see record. HEENT: Normocephalic, atraumatic. PERRL, EOMI, conjunctivae pink, no scleral icterus. Ears and nose externally normal. Pharynx normal. NECK: No JVD. No carotid bruit, no thyromegaly, no adenopathy. CHEST: Clear to auscultation bilaterally. HEART: S1 and S2 normal. Edema 1+ ABDOMEN: Soft, nontender. Normal bowel sounds. MUSCULOSKELETAL: No gross joint deformity or swelling. NEURO: Cranial nerves intact. Grossly intact. No asymmetric findings. SKIN: No rashes, petechiae, concerning changes PSYCHIATRIC: Mood euthymic. DISPOSITION: Home with son Time spent on discharge 37 minutes. Status at Discharge Functional status at discharge: independent ambulation Overall status at discharge: patient is progressing back to baseline Time Spent with Patient Time attestation: Total time spent providing and/or coordinating discharge services: Time spent: Greater than 30 minutes Exam Const: Vital Signs, click to edit/add: Vital Signs - 24 hr 03/30/22 15:00 03/30/22 15:00 03/30/22 20:42 Temperature 98.1 F 98 F Pulse Rate [Left P ulse Oximeter] 84 84 87 Respiratory Rate 18 18 20 Blood Pressure [Le ft Arm] 133/87 126/80 Pulse Oximetry 91 92 Oxygen Delivery Me thod Nasal Cannula Nasal Cannula Oxygen Flow Rate 2 2 03/30/22 20:53 03/30/22 23:00 03/31/22 00:00 Temperature 97.7 F Pulse Rate [Left P ulse Oximeter] 89 89 Respiratory Rate 24 24 Blood Pressure [Le ft Arm] 122/71 Pulse Oximetry 91 92 Oxygen Delivery Me thod Nasal Cannula Nasal Cannula Oxygen Flow Rate 2 2 03/31/22 03:00 03/31/22 04:23 03/31/22 07:00 Temperature 97.7 F 97.9 F Pulse Rate [Left P ulse Oximeter] 88 80 Respiratory Rate 24 24 18 Blood Pressure [Le ft Arm] 123/73 112/73 Pulse Oximetry 93 93 94 Oxygen Delivery Me thod Nasal Cannula Nasal Cannula Room Air Oxygen Flow Rate 2 2 03/31/22 11:00 Temperature 98.1 F Pulse Rate [Left P ulse Oximeter] 91 Respiratory Rate 20 Blood Pressure [Le ft Arm] 109/65 Pulse Oximetry 91 Oxygen Delivery Me thod Room Air Oxygen Flow Rate DS: Data Data Completed and Pending Labs on day of discharge: Labs from last 24 hours 03/31/22 03/31/22 03/31/22 07:17 07:17 07:17 WBC RBC Hgb Hct MCV MCH MCHC RDW Coeff of Yessi Plt Count Neut % (Auto) Lymph % (Auto) [place] % (Auto) Eos % (Auto) Baso % (Auto) Neut # (Auto) Lymph # (Auto) [place] # (Auto) Eos # (Auto) Baso # (Auto) Abs Immat Gran (auto) INR VBG pH 7.386 VBG pCO2 44 VBG pO2 47.7 H VBG HCO3 27 Sodium 142 Potassium 3.9 Chloride 108 Carbon Dioxide 23 BUN 11 Creatinine 0.6 Estimated Creat Clear 117.26 Estimated GFR 107 Glucose 96 Lactate 1.1 Calcium 9.1 Ionized Calcium Jemal 1.20 Magnesium 1.9 Iron 53 TIBC 281 % Saturation 19 L Total Bilirubin 0.5 GGT 108 H AST 23 ALT 34 Alkaline Phosphatase 105 Troponin I < 0.01 L C-Reactive Protein < 0.5 L NT-Pro-B Natriuret Pep 74 Total Protein 6.8 Albumin 3.9 03/31/22 03/31/22 07:17 07:17 WBC 5.15 RBC 4.77 Hgb 13.0 Hct 41.9 MCV 88 MCH 27 MCHC 31 L RDW Coeff of Yessi 16.2 H Plt Count 340 Neut % (Auto) 43.5 Lymph % (Auto) 45.8 H [place] % (Auto) 8.0 Eos % (Auto) 1.9 Baso % (Auto) 0.8 Neut # (Auto) 2.24 Lymph # (Auto) 2.40 [place] # (Auto) 0.40 Eos # (Auto) 0.10 Baso # (Auto) 0.04 Abs Immat Gran (auto) 0.00 INR 0.92 VBG pH VBG pCO2 VBG pO2 VBG HCO3 Sodium Potassium Chloride Carbon Dioxide BUN Creatinine Estimated Creat Clear Estimated GFR Glucose Lactate Calcium Ionized Calcium Jemal Magnesium Iron TIBC % Saturation Total Bilirubin GGT AST ALT Alkaline Phosphatase Troponin I C-Reactive Protein NT-Pro-B Natriuret Pep Total Protein Albumin Preliminary micro results at discharge 03/29/22 10:47 Blood Culture - Preliminary Blood NO GROWTH AFTER 48 HOURS 03/29/22 10:07 Blood Culture - Preliminary Blood NO GROWTH AFTER 48 HOURS Discharge Plan Discharge Disposition: Home, Self-Care Date of Admission: 03/30/22 10:28 Attending Provider on Discharge: Clarice Munoz Primary Care Provider: Taylor Downing Condition: Stable Anticipated Discharge Date/Time: 03/31/22 11:25 Discharge Medications: New miscellaneous medical supply Misc See Rx Instructions .ROUTE .COMPLEX Qty: 15 0RF Rx Instructions: nifedipine 0.2% oint, apply to painful area twice a day. Disp 15G, 1RF Continued gabapentin 400 mg capsule 400 mg PO QID Label Comments: TAKE 1 CAPSULE BY MOUTH FOUR TIMES DAILY dextroamphetamine-amphetamine 30 mg tablet 30 mg PO BID lorazepam 1 mg tablet Label Comments: TAKE 1 TABLET BY MOUTH TWICE DAILY NEEDED epinephrine 0.3 mg/0.3 mL auto-injector 0.3 ml subcut ONCE PRN Label Comments: INJECT 0.3 ML INTRAMUSCULARLY ONCE FOR 1 DOSE quetiapine 50 mg tablet Label Comments: TAKE 1 TABLET BY MOUTH THREE TIMES DAILY NEEDED ferrous gluconate 324 mg (38 mg iron) tablet Hold Instructions: unclear naloxone 4 mg/actuation spray,non-aerosol INTRANASAL Label Comments: CALL 911. SPR CONTENTS OF ONE SPRAYER (0.1ML) INTO ONE NOSTRIL. REPEAT IN 2-3 MIN IF SYMPTOMS OF OPIOID EMERGENCY PERSIST, ALTERNATE NOSTRILS hydrocodone-acetaminophen 5-325 mg tablet 1 tab PO Q4H PRN (Reason: pain) Label Comments: TAKE 1/2 TO 1 TABLET BY MOUTH EVERY 4 HOURS NEEDED Discharge Orders: Discharge Order (Routine); Ordered 03/31/22 Ordered By: Clarice Munoz Patient Education: Multivitamins with Minerals (By mouth), Acute Diarrhea (ED), Rectal Pain (ED), COVID-19 (Coronavirus Disease 2019) (DC) Additional Instructions: 1. Covid brain fog will get better each day; take a multivitamin - rest - eat well. 2. Rectal pain and chronic diarrhea: [place] [facility] referral for office consult either before or after colonoscopy (probably better to do after). Also trial of Nifedipine ointment for rectal fissure - sending this over to [facility]. Activity Level: Activity as Tolerated Discharge Diet: Regular Follow Up Appointments: Silvia Kahn PA-C [Other] - 04/12/22 10:45 am Taylor Downing MD [Primary Care Provider] - None (PCP unavailable) Hernán Mcclellan MD [Referring] - 04/14/22 8:40 am ([facility]) Forms: [employer] Transport Info Instructions
== END 2022-03-31 13:40 | disposition home or self-care (01) | DRG 177 ==
LOC: ED 13:18 → MEDSURG 13:28
PROVIDERS: Family Medicine; Admitting Provider Internal Medicine; Emergency Provider Family Medicine; PCP Family Medicine; Visit Provider Internal Medicine
DX: U07.1 COVID-19 (principal); G92.8 Other toxic encephalopathy; F11.20 Opioid dependence, uncomplicated; R47.01 Aphasia; E86.0 Dehydration; G43.109 Migraine with aura, not intractable, without status migrainosus; K52.9 Noninfective gastroenteritis and colitis, unspecified; K60.2 Anal fissure, unspecified; G89.29 Other chronic pain; G47.30 Sleep apnea, unspecified; F90.9 Attention-deficit hyperactivity disorder, unspecified type; F60.9 Personality disorder, unspecified; F42.9 Obsessive-compulsive disorder, unspecified; F32.A Depression, unspecified; E66.9 Obesity, unspecified; Z98.84 Bariatric surgery status; Z86.718 Personal history of other venous thrombosis and embolism; Z68.38 Body mass index [BMI] 38.0-38.9, adult
CPT/HCPCS: 36415; 51798; 70450; 70551; 71045; 76705; 80053; 80306; 81003; 81015; 82330; 82803; 82977; 83540; 83550; 83605; 83735; 83880; 84145; 84484; 85025; 85379; 85610; 86140; 87040; 87086; 87426; 93005; 94761; 97116; 97161; 97165; 99284; 99285; A9270; G0378; G0379; J1650; J2405; J7030

== ENCOUNTER 2022-05-18 05:00 | Emergency (ER) | payer MEDICARE, SELFPAY ==
[2022-05-18 05:10] VITALS: BP 153/92; PULSE 74; RESP 18; TEMP 37.2; O2SAT 98
--- NOTE | 2022-05-18 05:19 | ED.GENADULT ---
HPI - General Adult General Chief complaint: Shortness of Breath/Dyspnea Stated complaint: Nausea/cough/breathing difficulty Time Seen by Provider: 05/18/22 05:11 History of Present Illness HPI narrative: Pt is a 52 year old woman who presents with increased anxiety since starting suboxone. Pt states that she has OCD as well and she is very concerned that the suboxone is not agreeing with her. She feels short of breath although her oxygen saturation is 98% on room air. She is wondering if she should stop the suboxone. No chest pain, fever, cough. She does have some nausea which she relates to the increased anxiety. Pt started the Suboxone just a few days ago and since then the anxiety has increased. Pt has an extensive drug allergy list. Related Data Home Medications Medication Instructions Recorded Confirmed epinephrine 0.3 mg/0.3 mL 0.3 ml subcut ONCE PRN 03/29/22 05/18/22 injection, auto-injector ferrous gluconate 324 mg (38 mg 324 mg PO DAILY 03/29/22 05/18/22 iron) tablet lorazepam 1 mg tablet 1 mg PO BID 03/29/22 05/18/22 quetiapine 50 mg tablet 50 mg PO TID PRN 03/29/22 05/18/22 buprenorphine 8 mg-naloxone 2 mg 0.5 film sublingual BID 05/18/22 05/18/22 sublingual film daridorexant 50 mg tablet (Quviviq) 50 mg PO DAILY 05/18/22 05/18/22 dextroamphetamine-amphetamine ER 25 mg PO DAILY 05/18/22 05/18/22 25 mg 24hr capsule,extend release gabapentin 800 mg tablet mg 05/18/22 Allergies Allergy/AdvReac Type Severity Reaction Status Date / Time erythromycin base Allergy Hives Verified 03/29/22 11:12 Penicillins Allergy Hives Verified 03/29/22 11:12 shellfish derived Allergy Anaphylaxis Verified 03/29/22 10:20 Sulfa (Sulfonamide Allergy hives, Verified 03/29/22 11:12 Antibiotics) angioedema tetracycline Allergy Hives Verified 03/29/22 11:12 venom-honey bee Allergy Anaphylaxis Verified 03/29/22 10:20 cyclobenzaprine AdvReac psychosis Verified 03/29/22 10:20 diphenhydramine AdvReac agitation Verified 03/29/22 10:20 [From Benadryl] duloxetine [From Cymbalta] AdvReac restless Verified 03/29/22 11:12 legs escitalopram AdvReac behavioral Verified 03/29/22 11:12 disturbances ibuprofen [From Advil] AdvReac stomach Verified 03/29/22 10:20 upset methocarbamol AdvReac tremors Verified 03/29/22 11:12 naproxen AdvReac gi upset Verified 03/29/22 11:12 olanzapine [From Zyprexa] AdvReac restless Verified 03/29/22 11:12 legs pregabalin [From Lyrica] AdvReac mental Verified 03/29/22 11:12 status change prochlorperazine AdvReac behavioral Verified 03/29/22 11:12 disturbances risperidone AdvReac anxiety Verified 03/29/22 11:12 and stuttering sumatriptan AdvReac tachycardia Verified 03/29/22 11:12 venlafaxine [From Effexor] AdvReac mental Verified 03/29/22 11:12 status change Review of Systems Status of ROS: Reports: 10 or more systems reviewed and unremarkable except as noted in History and below [facility] Medical History (Updated 05/18/22 @ 05:29 by Blake Coe MD) ADHD Anemia B12 deficiency Bipolar affective disorder Chronic low back pain Depression Fibromyalgia Insomnia Migraines Multiple allergies Obesity (BMI 30-39.9) OCD (obsessive compulsive disorder) Opioid dependence Personality disorder Sleep apnea Stimulant abuse Surgical History H/O exploratory laparotomy H/O gastric bypass H/O shoulder surgery History of vaginal surgery Social History Narrative: lives alone, two adult children in the area. Spoke with son, Lizandro, who is close to his mother. 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 has been on disability for years; Used to work for the [employer] and then [employer] prior to disability claims for chronic pain Highest level of school completed/degree received: 12th grade, no diploma Smoking Status: Unknown if ever smoked How often do you have a drink containing alcohol: never AUDIT-C Alcohol total score: 0 Non-prescribed substance use: denies use Non-prescribed substance use details: pt on suboxone Caffeine: No service: No Exam Narrative: Exam Narrative: EXAM GENERAL: Patient appears anxious but in no acute distress. EYES: No scleral icterus. ENT: Tympanic membranes and oropharynx normal. THYROID: no thyroid nodules or thyromegaly. LYMPH: No supraclavicular or cervical lymphadenopathy. SKIN: Visible skin seen during exam normal or with benign process only. EXT: No dependent lower extremity pedal edema. HEART: Regular rate and rhythm with no murmurs, rubs, or gallops. LUNGS: Clear to auscultation bilaterally with no crackles or wheezes. ABD: Soft, non tender, non distended. PSYCH: Good eye contact, speech is not pressured. Const: Vital Signs, click to edit/add: Vital Signs - 24 hr 05/18/22 05:10 Temperature 98.9 F Pulse Rate [Left P ulse Oximeter] 74 Respiratory Rate 18 Blood Pressure [Le ft Upper Arm] 153/92 H Pulse Oximetry 98 Oxygen Delivery Me thod Room Air Course Course Hospital Course: Pt seen and examined. Vital Signs Vital signs: Initial Vital Signs Temperature 98.9 F 05/18/22 05:10 Temperature Source Temporal Artery Scan 05/18/22 05:10 Pulse Rate 74 05/18/22 05:10 Respiratory Rate 18 05/18/22 05:10 Blood Pressure 153/92 H 05/18/22 05:10 Blood Pressure Mean 112 05/18/22 05:10 Blood Pressure Position Sitting 05/18/22 05:10 Pulse Oximetry 98 05/18/22 05:10 Oxygen Delivery Method 05/18/22 05:10 Vital Signs Temperature 98.9 F 05/18/22 05:10 Pulse Rate 74 05/18/22 05:10 Respiratory Rate 18 05/18/22 05:10 Blood Pressure 153/92 H 05/18/22 05:10 Pulse Oximetry 98 05/18/22 05:10 Oxygen Delivery Method 05/18/22 05:10 Temperature 98.9 F 05/18/22 05:10 Pulse Rate 74 05/18/22 05:10 Respiratory Rate 18 05/18/22 05:10 Blood Pressure 153/92 H 05/18/22 05:10 Pulse Oximetry 98 05/18/22 05:10 Oxygen Delivery Method 05/18/22 05:10 Medical Decision Making MDM Narrative Medical decision making narrative: Pt recently started on Suboxone for narcotic addiction presents shortly after initiation of Suboxone with symptoms of increased anxiety, mild shortness of breath and nausea. Pt has continued taking the Suboxone and has not been using any medicaitons that have not been prescribed to her. I feel her symptoms are due to the med change and will improve with time. I did consider pneumonia, pulmonary embolism, angina, CHF and bronchitis but with her normal exam and vital signs, I find this to be unlikely. We will collect a swab for COVID, Influenza and RSV and will be in follow up with her. Otherwise, reassurance is offered with PCP follow up. Differential Diagnosis Differential Diagnosis: as above Medical Records Medical records reviewed: Yes I reviewed the patient's medical records Discharge Plan Discharge Clinical Impression: Anxiety Patient Disposition: Home, Self-Care Condition: Stable Instructions: Anxiety (ED) Additional Instructions: Continue current medications as symptoms will likely improve. Follow up with your doctor as needed. Activity Level: No Restrictions Discharge Diet: Regular Prescriptions: No Action buprenorphine-naloxone 8-2 mg film 0.5 film sublingual BID Label Comments: 0.5/HALF FILMS UNDER THE TONGUE TWICE A DAY. START 12-24 HOURS AFTER STOPPING NORCO Quviviq 50 mg tablet 50 mg PO DAILY dextroamphetamine-amphetamine 25 mg capsule,extended release 24hr 25 mg PO DAILY Label Comments: TAKE 1 CAPSULE BY MOUTH EVERY DAY IN THE MORNING gabapentin 800 mg tablet gabapentin 400 mg capsule 400 mg PO QID Label Comments: TAKE 1 CAPSULE BY MOUTH FOUR TIMES DAILY lorazepam 1 mg tablet 1 mg PO BID Label Comments: TAKE 1 TABLET BY MOUTH TWICE DAILY NEEDED epinephrine 0.3 mg/0.3 mL auto-injector 0.3 ml subcut ONCE PRN Label Comments: INJECT 0.3 ML INTRAMUSCULARLY ONCE FOR 1 DOSE quetiapine 50 mg tablet 50 mg PO TID PRN Label Comments: TAKE 1 TABLET BY MOUTH THREE TIMES DAILY NEEDED ferrous gluconate 324 mg (38 mg iron) tablet 324 mg PO DAILY Hold Instructions: unclear Follow Up/Referrals: Taylor Downing MD [Primary Care Provider] - Stand Alone Forms: [employer] Info Instructions
--- OUTSIDE RECORDS SUMMARY | 2022-05-18 05:26 | XMS_ITS | Encounter Summary ---
:1970 Author Organization [facility] Address [address] [place] [address] Care Team Providers Name Role Phone Taylor Downing MD Primary Care Provider Reason for Visit Reason Onset Date Comments Refill 03/25/2021 Encounter Details Date Type Department Care Team Description 03/25/2021 Refill [facility] Taylor Downing MD Refill [id number] [facility] [address] [place], [place] [address] [place] [address] [phone] (Wo rk) Social History Tobacco Use Types Packs/Day Years Used Date Smoking Tobacco: Former Cigarettes 06/1998 - 02/04/2009 Smokeless Tobacco: Never Alcohol Use Standard Drinks/Week Comments No 0 (1 standard drink = 0.6 oz pure alcoho l) Sex Assigned at Date Recorded Female 06/28/2021 5:52 PM [employer] documented as of this encounter Plan of Treatment Not on filedocumented as of this encounter Visit Diagnoses Not on filedocumented in this encounter Care Teams 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
--- OUTSIDE RECORDS SUMMARY | 2022-05-18 05:26 | XMS_ITS | Encounter Summary ---
:1970 Author Organization [facility] Address [address] [place] [address] Care Team Providers Name Role Phone Taylor Downing MD Primary Care Provider Encounter Details Date Type Department Care Team Description 04/01/2022 Orders Only [facility] Taylor Downing [place] Practice [address] [facility] [address] [place] [address] [place], [place] [address] [phone] Social History Tobacco Use Types Packs/Day Years Used Date Smoking Tobacco: Former Cigarettes 1 06/1998 - 02/04/2009 Smokeless Tobacco: Never Alcohol Use Standard Drinks/Week Comments No 0 (1 standard drink = 0.6 oz pure alcoho l) Sex Assigned at Date Recorded Female 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
--- OUTSIDE RECORDS SUMMARY | 2022-05-18 05:26 | XMS_ITS | Encounter Summary ---
:1970 Author Organization [facility] Address [address] [place] [address] Care Team Providers Name Role Phone Taylor Downing MD Primary Care Provider Reason for Referral Consult/Transfer Care (Routine) - New Request Specialty Diagnoses / Procedures Referred By Contact Refer red To Contact Diagnoses [place] [address] [place], [place] [address] Referral ID Status Reason Start Date Expiration Date Visits V isits Requested Authorized [id number] New Request 02/05/2022 05/07/2023 1 1 Scheduling Instructions Your provider has recommended an appoint ment with [facility] Surgery Department. You may call [phone] to schedule yo ur appointment. Procedure/Equipment (Routine) - Incomplete Specialty Diagnoses / Procedures Referred By Contact Refer red To Contact Diagnoses Encounter for screening mammogram for malignant neoplasm of breast Taylor Downing MD Procedures MM Mammogram Screening Bilat W 3D Ti W CAD [address] [place], [place] [address] Referral ID Status Reason Start Date Expiration Date Visits V isits Requested Authorized [id number] Incomplete 02/05/2022 05/07/2023 1 1 Procedure/Equipment (Routine) - New Request Specialty Diagnoses / Procedures Referred By Contact Refer red To Contact Diagnoses Screen [place] [address] [place], [place] [address] Referral ID Status Reason Start Date Expiration Date Visits V isits Requested Authorized [id number] New Request 02/05/2022 05/07/2023 1 1 Scheduling Instructions Your provider has recommended an appoint ment with [facility] [place]. You can quickly make your appoin tment online at [email or web address]. You can also call [phone] for help scheduling your appointment. We suggest you call your health insurance company about your coverage and benefits for this appointment. Reason for Visit Reason Comments Medicare Annual Wellness RECTAL PAIN Encounter Details Date Type Department Care Team Description 02/05/[address] 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 BMI ranges [...] for dessert. Limit deep-fried vegetables, such as japanese fries. + Choose lean protein, such as [...] that works best for you. + For [facility], call [phone]. + For [facility], call [phone]. + For [facility] and [facility], call [phone]. + For [facility] and [facility], call [phone]. + For [facility], call [phone]. [address] (10/2018) [facility] documented in this encounter Progress [...] documented in this encounter Plan of Treatment Scheduled Orders Name Type Priority Associated Diagnoses [...] Name Type Priority Associated Diagnoses Order S chetiffani Colonoscopy-Preventative Referral Routine Screen for colon cancer [...] 16 18 Genotyping (02/05/2022 1:33 PM CDT) Patholo gist Method Time [facility] HPV High Risk Not Detected Not detected 02/10/2022 [facility] Type 16 PCR 1:13 PM CDT HOSPITAL HPV High Risk Not Detected Not Detected 02/10/2022 [facility] Type 18 PCR 1:13 PM CDT HOSPITAL HPV High Risk Not Detected Not detected 02/10/2022 [facility] Other Than 1:13 PM CDT [facility] 16/18 Specimen Anatomical Collection Method Collection Time Receive d Time (Source) Location / / Volume Laterality Cervical Broom ENTIRE ENDOCERVIX 02/05/2022 1:33 PM 4:20 / Unknown CDT PM CDT [facility] 02/10/2022 1:13 PM CD T [facility] [...] Organization Address City/State/ZIP Code Phon e Number [address] [address] PAP Test (02/05/2022 1:33 PM CDT) Component Value Ref Test Analysis Performed Pathologis t Range Method Time At [facility] Case Report Pap ? Case: [id number] ? 02/25/2022 [facility] Authorizing Provider: ??Taylor Downing MD ? Collected: ? 02/05/2022 1333 ? 10:42 AM HOSP ITAL Ordering Location: ? [facility] Family ?Received: ?02/05/2022 1620 ? CDT ? Practice ? First Screen: ? Bonita Schroeder, CT (ASCP) ? Specimen: ?Pap Test, Rou mason, Cervix/Endocervix ? Pap Specimen Satisfactory for 02/25/2022 [facility] Adequacy evaluation, 10:42 [facility] endocervical/israel CDT sformation zone component present. Pap (NILM) Negative 02/25/2022 [facility] Josephine ctronically Interpretation for 10:42 AM HOSPITAL billy d by Alexandre intraepithelial CDT Bonita N, CT (ASCP) lesion or on 02/26/20 at malignancy. 10:42 AM Pap Other Atrophy. 02/25/2022 [facility] Findings 10:42 AM HOSPITAL CDT Pap Disclaimer The Pap test is a 02/25/2022 [facility] S screening test 10:42 AM HOSPITAL designed to aid CDT in the detection of cervical cancer and its precursor lesions. It is not a diagnostic procedure and should not be used as the sole means of detecting cervical cancer. Both false-positive and false-negative results may occur. Gross The specimen is 02/25/2022 [facility] Description received in 10:42 AM [facility] SurePath fixative CDT and properly labeled. 1 Pap-stained SurePath slide is prepared. Embedded Images 02/25/2022 [facility] 10:42 AM HOSPITAL CDT Specimen Anatomical Collection Method Collection Time Receive d Time (Source) Location / / Volume Laterality Other Specimen ENTIRE ENDOCERVIX 02/05/2022 1:33 PM 4:20 Type / Unknown CDT PM CDT Comment: LMP: Patient's last menstrual p eriod was 04/26/2017. Taylor Downing MD LAB PATHOLOGY Performing Organization Address City/State/ZIP Code Phon e Number [address] [address] (ABNORMAL) Lipid Panel and Direct LDL(If Needed) (02/05/2022 10:59 AM CDT) [facility] Method Time Signature Cholesterol 240 (H) 0 [...] Taylor Downing MD LAB_1 Performing Organization Address [facility] Phon e Number [facility]AL [facility] [address] [address] [facility] [address] [place] [address], [facility] (ABNORMAL) Hgb A1C (02/05/2022 10:59 AM CDT) [facility] Method Time Signature Hemoglobin A1C 5.9 (H) <=5.6 % 02/05/2022 [facility] 4:47 PM CDT CENTRAL LAB Specimen Anatomical Collection Method / Collection Time Recei carl Time (Source) Location / Volume Laterality Blood Venipuncture / 02/05/2022 10:59 2 Unknown AM CDT 10:59 AM CDT Narrative [facility] - 02/05/2022 4:47 PM CDT For patients not previously diagnosed with diabetes: 5.7-6.4%: Increased risk for diabetes 6.5% and greater: Diagnostic for diabete s For patients diagnosed with diabetes: <8.0%: Goal of therapy for ages 18-75 Clinicians may recommend a higher or low er goal for specific individuals. Taylor Downing MD LAB_1 Performing Organization Address [facility] Phon e Number [facility] [address] [address] Comp Metabolic Panel (02/05/2022 10:59 AM CDT) [facility] Method Time Signature Sodium 142 136 - 145 02/05/2022 [facility] mmol/L 3:53 PM CDT CENTRAL LAB Potassium 3.8 3.5 - 5.1 02/05/2022 [facility] mmol/L 3:53 PM CDT CENTRAL LAB Chloride 107 98 - 109 02/05/2022 [facility] mmol/L 3:53 PM CDT CEN[facility]AL [facility] CO2 24 20 - 29 02/05/2022 [facility] mmol/L 3:53 PM CDT CENTRAL LAB Anion Gap 11 7 - 16 02/05/2022 [facility] mmol/L 3:53 PM CDT CENTRAL LAB Calcium 9.3 8.4 - 02/05/2022 [facility] 10.4 3:53 PM CDT CENTRAL LAB mg/dL BUN 9 7 - 26 02/05/2022 [facility] mg/dL 3:53 PM CDT CENTRAL LAB Creatinine 0.72 0.55 - 02/05/2022 [facility] 1.02 3:53 PM CDT CENTRAL LAB mg/dL GFR, Estimated >60 >60 02/05/2022 [facility] mL/min/1. 3:53 PM CDT CENTRAL LAB 73m2 Alkaline 127 40 - 150 02/05/2022 [facility] Phosphatase U/L 3:53 PM CDT CENTRAL LAB AST (SGOT) 12 10 - 40 02/05/2022 [facility] U/L 3:53 PM CDT CENTRAL LAB ALT (SGPT) 27 0 - 55 02/05/2022 [facility] U/L 3:53 PM CDT CENTRAL LAB Bilirubin, 0.2 0.2 - 1.2 02/05/2022 [facility] Total mg/dL 3:53 PM CDT CENTRAL LAB Protein, Total 6.9 6.4 - 8.3 02/05/2022 [facility] g/dL 3:53 PM CDT CENTRAL LAB Albumin 3.6 3.5 - 5.0 02/05/2022 [facility] g/dL 3:53 PM CDT CEN[facility]AL LAB Glucose 85 70 - 100 02/05/2022 [facility] mg/dL 3:53 PM CDT CENTRAL LAB Comment: The given reference range is fo r the fasting state. Non-fasting reference range for glucose is 70 - 180 mg/dL. Hours Fasting N/A 02/05/2022 3:53 PM CDT [facility] Specimen Anatomical Collection Method / Collection Time Recei carl Time (Source) Location / Volume Laterality Blood Venipuncture / 02/05/2022 10:59 2 Unknown AM CDT 10:59 AM CDT Taylor Downing MD LAB_1 Performing Organization Address City/State/ZIP Code Phon e Number [facility] [address] [address] [facility] [address] [place] [address], [facility] TSH (02/05/2022 10:59 AM CDT) [facility] Method Time Signature TSH, Sensitive 1.54 0.30 - 02/05/2022 [facility] 4.50 3:59 PM CDT CENTRAL LAB uIU/mL Specimen Anatomical Collection Method / Collection Time Recei carl Time (Source) Location / Volume Laterality Blood Venipuncture / 02/05/2022 10:59 2 Unknown AM CDT 10:59 AM CDT Taylor Downing MD LAB_1 Performing Organization Address City/[facility]/ZIP Code Phon e Number [facility] [address] [address] Vitamin D 25-Hydroxy, Total (02/05/2022 10:59 AM CDT) [facility] Method Time Signature Vitamin D, 33 30 - 80 02/05/2022 [facility] 25-OH, Total ng/mL 3:59 PM CDT CENTRAL LAB Specimen Anatomical Collection Method / Collection Time Recei carl Time (Source) Location / Volume Laterality Blood Venipuncture / 02/05/2022 10:59 2 Unknown AM CDT 10:59 AM CDT Taylor Downing MD LAB_1 Performing Organization Address City/[facility]/ZIP Code Phon e Number [facility] [address] [address] Vitamin B12 Only (02/05/2022 10:59 AM CDT) athologist Signature Vitamin B12 680 213 - 816 02/05/2022 [facility] pg/mL 3:59 PM CDT CENTRAL LAB Specimen Anatomical Collection Method / Collection Time Recei carl Time (Source) Location / Volume Laterality Blood Venipuncture / 02/05/2022 10:59 2 Unknown AM CDT 10:59 AM CDT Taylor Downing MD LAB_1 Performing Organization Address City/[facility]/ZIP Code Phon e Number [facility] [address] [address] Ferritin (02/05/2022 10:59 AM CDT) P athologist Signature Ferritin 24 9 - 204 02/05/2022 [facility] ng/mL 3:59 PM CDT CEN[facility]AL LAB Specimen Anatomical Collection Method / Collection Time Recei carl Time (Source) Location / Volume Laterality Blood Venipuncture / 02/05/2022 10:59 2 Unknown AM CDT 10:59 AM CDT Taylor Downing MD LAB_1 Performing Organization Address [facility] Phon e Number [facility] [address] [address] (ABNORMAL) Iron Profile (Iron,TIBC,%Sat.(Calc)) (02/05/2022 10:59 AM CDT) Component Value Ref Test Analysis Performed At [facility] gist Range Method Time Signature Iron 40 (L) 50 - 170 02/05/2022 [facility] mcg/dL 3:53 PM CDT CEN[facility]AL LAB Transferrin 282 180 - 02/05/2022 [facility] 382 3:53 PM CDT C[facility]AL [facility] mg/dL TIBC, Calculated 353 240 - 02/05/2022 [facility] RS 450 3:53 PM CDT CEN[facility]AL LAB mcg/dL % Saturation, 11 10 - 50 02/05/2022 [facility] Calculated % 3:53 PM CDT C[facility]AL [facility] TIBC Low iron, 02/05/2022 [facility] Interpretation normal 3:53 PM CDT C[facility]AL [facility] TIBC, possible iron deficiency. Specimen Anatomical Collection Method / Collection Time Recei carl Time (Source) Location / Volume Laterality Blood Venipuncture / 02/05/2022 10:59 2 Unknown AM CDT 10:59 AM CDT Taylor Downing MD LAB_1 Performing Organization Address City/[facility] Code Phon e Number [facility] [address] [address] (ABNORMAL) Complete Blood Count-No Diff (02/05/2022 10:59 AM CDT) P athologist Signature WBC 6.6 3.5 - 10.5 02/05/2022 [facility] x10(9)/L 11:25 AM CDT LAB RBC 4.66 3.90 - 5.03 02/05/2022 [facility] x10(12)/L 11:25 AM CDT LAB Hemoglobin 12.9 12.0 - 15.5 02/05/2022 [facility] g/dL 11:25 AM CDT LAB HCT 41.2 34.9 - 44.5 02/05/2022 [facility] % 11:25 AM CDT LAB MCV 88.4 80.0 - 02/05/2022 [facility] 100.0 fL 11:25 AM CDT LAB MCH 27.7 27.6 - 33.3 02/05/2022 [facility] pg 11:25 AM CDT LAB MCHC 31.3 (L) 31.5 - 35.2 02/05/2022 [facility] g/dL 11:25 AM CDT LAB RDW 17.4 (H) 11.9 - 15.5 02/05/2022 [facility] % 11:25 AM CDT LAB Platelets 321 150 - 450 02/05/2022 [facility] x10(9)/L 11:25 AM CDT LAB Specimen Anatomical Collection Method / Collection Time Recei carl Time (Source) Location / Volume Laterality Blood Venipuncture / 02/05/2022 10:59 2 Unknown AM CDT 10:59 AM CDT Taylor Downing MD LAB_1 Performing Organization Address City/State/ZIP Code Phon e Number [facility] [address] [place] [address] documented in this encounter Visit Diagnoses Diagnosis [...] pain documented in this encounter Care Teams Family Preservation Officer Relationship Specialty Start Date End Date Taylor Downing MD PCP - General Family Practice 02/01/19 [address] [place] [address] documented as of this encounter
--- OUTSIDE RECORDS SUMMARY | 2022-05-18 05:26 | XMS_ITS | Encounter Summary ---
:1970 Author Organization [facility] Address [address] [place] [address] Care Team Providers Name Role Phone Taylor Downing MD Primary Care Provider Encounter Details Date Type Department Care Team Description 11/20/2020 Notes/Orders [facility] Taylor Downing MD Screening for colon Medicine [address] [facility] cancer [address] [place] [address] [place], [place] [phone] Social History Tobacco Use Types Packs/Day Years Used Date Smoking Tobacco: Former Cigarettes 06/1998 - 02/04/2009 Smokeless Tobacco: Never Alcohol Use Standard Drinks/Week Comments No 0 (1 standard drink = 0.6 oz pure alcoho l) Sex Assigned at Date Recorded Female 06/28/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
--- OUTSIDE RECORDS SUMMARY | 2022-05-18 05:26 | XMS_ITS | Clinical Summary ---
:1970 Author Organization [facility] Address [address] [place] [address] Care Team Providers Name Role Phone Taylor [...] for each transition of care or referral. [facility] Allergies Active Allergy Reactions Severity Noted Date [...] High 07/31/2015 HUT Reacti on: Products Anaphylaxis; LASHANDA T Severity: High; HUT Noted: [id number] Sulfa [...] two times a day. For 2-3 weeks polyethylene Take as directed 4000 mL 0 04/28/2022 Active glycol-electrolyte (PEG in patient ELECTROLYTE) 236 g oral instructions: solution drink 2000mL at 6PM the evening before and 2000mL 4 hours before your procedure bisacodyl 5 MG enteric Take 4 tablets 4 Tablet 0 04/28/2022 Active coated tablet by mouth once at 5PM the evening before your procedure. ondansetron (ZOFRAN) 4 Take 1 tablet by 3 Tablet 0 04/28/2022 Active MG tablet mouth every 6 hours as needed for nausea. Active Problems Problem Noted Date Physical deconditioning 03/02/2019 Hernia of abdominal wall 03/02/2019 Opioid use disorder, severe, on maintenance therapy Drug abuse 05/10/2017 Overview: Pharmacy reports gabapetnin abuse According to the PLUGGER WORKER, between March 21 and May 07, 2017 [...] be returning to the pain specialist in [place] this summer. Explained to her that I would be willing to use hydrocodone until that time. Encounter for long-term (current) use of high-risk medicatio n 03/08/2012 04/21/2017 Overview: Controlled substance agreement for Adder all XR 20 mg daily, dispense 30 tabs monthly on file and signed 03/08/12 . Designated pharmacy: [facility]. Prescribing physician: Dr Sha arias. Diagnosis: ADD Pain medication agreement 01/04/2012 04/21/2017 Overview: Controlled substance agreement for Adder all XR 30mg Qty. 30 , Adderall 30mg 3 times a day Qty. 90 on file and s igned 01/04/12. Designated pharmacy: [facility] Prescribing phys kenneyan: Dr. Renee Diagnosis: ADD. 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 Tramadol 50 mg tablets number 60 per mon th. DVT of upper extremity (deep vein thrombosis) 07/03/2010 05/23/2017 Overview: At site of IV. 8.1.2009. 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 Last Filed Vital Signs Vital Sign Reading Time Taken Comments Blood Pressure 132/93 02/05/2022 10:16 AM CDT Pulse 110 02/05/2022 10:16 AM CDT Temperature 36.6 ??C (97.9 ??F) 06/27/2021 10:22 AM BUSINESS DEVELOPMENT AGENT Respiratory Rate 16 07/04/2019 12:32 PM BUSINESS DEVELOPMENT AGENT Oxygen Saturation 96% 07/04/2019 12:32 PM BUSINESS DEVELOPMENT AGENT Inhaled Oxygen Concentration - - Weight 121.1 kg (267 lb) 02/05/2022 10:13 AM CDT Height 177.8 cm (5' 10) 02/05/2022 10:13 AM CDT Body Mass Index 38.31 02/05/2022 10:13 AM CDT Plan of Treatment Health Maintenance Due Date Last Done Comments [...] Name Priority Date/Time Associated Diagnosis Comme nts ULTRASOUND SC 04/05/2022 Results for th is procedure are in the resu lts section. MRI-SCAN 04/05/2022 Results for thi s procedure are in the resu lts section. CT 04/01/2022 Results for thi s procedure are in the resu lts section. IMAGING 04/01/2022 from Last 3 Months Results ULTRASOUND SC (04/05/2022) Anatomical Region Laterality Modality Other Narrative This result has an attachment that is no t available. Taylor Downing MD DUMMY/OTHER/AR MRI-SCAN (04/05/2022) Anatomical Region Laterality Modality Other Narrative This result has an attachment that is no t available. Taylor Downing MD DUMMY/OTHER/AR IMAGING (04/01/2022) Anatomical Region Laterality Modality Other Narrative This result has an attachment that is no t available. Taylor Downing MD DUMMY/OTHER/AR CT (04/01/2022) Anatomical Region Laterality Modality Other Narrative This result has an attachment that is no t available. Taylor Downing MD DUMMY/OTHER/AR from Last [address] (Home) [facility] [phone] [place], [place] (Work) [address] Yessica Herrera Personal/Family Self 1970 [address] [place] [address] Yessica Herrera Personal/Family Self [address] (Home) [place] [address] Yessica Herrera Conversion No Self 1970 [address] Plan (Home) [place] [address] Advance Directives Latest Code Status on File Code Status Date Activated Date Inactivated Comments Full Code 07/31/2015 3:00 AM 07/30/2015 6:00 PM Code Status History Code Status Date Activated Date Inactivated Comments Full Code 07/31/2015 3:00 AM 08/08/2015 4:50 AM Care Teams Crop Puller Relationship Specialty Start Date End Date Taylor Downing MD PCP - General Family Practice 02/01/19 [address] [place] [address]
--- OUTSIDE RECORDS SUMMARY | 2022-05-18 05:26 | XMS_ITS | Encounter Summary ---
:1970 Author Organization [employer] Address [address] [place] [address] Care Team Providers Name Role Phone Taylor Downing MD Primary Care Provider Reason for Visit Reason Comments Medication Request Encounter Details Date Type Department Care Team Description 02/05/2022 Telephone 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
--- OUTSIDE RECORDS SUMMARY | 2022-05-18 05:26 | XMS_ITS | Encounter Summary ---
:1970 Author Organization [employer] Address [address] [place] [address] Care Team Providers Name Role Phone Taylor Downing MD Primary Care Provider Reason for Visit Reason Comments BACK PAIN, LOW Encounter Details Date Type Department Care Team Description [facility] DO back pain without Care [address] red (HRC) [address] [place], [place] (Primary Dx) [place] [address] [phone] Social History Tobacco Use Types Packs/Day Years Used Date Smoking Tobacco: Former Cigarettes 1 06/1998 - 02/04/2009 Smokeless Tobacco: Never Alcohol Use Standard Drinks/Week Comments No 0 (1 standard drink = 0.6 oz pure alcoho l) Sex Assigned at Date Recorded Female 06/28/2021 5:52 PM [facility] [employer] documented as of this encounter Last Filed Vital Signs Vital Sign Reading Time Taken Comments Blood Pressure - - Pulse - - Temperature 36.6 ??C (97.9 ??F) 06/27/2021 10:22 AM [facility] Respiratory Rate - - Oxygen Saturation - - Inhaled Oxygen Concentration - - Weight 127 kg (280 lb) 06/27/2021 10:22 AM [facility] Height 177.8 cm (5' 10) 06/27/2021 10:22 AM [facility] Body Mass Index 40.18 06/27/2021 10:22 AM [facility] documented in this encounter Patient Instructions Patient InstructionsHenrietta Jessica Baltazar, ATC - 06/27/2021 10:[address] Te Ya, DO Sports & Orthopedic Medicine [facility] Medication Requests: Prescriptions are not filled on Weekends or on Weekdays after 3:00PM For all medication refills: Request a refill using [employer] IT[employer] or contact your Pharmacy NOTE: As always, if prescribed a new medication today, inquire with your pharmacist on any potential interaction with you current medications, or potential side effects. Discontinue the new medication and notify us if you have any concerning side effects. MRI Scheduling: To schedule an MRI at [facility] please call [phone] Paperwork Requests: Questions regarding FMLA or disability paperwork please call [phone] Phone lines are answered 8AM to 5PM Tuesday - Tuesday. General Scheduling: To schedule an appointment, please call [phone] [facility] Nurse Line: [phone] Workers??? Compensation: Please contact our department for any Work Comp concerns at Email: [email or web address] Diagnosis: Chronic Low Back Pain Back Strain Plan: Follow Up: As needed if symptoms are not improving or worsen. If you have any questions regarding your visit or next steps, please contact us at [phone]. Medications: Your physician has sent a prescription [...] at the discretion of your provider. Imaging Dispute Resolution Analyst: [facility] [id number] [place] [address]. Call [phone] to schedule. Medication Requests: Prescriptions are filled on Weekdays before 3:00PM For all medication refills: Request a refill using MyChart or contact your Pharmacy Paperwork Requests: FMLA or disability paperwork can be faxed to: Wanda - [phone] Please allow 7-10 business days for completion of all paperwork. [facility] Worker's Compensation Services: E-mail Address: [email or web address] To request copies of your medical records, call: [phone] (option 4) [facility] documented in this encounter Progress Notes Te Ya, DO - 06/27/2021 12:00 AM CST NAME: YESSICA HERRERA CSN: [id number] CLINIC NOTE DATE OF SERVICE: 06/27/2021 : [...] acute physical therapy today. DO MALCOLM GARBER/RODRIGO /[id number] [facility] documented in this encounter Plan of Treatment [...] 15 mg Right Deltoid injection 15 mg [facility] 15 mg, Intramuscular, ONCE, On 06/27/21 at 1145, For 1 dose documented in this encounter Care Teams Wrapping Clerk Relationship Specialty Start Date End Date Taylor Downing MD PCP - General Family Practice 02/01/19 [address] [place] [address] documented as of this encounter
--- OUTSIDE RECORDS SUMMARY | 2022-05-18 05:26 | XMS_ITS | Encounter Summary ---
:1970 Author Organization [employer] Address [address] [place] [address] Care Team Providers Name Role Phone Taylor Downing MD Primary Care Provider Encounter Details Date Type Department Care Team Description 03/09/2022 Telephone [facility] [place] [address] [facility] [address] [place], [place] [address] [place] [address] [phone] (Wo rk) Social History Tobacco Use Types Packs/Day Years Used Date Smoking Tobacco: Former Cigarettes 1 06/1998 - 02/04/2009 Smokeless Tobacco: Never Alcohol Use Standard Drinks/Week Comments No 0 (1 standard drink = 0.6 oz pure alcoho l) Sex Assigned at Date Recorded 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 Pt states that she has tried Sitz baths and no relief. Pt states that she I know that I do not have any hemorrhoids and declines a clinic appt. Pt states that she will apply over the counter lidocaine and will make a call to for sooner appt. Puja Duran RN 03/09/2022, 11:37 AM Derek Still MD - 03/09/2022 11:13 AM CDT The patient will need to be seen again in clinic for re-evaluation, has in the interim over the lastmonth it is possible she may have hemorrhoids or anal fissures. In the interim she may continue to use the Anusol that Dr. Downing prescribed her. I also advised her to pursue Sitz baths, she can worm picker a Sitz bath kit at most drug stores. We could consider topical lidocaine jelly however I would need to perform a clinical exam to determine if this would be appropriate. Additionally, as advised by Dr. Downing in her early February note, she definitively needs to see GI. Derek Still MD Puja Duran RN - 03/09/2022 10:58 AM CDT Nurse called and advised that Dr Downing is not in the clinic until 03/10/2022, pt is requesting a numbing suppository or I am going to have to go to the ED as the pain is bad. Pt does have a colonoscopyscheduled for 05/04/2022, pt was provided the phone number to [facility] to see if she can get this done sooner. Pt does have a conflict(daycare for grandchild, qd with the exception of thurs.). Pt was seen in clinic on 02/05/[address] Downing. 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 Wondering next steps? Patient calling back stating no improvement in rectal sx from OV in February. No new symptoms, but no improvement at all. She states she has an appointment for colonoscopy in April, but she is not able to wait that long for relief. The only time she is not in pain is if she lays on her side to alleviate pressure, but she is not able to do that all day long. Some blood noted in her stool, usually has loose stool or diarrhea. Patient states pain has gotten so bad at times she feels like going to hospital for evaluation. Moriah Ferrari - 03/09/2022 8:25 AM CDT Symptoms Describe your symptoms (if pain, include location): Extreme pain it spreads to vagina area and butt area. Colonoscopy is not schedule to the end of apr 2022 When did they start? A few days What have you tried at home (please specify medication name, if any)? Only relief if she laying on her side. Have you recently been seen for this? No [Sales Consultant/Appt Center: Refer to Symptoms Indicating Need for Triage list to determine urgency level and next steps - if Urgent or Routine, schedule appointment within the appropriate timeframe.If patient wants to speak to an RN, please warm transfer/route to RN for further triage.] [Sales Consultant/Appt Center: Add/verify patient preferred pharmacy is highlighted in blue in the Pharmacy Selection under Meds & Orders] [Sales Consultant/Appt Center: If this call is after 3 p.m., communicate to patient: If we are not able to get back to you by the end of the day and your symptoms worsen, please contact the Careline [phone] OR at .] Is it okay to leave a detailed message on your voicemail? Yes I can transfer you to talk to a Triage Nurse or I am happy to get you scheduled with your primary life care planner or one of their partners for a Video/Phone Visit to take care of your concern. Which would you prefer? Triage Nurse Moriah Raymond Please warm transfer/route to Care Team Support RN / Primary RN / Triage Pool for further triage -OR- follow your regular process documented in this encounter Plan of Treatment Not on filedocumented as of this encounter Visit Diagnoses Not on filedocumented in this encounter Care Teams Mechanical Engineering Draftsperson Relationship Specialty Start Date End Date Taylor Downing MD PCP - General Family Practice 02/01/19 [address] [place] [address] documented as of this encounter
--- OUTSIDE RECORDS SUMMARY | 2022-05-18 05:26 | XMS_ITS | Encounter Summary ---
:1970 Author [facility] Address [address] [place] [address] Care Team Providers Name Role Phone Taylor Downing MD Primary Care Provider Encounter Details Date Type Department Care Team Description 02/05/2022 Lab Visit [facility] H/O gastric bypass; [address] [facility] Screening for thyroid disord er; [place], [place] [address] High risk medication use; [phone] Screening for d iabetes mellitus; Screening rhett sterol level Social History Tobacco Use Types Packs/Day Years Used Date Smoking Tobacco: Former Cigarettes 1 06/1998 - 02/04/2009 Smokeless Tobacco: Never Alcohol Use Standard Drinks/Week Comments No 0 (1 standard drink = 0.6 oz pure alcoho l) Sex Assigned at Date Recorded 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 as of 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 encounter Plan [...] Direct LDL(If Needed) (02/05/2022 10:59 AM CDT) [facility] Method Time Signature Cholesterol 240 (H) 0 [...] CDT CENTRAL LAB Hours Fasting N/A 02/05/2022 [facility] 3:53 PM CDT Specimen Anatomical Collection Method / Collection Time Recei carl Time (Source) Location / Volume Laterality Blood Venipuncture / 02/05/2022 10:59 2 Unknown AM CDT 10:59 AM CDT Taylor Downing MD LAB_1 Performing Organization Address [facility]/ZIP Code Phon e Number [facility] [address] [address] [facility] [address] [place] [address], [facility] (ABNORMAL) Hgb A1C (02/05/2022 10:59 AM CDT) [facility] Method Time Signature Hemoglobin A1C 5.9 (H) <=5.6 % 02/05/2022 [facility] 4:47 PM CDT CENTRAL LAB Specimen Anatomical Collection Method / Collection Time Recei carl Time (Source) Location / Volume Laterality Blood Venipuncture / 02/05/2022 10:59 2 Unknown AM CDT 10:59 AM CDT Narrative [facility] CENTRAL LAB - 02/05/2022 4:47 PM CDT For patients not previously diagnosed with diabetes: 5.7-6.4%: Increased risk for diabetes 6.5% and greater: Diagnostic for diabete s For patients diagnosed with diabetes: <8.0%: Goal of therapy for ages 18-75 Clinicians may recommend a higher or low er goal for specific individuals. Taylor Downing MD LAB_1 Performing Organization Address City/[facility]/ZIP Code Phon e Number [facility] [address] [address] Comp Metabolic Panel (02/05/2022 10:59 AM CDT) [facility] Method Time Signature Sodium 142 136 - 145 02/05/2022 [facility] mmol/L 3:53 PM CDT CENTRAL LAB Potassium 3.8 3.5 - 5.1 02/05/2022 [facility] mmol/L 3:53 PM CDT CENTRAL LAB Chloride 107 98 - 109 02/05/2022 [facility] mmol/L 3:53 PM CDT [facility] CO2 24 20 - 29 02/05/2022 [facility] mmol/L 3:53 PM CDT [facility] Anion Gap 11 7 - 16 02/05/2022 [facility] mmol/L 3:53 PM CDT CENTRAL LAB Calcium 9.3 8.4 - 02/05/2022 [facility] 10.4 3:53 PM CDT C[facility]AL LAB mg/dL BUN 9 7 - 26 02/05/2022 [facility] mg/dL 3:53 PM CDT CENTRAL LAB Creatinine 0.72 0.55 - 02/05/2022 [facility] 1.02 3:53 PM CDT CENTRAL LAB mg/dL GFR, Estimated >60 >60 02/05/2022 [facility] mL/min/1. 3:53 PM CDT CENTRAL LAB 73m2 Alkaline 127 40 - 150 02/05/2022 [facility] Phosphatase U/L 3:53 PM CDT CENTRAL [facility] AST (SGOT) 12 10 - 40 02/05/2022 [facility] U/L 3:53 PM CDT CENTRAL LAB ALT (SGPT) 27 0 - 55 02/05/2022 [facility] U/L 3:53 PM CDT CENTRAL LAB Bilirubin, 0.2 0.2 - 1.2 02/05/2022 [facility] Total mg/dL 3:53 PM CDT CENTRAL LAB Protein, Total 6.9 6.4 - 8.3 02/05/2022 [facility] g/dL 3:53 PM CDT CENTRAL LAB Albumin 3.6 3.5 - 5.0 02/05/2022 [facility] g/dL 3:53 PM CDT CENTRAL LAB Glucose 85 70 - 100 02/05/2022 [facility] mg/dL 3:53 PM CDT CENTRAL LAB Comment: The given reference range is fo r the fasting state. Non-fasting reference range for glucose is 70 - 180 mg/dL. Hours Fasting N/A 02/05/2022 3:53 PM CDT [facility] Specimen Anatomical Collection Method / Collection Time Recei carl Time (Source) Location / Volume Laterality Blood Venipuncture / 02/05/2022 10:59 2 Unknown AM CDT 10:59 AM CDT Taylor Downing MD LAB_1 Performing Organization Address City/State/ZIP Code Phon e Number [facility] C[facility]AL [facility] [address] [id number] [facility] [address] [place] [address], [facility] TSH (02/05/2022 10:59 AM CDT) [facility] Method Time Signature TSH, Sensitive 1.54 0.30 - 02/05/2022 [facility] 4.50 3:59 PM CDT CENTRAL LAB uIU/mL Specimen Anatomical Collection Method / Collection Time Recei carl Time (Source) Location / Volume Laterality Blood Venipuncture / 02/05/2022 10:59 2 Unknown AM CDT 10:59 AM CDT Taylor Downing MD LAB_1 Performing Organization Address City/[facility]/ZIP Code Phon e Number [facility] [address] [place] [id number] Vitamin D 25-Hydroxy, Total (02/05/2022 10:59 AM CDT) [facility] Method Time Signature Vitamin D, 33 30 - 80 02/05/2022 [facility] 25-OH, Total ng/mL 3:59 PM CDT CENTRAL LAB Specimen Anatomical Collection Method / Collection Time Recei carl Time (Source) Location / Volume Laterality Blood Venipuncture / 02/05/2022 10:59 2 Unknown AM CDT 10:59 AM CDT Taylor Downing MD LAB_1 Performing Organization Address City/[facility]/ZIP Code Phon e Number [facility] [address] [place] [address] Vitamin B12 Only (02/05/2022 10:59 AM CDT) [...] City/State/ZIP Code Phon e Number [facility]AL [facility] [address] [address] Ferritin (02/05/2022 10:59 AM CDT) athologist Signature Ferritin 24 9 - 204 02/05/2022 [facility] ng/mL 3:59 PM CDT CENTRAL LAB Specimen Anatomical Collection Method / Collection Time Recei carl Time (Source) Location / Volume Laterality Blood Venipuncture / 02/05/2022 10:59 2 Unknown AM CDT 10:59 AM CDT Taylor Downing MD LAB_1 Performing Organization Address [facility] Phon e Number [facility] [address] [address] (ABNORMAL) Iron Profile (Iron,TIBC,%Sat.(Calc)) (02/05/2022 10:59 AM CDT) Component Value Ref Test Analysis Performed At [facility] gist Range Method Time Signature Iron 40 (L) 50 - 170 02/05/2022 [facility] mcg/dL 3:53 PM CDT CENTRAL LAB Transferrin 282 180 - 02/05/2022 [facility] 382 3:53 PM CDT CENTRAL LAB mg/dL TIBC, Calculated 353 240 - 02/05/2022 [facility] 450 3:53 PM CDT CENTRAL LAB mcg/dL % Saturation, 11 10 - 50 02/05/2022 [facility] Calculated % 3:53 PM CDT CENTRAL LAB TIBC Low iron, 02/05/2022 [facility] Interpretation normal 3:53 PM CDT CENTRAL LAB TIBC, possible iron deficiency. Specimen Anatomical Collection Method / Collection Time Recei carl Time (Source) Location / Volume Laterality Blood Venipuncture / 02/05/2022 10:59 2 Unknown AM CDT 10:59 AM CDT Taylor Downing MD LAB_1 Performing Organization Address City/[facility] Code Phon e Number [facility] [address] [address] (ABNORMAL) Complete Blood Count-No Diff (02/05/2022 10:59 AM CDT) P athologist Signature WBC 6.6 3.5 - 10.5 02/05/2022 [facility] x10(9)/L 11:25 AM CDT LAB RBC 4.66 3.90 - 5.03 02/05/2022 [facility] x10(12)/L 11:25 AM CDT LAB Hemoglobin 12.9 12.0 - 15.5 02/05/2022 [facility] g/dL 11:25 AM CDT LAB HCT 41.2 34.9 - 44.5 02/05/2022 [facility] % 11:25 AM CDT LAB MCV 88.4 80.0 - 02/05/2022 [facility] 100.0 fL 11:25 AM CDT LAB MCH 27.7 27.6 - 33.3 02/05/2022 [facility] pg 11:25 AM CDT LAB MCHC 31.3 (L) 31.5 - 35.2 02/05/2022 [facility] g/dL 11:25 AM CDT LAB RDW 17.4 (H) 11.9 - 15.5 02/05/2022 [facility] % 11:25 AM CDT LAB Platelets 321 150 - 450 02/05/2022 [facility] x10(9)/L 11:25 AM CDT LAB Specimen Anatomical Collection Method / Collection Time Recei carl Time (Source) Location / Volume Laterality Blood Venipuncture / 02/05/2022 10:59 2 Unknown AM CDT 10:59 AM CDT Taylor Downing MD LAB_1 Performing Organization Address City/State/ZIP Code Phon e Number [facility] [address] [place] [address] documented in this encounter Visit Diagnoses Diagnosis H/O gastric bypass Bariatric surgery status Screening for thyroid disorder High risk medication use Encounter for long-term (current) use of other medications Screening for diabetes mellitus Screening cholesterol level Screening for lipoid disorders documented in this encounter Care Teams Fire Prevention Specialist Relationship Specialty Start Date End Date Taylor Downing MD PCP - General Family Practice 02/01/19 [address] [place], [place] [id number] documented as of this encounter
--- OUTSIDE RECORDS SUMMARY | 2022-05-18 05:26 | XMS_ITS | Encounter Summary ---
:1970 Author Organization [facility] Address [address] [place] [address] Care Team Providers Name Role Phone Taylor Downing MD Primary Care Provider Reason for Visit Reason Comments Refill traMADol (ULTRAM) 50 MG tabl et [Pharmacy Med Name: TRAMADOL 50MG TABLETS] Encounter Details Date Type Department Care Team Description 03/27/2020 Refill [facility] Taylor Downing MD Refill (traMADol Practice [address] (ULTRAM) 50 MG tablet [address] [place], [place] [Pharmacy Med Name: [place], [place] [address] TRAMADOL 50MG TABLETS]) [phone] (Wo rk) Social History Tobacco Use Types Packs/Day Years Used Date Smoking Tobacco: Former Cigarettes 1 06/1998 - 02/04/2009 Smokeless Tobacco: Never Alcohol Use Standard Drinks/Week Comments No 0 (1 standard drink = 0.6 oz pure alcoho l) Sex Assigned at Date Recorded Female 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 It is my hope that she will be returning to the pain specialist in [place] this summer. Explained to her that I would be willing to use hydrocodone until that time. Interface, Out Sm[employer]ade Query - 03/27/2020 11:41 AM CDT traMADol [...] as needed for pain. (unchanged) Powered by [employer] Reference: [id number], 03/27/2020 11:41:01 AM CDT, Pool: BRITO RN ([id number]) documented in this encounter Plan of Treatment Not on filedocumented as of this encounter Visit Diagnoses Diagnosis Restless legs syndrome (RLS) Muscle spasm Spasm of muscle documented in this encounter Care Teams Motion Picture Critic Relationship Specialty Start Date End Date Taylor Downing MD PCP - General Family Practice 02/01/19 [address] [place] [address] documented as of this encounter
--- OUTSIDE RECORDS SUMMARY | 2022-05-18 05:26 | XMS_ITS | Encounter Summary ---
:1970 Author [facility] Address [address] [place] [address] Care Team Providers Name Role Phone Taylor Downing MD Primary Care Provider Encounter Details Date Type Department Care Team Description 04/28/[address] [place] [address] [place] [address] disease [phone] Social History Tobacco Use Types Packs/Day Years Used Date Smoking Tobacco: Former Cigarettes 1 06/1998 - 02/04/2009 Smokeless Tobacco: Never Alcohol Use Standard Drinks/Week Comments No 0 (1 standard drink = 0.6 oz pure alcoho l) Sex Assigned at Date Recorded Female 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 documented in this encounter Results Asymptomatic - 2019 Novel Coronavirus (COVID-19) (04/28/2020 2:55 PM KITMAN) [facility] Method Time Signature SARS Not Detected Not Detected 05/01/2020 HELIX CORONAVIRUS 2 10:22 AM RNA IN KITMAN RESPIRATORY SPECIMEN BY ABBE W Comment: Results [...] for the duration of time that the [place] of the [facility] declares circumstances exist j ustifying the authorization of the emerg ency use of in vitro diagnostic tests for detection of SARS-CoV-2 virus and/or diagnosis of COVID-19 infection under section 564(b)(1) of the Act, 21 U.S.C. 360bb b-3(b)(1), unless the authorization is t erminated or revoked sooner. To learn more about this test, go to [employer] [email or web address] Performed by: LACEY Worrell [id number], CLIA [id number], [address] [place] [address] Sewage Disposal Engineer: Te Colin, Ph D, FACMG, FFSC ([facility]) Specimen Anatomical Collection Method Collection Time Receive d Time (Source) Location / / Volume Laterality Swab (Source Non-blood 04/28/2020 2:55 PM 0 4:59 Required) Collection / KITMAN PM KITMAN Unknown Taylor Downing MD LAB_1 Performing Organization Address City/State/ZIP Code Phon e Number [place] [address] [facility] [place] [address] documented in this encounter Visit Diagnoses Diagnosis Contact with or exposure to viral diseas e Contact with or exposure to other viral diseases documented in this encounter Care Teams Development Editor Relationship Specialty Start Date End Date Taylor Downing MD PCP - General Family Practice 02/01/19 [address] [place] [address] documented as of this encounter
--- OUTSIDE RECORDS SUMMARY | 2022-05-18 05:26 | XMS_ITS | Encounter Summary ---
:1970 [facility] Address [address] [place] [address] Care Team Providers Name Role Phone Taylor Downing MD Primary Care Provider Reason for Visit Reason Comments RECTAL PAIN Encounter Details Date Type Department Care Team Description 02/03/2022 Nurse Triage [facility] Taylor Downing MD RECTAL PAIN Practice [address] [facility] [address] [place] [address] [place], [place] [address] [phone] Social History Tobacco Use Types Packs/Day Years Used Date Smoking Tobacco: Former Cigarettes 1 06/1998 - 02/04/2009 Smokeless Tobacco: Never Alcohol Use Standard Drinks/Week Comments No 0 (1 standard drink = 0.6 oz pure alcoho l) Sex Assigned at Date Recorded 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 Recent period Protocols used: Rectal Oiwckxgx-HLWWG-IN YT Andree Herrera - 02/03/2022 9:56 AM CDT Symptoms Describe your symptoms (if pain, include location): Rectal pain, bleeding not severe, same days worse than others When did they start? Been ongoing for 3 months What have you tried at home (please specify medication name, if any)? Suppositories, preperation H, and tucks no relief Have you recently been seen for this? No [Customer Service Leader/Appt Center: Refer to Symptoms Indicating Need for Triage list to determine urgency level and next steps - if Urgent or Routine, schedule appointment within the appropriate timeframe.If patient wants to speak to an RN, please warm transfer/route to RN for further triage.] [Customer Service Leader/Appt Center: Add/verify patient preferred pharmacy is highlighted in blue in the Pharmacy Selection under Meds & Orders] [Customer Service Leader/Appt Center: If this call is after 3 p.m., communicate to patient: If we are not able to get back to you by the end of the day and your symptoms worsen, please contact the Careline [phone] OR at .] Is it okay to leave a detailed message on your voicemail? Yes I can transfer you to talk to a Triage Nurse or I am happy to get you scheduled with your primary veterinarian laboratory animal care or one of their partners for a [...] on filedocumented in this encounter Care Teams Cloth Printing Back Tender Relationship Specialty Start Date End Date Taylor Downing MD PCP - General Family Practice 02/01/19 [address] [place] [address] documented as of this encounter
--- OUTSIDE RECORDS SUMMARY | 2022-05-18 05:26 | XMS_ITS | Encounter Summary ---
:1970 Author Organization [facility] Address [address] [place] [address] Care Team Providers Name Role Phone Taylor Downing MD Primary Care Provider Encounter Details Date Type Department Care Team Description 04/01/2022 Orders Only [facility] Taylor Downing MD Practice [address] [facility] [address] [place] [address] [place], [place] [address] [phone] Social History Tobacco Use Types Packs/Day Years Used Date Smoking Tobacco: Former Cigarettes 1 06/1998 - 02/04/2009 Smokeless Tobacco: Never Alcohol Use Standard Drinks/Week Comments No 0 (1 standard drink = 0.6 oz pure alcoho l) Sex Assigned at Date Recorded 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 documented in this encounter Results CT (04/01/2022) Anatomical Region Laterality Modality Other Narrative This result has an attachment that is no t available. Taylor Downing MD DUMMY/OTHER/AR documented in this encounter Visit Diagnoses Not on filedocumented in this encounter Care Teams Paper Deliverer Relationship Specialty Start Date End Date Taylor Downing MD PCP - General Family Practice 02/01/19 [address] [place] [address] documented as of this encounter
--- OUTSIDE RECORDS SUMMARY | 2022-05-18 05:26 | XMS_ITS | Encounter Summary ---
:1970 Author Organization [facility] Address [address] [place] [address] Care Team Providers Name Role Phone Taylor Downing MD Primary Care Provider Encounter Details Date Type Department Care Team Description 04/05/2022 Orders Only [facility] Taylor Downing MD Practice [address] [facility] [address] [place] [address] [place], [place] [address] [phone] Social History Tobacco Use Types Packs/Day Years Used Date Smoking Tobacco: Former Cigarettes 1 06/1998 - 02/04/2009 Smokeless Tobacco: Never Alcohol Use Standard Drinks/Week Comments No 0 (1 standard drink = 0.6 oz pure alcoho l) Sex Assigned at Date Recorded 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 documented in this encounter Results MRI-SCAN (04/05/2022) Anatomical Region Laterality Modality Other Narrative This result has an attachment that is no t available. Taylor Downing MD DUMMY/OTHER/AR documented in this encounter Visit Diagnoses Not on filedocumented in this encounter Care Teams Correspondence Analyst Relationship Specialty Start Date End Date Taylor Downing MD PCP - General Family Practice 02/01/19 [address] [place] [address] documented as of this encounter
--- OUTSIDE RECORDS SUMMARY | 2022-05-18 05:26 | XMS_ITS | Encounter Summary ---
:1970 Author Organization [facility] Address [address] [place] [address] Care Team Providers Name Role Phone Taylor Downing MD Primary Care Provider Reason for Visit Reason Comments Video Visit Medicare Annual Wellness Encounter Details Date Type Department Care Team Description 04/30/2020 Telemedicine [facility] Taylor Downing MD Encounter for routine Practice [address] [facility] [address] [place], [place] [address] abnormal findings [id number] (Primary Dx) Social History Tobacco Use Types Packs/Day Years Used Date Smoking Tobacco: Former Cigarettes 1 06/1998 - 02/04/2009 Smokeless Tobacco: Never Alcohol Use Standard Drinks/Week Comments No 0 (1 standard drink = 0.6 oz pure alcoho l) Sex Assigned at Date Recorded 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 Last Filed Vital Signs Vital Sign Reading Time Taken Comments Blood Pressure - - Pulse - - Temperature 36.2 ??C (97.2 ??F) 04/30/2020 1:11 PM MEAT SUPERVISOR Pt re ported Respiratory Rate - - Oxygen Saturation - - Inhaled Oxygen Concentration - - Weight 99.8 kg (220 lb) 04/30/2020 1:11 PM MEAT SUPERVISOR Pt damien albarran Height 177.8 cm (5' 10) 04/30/2020 1:11 PM MEAT SUPERVISOR Pt repo rted Body Mass Index 31.57 04/30/2020 1:11 PM MEAT SUPERVISOR documented in this encounter Patient Instructions Patient InstructionsRoopa Mortensen CMA - 04/30/2020 1:20 PM CST Images from [...] can you learn more? 1. Go to [email or web address]/healthlibrary or [employer] Mon[employer]/OrbotixraHumansized. 2. Enter Y074 in the search box. Current as of: January 24, 2019?Content Version: 12.4 ?? [employer]. Care instructions adapted under license by your healthcare professional. If you have questions abouta medical condition or this instruction, always ask your healthcare professional. [employer] disclaims any warranty or liability for your use of this information. SUPERVISOR documented in this encounter Progress Notes Taylor [...] and coordination of care.. Taylor Downing MD SUPERVISOR documented in this encounter Plan of Treatment Not on filedocumented as of this encounter Visit Diagnoses Diagnosis Encounter for routine adult health exami nation without abnormal findings - Primary documented in this encounter Care Teams Associate Professor Of Media Arts Relationship Specialty Start Date End Date Taylor Downing MD PCP - General Family Practice 02/01/19 [address] [place] [address] documented as of this encounter
--- OUTSIDE RECORDS SUMMARY | 2022-05-18 05:27 | XMS_ITS | Encounter Summary ---
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 Encounter Details Date Type Department Care Team Description 08/21/2018 Telephone [facility] Gillian Kirk, [facility] Questions Practice TERRIE (red flags ball thread machine tender) [address] [facility] [address] [place], [place] [address] [place], [place] [phone] [address] (Wo rk) Social History Tobacco Use Types Packs/Day Years Used Date Smoking Tobacco: Never Smokeless Tobacco: Never Sex Assigned at Date Recorded 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 Patient needs to be seen to establish care before further refills will be given Gillian Kirk PA-C Herbie Beverly - 08/21/2018 2:50 PM CDT Re: gabapentin 100 mg, based on MANAGER UROLOGY report, is Dr. Yelena rodriguez for pharmacy to fill the rx? Per [facility] [place], filled 400 mg 2 days ago and 600 mg in June, but I'd recommend running the MANAGER UROLOGY report as there is a 300 mg rx as well as multiple other controlled substances including Suboxone, Zubsolv, Zolpidem, lorazepam, and Vyvanse filled at various pharmacies from various prescribers in [place], [place], and [place] and 6 different pharmacies. There is also [...] on filedocumented in this encounter Care Teams Patternmaker Plaster And Plastic Relationship Specialty Start Date End Date Justine Blake MD PCP - General 07/18/00 01/31/19 [address] [place] [address] documented as of this encounter
--- OUTSIDE RECORDS SUMMARY | 2022-05-18 05:27 | XMS_ITS | Encounter Summary ---
:1970 Author Organization [facility] Address [address] [place] [address] Care Team Providers Name Role Phone Taylor Downing MD Primary Care Provider Encounter Details Date Type Department Care Team Description 07/05/2019 Notes/Orders [facility] Taylor Downing MD Low iron stores Practice [id number] [place] [address] (Primary Dx) [address] [place] [address] [phone] Social History Tobacco Use Types Packs/Day Years Used Date Smoking Tobacco: Former Cigarettes Quit : 02/04/2009 Smokeless Tobacco: Never Alcohol Use Standard Drinks/Week Comments No 0 (1 standard drink = 0.6 oz pure alcoho l) Sex Assigned at Date Recorded 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
--- OUTSIDE RECORDS SUMMARY | 2022-05-18 05:27 | XMS_ITS | Encounter Summary ---
:1970 Author Organization [facility] Address [address] [place] [address] Care Team Providers Name Role Phone Taylor Downing MD Primary Care Provider Reason for Visit Reason Comments QUESTIONS, GENERAL Encounter Details Date Type Department Care Team Description 02/20/2019 Telephone [facility] Taylor Downing MD QUESTIONS, quality associate [address] [facility] [address] [place], [place] [address] [phone] (Wo rk) Social History Tobacco Use Types Packs/Day Years Used Date Smoking Tobacco: Never Smokeless Tobacco: Never Sex Assigned at Date Recorded Female 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 Downing about Mom, without Mom present or finding out about appt. Unable to complete request as no verbal RYAN is on file. If patient would like things discussed with dr. Downing, a verbal RYAN will need to be fill out in clinic with Mom present as well. documented in this encounter Plan of Treatment Not on filedocumented as of this encounter Visit Diagnoses Not on filedocumented in this encounter Care Teams Movers Relationship Specialty Start Date End Date Taylor Downing MD PCP - General Family Practice 02/01/19 [address] [place] [address] documented as of this encounter
--- OUTSIDE RECORDS SUMMARY | 2022-05-18 05:27 | XMS_ITS | Encounter Summary ---
:1970 Author Organization [facility] Address [address] [place] [address] Care Team Providers Name Role Phone Taylor Downing MD Primary Care Provider Reason for Visit Reason Comments SKIN PROBLEM inner thighs cry patches Hair/Scalp Problem Consult/Transfer Care (Routine) - Closed Specialty Diagnoses / Procedures Referred By Contact Refer red To Contact Diagnoses Seborrheic dermatitis of scalp Hair loss Hilario Dupree, TERRIE [address] [place], [place] [address] Referral ID Status Reason Start Date Expiration Date Visits Requ ested Visits Authorized [id number] Closed 04/30/2019 07/29/2020 1 1 Encounter Details Date Type Department Care Team Description 05/11/2019 Initial Consult Inés Pierce, Androgene tic alopecia (Primary Dx); Dermatology Seborrheic keratoses; [address] [facility] [address] Encounter for long-term (cur rent) [place] [address] [facility] [phone] [place], [place] [id number] Social History Tobacco Use Types Packs/Day Years Used Date Smoking Tobacco: Former Cigarettes Quit : 02/04/2009 Smokeless Tobacco: Never Alcohol Use Standard Drinks/Week Comments No 0 (1 standard drink = 0.6 oz pure alcoho l) Sex Assigned at Date Recorded 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 as of 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 encounter Patient Instructions Patient InstructionsInés Mcallister MD - 05/11/2019 3:30 PM CST 5% minoxidil to scalp once daily Labs in 2 weeks SROOM INSTRUCTOR documented in this encounter Progress Notes Inés [...] weeks Follow-up 6 mo Inés Mcallister MD SROOM INSTRUCTOR documented in this encounter Plan of Treatment Not on filedocumented as of this encounter Visit Diagnoses Diagnosis Androgenetic alopecia - Primary Other alopecia Seborrheic keratoses Encounter for long-term (current) use of medications Encounter for long-term (current) use of other medications documented in this encounter Care Teams Antique Furniture Repairer Relationship Specialty Start Date End Date Taylor Downing MD PCP - General Family Practice 02/01/19 [address] [place] [address] documented as of this encounter
--- OUTSIDE RECORDS SUMMARY | 2022-05-18 05:27 | XMS_ITS | Encounter Summary ---
:1970 Author Organization [employer] Address [address] [place] [address] Care Team Providers Name Role Phone Taylor Downing MD Primary Care Provider Encounter Details Date Type Department Care Team Description 04/30/2019 Lab Visit [facility] Labor[facility] ory S/P gastric bypass; [id number] [facility] Screening cholesterol level; [place], [place] [address] Screening for diabetes diogo brewster; [phone] Screening for H IV (human immunodeficiency virus) Social History Tobacco Use Types Packs/Day Years Used Date Smoking Tobacco: Former Cigarettes Quit : 02/04/2009 Smokeless Tobacco: Never Alcohol Use Standard Drinks/Week Comments No 0 (1 standard drink = 0.6 oz pure alcoho l) Sex Assigned at Date Recorded Female 06/28/2021 5:52 PM [facility] ATTENDANT documented as of this encounter Progress Notes [...] questions or concerns please let me know. 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 HIV 1/2 AG/AB 4TH Routine 04/30/2019 11:24 Screening for HIV R esults for this GEN AM [facility] [employer] [facility] ATTENDANT (human immunodeficiency proc edure are in virus) the results section. LIPID PANEL AND Routine 04/30/2019 11:24 Screening cholesterol Results for this DIRECT LDL(IF AM [facility] [employer] [facility] ATTENDANT level procedure are in NEEDED) the results section. VITAMIN D Routine 04/30/2019 11:24 S/P gastric bypass Resul ts for this 25-HYDROXY, TOTAL AM [employer] [employer] ATTENDANT procedure are in the results section. COMPLETE BLOOD Routine 04/30/2019 11:24 S/P gastric bypass Res ults for this COUNT-W/DIFF AM [employer] [employer] ATTENDANT procedure are i n the results section. COMP METABOLIC PANEL Routine 04/30/2019 11:24 S/P gastric bypa ss Results for this AM [facility] [employer] ATTENDANT procedure are i n the results section. FERRITIN Routine 04/30/2019 11:24 S/P gastric bypass Resul ts for this AM [employer] [employer] ATTENDANT procedure are i n the results section. HGB A1C Routine 04/30/2019 11:24 Screening for diabetes R esults for this AM [employer] ATTENDANT mellitus procedure are i n the results section. VITAMIN B12 ONLY Routine 04/30/2019 11:24 S/P gastric bypass R esults for this AM [employer] [employer] ATTENDANT procedure are i n the results section. IRON PROFILE Routine 04/30/2019 11:24 S/P gastric bypass Resul ts for this (IRON,TIBC,%SAT.(LORY AM [facility] [employer] RO[employer] ATTENDANT procedu re are in C)) the results section. documented in this encounter Results (ABNORMAL) Complete Blood Count-W/Diff (04/30/2019 11:24 AM [facility] RO[employer] ATTENDANT) Analysis Performed At Patho logist Time Signature WBC 6.8 3.5 - 10.5 04/30/2019 [facility] x10(9)/L 11:53 AM [facility] ATTENDANT LAB RBC 4.70 3.90 - 04/30/2019 [facility] 5.03 11:53 AM [facility] RO[facility] ATTENDANT LAB x10(12)/L Hemoglobin 13.3 12.0 - 04/30/2019 [facility] 15.5 g/dL 11:53 AM [facility] RO[facility] ATTENDANT LAB HCT 42.5 34.9 - 04/30/2019 [facility] 44.5 % 11:53 AM [facility] RO[facility] ATTENDANT LAB MCV 90.4 80.0 - 04/30/2019 [facility] 100.0 fL 11:53 AM [facility] RO[facility] ATTENDANT LAB MCH 28.3 27.6 - 04/30/2019 [facility] 33.3 pg 11:53 AM [facility] RO[facility] ATTENDANT LAB MCHC 31.3 (L) 31.5 - 04/30/2019 [facility] 35.2 g/dL 11:53 AM [facility] RO[facility] ATTENDANT LAB RDW 14.3 11.9 - 04/30/2019 [facility] 15.5 % 11:53 AM [facility] RO[facility] ATTENDANT LAB Platelets 332 150 - 450 04/30/2019 [facility] x10(9)/L 11:53 AM [facility] RO[facility] ATTENDANT LAB Neutrophil 4.7 1.7 - 7.0 04/30/2019 [facility] Absolute 10(9)/L 11:53 AM [facility] ATTENDANT LAB Lymphocyte 1.6 1.0 - 4.8 04/30/2019 [facility] Absolute 10(9)/L 11:53 AM [facility] ATTENDANT LAB Monocytes 0.3 0.2 - 0.9 04/30/2019 [facility] Absolute 10(9)/L 11:53 AM [facility] RO[facility] ATTENDANT LAB Eosinophil 0.2 0.0 - 0.5 04/30/2019 [facility] Absolute 10(9)/L 11:53 AM [facility] RO[facility] ATTENDANT LAB Basophil 0.0 0.0 - 0.3 04/30/2019 [facility] Absolute 10(9)/L 11:53 AM [facility] RO[facility] ATTENDANT LAB Immature Gran % 0.0 0.0 - 0.5 04/30/2019 [facility] % 11:53 AM [facility] RO[facility] ATTENDANT LAB Specimen Anatomical Collection Method / Collection Time Recei carl Time (Source) Location / Volume Laterality Blood Venipuncture / 04/30/2019 11:24 9 Unknown AM [facility] ATTENDANT 11:24 AM [facility] [employer] RO[employer] ATTENDANT Hilario Dupree PA-C LAB_1 Performing Organization Address City/State/ZIP Code Phon e Number [facility] [address] [place] [address] HIV 1/2 Ag/Ab 4th Generation (04/30/2019 11:24 AM [facility] ROOM ATTENDANT) [facility] gist Method Time Signature HIV 1/2 Negative Negative 04/30/2019 [facility] Antigen/Anti (Non (Non 3:42 PM [facility] [employer] ROOM ATTENDANT [facility] body (4th Reactive) Reactive) generation) Comment: HIV-1 p24 Antigen and HIV-1/HIV -2 Antibody not detected Specimen Anatomical Collection Method / Collection Time Recei carl Time (Source) Location / Volume Laterality Blood Venipuncture / 04/30/2019 11:24 9 Unknown AM [facility] RO[facility] ATTENDANT 11:24 AM [facility] RO[employer] ATTENDANT Hilario Dupree PA-C LAB_1 Performing Organization Address [facility] Phon e Number [facility] [address] [address] Hgb A1C (04/30/2019 11:24 AM [facility]AD[facility] ROOM ATTENDANT) [facility] Method Time Signature Hemoglobin A1C 5.3 <=5.6 % 04/30/2019 [facility] 3[facility] PM [facility] RO[facility] ATTENDANT [facility] Specimen Anatomical Collection Method / Collection Time Recei carl Time (Source) Location / Volume Laterality Blood Venipuncture / 04/30/2019 11:24 9 Unknown AM [facility] ROOM ATTENDANT 11:24 AM [facility]AD[facility] ROOM ATTENDANT Hilario Dupree PA-C LAB_1 Performing Organization Address [facility] e Number [facility] [address] [place] [address] (ABNORMAL) Lipid Panel and Direct LDL(If Needed) (04/30/2019 11:24 AM [facility]AD[facility] [employer] RO[employer] ATTENDANT) [facility] Method Time Signature Cholesterol 230 (H) 0 - 199 04/30/2019 [facility] mg/dL 3:34 PM [facility] RO[employer] ATTENDANT [facility] Triglyceride 187 (H) <=149 04/30/2019 [facility] mg/dL 3:34 PM [facility] RO[facility] ATTENDANT [facility] HDL Cholesterol 49 >=40 04/30/2019 [facility] mg/dL 3:34 PM [facility] RO[facility] ATTENDANT [facility] LDL, Calculated 144 (H) <130 04/30/2019 [facility] mg/dL 3:34 PM [facility] [employer] RO[employer] ATTENDANT [facility] Non HDL Chol, 181 mg/dL 04/30/2019 [facility] Calculated 3:34 PM [facility] [employer] ROOM ATTENDANT [facility] Cholesterol/HDL 4.7 04/30/2019 [facility] Ratio 3:34 PM [facility] [employer] RO[employer] ATTENDANT [facility] Hours Fasting 12 04/30/2019 [facility] [place] B 3:34 PM [facility]ADIES [employer] ROOM ATTENDANT Specimen Anatomical Collection Method / Collection Time Recei carl Time (Source) Location / Volume Laterality Blood Venipuncture / 04/30/2019 11:24 9 Unknown AM [facility] ROOM ATTENDANT 11:24 AM [facility]AD[facility] ROOM ATTENDANT Hilario Dupree PA-C LAB_1 Performing Organization Address City/State/ZIP Code Phon e Number [facility] [address] [address] [facility] [address] [place], [place] [phone] 0 [phone], [facility] CMP - Comp Metabolic Panel (04/30/2019 11:24 AM [facility]AD[facility] [employer] ROOM ATTENDANT) [facility] Method Time Signature Sodium 145 136 - 145 04/30/2019 [facility] mmol/L 3:34 PM [facility]ADIES [facility]OCKER ROOM ATTENDANT [facility] Potassium 4.0 3.5 - 5.1 04/30/2019 [facility] mmol/L 3:34 PM [facility] RO[facility] ATTENDANT [facility] Chloride 109 98 - 109 04/30/2019 [facility] mmol/L 3:34 PM [facility] RO[facility] ATTENDANT [facility] CO2 26 20 - 29 04/30/2019 [facility] mmol/L 3:34 PM [facility] ROOM ATTENDANT [facility] Anion Gap 10 7 - 16 04/30/2019 [facility] mmol/L 3:34 PM [facility]AD[facility] ROOM ATTENDANT [facility] Calcium 10.4 8.4 - 04/30/2019 [facility] 10.4 3:34 PM [facility]ADIES [facility] ROOM ATTENDANT [facility] mg/dL BUN 10 7 - 26 04/30/2019 [facility] mg/dL 3:34 PM [facility] ROOM ATTENDANT [facility] Creatinine 0.80 0.55 - 04/30/2019 [facility] 1.02 3:34 PM [facility]ADIES [facility]OCKER ROOM ATTENDANT [facility] mg/dL GFR, Estimated >60 >60 04/30/2019 [facility] mL/min/1. 3:34 PM [facility]AD[facility]OCKER ROOM ATTENDANT [facility] 73m2 GFR, Est If >60 >60 04/30/2019 [facility] mL/min/1. 3:34 PM [facility]ADIES LOCKER ROOM ATTENDANT [facility] [place] 73m2 Alkaline 131 40 - 150 04/30/2019 [facility] Phosphatase U/L 3:34 PM [facility]ADIES [employer]OCK[employer] ROOM ATTENDANT [facility] AST (SGOT) 14 10 - 40 04/30/2019 [facility] U/L 3:34 PM [facility]AD[facility]ER ROOM ATTENDANT [facility] ALT (SGPT) 16 0 - 55 04/30/2019 [facility] U/L 3:34 PM [facility]ADIES [facility] RO[facility] ATTENDANT [facility] Bilirubin, 0.3 0.2 - 1.2 04/30/2019 [facility] Total mg/dL 3:34 PM [facility] [employer] RO[employer] ATTENDANT [facility] Protein, Total 7.0 6.4 - 8.3 04/30/2019 [facility] g/dL 3:34 PM [facility] [employer]ER ROOM ATTENDANT [facility] Albumin 3.9 3.5 - 5.0 04/30/2019 [facility] g/dL 3:34 PM [facility] RO[facility] ATTENDANT [facility] Glucose 98 70 - 100 04/30/2019 [facility] mg/dL 3:34 PM [facility] [employer] RO[employer] ATTENDANT [facility] Comment: The given reference range is fo r the fasting state. Non-fasting reference range for glucose is 70 - 180 mg/dL. Hours Fasting 12 04/30/2019 3:34 PM [facility]ADIES [employer]ER ROOM ATTENDANT [facility] Specimen Anatomical Collection Method / Collection Time Recei carl Time (Source) Location / Volume Laterality Blood Venipuncture / 04/30/2019 11:24 9 Unknown AM [facility] ROOM ATTENDANT 11:24 AM [facility] ROOM ATTENDANT Hilario Dupree PA-C LAB_1 Performing Organization Address City/[facility] Phon e Number [facility] [address] [address] [facility] [address] [place] [address], [place] Ferritin (04/30/2019 11:24 AM [facility]AD[facility] ROOM ATTENDANT) P athologist Signature Ferritin 53 9 - 204 04/30/2019 [facility] ng/mL 3:43 PM [facility]ADIES [facility] ROOM ATTENDANT [facility] Specimen Anatomical Collection Method / Collection Time Recei carl Time (Source) Location / Volume Laterality Blood Venipuncture / 04/30/2019 11:24 9 Unknown AM [facility] ROOM ATTENDANT 11:24 AM [facility] ROOM ATTENDANT Hilario Dupree PA-C LAB_1 Performing Organization Address [facility] Phon e Number [facility] [address] [address] Iron Profile (Iron,TIBC,%Sat.(Calc)) (04/30/2019 11:24 AM LADIES L[employer] ROOM ATTENDANT) Patholo gist Method Time Signature Iron 51 50 - 170 04/30/2019 [facility] mcg/dL 3:34 PM [facility]ADIES [employer]OCK[employer] ROOM ATTENDANT [facility] Transferrin 256 180 - 382 04/30/2019 [facility] mg/dL 3:34 PM [facility]AD[facility] [employer] RO[employer] ATTENDANT [facility] TIBC, 320 240 - 450 04/30/2019 [facility] Calculated mcg/dL 3:34 PM [facility] [employer] ROOM ATTENDANT [facility] % Saturation, 16 10 - 50 % 04/30/2019 [facility] Calculated 3:34 PM [facility]ADIES LOCKER ROOM ATTENDANT [facility] Specimen Anatomical Collection Method / Collection Time Recei carl Time (Source) Location / Volume Laterality Blood Venipuncture / 04/30/2019 11:24 9 Unknown AM [facility] [employer] ROOM ATTENDANT 11:24 AM [facility]AD[facility] ROOM ATTENDANT Hilario Dupree PA-C LAB_1 Performing Organization Address City/[facility]/ZIP Code Phon e Number [facility] [address] [place] [address] Vitamin B12 Only (04/30/2019 11:24 AM [facility]AD[facility] [employer] ROOM ATTENDANT) P athologist Signature Vitamin B12 441 213 - 816 04/30/2019 [facility] pg/mL 3:51 PM LADIES LOCKER ROOM ATTENDANT [facility] Specimen Anatomical Collection Method / Collection Time Recei carl Time (Source) Location / Volume Laterality Blood Venipuncture / 04/30/2019 11:24 9 Unknown AM [facility] [employer] ROOM ATTENDANT 11:24 AM [facility] [employer] ROOM ATTENDANT Hilario Dupree PA-C LAB_1 Performing Organization Address [facility]/ZIP Code Phon e Number [facility] [address] [place] [address] Vitamin D 25-Hydroxy, Total (04/30/2019 11:24 AM LAD[facility] [employer] ROOM ATTENDANT) [facility] Method Time Signature Vitamin D, 48 30 - 80 04/30/2019 [facility] 25-OH, Total ng/mL 3:44 PM LADIES LOCKER ROOM ATTENDANT [facility] Specimen Anatomical Collection Method / Collection Time Recei carl Time (Source) Location / Volume Laterality Blood Venipuncture / 04/30/2019 11:24 9 Unknown AM [facility] [employer] ROOM ATTENDANT 11:24 AM [facility] [employer] ROOM ATTENDANT Hilario Dupree PA-C LAB_1 Performing Organization Address City/[facility]/ZIP Code Phon e Number [facility] [address] [address] documented in this encounter Visit Diagnoses Diagnosis S/P gastric bypass Bariatric surgery status Screening cholesterol level Screening for lipoid disorders Screening for diabetes mellitus Screening for HIV (human immunodeficienc y virus) Special screening examination for other specified viral diseases documented in this encounter Care Teams Panel Edge Painter Relationship Specialty Start Date End Date Taylor Downing MD PCP - General Family Practice 02/01/19 [address] [place] [address] documented as of this encounter
--- OUTSIDE RECORDS SUMMARY | 2022-05-18 05:27 | XMS_ITS | Encounter Summary ---
:1970 Author Organization [facility] Address [address] [place] [address] Care Team Providers Name Role Phone Taylor Downing MD Primary Care Provider Encounter Details Date Type Department Care Team Description 07/02/2019 Lab Visit [facility] Restless legs syndrome [address] [facility] (RLS) [place], [place] [address] Social History Tobacco Use Types Packs/Day Years Used Date Smoking Tobacco: Former Cigarettes Quit : 02/04/2009 Smokeless Tobacco: Never Alcohol Use Standard Drinks/Week Comments No 0 (1 standard drink = 0.6 oz pure alcoho l) Sex Assigned at Date Recorded Female 06/28/2021 5:52 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 METHYLMALONIC ACID Routine 07/02/2019 9:48 AM Restless legs Re sults for this QUANT SPOON MAKER syndrome (RLS) procedure are in the results section. COMPLETE BLOOD Routine 07/02/2019 9:48 AM Restless legs Result s for this COUNT-W/DIFF SPOON MAKER syndrome (RLS) procedure are in the results section. BASIC METABOLIC PANEL Routine 07/02/2019 9:48 AM Restless legs Results for this SPOON MAKER syndrome (RLS) procedure are in the results section. MAGNESIUM Routine 07/02/2019 9:48 AM Restless legs Results for this SPOON MAKER syndrome (RLS) procedure are in the results section. FERRITIN Routine 07/02/2019 9:48 AM Restless legs Results for this SPOON MAKER syndrome (RLS) procedure are in the results section. TSH, SENSITIVE (WITH Routine 07/02/2019 9:48 AM Restless legs Results for this REFLEX) SPOON MAKER syndrome (RLS) procedure are in the results section. VITAMIN B12 ONLY Routine 07/02/2019 9:48 AM Restless legs Resu lts for this SPOON MAKER syndrome (RLS) procedure are in the results section. IRON PROFILE Routine 07/02/2019 9:48 AM Restless legs Results for this (IRON,TIBC,%SAT.(CALC) SPOON MAKER syndrome (RLS) pro cedure are in ) the results section. documented in this encounter Results (ABNORMAL) Complete Blood Count-W/Diff (07/02/2019 9:48 AM SPOON MAKER) Analysis Performed At Patho logist Time Signature WBC 7.1 3.5 - 10.5 07/02/2019 [place] x10(9)/L 10:08 AM [facility] RBC 4.34 3.90 - 07/02/2019 [place] 5.03 10:08 AM [facility] x10(12)/L Hemoglobin 12.0 12.0 - 07/02/2019 [place] 15.5 g/dL 10:08 AM [facility] HCT 38.6 34.9 - 07/02/2019 [place] 44.5 % 10:08 AM [facility] MCV 88.9 80.0 - 07/02/2019 [place] 100.0 fL 10:08 AM [facility] MCH 27.6 27.6 - 07/02/2019 [place] 33.3 pg 10:08 AM [facility] MCHC 31.1 (L) 31.5 - 07/02/2019 [place] 35.2 g/dL 10:08 AM [facility] RDW 14.9 11.9 - 07/02/2019 [place] 15.5 % 10:08 AM [facility] Platelets 364 150 - 450 07/02/2019 [place] x10(9)/L 10:08 AM [facility] Neutrophil 5.4 1.7 - 7.0 07/02/2019 [place] Absolute 10(9)/L 10:08 AM [facility] Lymphocyte 1.3 1.0 - 4.8 07/02/2019 [place] Absolute 10(9)/L 10:08 AM [facility] LAB Monocytes 0.3 0.2 - 0.9 07/02/2019 [place] Absolute 10(9)/L 10:08 AM [facility] Eosinophil 0.1 0.0 - 0.5 07/02/2019 [place] Absolute 10(9)/L 10:08 AM [facility] Basophil 0.0 0.0 - 0.3 07/02/2019 [place] Absolute 10(9)/L 10:08 AM [facility] Immature Gran % 0.0 0.0 - 0.5 07/02/2019 [facility] % 10:08 AM [facility] MAK[facility] LAB Specimen Anatomical Collection Method / Collection Time Recei carl Time (Source) Location / Volume Laterality Blood Venipuncture / 07/02/2019 9:48 07/02/2019 9:48 Unknown AM SPOON MAKER AM SPOON MAKER Taylor Downing MD LAB_1 Performing Organization Address City/[facility]/ZIP Code Phon e Number [facility] [address] [place] [phone] Magnesium (07/02/2019 9:48 AM SPOON MAKER) P athologist Signature Magnesium 1.9 1.6 - 2.6 07/02/2019 [facility] mg/dL 3:09 PM SPOON MAKER [facility] Specimen Anatomical Collection Method / Collection Time Recei carl Time (Source) Location / Volume Laterality Blood Venipuncture / 07/02/2019 9:48 07/02/2019 9:48 Unknown AM SPOON MAKER AM SPOON MAKER Taylor Downing MD LAB_1 Performing Organization Address City/State/[facility] Phon e Number [facility] [address] [address] Basic Metabolic Panel (07/02/2019 9:48 AM SPOON MAKER) Patholo gist Method Time Signature Sodium 143 136 - 145 07/02/2019 [facility] mmol/L 3:09 PM SPOON MAKER [facility]AL [facility] Potassium 3.7 3.5 - 5.1 07/02/2019 [facility] mmol/L 3:09 PM SPOON MAKER [facility] Chloride 108 98 - 109 07/02/2019 [facility] mmol/L 3:09 PM SPOON MAKER [facility] CO2 28 20 - 29 07/02/2019 [facility] mmol/L 3:09 PM SPOON MAKER [facility] Anion Gap 7 7 - 16 07/02/2019 [facility] mmol/L 3:09 PM SPOON MAKER C[facility] Calcium 10.2 8.4 - 07/02/2019 [facility] 10.4 3:09 PM SPOON MAKER [facility] mg/dL BUN 8 7 - 26 07/02/2019 [facility] mg/dL 3:09 PM SPOON MAKER [facility] Creatinine 0.79 0.55 - 07/02/2019 [facility] 1.02 3:09 PM SPOON MAKER C[facility]AL [facility] mg/dL GFR, Estimated >60 >60 07/02/2019 [facility] mL/min/1. 3:09 PM SPOON MAKER C[facility]AL [facility] 73m2 GFR, Est If >60 >60 07/02/2019 [facility] mL/min/1. 3:09 PM SPOON MAKER CEN[facility]AL [facility] Prydeinig 73m2 Glucose 96 70 - 100 07/02/2019 [facility] mg/dL 3:09 PM SPOON MAKER C[facility] Comment: The given reference range is fo r the fasting state. Non-fasting reference range for glucose is 70 - 180 mg/dL. Hours Fasting 12 07/02/2019 3:09 PM SPOON MAKER [facility] Specimen Anatomical Collection Method / Collection Time Recei carl Time (Source) Location / Volume Laterality Blood Venipuncture / 07/02/2019 9:48 07/02/2019 9:48 Unknown AM SPOON MAKER AM SPOON MAKER Taylor Downing MD LAB_1 Performing Organization Address City/State/ZIP Code Phon e Number [facility] [address] [address] [facility] [address] [place] [address], [facility] TSH, SENSITIVE with FT4, FT3 (if needed) (07/02/2019 9:48 AM SPOON MAKER) athologist Signature TSH, Reflex 3.46 0.30 - 07/02/2019 [facility] 4.50 3:42 PM SPOON MAKER C[facility]AL [facility] uIU/mL Specimen Anatomical Collection Method / Collection Time Recei carl Time (Source) Location / Volume Laterality Blood Venipuncture / 07/02/2019 9:48 07/02/2019 9:48 Unknown AM SPOON MAKER AM SPOON MAKER Narrative [facility] - 07/02/2019 3:42 PM SPOON MAKER Lab will automatically reflex to Free T4 when TSH results are <0.30 uIU/mL or >4.50 mIU/mL. Taylor Downing MD LAB_1 Performing Organization Address [facility]/ZIP Code Phon e Number [facility] [address] [address] Methylmalonic Acid Quant (07/02/2019 9:48 AM SPOON MAKER) Patholo gist Method Time Signature Methylmalonic 0.17 0.00 - 07/04/2019 [facility] Acid 0.40 12:41 PM SPOON MAKER LABORATORIES umol/L Comment: INTERPRETIVE INFORMATION: MMA Serum/Plas ma, ?V itamin B12 Status Test developed and characteristics deter mined by [employer]. See Compliance Statement B : [employer]/CS Performed by [employer], [address] [place] [id number] [email or web address], Zhang Phillips MD, Lab. Director Specimen Anatomical Collection Method / Collection Time Recei carl Time (Source) Location / Volume Laterality Blood Venipuncture / 07/02/2019 9:48 07/02/2019 9:48 Unknown AM SPOON MAKER AM SPOON MAKER Taylor Downing MD LAB_1 Performing Organization Address [facility]/ZIP Code Phon e Number [facility] [address] [place], [place] [address] Vitamin B12 Only (07/02/2019 9:48 AM SPOON MAKER) P athologist Signature Vitamin B12 321 213 816 07/02/2019 [facility] pg/mL 3:39 PM SPOON MAKER C[facility]AL LAB Specimen Anatomical Collection Method / Collection Time Recei carl Time (Source) Location / Volume Laterality Blood Venipuncture / 07/02/2019 9:48 07/02/2019 9:48 Unknown AM SPOON MAKER AM SPOON MAKER Taylor Downing MD LAB_1 Performing Organization Address City/[facility]/ZIP [facility] Phon e Number [email or web address] CENTRAL LAB [address] [address] Ferritin (07/02/2019 9:48 AM SPOON MAKER) P athologist Signature Ferritin 39 9 - 204 07/02/2019 [facility] ng/mL 3:42 PM SPOON MAKER C[facility]AL [facility] Specimen Anatomical Collection Method / Collection Time Recei carl Time (Source) Location / Volume Laterality Blood Venipuncture / 07/02/2019 9:48 07/02/2019 9:48 Unknown AM SPOON MAKER AM SPOON MAKER Taylor Downing MD LAB_1 Performing Organization Address [facility] Phon e Number [email or web address] [address] [address] (ABNORMAL) Iron Profile (Iron,TIBC,%Sat.(Calc)) (07/02/2019 9:48 AM SPOON MAKER) Component Value Ref Test Analysis Performed At Patholo gist Range Method Time Signature Iron 36 (L) 50 - 170 07/02/2019 [facility] mcg/dL 3:09 PM SPOON MAKER C[facility] Transferrin 270 180 - 07/02/2019 [facility] 382 3:09 PM SPOON MAKER C[facility]AL [facility] mg/dL TIBC, Calculated 338 240 - 07/02/2019 [facility] 450 3:09 PM SPOON MAKER C[facility]AL LAB mcg/dL % Saturation, 11 10 - 50 07/02/2019 [facility] Calculated % 3:09 PM SPOON MAKER C[facility]AL LAB TIBC Low iron, 07/02/2019 [facility] Interpretation normal 3:09 PM SPOON MAKER CENTRAL [facility] TIBC, possible iron deficiency. Specimen Anatomical Collection Method / Collection Time Recei carl Time (Source) Location / Volume Laterality Blood Venipuncture / 07/02/2019 9:48 07/02/2019 9:48 Unknown AM SPOON MAKER AM SPOON MAKER Taylor Downing MD LAB_1 Performing Organization Address [facility] Phon e Number [facility] [address] [address] documented in this encounter Visit Diagnoses Diagnosis Restless legs syndrome (RLS) documented in this encounter Care Teams Printed Circuit Board Panels Plater Relationship Specialty Start Date End Date Taylor Downing MD PCP - General Family Practice 02/01/19 [address] [place] [address] documented as of this encounter
--- OUTSIDE RECORDS SUMMARY | 2022-05-18 05:27 | XMS_ITS | Encounter Summary ---
:1970 Author Organization [facility] Address [address] [place] [address] Care Team Providers Name Role Phone Justine Blake MD Primary Care Provider Encounter Details Date Type Department Care Team Description 04/03/2018 Refill Order [place] [facility] Krysta Brush MD Pharmacy [address] [facility] [address] [place] [address] [place], [place] [address] [phone] Social History Tobacco Use Types Packs/Day Years Used Date Smoking Tobacco: Never Smokeless Tobacco: Never Sex Assigned at Date Recorded 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 KAILASH Alves 04/03/2018, 2:39 PM documented in this encounter Nursing Notes Interface, Out Surescripts Prov Query - 04/03/2018 11:55 AM CDT SCHEDULE THE FOLLOWING: - OFFICE VISIT BY: 05/07/2018 (Coming due as of 05/07/2018 for lamoTRIgine (LAMICTAL) 25 MG tablet) - LAST QUALIFYING VISIT IN [facility]: 05/12/2017 - NEXT SCHEDULED VISIT: None - NEXT LAB APPOINTMENT: None We recently received a refill request on one of your medications. While reviewing your chart, we noticed that you are going to be due for a visit with your provider within the next 3 months. You can schedule your appointment online at [employer] or by calling the appointment center at the phone number listed above. Thank you for choosing [facility]. The [facility] Powered by [employer], Reference: [id number], 04/03/2018 11:55:28 AM CDT, Pool: BRITO RN ([id number]) documented in this encounter Plan of Treatment Not on filedocumented as of this encounter Visit Diagnoses Diagnosis Encounter for long-term (current) use of medications - Primary Encounter for long-term (current) use of other medications documented in this encounter Care Teams Jack Tamp Operator Relationship Specialty Start Date End Date Justine Blake MD PCP - General 07/18/00 01/31/19 [address] [place] [address] documented as of this encounter
--- OUTSIDE RECORDS SUMMARY | 2022-05-18 05:27 | XMS_ITS | Encounter Summary ---
:1970 Author Organization [employer] Address [address] [place] [address] Care Team Providers Name Role Phone Justine Costa MD Primary Care Provider Reason for Visit Reason Onset Date Comments Refill 02/15/2018 gabapentin 100 Encounter Details Date Type Department Care Team Description 02/15/2018 Refill [place] [facility] Unassigned, Provider Refill (gabapentin 100) Pharmacy [address] [place] [address] [place], [place] [address] [phone] Social History Tobacco Use Types Packs/Day Years Used Date Smoking Tobacco: Never Smokeless Tobacco: Never Sex Assigned at Date Recorded 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 Last qualifying visit: 05/12/2017 (in [facility]) Next scheduled visit: None Last ordered by JUSTINE COSTA: 04/04/2017 (317 days ago) QTY: 60, Refills: 0, Si-2 tabs daily (unchanged) Powered by [employer], Reference: [id number], 02/15/2018 11:09:42 AM CDT, Pool: [facility] REFI[facility] RN ([id number]) Jeana Farrar - 02/15/2018 11:09 AM CDT Last fill from a Pharmacy on 08-30-2016 for a quantity of 540. documented in this encounter Plan of Treatment Not on filedocumented as of this encounter Visit Diagnoses Not on filedocumented in this encounter Care Teams [employer] Director Relationship Specialty Start Date End Date Justine Costa MD PCP - General 07/18/00 01/31/19 [address] [place] [address] documented as of this encounter
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
--- OUTSIDE RECORDS SUMMARY | 2022-05-18 05:27 | XMS_ITS | Encounter Summary ---
:1970 Author Organization [email or web address] Address [address] [place] [address] Care Team Providers Name Role Phone Taylor Downing MD Primary Care Provider Reason for Visit Reason Onset Date Comments Refill 03/25/2020 traMADol (ULTRAM) 50 MG tablet Encounter Details Date Type Department Care Team Description 03/25/2020 Refill [facility] Taylor Downing MD Refill (traMADol Practice [address] (ULTRAM) 50 MG tablet) [address] [place], [place] [address] [phone] (Wo rk) Social History Tobacco Use Types Packs/Day Years Used Date Smoking Tobacco: Former Cigarettes 1 06/1998 - 02/04/2009 Smokeless Tobacco: Never Alcohol Use Standard Drinks/Week Comments No 0 (1 standard drink = 0.6 oz pure alcoho l) Sex Assigned at Date Recorded 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 (unchanged) Powered by [employer], Reference: [id number], 03/25/2020 10:40:25 AM CDT, Pool: BRITO RN ([id number]) Interface, Out Search Initiatives Query - 03/25/2020 10:40 AM CDT The following is the most recent Careplan note pulled in by [employer]: 08/11/2016 Patient currently using hydrocodone 5 mg tablets, 75 per month, for her fibromyalgia. It is my hope that she will be returning to the pain specialist in [place] this summer. Explained to her that I would be willing to use hydrocodone until that time. documented in this encounter Plan of Treatment Not on filedocumented as of this encounter Visit Diagnoses Diagnosis Restless legs syndrome (RLS) Muscle spasm Spasm of muscle documented in this encounter Care Teams Steward/Stewardess Lounge Relationship Specialty Start Date End Date Taylor Downing MD PCP - General Family Practice 02/01/19 [address] [place] [address] documented as of this encounter
--- OUTSIDE RECORDS SUMMARY | 2022-05-18 05:27 | XMS_ITS | Encounter Summary ---
:1970 Author Organization [facility] Address [address] [place] [address] Care Team Providers Name Role Phone Justine Blake MD Primary Care Provider Reason for Visit Procedure/Equipment (Routine) - Incomplete Specialty Diagnoses / Procedures Referred By Contact Refer red To Contact Diagnoses Fibromyalgia Kirby Mercado DPM Procedures XR Foot Lt AP/Lat Standing [address] [place] [address] Referral ID Status Reason Start Date Expiration Date Visits V isits Requested Authorized [id number] Incomplete 02/14/2018 05/16/2019 1 1 Encounter Details Date Type Department Care Team Description 02/14/2018 Imaging [facility] Kirby Shultz DPM Fibromyalgia Radiology [address] 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 FINDINGS: No fracture or dislocation. Sm all plantar and Achilles heel spurs. Hammertoe deformities of the second through fifth toes. Procedure Note Chaparro Ledezma MD - 02/14/2018Form atting of this note might be different from the original. [facility] XR FOOT LT AP/LAT STANDING 02/14/2018 3:16 PM INDICATION: Pain, hammertoes COMPARISON: None. FINDINGS: No fracture or dislocation. Sm all plantar and Achilles heel spurs. Hammertoe deformities of the second through fifth toes. Kirby Mercado DPM RAD GD documented in this encounter Visit Diagnoses Diagnosis Fibromyalgia Mylagia and myositis, unspecified documented in this encounter Care Teams Readiness Paraprofessional Relationship Specialty Start Date End Date Justine Blake MD PCP - General 07/18/00 01/31/19 [address] [place] [address] documented as of this encounter
--- OUTSIDE RECORDS SUMMARY | 2022-05-18 05:27 | XMS_ITS | Encounter Summary ---
:1970 Author Organization [facility] Address [address] [place] [address] Care Team Providers Name Role Phone Justine Blake MD Primary Care Provider Reason for Referral Consult/Transfer Care (Routine) - Closed Specialty Diagnoses / Procedures Referred By Contact Refer red To Contact Diagnoses Pain in both feet Rashard De MD [address] [place] [address] Referral ID Status Reason Start Date Expiration Date Visits Requ ested Visits Authorized [id number] Closed 02/13/2018 2019 1 1 Scheduling Instructions If an appointment with [facility] Fo ot and Ankle Surgery was advised and you have not been contacted to schedule that appo intment within 3 business days, please call [phone] for assistance. We suggest you call your health insurance company about your coverage and benefits for this appo intment. Reason for Visit Reason Comments PAIN, FOOT Both feet, No known Injury. 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 Establish care with podiatry 2. Try heat and lidocaine jelly 3 times a day 3. Start a stretching program as discussed documented in this encounter Progress Notes Rashard De MD - 02/13/2018 12:20 PM CDT Historical: Chief Complaint Patient presents with ??? PAIN, FOOT Both feet, No known Injury. Onset 6 mos ago Other Symptoms Description: Encompasses all of both feet How long have you had the symptoms? 6 month(s) How frequent are your symptoms: Constant What seems to trigger or make symptoms worse? activity What seems to make symptoms better? prolonged rest Patient is a 47 yo female with history of depression, bipolar 1, substance abuse, multiple foot and wrist surgeries here with foot pain. Patient reports the pain has been present for greater than 6 months but has had two recent flairs. One approximately a month ago and again 2 days ago. She finds the pain difficult to describe but reports a mixture of cramping, cold and sharp pain that originates in the 1st MCP and radiates up the back of the leg. She reports the pain is worse at night, especially after a day of activity. She is otherwise well at this time. I have personally reviewed the patient's allergies, medications and past medical history in detail and updated the patient record as necessary. Observed: BP 120/83 Pulse 89 Temp 97.2 ??F (36.2 ??C) (Tympanic) Resp 16 Wt 219 lb (99.3 kg) BMI 32.34 kg/m2 Physical Exam: General Appearance: alert, well appearing and in no apparent distress Musculoskeletal: Foot and Ankle: bilateral no swelling, no bruising and no visible deformities TTP along 1st MTP joint medial foot and leg. No swelling or edema. Chronic hammertoe deformities. Assessment/Plan: Pain in both feet - Foot & Ankle/Podiatry Consult-Adult/Peds - Lidocaine HCl 0.5 % gel; Apply topically three times a day as needed. Please see orders and patient instructions. Exam consistent with chronic changes to the foot, will likely benefit from podiatry referral. Topical lidocaine for severe pain. Avoid controlled substances based on patient's history and chronic nature of pain. Rashard De MD documented in this encounter Nursing Notes Missy Alonso LPN - 02/13/2018 12:20 PM CDT Missy Alonso LPN' documented in this encounter Plan of Treatment Scheduled Referrals Name Type Priority Associated Diagnoses Order S chedule Foot & Ankle/Podiatry Referral Routine Pain in both feet O rdered: 02/13/2018 Consult-Adult/Peds documented as of this encounter Visit Diagnoses Diagnosis Pain in both feet - Primary Pain in limb documented in this encounter Care Teams Sql Tech Relationship Specialty Start Date End Date Justine Blake MD PCP - General 07/18/00 01/31/19 [address] [place] [address] documented as of this encounter
--- OUTSIDE RECORDS SUMMARY | 2022-05-18 05:27 | XMS_ITS | Encounter Summary ---
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 Gabapentin. Pharmacist went into the monitoringprogram. Patient has been getting from different doctors,pharmacies and paying [place] for some. AVER SEALS documented in this encounter Plan of Treatment Not on filedocumented as of this encounter Visit Diagnoses Not on filedocumented in this encounter Care Teams Fiscal Services Manager Relationship Specialty Start Date End Date Justine Blake MD PCP - General 07/18/00 01/31/19 [address] [place] [address] documented as of this encounter
--- OUTSIDE RECORDS SUMMARY | 2022-05-18 05:27 | XMS_ITS | Encounter Summary ---
:1970 Author Organization [facility] Address [address] [place] [address] Care Team Providers Name Role Phone Taylor Downing MD Primary Care Provider Reason for Referral Consult/Transfer Care (Routine) - Closed Specialty Diagnoses / Procedures Referred By Contact Refer red To Contact Diagnoses Seborrheic dermatitis of scalp Hair loss Hilario Dupree PA-C [address] [place], [place] [address] Referral ID Status Reason Start Date Expiration Date Visits Requ ested Visits Authorized [id number] Closed 04/30/2019 07/29/2020 1 1 Scheduling Instructions Your provider has recommended an appoint ment with Letty Mcfarlane. You may call [phone] to schedule your appoi ntment. If you do not schedule an appointment within the next 1 to 3 business days, we will call you to help arrange your appointment. We suggest you call your [facility] insurance company about your coverage and benefits for this appointment. PRINTER Reason for Visit Reason Comments CYST on head becoming painful Medicare Annual Wellness Encounter Details Date Type Department Care Team Description 04/30/2019 Office Visit [facility] Hilario Dupree for Medicare annual wellness exam (Primary Dx); SHELLY Richard-C Seborrheic dermatitis of scalp; [address] [place] [address] Screening for breast cancer; [place], [place], [place] Screen for colon cancer; [id number] Encounter for screening for malignant ne oplasm of colon; [phone] S/P gastric byp ass; (Work) Screening cholesterol level; [phone] Screening for d iabetes mellitus; (Fax) Screening for H IV (human immunodeficiency virus); Hair loss Social History Tobacco Use Types Packs/Day Years Used Date Smoking Tobacco: Former Cigarettes Quit : 02/04/2009 Smokeless Tobacco: Never Alcohol Use Standard Drinks/Week Comments No 0 (1 standard drink = 0.6 oz pure alcoho l) Sex Assigned at Date Recorded Female 06/28/2021 5:52 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 PRINTER documented in this encounter Progress Notes Hilario [...] Consult-Adult/Peds MDM: It was a pleasure meeting Yessica today, and I was happy to assist [...] PA-C 04/27/2019, 11:23 AM Voice recognition software (eVendor Check) was used to generate this note. As a result, wrong word or 'gisqw-j-yaer' substitutions may have occurred due to the inherent limitations of voice recognition software. There may be errors in the script that have gone undetected. Please consider this when interpreting information found in this chart. PRINTER documented in this encounter Plan of Treatment [...] Encounter for R esults for this PREP FILM PRINTER screening for procedure are in malignant neoplasm the resul ts of colon section. documented in this encounter Results HIV 1/2 Ag/Ab 4th Generation (04/30/2019 11:24 AM FILM PRINTER) [facility] Method Time Signature HIV 1/2 Negative Negative 04/30/2019 [employer] Antigen/Anti (Non (Non 3:42 PM FILM PRINTER CENTRAL LAB body (4th Reactive) Reactive) generation) Comment: HIV-1 p24 Antigen and HIV-1/HIV -2 Antibody not detected Specimen Anatomical Collection Method / Collection Time Recei carl Time (Source) Location / Volume Laterality Blood Venipuncture / 04/30/2019 11:24 9 Unknown AM FILM PRINTER 11:24 AM FILM PRINTER Hilario Dupree PA-C LAB_1 Performing Organization Address City/[facility] Phon e Number [facility] [address] [address] Hgb A1C (04/30/2019 11:24 AM FILM PRINTER) [facility] Signature Hemoglobin A1C 5.3 <=5.6 % 04/30/2019 [employer] 3:37 PM FILM PRINTER CENTRAL LAB Specimen Anatomical Collection Method / Collection Time Recei carl Time (Source) Location / Volume Laterality Blood Venipuncture / 04/30/2019 11:24 9 Unknown AM FILM PRINTER 11:24 AM FILM PRINTER Hilario Dupree PA-C LAB_1 Performing Organization Address [facility] Phon e Number [facility] [address] [place] [address] (ABNORMAL) Lipid Panel and Direct LDL(If Needed) (04/30/2019 11:24 AM FILM PRINTER) [facility] Time Signature Cholesterol 230 (H) 0 - 199 04/30/2019 [employer] [employer] mg/dL 3:34 PM FILM PRINTER CENTRAL LAB Triglyceride 187 (H) <=149 04/30/2019 [employer] mg/dL 3:34 PM FILM PRINTER C[facility]AL LAB HDL Cholesterol 49 >=40 04/30/2019 [facility] mg/dL 3:34 PM FILM PRINTER CENTRAL LAB LDL, Calculated 144 (H) <130 04/30/2019 [employer] mg/dL 3:34 PM FILM PRINTER CENTRAL LAB Non HDL Chol, 181 mg/dL 04/30/2019 [facility] Calculated 3:34 PM FILM PRINTER C[facility]AL LAB Cholesterol/HDL 4.7 04/30/2019 [facility] Ratio 3:34 PM FILM PRINTER CENTRAL [facility] Hours Fasting 12 04/30/2019 [place] [facility] 3:34 PM FILM PRINTER Specimen Anatomical Collection Method / Collection Time Recei carl Time (Source) Location / Volume Laterality Blood Venipuncture / 04/30/2019 11:24 9 Unknown AM FILM PRINTER 11:24 AM FILM PRINTER Hilario Dupree PA-C LAB_1 Performing Organization Address City/State/ZIP Code Phon e Number [facility] [address] [address] [facility] [address] [place] [address], [facility] CMP - Comp Metabolic Panel (04/30/2019 11:24 AM FILM PRINTER) [facility] gist Method Time Signature Sodium 145 136 - 145 04/30/2019 [facility] mmol/L 3:34 PM FILM PRINTER CENTRAL LAB Potassium 4.0 3.5 - 5.1 04/30/2019 [facility] mmol/L 3:34 PM FILM PRINTER C[facility]AL [facility] Chloride 109 98 - 109 04/30/2019 [facility] mmol/L 3:34 PM FILM PRINTER CEN[facility]AL LAB CO2 26 20 - 29 04/30/2019 [facility] mmol/L 3:34 PM FILM PRINTER CEN[facility]AL [facility] Anion Gap 10 7 - 16 04/30/2019 [facility] mmol/L 3:34 PM FILM PRINTER CENTRAL LAB Calcium 10.4 8.4 - 04/30/2019 [facility] 10.4 3:34 PM FILM PRINTER CENTRAL LAB mg/dL BUN 10 7 - 26 04/30/2019 [facility] mg/dL 3:34 PM FILM PRINTER C[facility]AL LAB Creatinine 0.80 0.55 - 04/30/2019 [facility] 1.02 3:34 PM FILM PRINTER CENTRAL LAB mg/dL GFR, Estimated >60 >60 04/30/2019 [facility] mL/min/1. 3:34 PM FILM PRINTER CENTRAL LAB 73m2 GFR, Est If >60 >60 04/30/2019 [facility] mL/min/1. 3:34 PM FILM PRINTER CENTRAL LAB Zambian 73m2 Alkaline 131 40 - 150 04/30/2019 [facility] Phosphatase U/L 3:34 PM FILM PRINTER CEN[facility]AL [facility] AST (SGOT) 14 10 - 40 04/30/2019 [facility] U/L 3:34 PM FILM PRINTER C[facility]AL [facility] ALT (SGPT) 16 0 - 55 04/30/2019 [facility] U/L 3:34 PM FILM PRINTER [facility]AL [facility] Bilirubin, 0.3 0.2 - 1.2 04/30/2019 [facility] Total mg/dL 3:34 PM FILM PRINTER C[facility]AL [facility] Protein, Total 7.0 6.4 - 8.3 04/30/2019 [facility] g/dL 3:34 PM FILM PRINTER [facility]AL [facility] Albumin 3.9 3.5 - 5.0 04/30/2019 [facility] g/dL 3:34 PM FILM PRINTER C[facility]AL [facility] Glucose 98 70 - 100 04/30/2019 [facility] mg/dL 3:34 PM FILM PRINTER C[facility]AL LAB Comment: The given reference range is fo r the fasting state. Non-fasting reference range for glucose is 70 - 180 mg/dL. Hours Fasting 12 04/30/2019 3:34 PM FILM PRINTER [facility] LAB Specimen Anatomical Collection Method / Collection Time Recei carl Time (Source) Location / Volume Laterality Blood Venipuncture / 04/30/2019 11:24 9 Unknown AM FILM PRINTER 11:24 AM FILM PRINTER Hilario Dupree PA-C LAB_1 Performing Organization Address City/[facility] Phon e Number [employer] CENTRAL LAB [address] [address] [facility] [address] [place] [address], [facility] Ferritin (04/30/2019 11:24 AM FILM PRINTER) athologist Signature Ferritin 53 9 - 204 04/30/2019 [facility] ng/mL 3:43 PM FILM PRINTER CENTRAL LAB Specimen Anatomical Collection Method / Collection Time Recei carl Time (Source) Location / Volume Laterality Blood Venipuncture / 04/30/2019 11:24 9 Unknown AM FILM PRINTER 11:24 AM FILM PRINTER Hilario Dupree PA-C LAB_1 Performing Organization Address City/[facility] Phon e Number [facility] [facility] CENTRAL LAB [address] [address] Iron Profile (Iron,TIBC,%Sat.(Calc)) (04/30/2019 11:24 AM FILM PRINTER) [facility] gist Method Time Signature Iron 51 50 - 170 04/30/2019 [facility] mcg/dL 3:34 PM FILM PRINTER C[facility]AL LAB Transferrin 256 180 - 382 04/30/2019 [facility] mg/dL 3:34 PM FILM PRINTER CEN[facility]AL [facility] TIBC, 320 240 - 450 04/30/2019 [facility] Calculated mcg/dL 3:34 PM FILM PRINTER C[facility]AL [facility] % Saturation, 16 10 - 50 % 04/30/2019 [facility] Calculated 3:34 PM FILM PRINTER CEN[facility]AL LAB Specimen Anatomical Collection Method / Collection Time Recei carl Time (Source) Location / Volume Laterality Blood Venipuncture / 04/30/2019 11:24 9 Unknown AM FILM PRINTER 11:24 AM FILM PRINTER Hilario Dupree PA-C LAB_1 Performing Organization Address [facility] e Number [facility] CENTRAL LAB [address] [address] Vitamin B12 Only (04/30/2019 11:24 AM FILM PRINTER) athologist Signature Vitamin B12 441 213 - 816 04/30/2019 [facility] pg/mL 3:51 PM FILM PRINTER CEN[facility]AL LAB Specimen Anatomical Collection Method / Collection Time Recei carl Time (Source) Location / Volume Laterality Blood Venipuncture / 04/30/2019 11:24 9 Unknown AM FILM PRINTER 11:24 AM FILM PRINTER Hilario Dupree PA-C LAB_1 Performing Organization Address [facility] Phon e Number [facility] CENTRAL LAB [address] [address] Vitamin D 25-Hydroxy, Total (04/30/2019 11:24 AM FILM PRINTER) [facility] Method Time Signature Vitamin D, 48 30 - 80 04/30/2019 [facility] 25-OH, Total ng/mL 3:44 PM FILM PRINTER CENTRAL LAB Specimen Anatomical Collection Method / Collection Time Recei carl Time (Source) Location / Volume Laterality Blood Venipuncture / 04/30/2019 11:24 9 Unknown AM FILM PRINTER 11:24 AM FILM PRINTER Hilario Dupree PA-C LAB_1 Performing Organization Address City/State/ZIP Code Phon e Number [facility] CENTRAL LAB [address] [address] FIT Collection Kit Prep (04/30/2019 11:11 AM FILM PRINTER) P athologist Signature FIT Kit Prep Fit Kit 04/30/2019 [place] Given 1:00 PM FILM PRINTER LAB Specimen Anatomical Collection Method Collection Time Receive d Time (Source) Location / / Volume Laterality Stool 04/30/2019 11:11 04/30/2019 AM FILM PRINTER 11:11 AM FILM PRINTER Hilario Dupree PA-C LAB_1 Performing Organization Address [facility] Phon e Number [facility] [address] [place] [phone] documented in this encounter Visit Diagnoses Diagnosis [...] unspecified documented in this encounter Care Teams Senior Consulting Manager Relationship Specialty Start Date End Date Taylor Downing MD PCP - General Family Practice 02/01/19 [address] [place] [address] documented as of this encounter
--- OUTSIDE RECORDS SUMMARY | 2022-05-18 05:27 | XMS_ITS | Encounter Summary ---
:1970 Author Organization [facility] Address [address] [facility] [place] [address] Care Team Providers Name Role Phone Taylor Downing MD Primary Care Provider Reason for Visit Reason Comments SOB (SHORTNESS OF BREATH) Encounter Details Date Type Department Care Team Description 07/04/2019 Office Visit [facility] Apple Rahulm, Maria Isabel L, Thaddeus k spasm ([facility] PA-C Dx) [address] [facility] [place] [address] [place], [place] [address] [place], [place] [phone] [address] Social History Tobacco Use Types Packs/Day Years Used Date Smoking Tobacco: Former Cigarettes Quit : 02/04/2009 Smokeless Tobacco: Never Alcohol Use Standard Drinks/Week Comments No 0 (1 standard drink = 0.6 oz pure alcoho l) Sex Assigned at Date Recorded Female 06/28/2021 5:52 PM 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 She is under care [...] Christianson PA-C This note was created using [id number] software. Some errors may exist that were unintended. Everyeffort is made to correct these errors before completion. LER GUIDE documented in this encounter Plan of Treatment Not on filedocumented as of this encounter Visit Diagnoses Diagnosis Back spasm - Primary Other symptoms referable to back documented in this encounter Care Teams Manager Of Software Development Relationship Specialty Start Date End Date Taylor Downing MD PCP - General Family Practice 02/01/19 [address] [place] [address] documented as of this encounter
--- OUTSIDE RECORDS SUMMARY | 2022-05-18 05:27 | XMS_ITS | Encounter Summary ---
:1970 Author Organization [facility] Address [address] [place] [address] Care Team Providers Name Role Phone Justine Blake MD Primary Care Provider Reason for Referral Procedure/Equipment (Routine) - Incomplete Specialty Diagnoses / Procedures Referred By Contact Refer red To Contact Diagnoses Fibromyalgia Kirby Mercado DPM Procedures XR Foot Rt AP/Lat Standing [address] [place] [address] Referral ID Status Reason Start Date Expiration Date Visits V isits Requested Authorized [id number] Incomplete 02/14/2018 05/16/2019 1 1 Procedure/Equipment (Routine) - Incomplete Specialty Diagnoses / Procedures Referred By Contact Refer red To Contact Diagnoses Fibromyalgia Kirby Mercado DPM Procedures XR Foot Lt AP/Lat Standing [address] [place] [address] Referral ID Status Reason Start Date Expiration Date Visits V isits Requested Authorized [id number] Incomplete 02/14/2018 05/16/2019 1 1 Reason for Visit Consult/Transfer Care (Routine) - Closed Specialty Diagnoses / Procedures Referred By Contact Refer red To Contact Diagnoses Pain in both feet Rashard De MD [address] [place] [address] Referral ID Status Reason Start Date Expiration Date Visits Requ ested Visits Authorized [id number] Closed 02/13/2018 2019 1 1 Encounter Details Date Type Department Care Team Description 02/14/2018 Office Visit [facility] Kirby Mercado Fibr omyalgia (Primary Ankle Surgery/Podiat ry DPM Dx) 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 FINDINGS: No fracture or dislocation. Sm all plantar and Achilles heel spurs. Hammertoe deformities of the second through fifth toes. Procedure Note Chaparro Ledezma MD - 02/14/2018Form atting of this note might be different from the original. [facility] XR FOOT LT AP/LAT STANDING 02/14/2018 3:16 PM INDICATION: Pain, hammertoes COMPARISON: None. FINDINGS: No fracture or dislocation. Sm all plantar and Achilles heel spurs. Hammertoe deformities of the second through fifth toes. Kirby RICOM RAD GD XR Foot Rt AP/Lat Standing (02/14/2018 3:16 PM CDT) Anatomical Region Laterality Modality Lower Extremity, Foot, Foot & Ankle Comp uted Radiography Specimen (Source) Anatomical Collection Method Collection Time Re ceived Time Location / / Volume Laterality 02/14/2018 3:16 PM CDT Narrative 02/14/2018 9:15 PM CDT [facility] XR FOOT RT AP/LAT STANDING 02/14/2018 3:16 PM INDICATION: Pain, hammertoes. COMPARISON: None. FINDINGS: No fracture or dislocation. No significant degenerative changes in the right foot. Small plantar calcaneal spur. Hammertoe deformities of the third through fifth toes. Procedure Note Chaparro Ledezma MD - 02/14/2018Form atting of this note might be different from the original. [facility] XR FOOT RT AP/LAT STANDING 02/14/2018 3:16 [...] unspecified documented in this encounter Care Teams Human Factors Engineer Relationship Specialty Start Date End Date Justine Blake MD PCP - General 07/18/00 01/31/19 [address] [place] [address] documented as of this encounter
--- OUTSIDE RECORDS SUMMARY | 2022-05-18 05:27 | XMS_ITS | Encounter Summary ---
:1970 Author Organization [facility] Address [address] [place] [address] Care Team Providers Name Role Phone Taylor Downing MD Primary Care Provider Reason for Visit Reason Comments Video Visit Restless Leg Syndrome Encounter Details Date Type Department Care Team Description 03/12/2020 Telemedicine [facility] Taylor Downing MD Restless legs syndrome (RLS) (Primary Dx ); Practice [address] [facility] Axillary hyperhidrosis; [address] [place], [place] [address] [phone] Social History Tobacco Use Types Packs/Day Years Used Date Smoking Tobacco: Former Cigarettes 1 06/1998 - 02/04/2009 Smokeless Tobacco: Never Alcohol Use Standard Drinks/Week Comments No 0 (1 standard drink = 0.6 oz pure alcoho l) Sex Assigned at Date Recorded Female 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 Click ePA Assistance Quick Action to document 2. Select Out of Pocket option 3. Flag or Route to: your department's designated pool KAILASH Alvarez documented in this encounter Plan of Treatment Not on filedocumented as of this encounter Results Ferritin (03/25/2020 10:49 AM CDT) P athologist Signature Ferritin 9 - 204 03/25/2020 [facility] ng/mL 3:14 PM CDT C[facility]AL [facility] Specimen Anatomical Collection Method / Collection Time Recei carl Time (Source) Location / Volume Laterality Blood Venipuncture / 03/25/2020 10:49 0 Unknown AM CDT 10:49 AM CDT Taylor Downing MD LAB_1 Performing Organization Address City/State/ZIP Code Phon e Number [facility] CENTRAL LAB [address] [phone] (ABNORMAL) Iron Profile (Iron,TIBC,%Sat.(Calc)) (03/25/2020 10:49 AM CDT) Component Value Ref Test Analysis Performed At [facility] gist Range Method Time Signature Iron 39 (L) 50 - 170 03/25/[address] [facility] mcg/dL 2:56 PM CDT C[facility]AL LAB Transferrin 371 180 - 03/25/[address] [facility] 382 2:56 PM CDT C[facility]AL LAB mg/dL TIBC, Calculated 464 (H) 240 - 03/25/2020 [facility] 450 2:56 PM CDT C[facility]AL LAB mcg/dL % Saturation, 8 (L) 10 - 50 03/25/2020 [facility] Calculated % 2:56 PM CDT CENTRAL LAB TIBC Pattern of 03/25/2020 [facility] Interpretation iron 2:56 PM CDT CENTRAL LAB deficiency . Specimen Anatomical Collection Method / Collection Time Recei carl Time (Source) Location / Volume Laterality Blood Venipuncture / 03/25/2020 10:49 0 Unknown AM CDT 10:49 AM CDT Taylor Downing MD LAB_1 Performing Organization Address City/State/ZIP Code Phon e Number [facility] [address] [phone] documented in this encounter Visit Diagnoses Diagnosis Restless legs syndrome (RLS) - Primary Axillary hyperhidrosis Primary focal hyperhidrosis Muscle spasm Spasm of muscle documented in this encounter Care Teams Embossing Machine Operator Relationship Specialty Start Date End Date Taylor Downing MD PCP - General Family Practice 02/01/19 [address] [place] [address] documented as of this encounter
--- OUTSIDE RECORDS SUMMARY | 2022-05-18 05:27 | XMS_ITS | Encounter Summary ---
:1970 Author Organization [facility] Address [address] [place] [address] Care Team Providers Name Role Phone Justine Blake MD Primary Care Provider Reason for Visit Reason Onset Date Comments Refill Refill 08/18/2018 Encounter Details Date Type Department Care Team Description 08/18/2018 Refill [facility] Practice Uriah Patel MD Refill; Refill [address] [facility] [address] [place], [place] [address] [place] [address] [phone] (Wo rk) Social History Tobacco Use Types Packs/Day Years Used Date Smoking Tobacco: Never Smokeless Tobacco: Never Sex Assigned at Date Recorded Female 06/28/2021 5:52 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 Last qualifying visit: 05/12/2017 (in [facility]) Next scheduled visit: None Last ordered by URIAH PATEL: 05/31/2018 (79 days ago) QTY: 60, Refills: 1, Sig: take one to two capsules by mouth every day (unchanged) Powered by [employer], Reference: [id number], 08/18/2018 4:44:34 PM CDT, Pool: SURYA REFILL LUCILA ([id number]) documented in this encounter Plan of Treatment Not on filedocumented as of this encounter Visit Diagnoses Not on filedocumented in this encounter Care Teams Filer Repairer Relationship Specialty Start Date End Date Justine Blake MD PCP - General 07/18/00 01/31/19 [address] [place] [address] documented as of this encounter
--- OUTSIDE RECORDS SUMMARY | 2022-05-18 05:27 | XMS_ITS | Encounter Summary ---
:1970 Author Organization [facility] Address [address] [place] [address] Care Team Providers Name Role Phone Taylor Downing MD Primary Care Provider Reason for Visit Reason Comments Prior Authorization For Medication Encounter Details Date Type Department Care Team Description 03/13/2020 Telephone [facility] Taylor Downing MD Prior Authorization For Practice [address] [facility] Medication [address] [place], [place] [address] [phone] Social History Tobacco Use Types Packs/Day Years Used Date Smoking Tobacco: Former Cigarettes 1 06/1998 - 02/04/2009 Smokeless Tobacco: Never Alcohol Use Standard Drinks/Week Comments No 0 (1 standard drink = 0.6 oz pure alcoho l) Sex Assigned at Date Recorded Female 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 Roopa Mortensen CMA 03/20/2020, 2:33 PM Rosemarie Castillo LPN - 03/19/2020 1:40 PM CDT [id number] hp's phone number. Rosemarie Mildred LON Castillo Roopa Mortensen CMA - 03/18/2020 6:46 PM [...] Downing MD 03/14/2020, 8:23 AM Evelyn Lara CMA - 03/13/2020 4:42 PM CDT PA was [...] per Medicare rules is not covered. Payer: [place] Electronic appeal: Supported Appeal deadline: March 20, [...] Epa Sent: 03/13/2020 4:38 PM CDT To: [facility] Subject: Rx Prior Auth Response Electronic Prior Authorization message received. documented in this encounter Plan of Treatment Not on filedocumented as of this encounter Visit Diagnoses Not on filedocumented in this encounter Care Teams Infrastructure Software Engineer Relationship Specialty Start Date End Date Taylor Downing MD PCP - General Family Practice 02/01/19 [address] [place] [address] documented as of this encounter
--- OUTSIDE RECORDS SUMMARY | 2022-05-18 05:27 | XMS_ITS | Encounter Summary ---
:1970 Author Organization [facility] Address [address] [place] [address] Care Team Providers Name Role Phone Justine Blake MD Primary Care Provider Reason for Visit Reason Comments Refill gabapentin (NEURONTIN) 100 M G capsule [Pharmacy Med Name: GABAPENTIN 100MG CAPS] Encounter Details Date Type Department Care Team Description 05/29/2018 Refill [facility] Gillian Kaufman, Ref ill (gabapentin Practice PA-C (NEURONTIN) 100 MG [address] capsule [Pharmacy Med [place], [place] [address] [place], [place] Name: GABAPENTIN 100MG [phone] [address] CAPS]) [phone] (Wo rk) Social History Tobacco Use Types Packs/Day Years Used Date Smoking Tobacco: Never Smokeless Tobacco: Never Sex Assigned at Date Recorded Female 06/28/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 -> Medication cannot be delegated. Last qualifying visit: 05/12/2017 ([facility]) Next scheduled visit: None Last ordered by GILLIAN KAUFMAN M: 04/03/2018 (56 days ago) QTY: 60, Refills: 1, Si-2 caps daily (changed) Powered by [employer], Reference: [id number], 05/29/2018 9:42:39 AM GROUNDSKEEPER, Pool: REFILL RN ([id number]) NDSKEEPER documented in this encounter Plan of Treatment Not on filedocumented as of this encounter Visit Diagnoses Not on filedocumented in this encounter Care Teams Application Technical Designer Relationship Specialty Start Date End Date Justine Blake MD PCP - General 07/18/00 01/31/19 [address] [place] [address] documented as of this encounter
--- OUTSIDE RECORDS SUMMARY | 2022-05-18 05:27 | XMS_ITS | Encounter Summary ---
:1970 Author Organization [facility] Address [address] [place] [address] Care Team Providers Name Role Phone Taylor Downing MD Primary Care Provider Encounter Details Date Type Department Care Team Description 03/25/2020 Lab Visit [facility]less legs [facility]RLS) ; [address] [facility] Status post gastric bypass f or obesity [place], [place] [address] Social History Tobacco Use Types Packs/Day Years Used Date Smoking Tobacco: Former Cigarettes 1 06/1998 - 02/04/2009 Smokeless Tobacco: Never Alcohol Use Standard Drinks/Week Comments No 0 (1 standard drink = 0.6 oz pure alcoho l) Sex Assigned at Date Recorded Female 06/28/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 [place] [address] (ABNORMAL) Complete Blood Count-W/Diff (03/25/2020 10:49 AM CDT) Analysis Performed At Patho logist Time Signature WBC 6.7 3.5 - 10.5 03/25/2020 [place] x10(9)/L 10:51 AM CDT LAB RBC 5.11 (H) 3.90 - 03/25/2020 [place] 5.03 10:51 AM CDT LAB x10(12)/L Hemoglobin 13.9 12.0 - 03/25/2020 [place] 15.5 g/dL 10:51 AM CDT LAB HCT 43.5 34.9 - 03/25/2020 [place] 44.5 % 10:51 AM CDT LAB MCV 85.1 80.0 - 03/25/2020 [place] 100.0 fL 10:51 AM CDT LAB MCH 27.2 (L) 27.6 - 03/25/2020 [place] 33.3 pg 10:51 AM CDT LAB MCHC 32.0 31.5 - 03/25/2020 [place] 35.2 g/dL 10:51 AM CDT LAB RDW 14.7 11.9 - 03/25/2020 [place] 15.5 % 10:51 AM CDT LAB Platelets 345 150 - 450 03/25/2020 [place] x10(9)/L 10:51 AM CDT LAB Neutrophil 3.5 1.7 - 7.0 03/25/2020 [place] Absolute 10(9)/L 10:51 AM CDT LAB Lymphocyte 2.3 1.0 - 4.8 03/25/2020 [place] Absolute 10(9)/L 10:51 AM CDT LAB Monocytes 0.4 0.2 - 0.9 03/25/2020 [place] Absolute 10(9)/L 10:51 AM CDT LAB Eosinophil 0.4 0.0 - 0.5 03/25/2020 [place] Absolute 10(9)/L 10:51 AM CDT LAB Basophil 0.1 0.0 - 0.3 03/25/2020 [place] Absolute 10(9)/L 10:51 AM CDT LAB Immature Gran % 0.0 0.0 - 0.5 03/25/2020 [place] % 10:51 AM CDT LAB Specimen Anatomical Collection Method / Collection Time Recei carl Time (Source) Location / Volume Laterality Blood Venipuncture / 03/25/2020 10:49 0 Unknown AM CDT 10:49 AM CDT Taylor Downing MD LAB_1 Performing Organization Address City/State/ZIP Code Phon e Number [place] [facility] [address] [place] [phone] Ferritin (03/25/2020 10:49 AM CDT) P athologist Signature Ferritin 9 9 - 204 03/25/2020 [facility] ng/mL 3:14 PM CDT CENTRAL LAB Specimen Anatomical Collection Method / Collection Time Recei carl Time (Source) Location / Volume Laterality Blood Venipuncture / 03/25/2020 10:49 0 Unknown AM CDT 10:49 AM CDT Taylor Downing MD LAB_1 Performing Organization Address [facility]ZIP [facility] Phon e Number [email or web address]AL LAB [address] [address] (ABNORMAL) Iron Profile (Iron,TIBC,%Sat.(Calc)) (03/25/2020 10:49 AM [...] MD LAB_1 Performing Organization Address [facility] Phon e Number [email or web address] [address] [address] documented in this encounter Visit Diagnoses Diagnosis Restless legs syndrome (RLS) Status post gastric bypass for obesity Bariatric surgery status documented in this encounter Care Teams Cell Inspector Relationship Specialty Start Date End Date Taylor Downing MD PCP - General Family Practice 02/01/19 [address] [place] [address] documented as of this encounter
--- OUTSIDE RECORDS SUMMARY | 2022-05-18 05:28 | XMS_ITS | Encounter Summary ---
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 DATE OF INJURY: 04/16/06. IS THIS A [...] IMPROVEMENT: UNDETERMINED PERMANENT PARTIAL DISABILITY RATING: UNDETERMINED MNG:[id number] C: 09/06/06 10:09 DOCUMENT: [id number] FINISHER documented in this encounter Plan of Treatment Not on filedocumented as of this encounter Visit Diagnoses Not on filedocumented in this encounter Care Teams Elevator Repairer Helper Relationship Specialty Start Date End Date Justine Blake MD PCP - General 07/18/00 01/31/19 [address] [place] [address] documented as of this encounter
--- OUTSIDE RECORDS SUMMARY | 2022-05-18 05:28 | XMS_ITS | Encounter Summary ---
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
--- OUTSIDE RECORDS SUMMARY | 2022-05-18 05:28 | XMS_ITS | Encounter Summary ---
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 Yes. Employer: [employer] Date of injury: 30 July 2006. Initial consultation: August,. Pain today rated 5/10 on visual analog scale. Overall activity tolerances rated as poor. Fair tolerance for light housework. Pain is constant, however, decreased intensity. There is decreased stiffness in her back. She continues light duty and home program exercise. OBJECTIVE: Lumbar AROM flexion moderately limited. Extension unrestricted. Left/right lateral bending, mildly limited. Bilateral SI joint fixation. ASSESSMENT: 1. Low back pain. 2. Lumbosacral sprain, strain. Objective improvement. Continue conservative treatment. PLAN: 1. Chiropractic manipulative therapy. See objective. 2. Neuromuscular reeducation with contract-relax lengthening techniques bilateral gluteal. 3. Review previous lumbopelvic stabilization exercise, with technique corrections performed. Instruction on lifting techniques. 4. Continue home program daily. Continue general neck flexibility exercise through work activity program. Follow up twice next week. Maximal medical improvement: Undetermined. Permanent partial disability: Undetermined. *SH~DNS~Custom3 documented in this encounter Plan of Treatment Not on filedocumented as of this encounter Visit Diagnoses Not on filedocumented in this encounter Care Teams Drafter Chief Design Relationship Specialty Start Date End Date Justine Blake MD PCP - General 07/18/00 01/31/19 [address] [place] [address] documented as of this encounter
--- OUTSIDE RECORDS SUMMARY | 2022-05-18 05:28 | XMS_ITS | Encounter Summary ---
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
--- OUTSIDE RECORDS SUMMARY | 2022-05-18 05:28 | XMS_ITS | Encounter Summary ---
:[address] 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
--- OUTSIDE RECORDS SUMMARY | 2022-05-18 05:28 | XMS_ITS | Encounter Summary ---
:1970 Author Organization [facility] Address [address] [place] [address] Care Team Providers Name Role Phone Justine Blake MD Primary Care Provider Reason for Visit Reason Comments PHP Screening Encounter Details Date Type Department Care Team Description 08/24/2016 [facility] Mario Andres MD PHP Screening Hospitalization Prog estefanía [address] [facility] [address] [place] [address] [place] [address] [phone] Social History Tobacco Use Types Packs/Day Years Used Date Smoking Tobacco: Never Assessed Sex Assigned at Date Recorded Female 06/28/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 Winnie Ramirez LICSW - 08/24/2016 2:51 PM CDT Telephone Call: Sealer Sander LM with client requesting a call back. Plan to screen for [facility]. SURESH Garza 08/24/2016, 2:52 PM Leena Valderrama - 08/24/2016 9:35 AM CDT Received order for Day[facility]. documented in this encounter Plan of Treatment Not on filedocumented as of this encounter Visit Diagnoses Not on filedocumented in this encounter Care Teams Environmental Services Technician Relationship Specialty Start Date End Date Justine Blake MD PCP - General 07/18/00 01/31/19 [address] [place] [address] documented as of this encounter
--- OUTSIDE RECORDS SUMMARY | 2022-05-18 05:28 | XMS_ITS | Encounter Summary ---
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 documented as of this encounter Last Filed Vital Signs Vital Sign Reading Time Taken Comments Blood Pressure 140/80 08/30/2006 1:52 PM CDT C: Non In vasive BP Cuff Pulse 80 08/30/2006 1:52 PM CDT Temperature - - Respiratory Rate - - Oxygen Saturation - - Inhaled Oxygen Concentration - - Weight - - Height - - Body Mass Index - - documented in this encounter Progress Notes Ildefonso Werner - 08/30/2006 12:01 AM CDT Progress Notes signed by Ildefonso Werner MD at 09/02/06 1524 Author: Ildefonso Werner MD Service: (none) Author Type: Physician Filed: 09/25/10 1814 Note Time: 08/30/06 0001 Status: Signed Civil Manager: Ildefonso Werner MD (Physician) NAME: YESSICA GARCIA MR#: [id number] ACCT: [id number] VISIT: [id number] DICTATING CLINICIAN: Ildefonso Werner MD JOB: [id number] LOC: [facility] [facility] OCCUPATIONAL MEDICINE REPORT DATE OF VISIT: 08/30/2006 SUBJECTIVE: COMPANY NAME: [employer] DATE OF INJURY: 08/27/06 IS CONDITION WORK RELATED? Yes Ms. Garcia comes in for recheck of her back. She states she continues to have severe low back pain. She did use the Vicodin as prescribed by Dr. Bentley yesterday. In fact, she used 2 of them every 4 hours last night. She also took her Skelaxin and she has been using her anti-inflammatory. This lady states she saw Dr. Lawler today and went through 1 treatment and feels that this may have helped, although still has the severe pain. She is off today and tomorrow. She thinks she may be able to return with limitations on . 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 What she comes in today for is to report the severe pain and request something to help for this. Her pain is primarily central low back radiating into the SI joints bilaterally. She has increased pain with standing or walking, but generally severe pain overall. MEDICATIONS: As above. She has no radiation numbness or tingling, no loss of bowel or bladder control. OBJECTIVE: VS: BP: 140/80. P: 80. R: 14. Exam today reveals a well-appearing adult female who does consistently guard motion and does evidence pain behavior. SPINE: Inspection reveals a linear spine of normal curvature. Palpation reveals no asymmetry in tone. There is marked tenderness to palpation, however, over the central lumbar spinous processes extending into the lower spinous processes and SI joints. There is mild leg length asymmetry. Straight leg raising produces low back pain only. Strength is decreased diffusely but symmetrical. Reflexes similarly symmetrical. Range of motion is limited in flexion to 60 degrees, extension 30 degrees. Gait is guarded. ASSESSMENT: Lumbar strain, symptoms reported as severe. PLAN: We discussed pain management and I suggested that Vicodin would be a reasonable option, 2 every 4-6 hours for the next day or so. Given this, I have given her 30 tablets. She will taper after 2 days. I did also recommend a trial of Robaxin. 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 Having checked, there is no reaction with this and she will reconfirm this with the pharmacist. Otherwise, she can restart limitations starting on . FOLLOW-UP DATE: Follow up here in 1 week. MAXIMUM MEDICAL IMPROVEMENT: UNDETERMINED PERMANENT PARTIAL DISABILITY RATING: UNDETERMINED MNG:[id number] C: 08/31/06 13:15 DOCUMENT: [id number] ET REPORTER documented in this encounter Plan of Treatment Not on filedocumented as of this encounter Visit Diagnoses Not on filedocumented in this encounter Care Teams School Cafeteria Cook Relationship Specialty Start Date End Date Justine Blake MD PCP - General 07/18/00 01/31/19 [address] [place] [address] documented as of this encounter
--- OUTSIDE RECORDS SUMMARY | 2022-05-18 05:28 | XMS_ITS | Encounter Summary ---
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
--- OUTSIDE RECORDS SUMMARY | 2022-05-18 05:28 | XMS_ITS | Encounter Summary ---
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
--- OUTSIDE RECORDS SUMMARY | 2022-05-18 05:28 | XMS_ITS | Encounter Summary ---
:1970 Author Organization [facility] Address [address] [place] [address] Care Team Providers Name Role Phone Justine Blake MD Primary Care Provider Reason for Visit Reason Comments Refill gabapentin (NEURONTIN) 400 M G capsule [Pharmacy Med Name: GABAPENTIN 400MG CAPSULES] Encounter Details Date Type Department Care Team Description 02/01/2017 Refill [facility] Wes Wright MD Refill (gabapentin Practice [address] (NEURONTIN) 400 MG [address] [place], [place] capsule [Pharmacy Med [place], [place] [address] Name: GABAPENTIN 400MG [phone] (Wo rk) CAPSULES]) Social History Tobacco Use Types Packs/Day Years Used Date Smoking Tobacco: Never Sex Assigned at Date Recorded Female 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 (changed but equivalent) Powered by [employer], Reference: [id number], 02/01/2017 3:34:28 AM CDT, Pool: BRITO RN ([id number]) documented in this encounter Plan of Treatment Not on filedocumented as of this encounter Visit Diagnoses Not on filedocumented in this encounter Care Teams Barrel Roller Operator Relationship Specialty Start Date End Date Justine Blake MD PCP - General 07/18/00 01/31/19 [address] [place] [address] documented as of this encounter
--- OUTSIDE RECORDS SUMMARY | 2022-05-18 05:28 | XMS_ITS | Encounter Summary ---
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 called [...] Created on 30Aug2006 10:36am by SURESH HALL HT ATTENDANT documented in this encounter Plan of Treatment Not on filedocumented as of this encounter Visit Diagnoses Not on filedocumented in this encounter Care Teams Lead Cashier Relationship Specialty Start Date End Date Justine Blake MD PCP - General 07/18/00 01/31/19 [address] [place] [address] documented as of this encounter
--- OUTSIDE RECORDS SUMMARY | 2022-05-18 05:28 | XMS_ITS | Encounter Summary ---
:1970 Author Organization [facility] Address [address] [place] [address] Care Team Providers Name Role Phone Justine Blake MD Primary Care Provider Reason for Visit Reason Comments MEDICATION CHECK Encounter Details Date Type Department Care Team Description 02/10/2016 Office Visit [facility] Justine Blake (Primary Dx); Derrick Calderon MD Attention deficit hyperactivity disorder (ADHD), unspecified ADHD type [address] [facility] [address] [place] [address] [phone] Social History Tobacco Use Types Packs/Day Years Used Date Smoking Tobacco: Never Assessed Sex Assigned at Date Recorded Female 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
--- OUTSIDE RECORDS SUMMARY | 2022-05-18 05:28 | XMS_ITS | Encounter Summary ---
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 Referring provider: Dr. Bentley. Is the condition work related? Yes. Employer: [employer]. Date of injury: 30 July 2006. History [...] degree. 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 Present employer: [employer]. Exercise habits: Walking regularly with work. FAMILY [...] chronicity/ recurrence with transfer to independent active penitentiary program. Anticipated status of MTB, no residuals, [...] on filedocumented in this encounter Care Teams Machine Stone Polisher Relationship Specialty Start Date End Date Justine Blake MD PCP - General 07/18/00 01/31/19 [address] [place] [address] documented as of this encounter
--- OUTSIDE RECORDS SUMMARY | 2022-05-18 05:28 | XMS_ITS | Encounter Summary ---
:1970 Author Organization [facility] Address [address] [place] [address] Care Team Providers Name Role Phone Justine Costa MD Primary Care Provider Reason for Visit Reason Onset Date Comments Refill 01/17/2017 Gabapentin Encounter Details Date Type Department Care Team Description 01/17/[address] [facility] 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 Last qualifying visit: 09/27/2016 (in Family Practice) Next scheduled visit: None Last ordered by JUSTINE COSTA: 09/27/2016 (112 days ago) QTY: 270, Refills: 1, Sig: take 1 cap by mouth three times a day. (unchanged) Powered by [employer], Reference: [id number], 01/17/2017 10:54:12 AM CDT, Pool: SURYA REFILL RN ([id number]) documented in this encounter Plan of Treatment Not on filedocumented as of this encounter Visit Diagnoses Not on filedocumented in this encounter Care Teams Travel Agent Relationship Specialty Start Date End Date Justine Costa MD PCP - General 07/18/00 01/31/19 [address] [place] [address] documented as of this encounter
--- OUTSIDE RECORDS SUMMARY | 2022-05-18 05:28 | XMS_ITS | Encounter Summary ---
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
--- OUTSIDE RECORDS SUMMARY | 2022-05-18 05:28 | XMS_ITS | Encounter Summary ---
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 PROBLEM: Low back pain. Ms. Garcia makes [...] IMPROVEMENT: UNDETERMINED PERMANENT PARTIAL DISABILITY RATING: UNDETERMINED [id number] C: 09/30/06 15:11 DOCUMENT: [id number] documented in this encounter Plan of Treatment Not on filedocumented as of this encounter Visit Diagnoses Not on filedocumented in this encounter Care Teams Edge Trimmer Mechanic Relationship Specialty Start Date End Date Justine Blake MD PCP - General 07/18/00 01/31/19 [address] [place] [address] documented as of this encounter
--- OUTSIDE RECORDS SUMMARY | 2022-05-18 05:28 | XMS_ITS | Encounter Summary ---
:1970 Author Organization [facility] Address [address] [place] [address] Care Team Providers Name Role Phone Justine Blake MD Primary Care Provider Reason for Visit Reason Comments FOLLOW-UP,HOSPITAL Encounter Details Date Type Department Care Team Description 09/27/2016 Office Visit [facility] Justine Blake lar affective disorder, remission status unspecified (Primary Dx); Derrick Calderon MD Fibromyalgia; [address] [address] [facility] Other migraine without status migrainosu s, [place] [phone] Social History Tobacco Use Types Packs/Day Years Used Date Smoking Tobacco: Never Sex Assigned at Date Recorded 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 [...] She is going to be moving to [place] on September 29. Likely she will be back sometime in January for a short time and then back again to [place]. She does have a pain clinic out [...] titrate up once she gets down to [place]. She did ask for some hydrocodone for [...] intractable documented in this encounter Care Teams Seam Steamer Relationship Specialty Start Date End Date Justine Blake MD PCP - General 07/18/00 01/31/19 [address] [place] [address] documented as of this encounter
--- OUTSIDE RECORDS SUMMARY | 2022-05-18 05:28 | XMS_ITS | Encounter Summary ---
:1970 Author Organization [facility] Address [address] [place] [address] Care Team Providers Name Role Phone Justine Blake MD Primary Care Provider Reason for Visit Reason Comments MEDICATION CHECK MENOPAUSE, MENOPAUSAL, SYMPTOMS, NOS Encounter Details Date Type Department Care Team Description 08/11/2016 Office Visit [facility] Justine Blake tijerry depression (Primary Dx); Derrick Calderon MD Fibromyalgia; [address] [facility] [address] 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 documented as of this encounter Last Filed Vital Signs Vital Sign Reading Time Taken Comments Blood Pressure 109/66 08/11/2016 1:08 PM ENTRY LEVEL MACHINE OPERATOR Pulse 86 08/11/2016 1:08 PM ENTRY LEVEL MACHINE OPERATOR Temperature - - Respiratory Rate - - Oxygen Saturation - - Inhaled Oxygen Concentration - - Weight 98.7 kg (217 lb 9.6 oz) 08/11/2016 1:08 PM ENTRY LEVEL MACHINE OPERATOR Height 176.5 cm (5' 9.5) 08/11/2016 1:08 PM ENTRY LEVEL MACHINE OPERATOR Body Mass Index 31.67 08/11/2016 1:08 PM ENTRY LEVEL MACHINE OPERATOR documented in this encounter Progress Notes Justine Blake MD - 08/11/2016 2:23 PM CST Subjective: 38-year-old female with history of fibromyalgia comes in to discuss her medications. Allyson has been traveling from [place] to help with her mother's issues and then to [place] to help with her daughter who is [...] she saw a pain specialist on an [place]. Planning to go back to see him when she returns this summer. In the meantime, she is requesting a hydrocodone prescription. I explained to her that I was not comfortable using narcotics for chronic pain. However, I would be willing to cover her for a couple of months until she returns to [place]. She also uses Adderall for attention deficit/hyperactivity [...] health for counseling. Will call as needed. Y LEVEL MACHINE OPERATOR documented in this encounter Plan of Treatment Not on filedocumented as of this encounter Visit Diagnoses Diagnosis Reactive depression (HRC) - Primary Dysthymic disorder Fibromyalgia Mylagia and myositis, unspecified Sleep disturbance Sleep disturbance, unspecified documented in this encounter Care Teams Riveting Machine Operator Automatic Relationship Specialty Start Date End Date Justine Blake MD PCP - General 07/18/00 01/31/19 [address] [place] [address] documented as of this encounter
--- OUTSIDE RECORDS SUMMARY | 2022-05-18 05:28 | XMS_ITS | Encounter Summary ---
:1970 Author Organization [facility] Address [address] [place] [address] Care Team Providers Name Role Phone Justine Blake MD Primary Care Provider Reason for Visit Reason Comments External Hospital Follow-up suicidal ideation Patient Care Coordination Encounter Details Date Type Department Care Team Description 09/14/2016 Telephone [facility] Justine Blake, [facility] MD Follow-up (suicidal [address] [address] ideation); Patient Care [place], [place] [address] [place], [place] Coordination [phone] (Wo rk) Social History Tobacco Use Types Packs/Day Years Used Date Smoking Tobacco: Never Sex Assigned at Date Recorded Female 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 Suicideal ideation documented in this encounter Plan of Treatment Not on filedocumented as of this encounter Visit Diagnoses Not on filedocumented in this encounter Care Teams Stick Feeder Relationship Specialty Start Date End Date Justine Blake MD PCP - General 07/18/00 01/31/19 [address] [place] [address] documented as of this encounter
--- OUTSIDE RECORDS SUMMARY | 2022-05-18 05:28 | XMS_ITS | Encounter Summary ---
:1970 Author [facility] Address [address] [place] [address] Care Team Providers Name Role Phone Taylor Downing MD Primary Care Provider Reason for Referral Procedure/Equipment (Routine) - Closed Specialty Diagnoses / Procedures Referred By Contact Refer red To Contact Diagnoses Encounter for long-term (current) [place] [address] [place], [place] [address] Referral ID Status Reason Start Date Expiration Date Visits Requ ested Visits Authorized [id number] Closed 01/18/2017 04/19/2018 1 1 Scheduling Instructions Your provider has recommended that you s chedule a Lab Visit. A fire loss prevention engineer will contact you within the next 3 business days to a ssist you in setting up this appointment. If you have not been contacted please call your clinic to schedule your appointment. 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
--- OUTSIDE RECORDS SUMMARY | 2022-05-18 05:29 | XMS_ITS | Encounter Summary ---
:1970 Author Organization 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
--- OUTSIDE RECORDS SUMMARY | 2022-05-18 05:29 | XMS_ITS | Encounter Summary ---
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
--- OUTSIDE RECORDS SUMMARY | 2022-05-18 05:29 | XMS_ITS | Encounter Summary ---
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 I am talking with her today who has come in very angry and concerned about Yessica's drug use. He is angry that she received the narcotics from us along with the Valium from mental health. He is also very angry that he was not aware of any of her appts. with the counselor or the fact that she was undergoing counseling at all. I think he was primarily reacting to the situation. He was concerned about Yessica, concerned about his children. He is feeling angry and scared and because of this I think needed to ventilate. I talked with him for quite some time about Yessica's drug use. He was very concerned that we make sure that she is unable to get any narcotics through us again. I told him that I would relay that message to pharmacy and also the after hours care team. I have already notified pharmacy and it has been placed in the computer. Other than that, we primarily talked about her chemical dependency and how best to deal with things. He will cont. to f/u with Dr. Vieira, the psychiatrist taking care of Yessica in the hospital. Will get back with me as needed. cc: LE MOLDER HAND documented in this encounter Plan of Treatment Not on filedocumented as of this encounter Visit Diagnoses Not on filedocumented in this encounter Care Teams Component Engineer Relationship Specialty Start Date End Date Justine Blake MD PCP - General 05/18/1996 07/15/00 [address] [place] [address] documented as of this encounter
--- OUTSIDE RECORDS SUMMARY | 2022-05-18 05:29 | XMS_ITS | Encounter Summary ---
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
--- OUTSIDE RECORDS SUMMARY | 2022-05-18 05:29 | XMS_ITS | Encounter Summary ---
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 She could come in with her for the appointment and they could discuss issues and think about hospitalization at another time if things do not get better. She was able to contract for safety today. cc: Cammy Waller, RNC, BA NG INSTRUCTOR documented in this encounter Plan of Treatment Not on filedocumented as of this encounter Visit Diagnoses Not on filedocumented in this encounter Care Teams Sales Contract Administrator Relationship Specialty Start Date End Date Justine Blake MD PCP - General 05/18/1996 07/15/00 [address] [place] [address] documented as of this encounter
--- OUTSIDE RECORDS SUMMARY | 2022-05-18 05:29 | XMS_ITS | Encounter Summary ---
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
--- OUTSIDE RECORDS SUMMARY | 2022-05-18 05:29 | XMS_ITS | Encounter Summary ---
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
--- OUTSIDE RECORDS SUMMARY | 2022-05-18 05:29 | XMS_ITS | Encounter Summary ---
:1970 Author Organization [facility] Address [address] [place] [address] Care Team Providers Name Role Phone Justine Blake MD Primary Care Provider Encounter Details Date Type Department Care Team Description 01/03/1995 Office Visit Justine Blake MD Urinary tract infection, [address] [facility] [place] [address] (Wo rk) Social History Tobacco Use Types Packs/Day Years Used Date Smoking Tobacco: Never Assessed Sex Assigned at Date Recorded Female 06/28/2021 5:52 PM COMMUNITY SUPPORT PROFESSIONAL documented as of this encounter Plan of Treatment Not on filedocumented as of this encounter Visit Diagnoses Diagnosis Urinary tract infection, site not specif ied documented in this encounter Care Teams Systems Architecture Analyst Relationship Specialty Start Date End Date Justine Blake MD PCP - General 05/18/1996 07/15/00 [address] [facility] [place], [place] [id number] documented as of this encounter
--- OUTSIDE RECORDS SUMMARY | 2022-05-18 05:29 | XMS_ITS | Encounter Summary ---
:1970 Author Organization [facility] Address [address] [place] [address] Care Team Providers Name Role Phone Justine Blake MD Primary Care Provider Encounter Details Date Type Department Care Team Description 12/13/1994 Office Visit Deja Dumont MD Supervision of normal first ; [address] Migraine, unspecified, without mention o f intractable migraine without mention of status migrainosus MARIAM HERNÁNDEZ [address] (Wo rk) Social History Tobacco Use Types Packs/Day Years Used Date Smoking Tobacco: Never Assessed Sex Assigned at Date Recorded Female 06/28/2021 5:52 PM CLINICAL RESEARCH MANAGEMENT ASSOCIATE documented as of this encounter Plan of Treatment Not on filedocumented as of this encounter Visit Diagnoses Diagnosis Supervision of normal first Migraine, unspecified, without mention o f intractable migraine without mention of status migrainosus documented in this encounter Care Teams Tax Analyst Relationship Specialty Start Date End Date Justine Blake MD PCP - General 05/18/1996 07/15/00 [address] [place] [address] documented as of this encounter
--- OUTSIDE RECORDS SUMMARY | 2022-05-18 05:29 | XMS_ITS | Encounter Summary ---
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
--- OUTSIDE RECORDS SUMMARY | 2022-05-18 05:29 | XMS_ITS | Encounter Summary ---
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 She has had an MR scan at [...] follow up with her personal physician at [facility] and get some physical therapy ordered. Followup here will be on an as needed basis. She is instructed to follow up with her doctor at [facility] after this. [facility], 1928–1983:[id number] C: 12/14/04 18:18 DOCUMENT: [id number] documented in this encounter Plan of Treatment Not on filedocumented as of this encounter Visit Diagnoses Not on filedocumented in this encounter Care Teams Check Examiner Relationship Specialty Start Date End Date Justine Blake MD PCP - General 07/18/00 01/31/19 [address] [place] [address] documented as of this encounter
--- OUTSIDE RECORDS SUMMARY | 2022-05-18 05:29 | XMS_ITS | Encounter Summary ---
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
--- OUTSIDE RECORDS SUMMARY | 2022-05-18 05:29 | XMS_ITS | Encounter Summary ---
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
--- OUTSIDE RECORDS SUMMARY | 2022-05-18 05:29 | XMS_ITS | Encounter Summary ---
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
--- OUTSIDE RECORDS SUMMARY | 2022-05-18 05:29 | XMS_ITS | Encounter Summary ---
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
--- OUTSIDE RECORDS SUMMARY | 2022-05-18 05:29 | XMS_ITS | Encounter Summary ---
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
--- OUTSIDE RECORDS SUMMARY | 2022-05-18 05:29 | XMS_ITS | Encounter Summary ---
:1970 Author Organization [facility] Address [address] [place] [address] Care Team Providers Name Role Phone Justine Blake MD Primary Care Provider Encounter Details Date Type Department Care Team Description 07/27/2006 Office Visit [facility] re Russ Lopes [address] [place] [address] Social History Tobacco Use Types Packs/Day Years Used Date Smoking Tobacco: Never Assessed Sex Assigned at Date Recorded Female 06/28/2021 5:52 PM COMPLIANCE CONSULTANT documented as of this encounter Last Filed Vital Signs Vital Sign Reading Time Taken Comments Blood Pressure 135/81 07/27/2006 1:45 PM C: Dynamap COMPLIANCE CONSULTANT Pulse 74 07/27/2006 1:45 PM COMPLIANCE CONSULTANT Temperature 36.8 ??C (98.2 ??F) 07/27/2006 1:45 PM ORAL C: 3 6.8 C COMPLIANCE CONSULTANT Respiratory Rate 20 07/27/2006 1:45 PM COMPLIANCE CONSULTANT Oxygen Saturation 99% 07/27/2006 1:45 PM C: Oximeter Spot COMPLIANCE CONSULTANT Check(OSC) Inhaled Oxygen - - Concentration Weight - - Height - - Body Mass Index - - documented in this encounter Progress Notes Russ Lopes - 07/27/2006 12:01 AM CST Progress Notes signed by Russ Lopes MD at 07/29/06 0920 Author: Russ Lopes MD Service: (none) Author Type: (none) Filed: 09/25/10 1731 Note Time: 07/27/062021 Status: Signed Roof Foreman: Russ Lopes MD (Physician) NAME: YESSICA GARCIA MR#: [id number] ACCT: [id number] VISIT: [id number] DICTATING CLINICIAN: RUSS LOPES MD JOB: [id number] LOC: 520 CLINIC PROGRESS NOTE DATE OF [...] 4 hours as needed for pain. Recheck p.rPhyllisnPhyllis RFB:[id number] C: 07/28/06 12:51 DOCUMENT: [id number] LIANCE CONSULTANT documented in this encounter Plan of Treatment Not on filedocumented as of this encounter Visit Diagnoses Not on filedocumented in this encounter Care Teams Construction Field Engineer Relationship Specialty Start Date End Date Justine Blake MD PCP - General 07/18/00 01/31/19 [address] [place] [address] documented as of this encounter
--- OUTSIDE RECORDS SUMMARY | 2022-05-18 05:29 | XMS_ITS | Encounter Summary ---
:1970 Author Organization [facility] Address [address] [place] [address] Care Team Providers Name Role Phone Justine Blake MD Primary Care Provider Encounter Details Date Type Department Care Team Description 04/06/1995 Office Visit Justine Blake MD Depressive disorder, not elsewhere class ified; [address] 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
--- OUTSIDE RECORDS SUMMARY | 2022-05-18 05:29 | XMS_ITS | Encounter Summary ---
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 24 yr. old WF here for mental health concerns. She has a hx of depression and is approx. 8 wks. post at this time. She has been seen by Mental Health by Dr. sOhea in [facility] and has been placed on Zoloft. She [...] her and 2 kids and moving to [place] or [place]. She is not interested on going back [...] ified documented in this encounter Care Teams Fitness Teacher Relationship Specialty Start Date End Date Justine Blake MD PCP - General 05/18/1996 07/15/00 [address] [place] [address] documented as of this encounter
--- OUTSIDE RECORDS SUMMARY | 2022-05-18 05:29 | XMS_ITS | Encounter Summary ---
:1970 Author Organization [facility] Address [address] [place] [address] Care Team Providers Name Role Phone Justine Blake MD Primary Care Provider Encounter Details Date Type Department Care Team Description 12/20/1994 Office Visit Justine Blake MD Supervision of other normal [address] [facility] [address] (Wo rk) Social History Tobacco Use Types Packs/Day Years Used Date Smoking Tobacco: Never Assessed Sex Assigned at Date Recorded Female 06/28/2021 5:52 PM DENTAL LABORATORY TECHNICIAN documented as of this encounter Plan of Treatment Not on filedocumented as of this encounter Visit Diagnoses Diagnosis Supervision of other normal documented in this encounter Care Teams Terminal Operations Supervisor Relationship Specialty Start Date End Date Justine Blake MD PCP - General 05/18/1996 07/15/00 [address] [place] [address] documented as of this encounter
--- OUTSIDE RECORDS SUMMARY | 2022-05-18 05:29 | XMS_ITS | Encounter Summary ---
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
--- OUTSIDE RECORDS SUMMARY | 2022-05-18 05:29 | XMS_ITS | Encounter Summary ---
:1970 Author Organization [facility] Address [address] [place] [address] Care Team Providers Name Role Phone Justine Blake MD Primary Care Provider Encounter Details Date Type Department Care Team Description 05/03/2004 Office Visit [facility] [place] [address] [place] [address] [place] [address] (Wo rk) Social History Tobacco Use Types Packs/Day Years Used Date Smoking Tobacco: Never Assessed Sex Assigned at Date Recorded Female 06/28/2021 5:52 PM [facility] documented as of this encounter Progress Notes Nikko Brown MD - 05/03/2004 12:01 AM CST Progress Notes signed by Nikko Brown MD at 05/08/04 0755 Author: Nikko Brown MD Service: (none) Author Type: Physician Filed: 09/25/10 0131 Note Time: 05/03/04 0001 Status: Signed Lease Analyst: Nikko Brown MD (Physician) NAME: YESSICA GARCIA MR: [id number] ACCT: [id number] VISIT: [id number] DICTATING CLINICIAN: NIKKO BROWN MD JOB: [id number] CLINIC PROGRESS NOTE DATE OF VISIT: 05/03/2004 SUBJECTIVE: CHIEF COMPLAINT: Low back pain. Yessica is a 33-year-old woman who comes in for evaluation of low back pain. She mentions that she has had chronic back pain since her early 20s. So for the past 14 or 15 years, she has been bothered by back pain. She sees Dr. Novak at the [facility] and has been following with him [...] No urinary incontinence or stool incontinence. No CONCRETE POURER complaints. She does not have any problems [...] therapy in the past and massage therapy. [id number] C: 05/04/04 14:34 DOCUMENT: [id number] [facility] documented in this encounter Plan of Treatment Not on filedocumented as of this encounter Visit Diagnoses Not on filedocumented in this encounter Care Teams Formwork Carpenter Relationship Specialty Start Date End Date Justine Blake MD PCP - General 07/18/00 01/31/19 [address] [place] [address] documented as of this encounter
--- OUTSIDE RECORDS SUMMARY | 2022-05-18 05:29 | XMS_ITS | Encounter Summary ---
:1970 Author Organization [facility] Address [address] [place] [address] Care Team Providers Name Role Phone Justine Blake MD Primary Care Provider Encounter Details Date Type Department Care Team Description 04/27/1995 Office Visit [facility] Erik Pearson onic cyst of and Gynecology MD Sajan fallopian tub es and Physicians broad ligaments [address] [place], [place] [address] Social History Tobacco Use Types Packs/Day Years Used Date Smoking Tobacco: Never Assessed Sex Assigned at Date Recorded Female 06/28/2021 5:52 PM DRIVER GUARD documented as of this encounter Progress Notes Sajan Pearson MD - 04/27/1995 12:00 AM CSTS: Yessica presents for evaluation of a vaginal mass. She was seen last evening in Urgent Care and reported that she had uterine prolapse. She presents at this time for follow-up evaluation. It is significant that Yessica is approximately 8 weeks . 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 O: Inspection of the external genitalia demonstrate them to be unremarkable, BUS. wnl., with valsalva, there is protruding from the R lateral portion of the vagina a thin wall cystic area. A speculum introduced in the vaginal vault does demonstrate the uterine cervix to be well supported and well away from the vaginal introitus. This mass appears to be extending from the R lateral vaginal fornix down to the upper third of the vagina. With valsalva it does bulge to the introitus; there's laxness of the vaginal vault secondary to recent child . 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 Bimanual exam- the uterus is anterior and nl. size, adnexae unremarkable to palpation bilaterally. A: Dov's duct cyst, no evident uterine prolapse. We did explain the benign character of the Dov's duct cyst and its only rare need for any surgical intervention. We will do a baseline ultrasound to document its presence in its overall dimensions, will merely observe the symptomatology for the present time. P: As above. cc: ER GUARD documented in this encounter Plan of Treatment Not on filedocumented as of this encounter Visit Diagnoses Diagnosis Embryonic cyst of fallopian tubes and br oad ligaments documented in this encounter Care Teams Plating Tank Operator Relationship Specialty Start Date End Date Justine Blake MD PCP - General 05/18/1996 07/15/00 [address] [place] [address] documented as of this encounter
--- OUTSIDE RECORDS SUMMARY | 2022-05-18 05:29 | XMS_ITS | Encounter Summary ---
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
--- OUTSIDE RECORDS SUMMARY | 2022-05-18 05:29 | XMS_ITS | Encounter Summary ---
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 [id number] REFERRING PROVIDER: Dr. Pearson, [facility] INDICATION FOR ULTRASOUND: Dov's duct cyst. Utilizing [...] management as indicated. cc: Sajan Pearson MD DESK SUPERVISOR documented in this encounter Plan of Treatment Not on filedocumented as of this encounter Visit Diagnoses Diagnosis Abdominal or pelvic swelling, mass, or l ump Abdominal or pelvic swelling, mass or osman mp, unspecified site documented in this encounter Care Teams Shipping Checker Relationship Specialty Start Date End Date Justine Blake MD PCP - General 05/18/1996 07/15/00 [address] [place] [address] documented as of this encounter
--- OUTSIDE RECORDS SUMMARY | 2022-05-18 05:29 | XMS_ITS | Encounter Summary ---
:1970 Author Organization [facility] Address [address] [place] [address] Care Team Providers Name Role Phone Justine Blake MD Primary Care Provider Encounter Details Date Type Department Care Team Description 05/03/2004 PN Conversion Only [address] [address] [place] [address] Social History Tobacco Use Types Packs/Day Years Used Date Smoking Tobacco: Never Assessed Sex Assigned at Date Recorded Female 06/28/2021 5:52 PM PROPERTY MAINTENANCE SUPERVISOR documented as of this encounter Plan of Treatment Not on filedocumented as of this encounter Visit Diagnoses Not on filedocumented in this encounter Care Teams Polytechnic Teacher Relationship Specialty Start Date End Date Justine Blake MD PCP - General 07/18/00 01/31/19 [address] [place] [address] documented as of this encounter
--- OUTSIDE RECORDS SUMMARY | 2022-05-18 05:29 | XMS_ITS | Encounter Summary ---
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 EMPLOYER: [email or web address]. Ms. Garcia comes in for recheck of [...] to her regular job. 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 Given this, and after some discussion, I agreed to release her. FOLLOW-UP DATE: She will follow up here in 1 week. [employer]IMUM [employer] IMPROVEMENT: She is not yet at [employer]. PERMANENT PARTIAL DISABILITY RATING: Undetermined. [id number] C: 08/05/06 16:10 DOCUMENT: [id number] LINE SYSTEMS OPERATOR documented in this encounter Plan of Treatment Not on filedocumented as of this encounter Visit Diagnoses Not on filedocumented in this encounter Care Teams Golf Shoe Spike Assembler Relationship Specialty Start Date End Date Justine Blake MD PCP - General 07/18/00 01/31/19 [address] [place] [address] documented as of this encounter
--- OUTSIDE RECORDS SUMMARY | 2022-05-18 05:29 | XMS_ITS | Encounter Summary ---
:1970 Author Organization [facility] Address [address] [place] [address] Care Team Providers Name Role Phone Taylor Downing MD Primary Care Provider Encounter Details Date Type Department Care Team Description 01/03/1995 [place] [address] [place], [place] [phone] (Wo rk) Social History Tobacco Use Types Packs/Day Years Used Date Smoking Tobacco: Never Assessed Sex Assigned at Date Recorded Female 06/28/2021 5:52 PM MATCHER documented as of this encounter Plan of Treatment Not on filedocumented as of this encounter Visit Diagnoses Not on filedocumented in this encounter Care Teams Roof Service Technician Relationship Specialty Start Date End Date Taylor Downing MD PCP - General Family Practice 02/01/19 [address] [place], [place] [address] documented as of this encounter
--- OUTSIDE RECORDS SUMMARY | 2022-05-18 05:29 | XMS_ITS | Encounter Summary ---
:1970 Author Organization [facility] Address [address] [place] [address] Care Team Providers Name Role Phone Justine Blake MD Primary Care Provider Encounter Details Date Type Department Care Team Description 07/06/1995 Office Visit Justine Blake MD Other, mixed, or unspecified nondependen t drug abuse, unspecified; [address] Other acne; [place] [address] Abdominal pain, unspecified site; [phone] (Wo rk) Headache(784.0) Social History Tobacco Use Types Packs/Day Years Used Date Smoking Tobacco: Never Assessed Sex Assigned at Date Recorded Female 06/28/2021 5:52 PM SEAMLESS HOSIERY KNITTER documented as of this encounter Progress Notes [...] get back to me as needed. cc: LESS HOSIERY KNITTER documented in this encounter Plan of Treatment Not on filedocumented as of this encounter Visit Diagnoses Diagnosis Other, mixed, or unspecified nondependen t drug abuse, unspecified Other acne Abdominal pain, unspecified site Headache(784.0) Headache documented in this encounter Care Teams Test Borer Helper Relationship Specialty Start Date End Date Justine Blake MD PCP - General 05/18/1996 07/15/00 [address] [place] [address] documented as of this encounter
--- OUTSIDE RECORDS SUMMARY | 2022-05-18 05:29 | XMS_ITS | Encounter Summary ---
:1970 [address] 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 cc: ERSAL GRINDER OPERATOR documented in this encounter Plan of Treatment Not on filedocumented as of this encounter Visit Diagnoses Diagnosis Other general counseling and advice for contraceptive management documented in this encounter Care Teams Cable Armorer Relationship Specialty Start Date End Date Justine Blake MD PCP - General 05/18/1996 07/15/00 [address] [place] [address] documented as of this encounter
--- OUTSIDE RECORDS SUMMARY | 2022-05-18 05:29 | XMS_ITS | Encounter Summary ---
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
--- OUTSIDE RECORDS SUMMARY | 2022-05-18 05:29 | XMS_ITS | Encounter Summary ---
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
--- OUTSIDE RECORDS SUMMARY | 2022-05-18 05:29 | XMS_ITS | Encounter Summary ---
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
--- OUTSIDE RECORDS SUMMARY | 2022-05-18 05:29 | XMS_ITS | Encounter Summary ---
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 There was a mistake made; I thought she had 50 mg. tabs and therefore I thought I was increasing her from 50 to 100, but it turned out she had 100 mg. tabs, therefore she has been taking 200 mg. for 2 days now. She states that she's having a lot of anxiety, she has panic attacks which come out of the clear blue where she feels like she's nauseated and she wants to run out of the room. She feels closed in with a lot of pressure and fear of passing out/fear of dying. She's had these before in her life but this time they did not come until about the 8th month of her . She's also taking Inderal 40 mg. for migraine CARDOZO. States marriage is going well. She will be going back to work. She does admit she has some trouble leaving the home and it's very frightening for her to go out to the bank or to the store. In addition her sleep has been very low. She has difficulty falling asleep because she is afraid of dying. Reports that she's not drinking any alcohol because she has a hx. of binge drinking when she does drink. A: Pt. experiencing panic and anxiety currently, and taking Zoloft. P: She will decrease the Zoloft back down to [address] Oshea was able to come in today and evaluate her thoroughly, and he did write out a Rx. for Diazepam 5 mg. po q a.m. and 1 po q h.s. #50 and she is supposed to probably be off the Diazepam at the end of the month. RTC in 3-4 weeks. cc: Cammy Waller RN CCDP BA documented in this encounter Plan of Treatment Not on filedocumented as of this encounter Visit Diagnoses Not on filedocumented in this encounter Care Teams Talent Sourcing Specialist Relationship Specialty Start Date End Date Justine Blake MD PCP - General 05/18/1996 07/15/00 [address] [place] [address] documented as of this encounter
--- OUTSIDE RECORDS SUMMARY | 2022-05-18 05:29 | XMS_ITS | Encounter Summary ---
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
--- OUTSIDE RECORDS SUMMARY | 2022-05-18 05:29 | XMS_ITS | Encounter Summary ---
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 I have emphasized the importance of structured therapy. 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 See her back in about two weeks' time for recheck. The patient was discharged ambulatory and in stable condition. *SH~DNS~SOAP documented in this encounter Plan of Treatment Not on filedocumented as of this encounter Visit Diagnoses Not on filedocumented in this encounter Care Teams Corporate Travel Manager Relationship Specialty Start Date End Date Justine Blake MD PCP - General 07/18/00 01/31/19 [address] [place] [address] documented as of this encounter
--- OUTSIDE RECORDS SUMMARY | 2022-05-18 05:29 | XMS_ITS | Encounter Summary ---
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
--- OUTSIDE RECORDS SUMMARY | 2022-05-18 05:29 | XMS_ITS | Encounter Summary ---
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
--- OUTSIDE RECORDS SUMMARY | 2022-05-18 05:29 | XMS_ITS | Encounter Summary ---
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
--- OUTSIDE RECORDS SUMMARY | 2022-05-18 05:29 | XMS_ITS | Encounter Summary ---
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
--- OUTSIDE RECORDS SUMMARY | 2022-05-18 05:30 | XMS_ITS | Encounter Summary ---
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
--- OUTSIDE RECORDS SUMMARY | 2022-05-18 05:30 | XMS_ITS | Encounter Summary ---
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 P: 100 mg I.M. Demerol. cc: CAL LAB TECH INSTRUCTOR documented in this encounter Plan of Treatment Not on filedocumented as of this encounter Visit Diagnoses Diagnosis Headache(784.0) Headache documented in this encounter Care Teams Thread Clipper Relationship Specialty Start Date End Date Justine Blake MD PCP - General 05/18/1996 07/15/00 [address] [place] [address] documented as of this encounter
--- OUTSIDE RECORDS SUMMARY | 2022-05-18 05:30 | XMS_ITS | Encounter Summary ---
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
--- OUTSIDE RECORDS SUMMARY | 2022-05-18 05:30 | XMS_ITS | Encounter Summary ---
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
--- OUTSIDE RECORDS SUMMARY | 2022-05-18 05:30 | XMS_ITS | Encounter Summary ---
:1970 Author Organization [facility] Address [address] [place] [address] Care Team Providers Name Role Phone Justine Blake MD Primary Care Provider Encounter Details Date Type Department Care Team Description 07/28/1994 Office Visit Justine Blake MD Supervision of other normal [address] [place] [address] (Wo rk) Social History Tobacco Use Types Packs/Day Years Used Date Smoking Tobacco: Never Assessed Sex Assigned at Date Recorded Female 06/28/2021 5:52 PM BIOANALYST documented as of this encounter Progress Notes [...] complete P.E. Call if any problems. cc: NALYST documented in this encounter Plan of Treatment Not on filedocumented as of this encounter Visit Diagnoses Diagnosis Supervision of other normal documented in this encounter Care Teams Potato Pancake Frier Relationship Specialty Start Date End Date Justine Blake MD PCP - General 05/18/1996 07/15/00 [address] [place] [address] documented as of this encounter
--- OUTSIDE RECORDS SUMMARY | 2022-05-18 05:30 | XMS_ITS | Encounter Summary ---
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
--- OUTSIDE RECORDS SUMMARY | 2022-05-18 05:30 | XMS_ITS | Encounter Summary ---
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
--- OUTSIDE RECORDS SUMMARY | 2022-05-18 05:30 | XMS_ITS | Encounter Summary ---
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
--- OUTSIDE RECORDS SUMMARY | 2022-05-18 05:30 | XMS_ITS | Encounter Summary ---
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
--- OUTSIDE RECORDS SUMMARY | 2022-05-18 05:30 | XMS_ITS | Encounter Summary ---
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
--- OUTSIDE RECORDS SUMMARY | 2022-05-18 05:30 | XMS_ITS | Encounter Summary ---
:1970 Author Organization [facility] Address [address] [facility] [place] [address] Care Team Providers Name Role Phone Taylor Downing MD Primary Care Provider Encounter Details Date Type Department Care Team Description 08/15/1994 Orders Only Jared Stewart M D [address] [place], [place] [address] (Wo rk) Social History Tobacco Use Types Packs/Day Years Used Date Smoking Tobacco: Never Assessed Sex Assigned at Date Recorded Female 06/28/2021 5:52 PM DINKEY PRESS OPERATOR documented as of this encounter Plan of Treatment Not on filedocumented as of this encounter Visit Diagnoses Not on filedocumented in this encounter Care Teams Rate Engineer Relationship Specialty Start Date End Date Taylor Downing MD PCP - General Family Practice 02/01/19 [address] [place] [address] documented as of this encounter
--- OUTSIDE RECORDS SUMMARY | 2022-05-18 05:30 | XMS_ITS | Encounter Summary ---
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
--- OUTSIDE RECORDS SUMMARY | 2022-05-18 05:30 | XMS_ITS | Encounter Summary ---
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
--- OUTSIDE RECORDS SUMMARY | 2022-05-18 05:30 | XMS_ITS | Encounter Summary ---
:1970 Author Organization [facility] Address [address] [facility] [place] [address] Care Team Providers Name Role Phone Taylor Downing MD Primary Care Provider Encounter Details Date Type Department Care Team Description 08/13/1994 Orders Only Jared Stewart M D [address] [place], [place] [address] (Wo rk) Social History Tobacco Use Types Packs/Day Years Used Date Smoking Tobacco: Never Assessed Sex Assigned at Date Recorded Female 06/28/2021 5:52 PM FREIGHT TRAFFIC CONSULTANT documented as of this encounter Plan of Treatment Not on filedocumented as of this encounter Visit Diagnoses Not on filedocumented in this encounter Care Teams Meat Press Operator Relationship Specialty Start Date End Date Taylor Downing MD PCP - General Family Practice 02/01/19 [address] [place] [address] documented as of this encounter
--- OUTSIDE RECORDS SUMMARY | 2022-05-18 05:30 | XMS_ITS | Encounter Summary ---
:1970 Author Organization [facility] Address [address] [place] [address] Care Team Providers Name Role Phone Justine Blake MD Primary Care Provider Encounter Details Date Type Department Care Team Description 11/15/1994 Office Visit Justine Blake MD Supervision of other normal [address] 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
--- OUTSIDE RECORDS SUMMARY | 2022-05-18 05:30 | XMS_ITS | Encounter Summary ---
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
--- OUTSIDE RECORDS SUMMARY | 2022-05-18 05:30 | XMS_ITS | Encounter Summary ---
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
--- OUTSIDE RECORDS SUMMARY | 2022-05-18 05:30 | XMS_ITS | Encounter Summary ---
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
--- OUTSIDE RECORDS SUMMARY | 2022-05-18 05:30 | XMS_ITS | Encounter Summary ---
:1970 Author Organization [facility] Address [address] [place] [address] Care Team Providers Name Role Phone Taylor Downing MD Primary Care Provider Encounter Details Date Type Department Care Team Description 08/25/1994 [place] [address] [place], [place] [phone] (Wo rk) Social History Tobacco Use Types Packs/Day Years Used Date Smoking Tobacco: Never Assessed Sex Assigned at Date Recorded Female 06/28/2021 5:52 PM ERP PM documented as of this encounter Plan of Treatment Not on filedocumented as of this encounter Visit Diagnoses Not on filedocumented in this encounter Care Teams Boning Room Worker Relationship Specialty Start Date End Date Taylor Downing MD PCP - General Family Practice 02/01/19 [address] [place], [place] [id number] documented as of this encounter
--- OUTSIDE RECORDS SUMMARY | 2022-05-18 05:30 | XMS_ITS | Encounter Summary ---
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
--- OUTSIDE RECORDS SUMMARY | 2022-05-18 05:31 | XMS_ITS | Encounter Summary ---
:1970 Author [facility] Address [address] [place] [address] Care Team Providers Name Role Phone Justine Blake MD Primary Care Provider Encounter Details Date Type Department Care Team Description 09/10/1993 Office Visit Justine Blake MD Backache, unspecified; [address] [place] [address] (Wo rk) Social History Tobacco Use Types Packs/Day Years Used Date Smoking Tobacco: Never Assessed Sex Assigned at Date Recorded Female 06/28/2021 5:52 PM CIRCUS ROUSTABOUT documented as of this encounter Progress Notes [...] Mastodynia documented in this encounter Care Teams Celery Stripper Relationship Specialty Start Date End Date Justine Blake MD PCP - General 05/18/1996 07/15/00 [address] [place] [address] documented as of this encounter
--- OUTSIDE RECORDS SUMMARY | 2022-05-18 05:31 | XMS_ITS | Encounter Summary ---
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
--- OUTSIDE RECORDS SUMMARY | 2022-05-18 05:31 | XMS_ITS | Encounter Summary ---
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 She was seen in [facility] ER approximately a month ago for [...] migrainosus documented in this encounter Care Teams Bar Welder Relationship Specialty Start Date End Date Justine Blake MD PCP - General 05/18/1996 07/15/00 [address] [place] [address] documented as of this encounter
--- OUTSIDE RECORDS SUMMARY | 2022-05-18 05:31 | XMS_ITS | Encounter Summary ---
:1970 Author Organization [facility] Address [address] [place] [address] Care Team Providers Name Role Phone Justine Blake MD Primary Care Provider Encounter Details Date Type Department Care Team Description 04/26/1994 Office Visit Justine Blake MD Headache(784.0) [address] [place] [address] (Wo rk) Social History Tobacco Use Types Packs/Day Years Used Date Smoking Tobacco: Never Assessed Sex Assigned at Date Recorded Female 06/28/2021 5:52 PM TRAFFIC SAFETY ADMINISTRATOR documented as of this encounter Progress Notes Justine Blake MD - 04/26/1994 12:00 AM CSTS: In with recurrent migraine headaches. This is a typical headache for her. It is left sided, behind the eye and includes the whole left side of her head. She has been in fairly frequently in the past month or so with migraines. We had stopped her Inderal about 3 mos. ago because she and her are trying to get . For this reason, she is probably getting a lot of recurrent migraines. At any rate, she has had Imitrex in the past which seemed to help but she was uncomfortable with the way it made her feel. Because of her attempts at , we primarily are giving Demerol and Vistaril. O: She appears uncomfortable. She is lying down. Neurologically she appears intact. Preg test negative . A: Migraine. P: She is given 100 Demerol/ 50 Vistaril. She left the clinic immediately to go to her in-laws which are 2 miles away. Cautioned about driving and the potential sedation. She understands. Will f/u with me as needed. cc: FIC SAFETY ADMINISTRATOR documented in this encounter Plan of Treatment Not on filedocumented as of this encounter Visit Diagnoses Diagnosis Headache(784.0) Headache documented in this encounter Care Teams Embosser Operator Relationship Specialty Start Date End Date Justine Blake MD PCP - General 05/18/1996 07/15/00 [address] [place] [address] documented as of this encounter
--- OUTSIDE RECORDS SUMMARY | 2022-05-18 05:31 | XMS_ITS | Encounter Summary ---
:1970 Author Organization [facility] Address [address] [place] [address] Care Team Providers Name Role Phone Justine Blake MD Primary Care Provider Encounter Details Date Type Department Care Team Description 12/11/1993 Office Visit Justine Blake MD Enthesopathy of unspecified [address] [facility] [place] [address] (Wo rk) Social History Tobacco Use Types Packs/Day Years Used Date Smoking Tobacco: Never Assessed Sex Assigned at Date Recorded Female 06/28/2021 5:52 PM MOHEL documented as of this encounter Plan of Treatment Not on filedocumented as of this encounter Visit Diagnoses Diagnosis Enthesopathy of unspecified site documented in this encounter Care Teams Research Biostatistician Relationship Specialty Start Date End Date Justine Blake MD PCP - General 05/18/1996 07/15/00 [address] [place], [place] [id number] documented as of this encounter
--- OUTSIDE RECORDS SUMMARY | 2022-05-18 05:31 | XMS_ITS | Encounter Summary ---
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
--- OUTSIDE RECORDS SUMMARY | 2022-05-18 05:31 | XMS_ITS | Encounter Summary ---
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 Transcriptions Garrett Lyle - 11/30/1993 12:00 AM C DTORDERING PHYSICIAN CLINICAL DATA: INTERPRETATION: Normal. Castillo Correa MD cc: Radiology AV Justine Blake MD Physician Unknown PAPS documented in this encounter Visit Diagnoses Not on filedocumented in this encounter Care Teams Inspector Floor Relationship Specialty Start Date End Date Justine Blake MD PCP - General 07/18/00 01/31/19 [address] [place] [address] documented as of this encounter
--- OUTSIDE RECORDS SUMMARY | 2022-05-18 05:31 | XMS_ITS | Encounter Summary ---
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 cc: SETTER documented in this encounter Plan of Treatment Not on filedocumented as of this encounter Visit Diagnoses Diagnosis Headache(784.0) Headache documented in this encounter Care Teams Cosmetician Apprentice Relationship Specialty Start Date End Date Justine Blake MD PCP - General 05/18/1996 07/15/00 [address] [place] [address] documented as of this encounter
--- OUTSIDE RECORDS SUMMARY | 2022-05-18 05:31 | XMS_ITS | Encounter Summary ---
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 cc: MIXER documented in this encounter Plan of Treatment Not on filedocumented as of this encounter Visit Diagnoses Diagnosis Supervision of other normal Malaise and fatigue Other malaise and fatigue Lumbago documented in this encounter Care Teams Airfield Defence Guard Relationship Specialty Start Date End Date Justine Blake MD PCP - General 05/18/1996 07/15/00 [address] [place] [address] documented as of this encounter
--- OUTSIDE RECORDS SUMMARY | 2022-05-18 05:31 | XMS_ITS | Encounter Summary ---
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 about the . Preg. Test was Neg. U/A was Neg. [...] look for common bile duct stones. cc: ROOM ENGINEER documented in this encounter Plan of Treatment Not on filedocumented as of this encounter Visit Diagnoses Diagnosis Abdominal pain documented in this encounter Care Teams Calender Roll Operator Relationship Specialty Start Date End Date Justine Blake MD PCP - General 05/18/1996 07/15/00 [address] [place] [address] documented as of this encounter
--- OUTSIDE RECORDS SUMMARY | 2022-05-18 05:31 | XMS_ITS | Encounter Summary ---
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
--- OUTSIDE RECORDS SUMMARY | 2022-05-18 05:31 | XMS_ITS | Encounter Summary ---
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
--- OUTSIDE RECORDS SUMMARY | 2022-05-18 05:31 | XMS_ITS | Encounter Summary ---
:1970 Author Organization [facility] Address [address] [place] [address] Care Team Providers Name Role Phone Justine Blake MD Primary Care Provider Encounter Details Date Type Department Care Team Description 07/20/1993 Office Visit Justine Blake MD Headache(784.0) [address] [place] [address] (Wo rk) Social History Tobacco Use Types Packs/Day Years Used Date Smoking Tobacco: Never Assessed Sex Assigned at Date Recorded Female 06/28/2021 5:52 PM DIRECTOR OF CASEWORK documented as of this encounter Progress Notes [...] at home. Otherwise f/u as needed. cc: CTOR OF CASEWORK documented in this encounter Plan of Treatment Not on filedocumented as of this encounter Visit Diagnoses Diagnosis Headache(784.0) Headache documented in this encounter Care Teams Hatch Tender Relationship Specialty Start Date End Date Justine Blake MD PCP - General 05/18/1996 07/15/00 [address] [place] [address] documented as of this encounter
--- OUTSIDE RECORDS SUMMARY | 2022-05-18 05:31 | XMS_ITS | Encounter Summary ---
:1970 Author Organization [facility] Address [address] [place] [address] Care Team Providers Name Role Phone Justine Blake MD Primary Care Provider Encounter Details Date Type Department Care Team Description 04/26/1994 Office Visit Wes Wright MD Headache(784.0) [address] [place] [address] (Wo rk) Social History Tobacco Use Types Packs/Day Years Used Date Smoking Tobacco: Never Assessed Sex Assigned at Date Recorded Female 06/28/2021 5:52 PM INTERLACER documented as of this encounter Plan of Treatment Not on filedocumented as of this encounter Visit Diagnoses Diagnosis Headache(784.0) Headache documented in this encounter Care Teams Religious Activities Director Relationship Specialty Start Date End Date Justine Blake MD PCP - General 05/18/1996 07/15/00 [address] [place], [place] [address] documented as of this encounter
--- OUTSIDE RECORDS SUMMARY | 2022-05-18 05:31 | XMS_ITS | Encounter Summary ---
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
--- OUTSIDE RECORDS SUMMARY | 2022-05-18 05:31 | XMS_ITS | Encounter Summary ---
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 There is no evidence for spondylolysis or spondylolisthesis and no significant degenerative changes are noted. No fractures or destructive lesions are identified. CONCLUSION: Normal Lumbar Spine. Cuba Damon M.D. cc: Radiology AV Dafne Toro MD documented in this encounter Plan of Treatment Not on filedocumented as of this encounter Procedures Procedure Name Priority Date/Time Associated Diagnosis Comme nts RADEX SPI LUMBOSAC 09/02/1993 12:00 AM Re sults for this MINIMUM 4 VIEWS PAEDIATRIC SURGEON procedure ar e in the results section. documented in this encounter Results L-SPINE WITH OBLIQUES (09/02/1993 12:00 AM PAEDIATRIC SURGEON) Anatomical Region Laterality Modality Other Specimen (Source) Anatomical Location Collection Method / Collectio n Time Received Time / Laterality Volume 09/02/1993 Narrative 09/02/1993 12:00 AM PAEDIATRIC SURGEON Ordered by an unspecified provider. Transcriptions Cuba Damon MD - 09/02/1993 12:00 AM CSTORDERING PHYSICIAN CLINICAL DATA: INTERPRETATION: LUMBAR SPINE Five lumbar vertebral bodies demonstrate normal height and alignment with maintenance of intervertebral disc space s at all levels. There is no evidence for spondylolysis or spondylolisthesis a nd no significant degenerative changes are noted. No fractures or destructive l esions are identified. CONCLUSION: Normal Lumbar Spine. Cuba Damon M.D. cc: Radiology AV Dafne Toro MD Physician Unknown RAD_1 documented in this encounter Visit Diagnoses Not on filedocumented in this encounter Care Teams Intelligence Applications Relationship Specialty Start Date End Date Justine Blake MD PCP - General 07/18/00 01/31/19 [address] [place] [address] documented as of this encounter
--- OUTSIDE RECORDS SUMMARY | 2022-05-18 05:31 | XMS_ITS | Encounter Summary ---
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 Daniel Bhandari M.D. cc: Radiology Vasquez MD documented in this encounter Plan of Treatment Not on filedocumented as of this encounter Procedures Procedure Name Priority Date/Time Associated Diagnosis Comme nts UNLISTED DX RADIOGRAPHIC 01/22/1994 Res ults for this PROCEDURE procedure are i n the results section . documented in this encounter Results RADIOLOGIC STUDY (01/22/1994) Anatomical Region Laterality Modality Other Specimen (Source) Anatomical Location Collection Method / Collectio n Time Received Time / Laterality Volume Narrative 01/22/1994 Ordered by an unspecified provider. Transcriptions Daniel Bhandari C - 01/22/1994 12:00 AM CDTORDERING PHYSICIAN CLINICAL DATA: PAIN AT BASE OF THUMB INTERPRETATION: RIGHT HAND: Negative. Daniel Bhandari M.D. cc: Radiology Vasquez MD Physician Unknown PAPS documented in this encounter Visit Diagnoses Not on filedocumented in this encounter Care Teams Public Information Specialist Relationship Specialty Start Date End Date Justine Blake MD PCP - General 07/18/00 01/31/19 [address] [place] [address] documented as of this encounter
--- OUTSIDE RECORDS SUMMARY | 2022-05-18 05:31 | XMS_ITS | Encounter Summary ---
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
--- OUTSIDE RECORDS SUMMARY | 2022-05-18 05:32 | XMS_ITS | Encounter Summary ---
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 She took the last dose of that 3 days ago and now c/o itching around the vaginal area. It stings on the skin when she urinates. She has no previous history of yeast infection. O: She does have some mild irritation in the external vaginal area with scant cheesy white material. Wet prep was done and was positive for yeast. A: Candidal vaginitis, probably related to her recent antibiotic therapy. P: Monistat-7 or Gyne Lotrimin for one week. Recommended if symptoms do not resolve that she repeat the treatment for another week and if still symptomatic to RTC for a f/u appt. cc: OLOGICAL TECHNICIAN documented in this encounter Plan of Treatment Not on filedocumented as of this encounter Visit Diagnoses Diagnosis Vaginitis and vulvovaginitis, unspecifie d documented in this encounter Care Teams Oil Paint Shader Relationship Specialty Start Date End Date Justine Blake MD PCP - General 05/18/1996 07/15/00 [address] [place] [address] documented as of this encounter
--- OUTSIDE RECORDS SUMMARY | 2022-05-18 05:32 | XMS_ITS | Encounter Summary ---
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
--- OUTSIDE RECORDS SUMMARY | 2022-05-18 05:32 | XMS_ITS | Encounter Summary ---
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
--- OUTSIDE RECORDS SUMMARY | 2022-05-18 05:32 | XMS_ITS | Encounter Summary ---
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
--- OUTSIDE RECORDS SUMMARY | 2022-05-18 05:32 | XMS_ITS | Encounter Summary ---
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
--- OUTSIDE RECORDS SUMMARY | 2022-05-18 05:32 | XMS_ITS | Encounter Summary ---
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
--- OUTSIDE RECORDS SUMMARY | 2022-05-18 05:32 | XMS_ITS | Encounter Summary ---
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
--- OUTSIDE RECORDS SUMMARY | 2022-05-18 05:32 | XMS_ITS | Encounter Summary ---
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
--- OUTSIDE RECORDS SUMMARY | 2022-05-18 05:32 | XMS_ITS | Encounter Summary ---
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
[2022-05-18 05:44] VITALS: BP 144/89; PULSE 71; RESP 18; TEMP 37.2
[2022-05-18 06:01] LABS: PCR FLU A Negative PCR FLU A (Negative); PCR FLU B Negative PCR FLU B (Negative); PCR RSV Negative PCR RSV (Negative)
[2022-05-18 06:03] LABS: SARS PCR* Negative SARS-CoV-2 (Negative)
== END 2022-05-18 05:45 | disposition home or self-care (01) ==
PROVIDERS: Emergency Provider Internal Medicine; PCP Family Medicine
DX: F41.9 Anxiety disorder, unspecified (principal); R06.02 Shortness of breath; R11.0 Nausea
CPT/HCPCS: 87502; 87634; 87635; 99283

== ENCOUNTER 2022-11-16 00:09 | Emergency (ER) | payer MEDICARE, SELFPAY ==
[2022-11-16 00:21] VITALS: BP 175/77; PULSE 116; RESP 16; TEMP 36.3; O2SAT 96; BMI 38.7
--- NOTE | 2022-11-16 01:26 | ED_ITS ---
HPI - General Adult General Chief complaint: Unspecified Complaint, Adult Stated complaint: reaction to medication. Time Seen by Provider: 11/16/22 00:28 Source: patient Mode of arrival: ambulatory Limitations: no limitations History of Present Illness HPI narrative: 52-year-old female with multiple prior psychiatric diagnoses presents to the emergency department with a very meandering difficult to understand story. She reports that she started Suboxone for chronic pain last week, taking it for 4 days, discontinuing 2 days ago because she felt like it was making her ?feel off?. She says that for the last couple of days, she has noticed that her legs are a little more swollen than usual and that her face is breaking out. She says that her breathing can feel erratic but there is no shortness of breath, f radha or productive cough. She feels edgy and anxious and is making sure it is safe for her to go to sleep. It looks as though she comes into the ED at least a couple of times per year with odd, nondescript complaints. When I asked specifically what she is worried about, she tells me that she was reassured that her oxygen levels are normal in triage, she just wanted to make sure she is not having an allergic reaction. She denies neurological changes, dizziness, speech changes. She says she feels like her mentation is a little slow but that is an ongoing thing for her. I do review the notes and see that this is described in the past as well. She reports that she has been eating and drinking normally, voiding normally. She denies any falls, trauma or injury. She denies any other changes to her medication. She has not called her prescribing provider to further discuss the Suboxone. Review of the records shows that she has been prescribe Suboxone in the past according to previous ED notes. Past medical history is fairly extensive, history of personality disorder, opiate dependence, anxiety, obesity. She has very extensive allergies, history of gastric bypass surgery. The medications listed she reports are correct. She states that she has been taking these as normal with the exception of the Suboxone discontinuation. She denies use of other opiates instead. ROS is notable for the leg swelling and anxiety as described above, otherwise denies times 12 systems. Related Data Home Medications Medication Instructions Recorded Confirmed epinephrine 0.3 mg/0.3 mL 0.3 ml subcut ONCE PRN 03/29/22 05/18/22 injection, auto-injector ferrous gluconate 324 mg (38 mg 324 mg PO DAILY 03/29/22 05/18/22 iron) tablet lorazepam 1 mg tablet 1 mg PO BID 03/29/22 05/18/22 quetiapine 50 mg tablet 50 mg PO TID PRN 03/29/22 05/18/22 dextroamphetamine-amphetamine ER 25 mg PO DAILY 05/18/22 05/18/22 25 mg 24hr capsule,extend release gabapentin 800 mg tablet 800 mg PO DAILY 05/18/22 05/18/22 Allergies Allergy/AdvReac Type Severity Reaction Status Date / Time diphenhydramine Allergy Severe Agitation Verified 05/18/22 05:31 [From Benadryl] shellfish derived Allergy Severe Anaphylaxis Verified 05/18/22 05:31 Sulfa (Sulfonamide Allergy Severe Angioedema Verified 05/18/22 05:31 Antibiotics) venom-honey bee Allergy Severe Anaphylaxis Verified 05/18/22 05:31 erythromycin base Allergy Mild Hives Verified 05/18/22 05:31 Penicillins Allergy Mild Hives Verified 05/18/22 05:31 tetracycline Allergy Mild Hives Verified 05/18/22 05:31 ibuprofen [From Advil] AdvReac Severe Bariatric Verified 05/18/22 05:31 Surgery naproxen AdvReac Severe Bariatric Verified 05/18/22 05:31 Surgery cyclobenzaprine AdvReac Intermediate Psychosis Verified 05/18/22 05:31 duloxetine [From Cymbalta] AdvReac Intermediate Restless Verified 05/18/22 05:31 Legs escitalopram AdvReac Intermediate Behavioral Verified 05/18/22 05:31 Disturbances methocarbamol AdvReac Intermediate Tremors Verified 05/18/22 05:31 olanzapine [From Zyprexa] AdvReac Intermediate Restless Verified 05/18/22 05:31 Legs pregabalin [From Lyrica] AdvReac Intermediate Mental Verified 05/18/22 05:31 Status Changes prochlorperazine AdvReac Intermediate Behavior Verified 05/18/22 05:31 Disturbances risperidone AdvReac Intermediate Anxiety Verified 05/18/22 05:31 sumatriptan AdvReac Intermediate Tachycardia Verified 05/18/22 05:31 venlafaxine [From Effexor] AdvReac Intermediate Mental Verified 05/18/22 05:31 Status Changes PFSH PFS Medical History Insomnia ?G47.00 - Insomnia, unspecified (ICD-10) Anemia ?D64.9 - Anemia, unspecified (ICD-10) B12 deficiency ?E53.8 - Deficiency of other specified B group vitamins (ICD-10) Fibromyalgia ?M79.7 - Fibromyalgia (ICD-10) Stimulant abuse ?F15.10 - Other stimulant abuse, uncomplicated (ICD-10) Migraines ?G43.909 - Migraine, unspecified, not intractable, without status migrainosus (ICD-10) Chronic low back pain ?M54.50 - Low back pain, unspecified (ICD-10) ?G89.29 - Other chronic pain (ICD-10) Bipolar affective disorder ?F31.9 - Bipolar disorder, unspecified (ICD-10) OCD (obsessive compulsive disorder) ?F42.9 - Obsessive-compulsive disorder, unspecified (ICD-10) Sleep apnea ?G47.30 - Sleep apnea, unspecified (ICD-10) Obesity (BMI 30-39.9) ?E66.9 - Obesity, unspecified (ICD-10) Depression ?F32.A - Depression, unspecified (ICD-10) Personality disorder ?F60.9 - Personality disorder, unspecified (ICD-10) Multiple allergies ?Z88.9 - Allergy status to unspecified drugs, medicaments and biological substances (ICD-10) ADHD ?F90.9 - Attention-deficit hyperactivity disorder, unspecified type (ICD-10) Opioid dependence ?F11.20 - Opioid dependence, uncomplicated (ICD-10) Surgical History History of vaginal surgery ?Z98.890 - Other specified postprocedural states (ICD-10) H/O exploratory laparotomy ?Z98.890 - Other specified postprocedural states (ICD-10) H/O shoulder surgery ?Z98.890 - Other specified postprocedural states (ICD-10) H/O gastric bypass ?Z98.84 - Bariatric surgery status (ICD-10) Social History Narrative: lives alone, two adult children in the area. Spoke with son, Lizandro, who is close to his mother. 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 has been on disability for years; Used to work for the [employer] and then [employer] prior to disability claims for chronic pain Highest level of school completed/degree received: 12th grade, no diploma Smoking Status: Never smoker How often do you have a drink containing alcohol: never AUDIT-C Alcohol total score: 0 Non-prescribed substance use: denies use Non-prescribed substance use details: pt on suboxone Caffeine: No service: No Exam Const: Vital Signs, click to edit/add: Vital Signs - 24 hr 11/16/22 00:21 Temperature 97.4 F L Pulse Rate [Right Pulse Oximeter] 116 H Respiratory Rate 16 Blood Pressure [Ri ght Upper Arm] 175/77 H Pulse Oximetry 96 Oxygen Delivery Me thod Room Air Documenting provider has reviewed patient's vital signs: yes Common normals: no apparent distress and alert General appearance: cooperative Orientation/consciousness: Yes awake, Yes oriented to person, Yes oriented to place and Yes oriented to time Other: Mildly anxious, answers questions appropriately. Able to speak in full sentences with no difficulty. No signs of any falls or trauma. HENMT: Common normals: normocephalic and head/scalp atraumatic Head and scalp: normocephalic and atraumatic Face and sinus: normal facial exam Mouth: oral and palatal mucosa normal Throat: posterior oropharynx normal Other: Dentures present, they are not perfectly well adhered and she does have to adjust them as we talk and does affect her speech slightly. No obvious slurring or difficulty with word finding. Eye: Common normals: PERRL and EOMs intact bilaterally Pupil: PERRL Neck & C-Spine: Common normals: full ROM and no lymphadenopathy Resp: Common normals: normal respiratory effort, no use of accessory muscles and clear to auscultation bilaterally Effort & inspection: able to speak in complete sentences Auscultation: clear to auscultation bilaterally Cardio: Common normals: regular rate, regular rhythm, S1 normal heart sound, S2 normal heart sound and no murmurs Rate: regular rate Rhythm: regular rhythm Heart sounds: S1 normal and S2 normal Extremity: Other: Trace amount of dependent appearing edema but signs of some very mild chronic venous insufficiency, dry skin changes. No pitting edema. Neuro: Sensorium/orientation: awake, alert, oriented to person, oriented to place and oriented to time Gait (neuro): normal gait Motor exam: strength 5/5 throughout Psych: Activity/motor behavior: appropriate eye contact Other: Mildly anxious with fair insight and judgment. No signs of psychosis. Skin: Common normals: no rashes or lesions noted General skin exam: no rashes or lesions noted Course Course Hospital Course: Counseled patient that her exam is very reassuring. I do not see any signs of severe allergic reaction. I think she is suffering from anxiety and I do not think that there is any significant reaction to the Suboxone. Because of the very long half life, it would still be in her system. She may be experiencing symptoms of opiate withdrawal which would be making the anxiety worse. This is not something we would treat in the emergency department and it is not life- threatening. She should further discuss her symptoms with her primary care provider and or Suboxone provider but we do not detect any emergent concerns in the ED tonight. She is comfortable discharging home and all questions were answered. Vital Signs Vital signs: Initial Vital Signs Temperature 97.4 F L 11/16/22 00:21 Temperature Source Temporal Artery Scan 11/16/22 00:21 Pulse Rate 116 H 11/16/22 00:21 Respiratory Rate 16 11/16/22 00:21 Blood Pressure 175/77 H 11/16/22 00:21 Blood Pressure Mean 109 H 11/16/22 00:21 Blood Pressure Position Sitting 11/16/22 00:21 Pulse Oximetry 96 11/16/22 00:21 Oxygen Delivery Method Room Air 11/16/22 00:21 Vital Signs Temperature 97.4 F L 11/16/22 00:21 Pulse Rate 116 H 11/16/22 00:21 Respiratory Rate 16 11/16/22 00:21 Blood Pressure 175/77 H 11/16/22 00:21 Pulse Oximetry 96 11/16/22 00:21 Oxygen Delivery Method Room Air 11/16/22 00:21 Temperature 97.4 F L 11/16/22 00:21 Pulse Rate 116 H 11/16/22 00:21 Respiratory Rate 16 11/16/22 00:21 Blood Pressure 175/77 H 11/16/22 00:21 Pulse Oximetry 96 11/16/22 00:21 Oxygen Delivery Method Room Air 11/16/22 00:21 Discharge Plan Discharge Clinical Impression: No problem, feared complaint unfounded, Anxiety Patient Disposition: Home, Self-Care Condition: Stable Additional Instructions: As we discussed, there are no signs of dangerous allergic reaction going on. You may be having increased anxiety from the Suboxone. As we discussed this has a very long half life, which means that it stays in your system for several days. Stopping it 2 days ago would not clear it out of your system by today. The swelling in your legs is chronic, this is not related to the medication. There is no breakout on your skin that appears related to an allergic reaction. There are no signs of airway compromise, low oxygen, difficulty breathing, any emergent findings. We agreed that doing blood work in the setting of all of these normal findings is not likely to be helpful. You should discuss these ongoing issues with her primary care doctor, but there are no findings that would warrant further workup in an emergency department in the middle of the night. Continue taking your mood medications as prescribed. You may resume all typical activities. Activity Level: No Restrictions Discharge Diet: Regular Prescriptions: No Action dextroamphetamine-amphetamine 25 mg capsule,extended release 24hr 25 mg PO DAILY Patient Comments: TAKE 1 CAPSULE BY MOUTH EVERY DAY IN THE MORNING gabapentin 800 mg tablet 800 mg PO DAILY lorazepam 1 mg tablet 1 mg PO BID Patient Comments: TAKE 1 TABLET BY MOUTH TWICE DAILY NEEDED epinephrine 0.3 mg/0.3 mL auto-injector 0.3 ml subcut ONCE PRN Patient Comments: INJECT 0.3 ML INTRAMUSCULARLY ONCE FOR 1 DOSE quetiapine 50 mg tablet 50 mg PO TID PRN Patient Comments: TAKE 1 TABLET BY MOUTH THREE TIMES DAILY NEEDED ferrous gluconate 324 mg (38 mg iron) tablet 324 mg PO DAILY Hold Instructions: unclear Follow Up/Referrals: Taylor Downing MD [Primary Care Provider] - Stand Alone Forms: [employer] Info Instructions
== END 2022-11-16 00:53 | disposition home or self-care (01) ==
LOC: ED 00:47
PROVIDERS: Emergency Provider Family Medicine; PCP Family Medicine
DX: F41.9 Anxiety disorder, unspecified (principal); Z71.1 Person with feared health complaint in whom no diagnosis is made
CPT/HCPCS: 99282

== ENCOUNTER 2022-11-21 15:20 | Emergency (ER) | payer MEDICARE, SELFPAY ==
[2022-11-21 15:25] VITALS: BP 162/95; PULSE 123; RESP 22; TEMP 36.7; O2SAT 94
--- NOTE | 2022-11-21 15:30 | ED_ITS ---
HPI - General Adult General Time Seen by Provider: 15:43 Date Seen: 11/21/22 Chief complaint: Edema Stated complaint: Swelling in legs, weakness Time Seen by Provider: 11/21/22 15:23 Source: patient History of Present Illness HPI narrative: Patient is a 52-year-old female who has been recently started on Suboxone, she has history of opioid dependence, and multiple mental health issues, reports that she has had increasing swelling in her legs a general feeling of weakness, no shortness of breath of significance or chest pain. She had noticed some redness of both legs as well around her ankles. She has had a history of cellulitis in her neck region, has a history of depression, personality disorder, ADHD, OCD, gastric bypass. She has significant reaction with encephalopathy by chart report to 2019 no coronavirus. Patient has anxiety as well. She does report no rigors or chills. She has not had any heart failure cardiac issues by her report. Related Data Home Medications Medication Instructions Recorded Confirmed epinephrine 0.3 mg/0.3 mL 0.3 ml subcut ONCE PRN 03/29/22 11/21/22 injection, auto-injector ferrous gluconate 324 mg (38 mg 324 mg PO DAILY 03/29/22 11/21/22 iron) tablet lorazepam 1 mg tablet 1 mg PO BID 03/29/22 11/21/22 quetiapine 50 mg tablet 50 mg PO TID PRN 03/29/22 11/21/22 dextroamphetamine-amphetamine ER 25 mg PO DAILY 05/18/22 11/21/22 25 mg 24hr capsule,extend release gabapentin 800 mg tablet 800 mg PO DAILY 05/18/22 11/21/22 buprenorphine 8 mg-naloxone 2 mg 5 mg sublingual BID 11/21/22 11/21/22 sublingual film Previous Rx's Medication Instructions Recorded cephalexin 500 mg tablet 500 mg PO TID #21 tabs 11/21/22 furosemide 40 mg tablet (Lasix) 40 mg PO QAM #3 tabs 11/21/22 Allergies Allergy/AdvReac Type Severity Reaction Status Date / Time diphenhydramine Allergy Severe Agitation Verified 11/21/22 16:17 [From Benadryl] shellfish derived Allergy Severe Anaphylaxis Verified 11/21/22 16:17 Sulfa (Sulfonamide Allergy Severe Angioedema Verified 11/21/22 16:17 Antibiotics) venom-honey bee Allergy Severe Anaphylaxis Verified 11/21/22 16:17 erythromycin base Allergy Mild Hives Verified 11/21/22 16:17 Penicillins Allergy Mild Hives Verified 11/21/22 16:17 tetracycline Allergy Mild Hives Verified 11/21/22 16:17 ibuprofen [From Advil] AdvReac Severe Bariatric Verified 11/21/22 16:17 Surgery naproxen AdvReac Severe Bariatric Verified 11/21/22 16:17 Surgery cyclobenzaprine AdvReac Intermediate Psychosis Verified 11/21/22 16:17 duloxetine [From Cymbalta] AdvReac Intermediate Restless Verified 11/21/22 16:17 Legs escitalopram AdvReac Intermediate Behavioral Verified 11/21/22 16:17 Disturbances methocarbamol AdvReac Intermediate Tremors Verified 11/21/22 16:17 olanzapine [From Zyprexa] AdvReac Intermediate Restless Verified 11/21/22 16:17 Legs pregabalin [From Lyrica] AdvReac Intermediate Mental Verified 11/21/22 16:17 Status Changes prochlorperazine AdvReac Intermediate Behavior Verified 11/21/22 16:17 Disturbances risperidone AdvReac Intermediate Anxiety Verified 11/21/22 16:17 sumatriptan AdvReac Intermediate Tachycardia Verified 11/21/22 16:17 venlafaxine [From Effexor] AdvReac Intermediate Mental Verified 11/21/22 16:17 Status Changes Review of Systems Status of ROS: Reports: 10 or more systems reviewed and unremarkable except as noted in History and below [facility] Medical History Insomnia ?G47.00 - Insomnia, unspecified (ICD-10) Anemia ?D64.9 - Anemia, unspecified (ICD-10) B12 deficiency ?E53.8 - Deficiency of other specified B group vitamins (ICD-10) Fibromyalgia ?M79.7 - Fibromyalgia (ICD-10) Stimulant abuse ?F15.10 - Other stimulant abuse, uncomplicated (ICD-10) Migraines ?G43.909 - Migraine, unspecified, not intractable, without status migrainosus (ICD-10) Chronic low back pain ?M54.50 - Low back pain, unspecified (ICD-10) ?G89.29 - Other chronic pain (ICD-10) Bipolar affective disorder ?F31.9 - Bipolar disorder, unspecified (ICD-10) OCD (obsessive compulsive disorder) ?F42.9 - Obsessive-compulsive disorder, unspecified (ICD-10) Sleep apnea ?G47.30 - Sleep apnea, unspecified (ICD-10) Obesity (BMI 30-39.9) ?E66.9 - Obesity, unspecified (ICD-10) Depression ?F32.A - Depression, unspecified (ICD-10) Personality disorder ?F60.9 - Personality disorder, unspecified (ICD-10) Multiple allergies ?Z88.9 - Allergy status to unspecified drugs, medicaments and biological substances (ICD-10) ADHD ?F90.9 - Attention-deficit hyperactivity disorder, unspecified type (ICD-10) Opioid dependence ?F11.20 - Opioid dependence, uncomplicated (ICD-10) Surgical History History of vaginal surgery ?Z98.890 - Other specified postprocedural states (ICD-10) H/O exploratory laparotomy ?Z98.890 - Other specified postprocedural states (ICD-10) H/O shoulder surgery ?Z98.890 - Other specified postprocedural states (ICD-10) H/O gastric bypass ?Z98.84 - Bariatric surgery status (ICD-10) Social History Narrative: lives alone, two adult children in the area. Spoke with son, Lizandro, who is close to his mother. 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 has been on disability for years; Used to work for the [employer] and then [employer] prior to disability claims for chronic pain Highest level of school completed/degree received: 12th grade, no diploma Smoking Status: Never smoker Do you use any of these nicotine containing products: None Second hand tobacco smoke exposure: No How often do you have a drink containing alcohol: never AUDIT-C Alcohol total score: 0 Non-prescribed substance use: denies use Non-prescribed substance use details: pt on suboxone Caffeine: No service: No Exam Narrative: Exam Narrative: Objective: Patient's blood pressure is elevated 160/95 pulse is elevated 123, patient is afebrile, O2 sat is 94% on room air HEENT patient is in no apparent distress, breathing normally, no facial asymmetry, neck is supple Chest is clear no rales or wheezing Heart rate and rhythm regular 2/6 systolic murmur tachycardic Abdomen obese benign patient does complain of some increased abdominal girth. No tenderness or peritonitis Lower extremities show redness around the ankles bilateral consistent with cellulitis, she does have trace to 1+ edema of the pretibial area and 1+ of the ankle and foot bilaterally. She has a small open wound on the left foot. That appears to be more like a blister. Const: Vital Signs, click to edit/add: Vital Signs - 24 hr 11/21/22 15:25 Temperature 98.1 F Pulse Rate [Right Pulse Oximeter] 123 H Respiratory Rate 22 Blood Pressure [Ri ght Upper Arm] 162/95 H Pulse Oximetry 94 Oxygen Delivery Me thod Room Air Course Vital Signs Vital signs: Initial Vital Signs Temperature 98.1 F 11/21/22 15:25 Temperature Source Temporal Artery Scan 11/21/22 15:25 Pulse Rate 123 H 11/21/22 15:25 Pulse Rhythm Regular 11/21/22 15:25 Pulse Strength 3+ Normal 11/21/22 15:25 Respiratory Rate 22 11/21/22 15:25 Blood Pressure 162/95 H 11/21/22 15:25 Blood Pressure Mean 117 H 11/21/22 15:25 Blood Pressure Position Sitting 11/21/22 15:25 Pulse Oximetry 94 11/21/22 15:25 Oxygen Delivery Method Room Air 11/21/22 15:25 Vital Signs Temperature 98.1 F 11/21/22 15:25 Pulse Rate 123 H 11/21/22 15:25 Respiratory Rate 22 11/21/22 15:25 Blood Pressure 162/95 H 11/21/22 15:25 Pulse Oximetry 94 11/21/22 15:25 Oxygen Delivery Method Room Air 11/21/22 15:25 Temperature 98.1 F 11/21/22 15:25 Pulse Rate 123 H 11/21/22 15:25 Respiratory Rate 22 11/21/22 15:25 Blood Pressure 162/95 H 11/21/22 15:25 Pulse Oximetry 94 11/21/22 15:25 Oxygen Delivery Method Room Air 11/21/22 15:25 Medical Decision Making MDM Narrative Medical decision making narrative: 52-year-old white female with history of opioid dependence, multiple mental health issues, gastric bypass history, presents with bilateral lower extremity swelling some weakness. Patient has what appears to be cellulitis of her legs I think would be joy to Doppler her legs however, because of her increased complaint of abdominal girth and distention I think a CT scan of her chest and abdomen be appropriate to to rule out ascites, rule out PE. Also she is tachycardic at 1:23 a.m. and I think assessment with troponin and total cardiac monitoring be appropriate as well. Disposition pending findings above. addendum 5:[address]'s [address] scan of the chest shows no PE in her other abnormality, the patient's abdominal CT shows a 3.7 cm left ovarian cyst stable since October of 2022 < 09/25/2020 but radiology suggested a ultrasound to follow-up and the patient was notified of this and will agree to proceed with this through her regular doctor. Patient's lab studies look reassuring, her proBNP is negative, she was given IV Ancef and Lasix. I would recommend she continue Keflex for the next week and Lasix 40 mg daily for 3 days. She does seem to have some lower extremity swelling and edema. She is to elevate her legs, and then I would recommend recheck within the next week with her regular doctor. Regular physician should order an ultrasound of her pelvis, reassess her volume status, and cellulitis. Lab Data Labs: Lab Results 11/21/22 11/21/22 11/21/22 Range/Units 15:39 15:55 16:15 WBC 8.16 (4.50-11.00) K/uL RBC 4.17 (4.00-5.20) m/uL Hgb 11.3 L (12.0-16.0) gm/dL Hct 36.0 (33.0-51.0) % MCV 86 (80-100) fL MCH 27 (26-34) pg MCHC 31 L (32-36) gm/dL RDW Coeff of Yessi 14.8 (11.5-15.5) % Plt Count 332 (140-440) K/uL Neut % (Auto) 70.5 (42.0-72.0) % Lymph % (Auto) 22.5 (20-44) % Brule % (Auto) 3.3 (0.0-11.0) % Eos % (Auto) 3.2 (0.0-7.0) % Baso % (Auto) 0.4 (0.0-3.0) % Neut # (Auto) 5.75 (1.7-7.0) K/uL Lymph # (Auto) 1.84 (0.90-2.90) K/uL Brule # (Auto) 0.30 (0.00-0.90) K/UL Eos # (Auto) 0.26 (0.00-0.50) K/uL Baso # (Auto) 0.03 (0.00-0.30) K/uL Sodium 130 L (135-149) mmol/L Potassium 3.3 L (3.6-5.1) mmol/L Chloride 96 (96-114) mmol/L Carbon Dioxide 26 (20-32) mmol/L BUN 11 (7-30) mg/dL Creatinine 0.6 (0.5-1.5) mg/dL Estimated GFR 107 ml/min Glucose 183 H (60-115) mg/dL Calcium 9.2 (8.4-10.6) mg/dL Total Bilirubin 0.4 (0.1-1.5) mg/dL Direct Bilirubin 0.0 (0.0-0.5) mg/dL AST 31 (12-35) U/L ALT 34 (4-35) U/L Alkaline Phosphatase 127 (40-150) U/L C-Reactive Protein 2.0 H (0.5-1.0) mg/dL NT-Pro-B Natriuret Pep 296 pg/mL Total Protein 6.9 (6.0-8.3) g/dL Albumin 3.8 (3.3-5.0) g/dL Urine Color Light yellow (Yellow) Urine Appearance Clear (Clear) Urine pH 5.5 (5.0-8.5) Ur Specific [place] 1.015 (1.000-1.030) Urine Protein Negative (Negative) Urine Glucose (UA) Trace A (Negative) Urine Ketones Negative (Negative) Urine Blood Negative (Negative) Urine Nitrite Negative (Negative) Urine Bilirubin Negative (Negative) Urine Urobilinogen 0.2 (0.2-1.0) Ur Leukocyte Esterase Negative (Negative) Urine RBC 0-2 (0-2) Urine WBC 0-2 (0-5) Ur Squamous Epith Cells None (None-Few) Urine Bacteria None (None) POC Troponin I 0.00 L (0.01-0.04) ng/ml Discharge Plan Discharge Clinical Impression: Bilateral edema of lower extremity, Abdominal distension, Cellulitis Patient Disposition: Home, Self-Care Condition: Stable Additional Instructions: Elevate legs, low-salt diet, Lasix 40 mg daily for 3 days, Keflex 500 3 times a day x7 days. Recommend recheck with regular doctor in the next week, would recommend a follow-up ultrasound of your pelvis because she of a left ovarian cyst and should be checked by ultrasound. Return to the ER as needed. Activity Level: Light activity Discharge Diet: Heart Healthy (2 gm sodium, low fat) Prescriptions: New cephalexin 500 mg tablet 500 mg PO TID Qty: 21 0RF furosemide [Lasix] 40 mg tablet 40 mg PO QAM Qty: 3 2RF No Action dextroamphetamine-amphetamine 25 mg capsule,extended release 24hr 25 mg PO DAILY Patient Comments: TAKE 1 CAPSULE BY MOUTH EVERY DAY IN THE MORNING gabapentin 800 mg tablet 800 mg PO DAILY buprenorphine-naloxone 8-2 mg film 5 mg sublingual BID lorazepam 1 mg tablet 1 mg PO BID Patient Comments: TAKE 1 TABLET BY MOUTH TWICE DAILY NEEDED epinephrine 0.3 mg/0.3 mL auto-injector 0.3 ml subcut ONCE PRN Patient Comments: INJECT 0.3 ML INTRAMUSCULARLY ONCE FOR 1 DOSE quetiapine 50 mg tablet 50 mg PO TID PRN Patient Comments: TAKE 1 TABLET BY MOUTH THREE TIMES DAILY NEEDED ferrous gluconate 324 mg (38 mg iron) tablet 324 mg PO DAILY Hold Instructions: unclear Follow Up/Referrals: Taylor Downing MD [Primary Care Provider] - Stand Alone Forms: [employer] Info Instructions
--- NOTE | 2022-11-21 15:38 | CRLHL7_ITS ---
For Patients: As a result of the Century Cures Act, medical imaging exams and procedure reports are released immediately into your electronic medical record. You may view this report before your referring provider. If you have questions, please contact your health care provider. INDICATION: Fluid retention; abdominal pain. COMPARISON: CT abdomen and pelvis September 21, 2020 and oct 14 2022. TECHNIQUE: CT abdomen and pelvis with intravenous contrast; coronal and sagittal reformats. FINDINGS: No abnormal intra pulmonary nodular densities through the lung bases. No evidence of pleural effusion. Diffuse fatty infiltration of the liver. No focal hepatic or splenic pathology. No pancreatic pathology. No adrenal pathology. No kidney stones or obstructive uropathy. No retroperitoneal lymphadenopathy. No evidence of abdominal or pelvic ascites. Diverticulosis sigmoid colon without any CT evidence of diverticulitis or abscess. Normal appendix. A 3.7 cm left ovarian cyst; was measuring 4.4 cm in September 2020 and 2.7 cm in October 2022; suggest obtaining a trans abdominal and transvaginal pelvic ultrasound for further assessment. Impression: Cause for the patient`s clinical x symptomatology is narrowed evident on the CT study. 1. Status post gastric bypass surgery and cholecystectomy. 2. Fatty infiltration of the liver. 3. A 3.7 cm cyst left ovary; stable since October 2022; smaller when compared to September 25, 2020; suggest obtaining a transabdominal and transvaginal pelvic ultrasound for further assessment. Please note that all CT scans at this facility use dose modulation, iterative reconstruction, and/or weight-based dosing when appropriate to reduce radiation dose to as low as reasonably achievable. Dictated by Zuly Jackson MD @ 11/21/2022 5:04:57 PM (Electronically Signed)
--- NOTE | 2022-11-21 15:38 | CRLHL7_ITS ---
For Patients: As a result of the Century Cures Act, medical imaging exams and procedure reports are released immediately into your electronic medical record. You may view this report before your referring provider. If you have questions, please contact your health care provider. INDICATION: Fluid retention and leg swelling. Evaluate for pulmonary embolism. TECHNIQUE: CT chest pulmonary angiogram acquired with IV contrast. 95 mL IV Isovue 370. COMPARISON: Chest CT 06/26/2019. FINDINGS: Mild cardiac enlargement. No pericardial effusion. Normal caliber main pulmonary artery and thoracic aorta. There is no evidence of acute pulmonary embolism. No thoracic lymphadenopathy. In the upper abdomen there are postsurgical changes of gastric bypass. No acute osseous abnormality or suspicious osseous lesion. Mild atelectasis in the left lung base. No suspicious pulmonary nodule or mass. No consolidation, pleural effusion or pneumothorax. IMPRESSION: No acute pulmonary embolism or other acute abnormality in the chest. Please note that all CT scans at this facility use dose modulation, iterative reconstruction, and/or weight-based dosing when appropriate to reduce radiation dose to as low as reasonably achievable. Dictated by Lacy Teixeira MD @ 11/21/2022 5:06:08 PM (Electronically Signed)
--- NOTE | 2022-11-21 15:41 | CRLHL7_ITS ---
For Patients: As a result of the Century Cures Act, medical imaging exams and procedure reports are released immediately into your electronic medical record. You may view this report before your referring provider. If you have questions, please contact your health care provider. INDICATION: Bilateral lower extremity edema TECHNIQUE: A compression venous ultrasound exam was performed of both lower extremities using shay scale imaging, color Doppler and spectral Doppler analysis. FINDINGS: Sonographic imaging of the lower extremities demonstrates normal compressibility and color Doppler venous blood flow within the common femoral, deep femoral, and proximal greater saphenous veins. Within the thighs the femoral veins are patent and compressible. At a lower level the popliteal and posterior tibial veins also show normal compressibility and color Doppler venous blood flow. IMPRESSION: Normal venous ultrasound exam. No evidence of deep vein thrombosis within either the left or right lower extremity. Dictated by Zuly Jackson MD @ 11/21/2022 5:39:41 PM (Electronically Signed)
[2022-11-21] MEDS: FUROSEMIDE 10 MG/ML inj 40 MG IV (16:06)
[2022-11-21 16:08] LABS: Basophils Absolute Auto 0.03 K/uL (0.00-0.30); Basophils Percent Auto 0.4 % (0.0-3.0); Eosinophils Absolute Auto 0.26 K/uL (0.00-0.50); Eosinophils Percent Auto 3.2 % (0.0-7.0); Hemoglobin* 11.3 gm/dL (12.0-16.0); Immature Granulocytes Abs Auto 0.01 K/uL (0.00-0.30); Immature Granulocytes Pct Auto 0.1 %; Lymphocytes Absolute Auto 1.84 K/uL (0.90-2.90); Lymphocytes Percent Auto 22.5 % (20-44); Mean Corpuscular HGB Conc 31 gm/dL (32-36); Mean Corpuscular Hemoglobin 27 pg (26-34); Mean Corpuscular Volume 86 fL (80-100); Monocytes Percent Auto 3.3 % (0.0-11.0); Neutrophils Absolute Auto 5.75 K/uL (1.7-7.0); Neutrophils Percent Auto 70.5 % (42.0-72.0); Platelet Count* 332 K/uL (140-440); RDW Coefficient of Variation % 14.8 % (11.5-15.5); Red Blood Count 4.17 m/uL (4.00-5.20); White Blood Count* 8.16 K/uL (4.50-11.00)
[2022-11-21 16:12] LABS: Slide Review Reflex No
[2022-11-21 16:19] LABS: Albumin* 3.8 g/dL (3.3-5.0); Chloride* 96 mmol/L (96-114); Sodium* 130 mmol/L (135-149)
[2022-11-21 16:20] LABS: Potassium* 3.3 mmol/L (3.6-5.1)
[2022-11-21 16:22] LABS: Creatinine* 0.6 mg/dL (0.5-1.5); Estimated Glomerular Filt Rate 107 ml/min
[2022-11-21 16:23] LABS: Alanine Aminotransferase* 34 U/L (4-35); Alkaline Phosphatase* 127 U/L (40-150); Aspartate Amino Transferase* 31 U/L (12-35); Bilirubin Total* 0.4 mg/dL (0.1-1.5); Blood Urea Nitrogen* 11 mg/dL (7-30); Calcium* 9.2 mg/dL (8.4-10.6); Carbon Dioxide* 26 mmol/L (20-32); Glucose* 183 mg/dL (60-115); Total Protein* 6.9 g/dL (6.0-8.3)
[2022-11-21 16:24] LABS: Appearance Urine Clear (Clear); Bilirubin Urine Negative (Negative); Blood Urine Negative (Negative); Color Urine Light yellow (Yellow); Glucose Urine Trace (Negative); Ketones Urine Negative (Negative); Leukocyte Esterase Urine Negative (Negative); Nitrite Urine Negative (Negative); Protein Urine Negative (Negative); Specific Gravity Urine 1.015 (1.000-1.030); Urobilinogen Urine 0.2 (0.2-1.0); pH Urine 5.5 (5.0-8.5)
[2022-11-21 16:34] LABS: NT Pro B Type NatriureticPept* 296 pg/mL
[2022-11-21 16:35] LABS: RBC Urine 0-2 (0-2); WBC Urine 0-2 (0-5)
[2022-11-21] MEDS: CEFAZOLIN 2 GM INJ IVP (16:45)
[2022-11-21 17:25] VITALS: BP 137/89; PULSE 100; RESP 18; O2SAT 95
== END 2022-11-21 17:35 | disposition home or self-care (01) ==
PROVIDERS: Emergency Provider Family Medicine; PCP Family Medicine
DX: R14.0 Abdominal distension (gaseous) (principal); L03.116 Cellulitis of left lower limb; L03.115 Cellulitis of right lower limb; R60.9 Edema, unspecified
CPT/HCPCS: 36415; 71260; 74176; 80048; 80076; 81001; 83880; 84484; 85025; 86140; 87086; 93005; 93970; 96374; 96375; 99284; 99285; J0690; J1940; Q9967

== ENCOUNTER 2023-03-07 03:36 | Emergency (ER) | payer MEDICARE, SELFPAY ==
[2023-03-07 03:43] VITALS: BP 179/110; PULSE 105; RESP 16; RESP 18; TEMP 36.7; O2SAT 99; BMI 37.3
--- NOTE | 2023-03-07 03:44 | ED.GENADULT ---
HPI - General Adult General Chief complaint: Unspecified Complaint, Adult Stated complaint: Rectal pain and bleeding. Time Seen by Provider: 03/07/23 03:43 History of Present Illness HPI narrative: CC: Anal Pain pt. with h/o anal fissure. pain has been getting worse since Tuesday . denies n/v, fevers, diarrhea. 52-year-old woman presenting to emergency department with concern of bright red blood per rectum but more specifically she describes pain. Pain is really the issue that is bringing her to the emergency department. she has extensive kit of medications that look to be to treat painful anal fissure. This is not been able to get to settle down tonight. Three days ago had some diarrhea that seems to have set this off. History of gastric bypass and irritable gut. She believes that a lot of it is just related to stress. Taking care of 2 grandkids. No longer taking opiates. Related Data Home Medications Medication Instructions Recorded Confirmed epinephrine 0.3 mg/0.3 mL 0.3 ml subcut ONCE PRN 03/29/22 03/07/23 injection, auto-injector ferrous gluconate 324 mg (38 mg 324 mg PO DAILY 03/29/22 03/07/23 iron) tablet lorazepam 1 mg tablet 1 mg PO BID 03/29/22 03/07/23 quetiapine 50 mg tablet 50 mg PO TID PRN 03/29/22 03/07/23 dextroamphetamine-amphetamine ER 25 mg PO DAILY 05/18/22 03/07/23 25 mg 24hr capsule,extend release gabapentin 800 mg tablet 800 mg PO DAILY 05/18/22 03/07/23 buprenorphine 8 mg-naloxone 2 mg 5 mg sublingual BID 11/21/22 03/07/23 sublingual film dextroamphetamine-amphetamine 12.5 12.5 mg PO DAILY 03/07/23 03/07/23 mg tablet lurasidone 20 mg tablet 20 mg PO DAILY 03/07/23 03/07/23 Previous Rx's Medication Instructions Recorded furosemide 40 mg tablet (Lasix) 40 mg PO QAM #3 tabs 11/21/22 Allergies Allergy/AdvReac Type Severity Reaction Status Date / Time diphenhydramine Allergy Severe Agitation Verified 11/21/22 16:17 [From Benadryl] shellfish derived Allergy Severe Anaphylaxis Verified 11/21/22 16:17 Sulfa (Sulfonamide Allergy Severe Angioedema Verified 11/21/22 16:17 Antibiotics) venom-honey bee Allergy Severe Anaphylaxis Verified 11/21/22 16:17 erythromycin base Allergy Mild Hives Verified 11/21/22 16:17 Penicillins Allergy Mild Hives Verified 11/21/22 16:17 tetracycline Allergy Mild Hives Verified 11/21/22 16:17 ibuprofen [From Advil] AdvReac Severe Bariatric Verified 11/21/22 16:17 Surgery naproxen AdvReac Severe Bariatric Verified 11/21/22 16:17 Surgery cyclobenzaprine AdvReac Intermediate Psychosis Verified 11/21/22 16:17 duloxetine [From Cymbalta] AdvReac Intermediate Restless Verified 11/21/22 16:17 Legs escitalopram AdvReac Intermediate Behavioral Verified 11/21/22 16:17 Disturbances methocarbamol AdvReac Intermediate Tremors Verified 11/21/22 16:17 olanzapine [From Zyprexa] AdvReac Intermediate Restless Verified 11/21/22 16:17 Legs pregabalin [From Lyrica] AdvReac Intermediate Mental Verified 11/21/22 16:17 Status Changes prochlorperazine AdvReac Intermediate Behavior Verified 11/21/22 16:17 Disturbances risperidone AdvReac Intermediate Anxiety Verified 11/21/22 16:17 sumatriptan AdvReac Intermediate Tachycardia Verified 11/21/22 16:17 venlafaxine [From Effexor] AdvReac Intermediate Mental Verified 11/21/22 16:17 Status Changes Review of Systems Status of ROS: Reports: 6 or more systems reviewed and unremarkable except as noted in History and below [facility] Medical History Insomnia ?G47.00 - Insomnia, unspecified (ICD-10) Anemia ?D64.9 - Anemia, unspecified (ICD-10) B12 deficiency ?E53.8 - Deficiency of other specified B group vitamins (ICD-10) Fibromyalgia ?M79.7 - Fibromyalgia (ICD-10) Stimulant abuse ?F15.10 - Other stimulant abuse, uncomplicated (ICD-10) Migraines ?G43.909 - Migraine, unspecified, not intractable, without status migrainosus (ICD-10) Chronic low back pain ?M54.50 - Low back pain, unspecified (ICD-10) ?G89.29 - Other chronic pain (ICD-10) Bipolar affective disorder ?F31.9 - Bipolar disorder, unspecified (ICD-10) OCD (obsessive compulsive disorder) ?F42.9 - Obsessive-compulsive disorder, unspecified (ICD-10) Sleep apnea ?G47.30 - Sleep apnea, unspecified (ICD-10) Obesity (BMI 30-39.9) ?E66.9 - Obesity, unspecified (ICD-10) Depression ?F32.A - Depression, unspecified (ICD-10) Personality disorder ?F60.9 - Personality disorder, unspecified (ICD-10) Multiple allergies ?Z88.9 - Allergy status to unspecified drugs, medicaments and biological substances (ICD-10) ADHD ?F90.9 - Attention-deficit hyperactivity disorder, unspecified type (ICD-10) Opioid dependence ?F11.20 - Opioid dependence, uncomplicated (ICD-10) Surgical History History of vaginal surgery ?Z98.890 - Other specified postprocedural states (ICD-10) H/O exploratory laparotomy ?Z98.890 - Other specified postprocedural states (ICD-10) H/O shoulder surgery ?Z98.890 - Other specified postprocedural states (ICD-10) H/O gastric bypass ?Z98.84 - Bariatric surgery status (ICD-10) Social History Narrative: lives alone, two adult children in the area. Spoke with son, Lizandro, who is close to his mother. 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 has been on disability for years; Used to work for the [employer] and then [employer] prior to disability claims for chronic pain Highest level of school completed/degree received: 12th grade, no diploma Smoking Status: Never smoker Do you use any of these nicotine containing products: None Second hand tobacco smoke exposure: No How often do you have a drink containing alcohol: never How often do you have six or more drinks on one occasion: Never AUDIT-C Alcohol total score: 0 Non-prescribed substance use: denies use Non-prescribed substance use details: pt on suboxone Caffeine: No service: No Exam Narrative: Exam Narrative: Clearly uncomfortable particularly with transitions. A little tremulous. Breathing easily though. Three small clots consistent with hemorrhoids at the 9 o'clock position along with 8th inch defect in perianal tissue consistent with anal fissure at the 12 o'clock position. The noted small hemorrhoids are not particularly inflamed or tense but do appear to be the site of pain. I do not see any active bleeding at this time. Due to discomfort though I did not place anoscope. Const: Vital Signs, click to edit/add: Vital Signs - 24 hr 03/07/23 03:43 03/07/23 03:43 Temperature 98.0 F Pulse Rate [Right Pulse Oximeter] 105 H Respiratory Rate 18 Respiratory Rate [ Rectum] 16 Blood Pressure [Ri ght Upper Arm] 179/110 H Pulse Oximetry 99 Oxygen Delivery Me thod Room Air Documenting provider has reviewed patient's vital signs: yes Course Vital Signs Vital signs: Initial Vital Signs Temperature 98.0 F 03/07/23 03:43 Temperature Source Temporal Artery Scan 03/07/23 03:43 Pulse Rate 105 H 03/07/23 03:43 Respiratory Rate 18 03/07/23 03:43 Blood Pressure 179/110 H 03/07/23 03:43 Blood Pressure Mean 133 H 03/07/23 03:43 Blood Pressure Position Sitting 03/07/23 03:43 Pulse Oximetry 99 03/07/23 03:43 Oxygen Delivery Method Room Air 03/07/23 03:43 Vital Signs Temperature 98.0 F 03/07/23 03:43 Pulse Rate 105 H 03/07/23 03:43 Respiratory Rate 18 03/07/23 03:43 Blood Pressure 179/110 H 03/07/23 03:43 Pulse Oximetry 99 03/07/23 03:43 Oxygen Delivery Method Room Air 03/07/23 03:43 Temperature 98.2 F 03/07/23 05:35 Pulse Rate 99 03/07/23 05:35 Respiratory Rate 18 03/07/23 05:35 Blood Pressure 165/89 H 03/07/23 05:35 Pulse Oximetry 99 03/07/23 04:21 Oxygen Delivery Method Room Air 03/07/23 04:21 Medical Decision Making MDM Narrative Medical decision making narrative: Hemorrhoids are not particularly thrombosed but I think this is the area of new pain. Without larger thrombosed, indurated tissue I do not think I would like to excise these as I think will only contribute to more pain in this circumstance going forward. I do not think that the formally described anal fissure is the source of this pain tonight. Discussed pain management options. I think there is some inability to relax at this point. It is possible that with full, albeit temporary, relief of pain will result in ability to relax and longer-term improvement. I injected left-sided perianal tissue with total of 6 mL of combination of Marcaine and lidocaine with epinephrine resulting in very good relief of pain. See patient discharge plan Discharge Plan Discharge Clinical Impression: Hemorrhoids, Anal pain, Anal fissure Patient Disposition: Home, Self-Care Condition: Improved Additional Instructions: Stay well-hydrated. Adjust your stool consistency to where you know it needs to be. Can use lidocaine, hydrocortisone creams. Sitz baths. Witch roslyn might also be helpful. If these seem to have gotten much bigger, tense, red it might be helpful to excise them; that did not appear to be the case today. Prescriptions: No Action dextroamphetamine-amphetamine 25 mg capsule,extended release 24hr 25 mg PO DAILY Patient Comments: TAKE 1 CAPSULE BY MOUTH EVERY DAY IN THE MORNING gabapentin 800 mg tablet 800 mg PO DAILY buprenorphine-naloxone 8-2 mg film 5 mg sublingual BID furosemide [Lasix] 40 mg tablet 40 mg PO QAM Qty: 3 2RF lorazepam 1 mg tablet 1 mg PO BID Patient Comments: TAKE 1 TABLET BY MOUTH TWICE DAILY NEEDED epinephrine 0.3 mg/0.3 mL auto-injector 0.3 ml subcut ONCE PRN Patient Comments: INJECT 0.3 ML INTRAMUSCULARLY ONCE FOR 1 DOSE quetiapine 50 mg tablet 50 mg PO TID PRN Patient Comments: TAKE 1 TABLET BY MOUTH THREE TIMES DAILY NEEDED ferrous gluconate 324 mg (38 mg iron) tablet 324 mg PO DAILY Hold Instructions: unclear dextroamphetamine-amphetamine 12.5 mg tablet 12.5 mg PO DAILY lurasidone 20 mg tablet 20 mg PO DAILY Follow Up/Referrals: Taylor Downing MD [Referring] - Stand Alone Forms: [facility] Info Instructions
[2023-03-07] MEDS: BUPIVACAINE 0.25% 30 ML INJECTION (03:56)
--- OUTSIDE RECORDS SUMMARY | 2023-03-07 03:59 | XMS_ITS | Continuity of Care Document ---
Author Name Unknown Organization [facility] Cli yane Address [address] [place] [phone] Phone Care Team Providers Care Gis Technician Name Role Phone Will MD BUSTILLO, Jeferson Unavailable Unavailabl e Advance Directives Directive Yes / No Effective Date File Name No Information Encounters Encounter Description Practice Location Reason(s) For Visit Diagnoses Date Provider Providers Copied on Encounter [facility], [address] [place] [address], [id number], [place] tel:[phone] [facility] No Information Will Jeferson. [address] [place], [place], [id number], [place]. tel:[phone] Family History Family Member Type Diagnosis Age At Onset No Information Payers Payer name Insurance type Covered constitution party ID Authoriza tion(s) No Information Social History Type Description Quantity Date Captured Comments Sex Female Smoking Status No Information Chief Complaint And Reason For Visit No Information Reason For Referral Reason For Referral No Information History Of Present Illness Encounter Date Complaint History Of Prese nt Illness No Information Functional Status Date Functional Assessmen t No Information Instructions Date Instruction Additional Infor mation No Information Assessments Type Assessment Date No Information Patient Care Teams Name Effective Dates (start - stop) Status Members No Information
--- OUTSIDE RECORDS SUMMARY | 2023-03-07 03:59 | XMS_ITS | Continuity of Care Document ---
Author Name Unknown Organization [facility] Address [address] [address] [place] [address] Phone Care Team Providers Care Senior Design Engineer Name Role Phone Johnnie Oakley MD, Vito Unavailable Unavailabl e Allergies, Adverse Reactions, Alerts Substance Reaction Status Criticality ESCITALOPRAM OXALATE chest pains, confus ion, bruising Active No Information naproxen extreme stomach/inte stinal upset Active No Information PROCHLORPERAZINE MALEATE psychotic reaction Active No Information PROCHLORPERAZINE EDISYLATE psychotic reaction Active No Information trimethoprim throat closes, hives, swelling Active No Information sulfamethoxazole throat closes, hives, swelling Active No Information Sulfa (Sulfonamide Antibiotics) throat closes, hives, swelling Active No Information Sulfa (Sulfonamide Antibiotics) Hives Active No Information tetracycline Hives Active No Information erythromycin base Hives Active No Informa tion Penicillins Hives Active No Information Medications Medication Instructions Dosage Effective Dates (start - stop) Status Comments Zoloft 100 mg Tab take 1 tablet (100MG ) by ORAL route every day 100 MG - Active ferrous fumarate 324 mg (106 mg iron) Tab take 1 tablet (325MG) by oral route 2 times every day 325 MG - Active Vitamin D 5,000 unit Tab take 1 by Oral route every week 1.00 - Active Seroquel 100 mg Tab take 1 tablet (100MG ) by ORAL route every bedtime 100 MG - Active omeprazole 20 mg Cap, Delayed Release Take 1 capsule twice a day, a half-hour prior to breakfast and dinner. - Active Procedures Procedure Date Ugi Endo; W/bx /mx Level Iv-surg Path Gross/micro 11 Ugi Endo; Dx W/wo Collec Specm 11 Init Inpt Cons New/est Mod-hi 0 Ugi Endo; W/bx /mx Advance Directives Directive Yes / No Effective Date File Name No Information Encounters Encounter Description Practice Location Reason(s) For Visit Diagnoses Date Provider Providers Copied on Encounter [facility], [address] [address], [place], [place], [id number], [place] tel:[phone] [facility] No Information 2 Johnnie Padron. [address] [place] [address], [address], [id number], [place]. tel:[phone] [facility], [address] [address], [place], [place], [id number], [place] tel:[phone] [facility] Post-op Aftercare NecIron Deficiency AnemiaGastric /antral Ulcer UnspecBariatr ic Surgery Status 1 Erin Sarabia. [address], [id number], [place]. tel:[phone] Referring Provider: Bandar Dalton, [id number] [place] [address], [address]. tel:[phone] [facility], [address] [address], [place], [place], [id number], [place] tel:[phone] [facility] Esop Ulcer W/o BleedGastric/ antral Ulcer UnspecBariatr ic Surgery Status 1 Erin Sarabia. [facility] [address], [id number], [place]. tel:[phone] Referring Provider: Bandar Dalton, [address] [place], [address]. tel:[phone] Init Inpt Cons New/est Mod-hi [facility], [address] [address], [place], [place], [id number], [place] tel:[phone] [facility] No Information 0 No Information Family History Family Member Type Diagnosis Age At Onset No Information Payers Payer name Insurance type Covered democrat ID Authoriza tion(s) No Information Social History Type Description Quantity Date Captured Comments Alcohol Use Details Unknown Caffeine Use Details Unknown Tobacco Use Status No Information Smoking Status No Information Sex Female Chief Complaint And Reason For Visit No [...]
[2023-03-07 04:21] VITALS: BP 165/89; PULSE 99; RESP 18; TEMP 36.8; O2SAT 99
[2023-03-07 05:35] VITALS: BP 165/89; PULSE 99; RESP 18; TEMP 36.8
== END 2023-03-07 04:20 | disposition home or self-care (01) ==
PROVIDERS: Emergency Provider Family Medicine; PCP Internal Medicine Gastroenterology
DX: K64.9 Unspecified hemorrhoids (principal); K60.2 Anal fissure, unspecified; K62.89 Other specified diseases of anus and rectum
CPT/HCPCS: 96372; 99284; J0665

== ENCOUNTER 2024-05-15 16:29 | Emergency (ER) | payer MEDICARE, SELFPAY ==
[2024-05-15 16:45] VITALS: BP 136/76; PULSE 87; RESP 16; TEMP 36.6; O2SAT 96; BMI 34.4
--- OUTSIDE RECORDS SUMMARY | 2024-05-15 18:38 | XMS_ITS | Encounter Summary ---
Author Organization [facility] Address [address] [place] [address] Care Team Providers Care Stone Finisher Name Role Phone Winnie Morrow Primary Care Provider [phone] Tamra Valle APRN [facility] Unavailable [phone] Tamra Valle APRN [facility] Unavailable [phone] Reason for Visit * Reason Onset Date Comments MH/CD Inpatient 05/12/2017 Encounter Details Date Type Department Care Team ([facility] Contact Info) Description 05/12/2017 Telephone [facility] Behavioral Health Intake [address] [place] [id number] Generic, Behavioral Intake, MH/CD Inpatient Social History Tobacco Use Types Packs/Day Years Used Date Smoking Tobacco: Former Smokeless Tobacco: Former Comments:Quit in 2008 Alcohol Use Standard Drinks/Week Comments No 0 (1 standard drink = 0.6 oz pur e alcohol) Comments No Sex and Gender Information Value Date Recorded Sex Assigned at Not on file Legal Sex Female 3:20 AM ANGLESMITH Gender Identity Not on file Sexual Orientation Not on file documented as of this encounter Miscellaneous Notes * Telephone Encounter - Rey Diamond - 05/13/2017 9:10 AM ANGLESMITH B - Pt. Can contract for safety on Unit and will notify staff if having any urges of self harm Per Cesar GAYTAN w/ [facility] , U tox neg , Affect in ED is cooperative and calm and help seeking A - VOL R - admit to [facility] / Dr. Gama paged at 8:59AM / Dr. Gama accepting for Dr. Ortiz / ISIAH Lewis RN Jessy 10.02AM / [facility] ED LUCILA Guerrero notified 10:04AM ESMITH * Telephone Encounter - Catarina Kirk - 05/12/2017 10:34 PM CST S: Tricia Truong from [facility] called with report; requesting admit on pt due to SI with a plan to overdose on medications B: hx dx of depression; pt has history of a previous admission to [facility] for mental health in September of this year; pt reports history of a previous suicide attempt by cutting wrists; pt admitsto taking approx 14 pills (per senior architect/design manager, dosage unknown) of her mother's vicodin prescription todaybecause she wanted to feel better; senior architect/design manager states she is unsure if PC was contacted regarding ingestion of the vicodin; pt reports increasing SI along with increased depressive symptoms for the past week; she currently endorses a plan to overdose on medications; pt also admits to recent isolative behaviors and feelings of hopelessness; pt has history of substance use, and admits to taking mother's Vicodin pills today A: per caller, pt has been medically cleared through [facility] ED; caller states she is unsure if PC was contacted while pt was in ED regarding her ingestion of Vicodin earlier today; voluntary/cooperative-pt agrees to sign self in; utox needs to be collected R: adult mental health at [facility] is at capacity at this time; pt added to wait list for placement, and will remain in ED until an appropriate bed is available; Tricia Truong in [facility] notified that pt has been placed on wait list at this time ESMITH documented in this encounter Plan of Treatment Not on file documented as of this encounter Visit Diagnoses Not on filedocumented in this encounter Care Teams Stone Finisher Relationship Specialty Start Date End Date Winnie Morrow PCP - General Physician Corporate Learning Consultant 05/12/17 Tamra Valle APRN CNP [address] [place] [address] PCP - Assigned PCP 03/12/18 08/08/18 Tamra Valle APRN [facility] [address] [place] [address] Assigned PCP 03/12/18 02/28/21 documented as of this encounter
--- OUTSIDE RECORDS SUMMARY | 2024-05-15 18:38 | XMS_ITS | Clinical Summary ---
Author Organization [facility] Address [address] [place] [address] Care Team Providers Care Information Services Vice President Name Role Phone MorrowWinnie lebron Primary Care Provider [phone] Allergies Active Allergy Reactions Criticality Noted Date Comments Bee Venom Anaphylaxis High 06/28/2023 Bees Hives Medium 11/17/2010 Diphenhydramine 05/12/2017 aggravation Cephalosporins 06/28/2023 agitation Duloxetine Hcl 06/28/2023 Restless legs/feet Venlafaxine 06/28/2023 Mental status change Erythromycin Hives 11/17/2010 Escitalopram 11/17/2010 Behavioral distrubance Iodine-131 11/17/2010 Pregabalin Other (See Comments) 01/27/2014 Severe mood disturbance, worsened feelings of sadness/depression Methocarbamol Other (See Comments) 05/13/2017 Tremors Naproxen GI Disturbance 11/17/2010 Nsaids GI Disturbance 11/17/2010 Penicillins Hives 11/17/2010 Prochlorperazine 11/17/2010 Behavioral distrubances Risperidone 06/28/2023 Anxiety, also stuttering Shellfish-Derived Products Anaphylaxis High 06/28/2023 Sulfa Antibiotics Hives 11/17/2010 Sumatriptan 11/17/2010 tachycardia Tetracycline Hives 11/17/2010 Acetaminophen Itching,Rash Low 06/28/2023 Olanzapine 06/28/2023 Restless legs/feet Medications * This document contains information received from the source organization and may not represent a complete record from that organization. dibucaine (NUPERCAINAL) 1 % external ointment 4 times daily as needed for hemorrhoids Active diltiazem 2% 2% OINT ointment Apply topically 4 times daily as needed Active EPINEPHrine (ANY BX GENERIC EQUIV) 0.3 MG/0.3ML injection 2-pack Inject 0.3 mg into the muscle as needed for anaphylaxis May repeat one time in 5-15 minutes if response to initial dose is inadequate. Active lidocaine 5% ointment + bacitracin zinc 500 units/g ointment Apply 30 g topically once Active HYDROcodone-kena taminophen (NORCO) 5-325 MG tabletIndicatio ns:Anal fissure Take 1 tablet by mouth every 6 hours as needed for moderate to severe pain 15 tablet 4 Active Active Problems Problem Noted Date Diagnosed Date Depression 05/13/2017 Suicide attempt 09/11/2016 CARDIOVASCULAR SCREENING; LDL GOAL LESS THAN 160 11/17/2010 Anxiety DVT (deep venous thrombosis) Overview (12/13/2010): UE OCD (obsessive compulsive disorder) Sleep apnea Gastric ulcer Overview (03/07/2015): Problem list name updated by automated process. Provider to review Vitamin D deficiency Overview (03/06/2012): (Problem list name updated by automated process. Provider to review and confirm.) Anemia Immunizations Name Administration Dates Next Due DTAP (<7y) 10/31/2001,01/06/1998,04/02/1997 ,02/05/1997,11/27/1996 HEPA 09/13/2007 HepB 07/30/1997,10/11/1996 MMR 10/31/2001 TD,PF 7+ (Tenivac) 12/04/2002 TDAP Vaccine (Adacel) 09/11/2016 Varicella 09/13/2007,10/25/1997 Family History Medical History Relation Comments Cardiovascular Father Non small cell L ymphoma Cerebrovascular Disease Father Mental Illness Maternal Grandmother Diabetes Son Type 1 Relation Status Comments Father Maternal Grandmother Son Social History Tobacco Use Types Packs/Day Years Used Date Smoking Tobacco: Former Cigarettes 0 10/18/1994 - 02/04/2009 Smokeless Tobacco: Never Comments:Quit in 2008 Alcohol Use Standard Drinks/Week Comments No 0 (1 standard drink = 0.6 oz pur e alcohol) Adolescent Education Answer Date Record ed Getting School Help Needed Not on file 06/28 Comments No Sex and Gender Information Value Date Recorded Sex Assigned at Not on file Legal Sex Female 3:20 AM PASTRYCOOK Gender Identity Not on file Sexual Orientation Not on file Last Filed Vital Signs Vital Sign Reading Time Taken Comments Blood Pressure 155/91 06/30/2023 1:08 PM PASTRYCOOK Pulse 97 06/30/2023 12:30 PM PASTRYCOOK Temperature 36.7 C (98 F) 06/30/2023 12:30 PM PASTRYCOOK Respiratory Rate 18 06/30/2023 1:08 PM PASTRYCOOK Oxygen Saturation 93% 06/30/2023 1:08 PM PASTRYCOOK Inhaled Oxygen Concentration - - Weight 105 kg (231 lb 8 oz) 06/30/2023 9:04 AM PASTRYCOOK Height 172.7 cm (5' 8) 06/30/2023 9:04 AM PASTRYCOOK Body Mass Index 35.2 06/30/2023 9:04 AM PASTRYCOOK Plan of Treatment Health Maintenance Due Date Last Done Comments ADVANCE CARE PLANNING 1968 ANNUAL REVIEW OF HM ORDERS 1968 CT COLONOGRAPHY 1968 FLEX SIG 1968 MAMMO SCREENING 1968 sDNA (Cologuard) 1968 COLONOSCOPY 1978 HIV SCREENING 1983 PAP 1989 MEDICARE ANNUAL WELLNESS VISIT 03/02/1995 03/02/1994 HEPATITIS B IMMUNIZATION (3 of 3 - 19+ 3-dose series) 09/24/1997 07/30/1997, 07/30/1997, 10/11/1996, Additional history exists COLORECTAL CANCER SCREENING 12/28/2010 FIT 12/28/2010 12/28/2009, 07/2009, 07/04/2008 ZOSTER IMMUNIZATION (1 of 2) 2018 GLUCOSE 05/12/2020 05/12/2017, 040 01/2017, 03/01/2011, Additional history exists LIPID 09/12/2021 09/12/2016 PHQ-2 (once per calendar year) 2023 COVID-19 Vaccine (1 - season) 2024 INFLUENZA VACCINE (#1) 2024 DTAP/TDAP/TD IMMUNIZATION (9 - Td or Tdap) 09/11/2026 09/11/2016, 11/30/2012, 12/04/2002, Additional history exists RSV VACCINE (1 - 1-dose 75+ series) 2043 Pneumococcal Vaccine: Pediatrics (0 to 5 Years) and At-Risk Patients (6 to 64 Years) Aged Out 09/23/2000 No longer eligible based on patient's age to complete this topic MENINGITIS IMMUNIZATION Aged Out 09/13/2007 No l onger eligible based on patient's age to complete this topic HEPATITIS C SCREENING Completed 02/28/2011 HPV IMMUNIZATION Aged Out No longer e ligible based on patient's age to complete this topic RSV MONOCLONAL ANTIBODY Aged Out No l onger eligible based on patient's age to complete this topic Procedures Procedure Name Priority Date/Time Associated Diagnosis Comments BASIC METABOLIC PANEL STAT 05/12/2017 9:17 PM PASTRYCOOK LIPID PROFILE Routine 09/12/2016 7:48 AM CDT HEPATITIS C ANTIBODY Routine 02/28/2011 4:10 AM CDT OCCULT BLOOD STOOL STAT 12/28/2009 10 :18 PM CDT from Last 3 Months or Most Recently Relevant to Health Maintenance Results * Basic metabolic panel (05/12/2017 9:17 PM PASTRYCOOK) Sodium 137 133 - 144 mmol/L 05/12/2017 9:48 PM [facility] Potassium 3.7 3.4 - 5.3 mmol/L 05/12/2017 9:48 PM [facility] Comment:Specimen slightly he molyzed, potassium may be falsely elevated Chloride 104 94 - 109 mmol/L 05/12/2017 9:48 PM [facility] Carbon Dioxide 23 20 - 32 mmol/L 05/12/2017 9:48 PM [facility] Anion Gap 10 3 - 14 mmol/L 05/12/2017 9:48 PM [facility] Glucose 96 70 - 99 mg/dL 05/12/2017 9:48 PM [facility] Urea Nitrogen 17 7 - 30 mg/dL 05/12/2017 9:48 PM [facility] Creatinine 0.72 0.52 - 1.04 mg/dL 05/12/2017 9:48 PM PASTRYCOOK [facility] GFR Estimate 86 >60 mL/min/1.7 m2 05/12/2017 9:48 PM [facility] Comment:Non GFR Calc GFR Estimate If Black >90 >60 mL/min/1.7 m2 05/12/2017 9:48 PM [facility] Comment: GFR Calc Calcium 8.7 8.5 - 10.1 mg/dL 05/12/2017 9:48 PM [facility] Blood specimen (specimen) 05/12/2017 9:17 PM PASTRYCOOK 05/12/2017 9:26 PM PASTRYCOOK us Bebeto Tadeo MD LAB - BLOOD ORDERABLES Fi nal Result [facility] [address] [phone] * (ABNORMAL) Lipid panel (09/12/2016 7:48 AM CDT) Cholesterol 253(H) <200 mg/dL [facility] Comment:Desirable: <200 mg/d l Triglycerides 118 <150 mg/dL [facility] HDL Cholesterol 82 >49 mg/dL [facility] LDL Cholesterol Calculated 147(H) <100 mg/dL [facility] Comment: Above desirable: 100-129 mg/dl Borderline High: 130-159 mg/dL High: 160-189 mg/dL Very high: >189 mg/dl Non HDL Cholesterol 171(H) <130 mg/dL [facility] Comment: Above Desirable: 130-159 mg/dl Borderline high: 160-189 mg/dl High: 190-219 mg/dl Very high: >219 mg/dl Blood specimen (specimen) 09/12/2016 7:48 AM CDT 09/12/2016 7:58 AM CDT us Maribel Stovall MD LAB - BLOOD ORDERABLES Yane l Result [facility] [address] [place] [address] * Hepatitis C antibody (02/28/2011 4:10 AM CDT) Hepatitis C Antibody Negative NEG [facility] 02/28/2011 4:10 AM CDT 02/28/2011 4:19 AM CDT us Hilario Aponte MD LAB - BLOOD ORDERABLES Fi nal Result [facility] [address] [place] [address] * (ABNORMAL) Occult blood stool (12/28/2009 10:18 PM CDT) Occult Blood Positive(A ) NEG [facility] 12/28/2009 10:1 8 PM CDT 12/28/2009 10:24 PM CDT us Genie Kern MD LAB - STOOLS ORDERABLES Final Result [facility] from Last 3 Months or Most Recently Relevant to Health Maintenance Insurance MEDICARE MEDICARE MEDICARE Advance Directives For more information, please contact: [phone] * Full Code (Latest Code Status on File) Date Activated Date Inactivated Comments 05/13/2017 12:43 PM 05/18/2017 7:07 PM * Full Code Date Activated Date Inactivated Comments 09/11/2016 2:06 PM 09/17/2016 5:51 PM Care Teams Information Services Vice President Relationship Specialty Start Date End Date Winnie Morrow PCP - General Physician Ice Cream Truck Driver 05/12/17
--- OUTSIDE RECORDS SUMMARY | 2024-05-15 18:38 | XMS_ITS | Encounter Summary ---
Author Organization [facility] Address [address] [place] [address] Care Team Providers Care Boiler Operator Helper Name Role Phone None Primary Care Provider Bandar Martinez MD Primary Care Provider [phone] Verified, No Ref-Primary Primary Care Provider [facility] Primary Care Provider Winnie Morrow Primary Care Provider Tamra Valle APRN SALES RECRUITMENT SPECIALIST Unavailable Tamra Valle APRN SALES RECRUITMENT SPECIALIST Unavailable [phone] Encounter Details Date Type Department Care Team (Late st Contact Info) Description 07/19/2012 Abstract M [facility] Heart [facility] [address] [place] [address] Zoila Mccoy PA-C [address] [place] [address] Social History Tobacco Use Types Packs/Day Years Used Date Smoking Tobacco: Former Comments:Quit in 2008 Alcohol Use Standard Drinks/Week Comments No 0 (1 standard drink = 0.6 oz pur e alcohol) Comments Unknown Sex and Gender Information Value Date Recorded Sex Assigned at Not on file Legal Sex Female 3:20 AM CHILD DEVELOPMENT PROFESSOR Gender Identity Not on file Sexual Orientation Not on file documented as of this encounter Plan of Treatment Not on file documented as of this encounter Visit Diagnoses Not on filedocumented in this encounter Care Teams Boiler Operator Helper Relationship Specialty Start Date End Date None PCP - General 02/28/11 10/02/12 Bandar Novak MD [facility] [id number] [place] [address] PCP - General Family Practice 10/03/12 09/14/15 Verified, No Ref-Primary PCP - General 09/15/15 09/10/16 [facility] [id number] [place] [address] PCP - General 09/11/16 05/11/17 Winnie Morrow [address] [place] [address] PCP - General Physician Railroad Car Painter 05/12/17 Tamra Valle APRN SALES RECRUITMENT SPECIALIST [address] [place] [address] PCP - Assigned PCP 03/12/18 08/08/18 Tamra Valle APRN SALES RECRUITMENT SPECIALIST [address] [place] [address] Assigned PCP 03/12/18 02/28/21 documented as of this encounter
--- OUTSIDE RECORDS SUMMARY | 2024-05-15 18:38 | XMS_ITS | Referral Summary ---
Author Organization [facility] Address [address] [place] [address] Care Team Providers Care Ceramic Design Engineer Name Role Phone Morrow, Winnie Primary Care Provider [phone] Allergies Active Allergy Reactions Criticality Noted Date [...] 12/04/2002 TDAP Vaccine (Adacel) 09/11/2016 Varicella 09/13/2007,10/25/1997 Social History Tobacco Use Types Packs/Day Years [...] on file Legal Sex Female 3:20 AM RADIO FREQUENCY TECHNICIAN Gender Identity Not on file Sexual Orientation Not on file Last Filed Vital Signs Vital Sign Reading Time Taken Comments Blood Pressure 155/91 06/30/2023 1:08 PM RADIO FREQUENCY TECHNICIAN Pulse 97 06/30/2023 12:30 PM RADIO FREQUENCY TECHNICIAN Temperature 36.7 C (98 F) 06/30/2023 12:30 PM RADIO FREQUENCY TECHNICIAN Respiratory Rate 18 06/30/2023 1:08 PM RADIO FREQUENCY TECHNICIAN Oxygen Saturation 93% 06/30/2023 1:08 PM RADIO FREQUENCY TECHNICIAN Inhaled Oxygen Concentration - - Weight 105 kg (231 lb 8 oz) 06/30/2023 9:[address] Height 172.7 cm (5' 8) 06/30/2023 9:04 AM RADIO FREQUENCY TECHNICIAN Body Mass Index 35.2 06/30/2023 9:04 AM RADIO FREQUENCY TECHNICIAN Plan of Treatment Not on file Procedures Procedure Name Priority Date/Time Associated Diagnosis Comments BASIC METABOLIC PANEL STAT 05/12/2017 9:17 PM RADIO FREQUENCY TECHNICIAN LIPID PROFILE Routine 09/12/2016 7:48 AM CDT HEPATITIS C ANTIBODY Routine 02/28/2011 4:10 AM CDT OCCULT BLOOD STOOL STAT 12/28/2009 10 :18 PM CDT from Last 3 Months or Most Recently Relevant to Health Maintenance Results * Basic metabolic panel (05/12/2017 9:17 PM RADIO FREQUENCY TECHNICIAN) Sodium 137 133 - 144 mmol/L 05/12/2017 9:48 PM [facility] Potassium 3.7 3.4 - 5.3 mmol/L 05/12/2017 9:48 PM [facility] Comment:Specimen slightly he molyzed, potassium may be falsely elevated Chloride 104 94 - 109 mmol/L 05/12/2017 9:48 PM [facility] Carbon Dioxide 23 20 - 32 mmol/L 05/12/2017 9:48 PM [facility] Anion Gap 10 3 - 14 mmol/L 05/12/2017 9:48 PM [facility] Glucose 96 70 - 99 mg/dL 05/12/2017 9:48 PM [facility] Urea Nitrogen 17 7 - 30 mg/dL 05/12/2017 9:48 PM [facility] Creatinine 0.72 0.52 - 1.04 mg/dL 05/12/2017 9:48 PM [facility] GFR Estimate 86 >60 mL/min/1.7 m2 05/12/2017 9:48 PM [facility] Comment:Non GFR Calc GFR Estimate If Black >90 >60 mL/min/1.7 m2 05/12/2017 9:48 PM [facility] Comment: GFR Calc Calcium 8.7 8.5 - 10.1 mg/dL 05/12/2017 9:48 PM [facility] Blood specimen (specimen) 05/12/2017 9:17 PM RADIO FREQUENCY TECHNICIAN 05/12/2017 9:26 PM RADIO FREQUENCY TECHNICIAN us Bebeto Tadeo MD LAB - BLOOD ORDERABLES Fi nal Result [facility] [address] [phone] * (ABNORMAL) Lipid panel (09/12/2016 7:48 AM CDT) Cholesterol 253(H) <200 mg/dL [facility] Comment:Desirable: <200 mg/d l Triglycerides 118 <150 mg/dL [facility] HDL Cholesterol 82 >49 mg/dL [facility] LDL Cholesterol Calculated 147(H) <100 mg/dL [facility] Comment: Above desirable: 100-129 mg/dl Borderline High: 130-159 mg/dL High: 160-189 mg/dL Very high: >189 mg/dl Non HDL Cholesterol 171(H) <130 mg/dL [facility] Comment: Above Desirable: 130-159 mg/dl Borderline high: 160-189 mg/dl High: 190-219 mg/dl Very high: >219 mg/dl Blood specimen (specimen) 09/12/2016 7:48 AM CDT 09/12/2016 7:58 AM CDT us Maribel Stovall MD LAB - BLOOD ORDERABLES Yane l Result [facility] [address] [address] * Hepatitis C antibody (02/28/2011 4:10 AM CDT) Hepatitis C Antibody Negative NEG [facility] 02/28/2011 4:10 AM CDT 02/28/2011 4:19 AM CDT us Hilario Aponte MD LAB - BLOOD ORDERABLES Fi nal Result [facility] [address] [place] [address] * (ABNORMAL) Occult blood stool (12/28/2009 10:18 PM CDT) Occult Blood Positive(A ) NEG [facility] 12/28/2009 10:1 8 PM CDT 12/28/2009 10:24 PM CDT us Genie Kern MD LAB - STOOLS ORDERABLES Final Result [facility] from Last 3 Months or Most Recently Relevant to Health Maintenance Insurance MEDICARE MEDICARE MEDICARE Advance Directives For more information, please contact: [phone] * Full Code (Latest Code Status on File) Date Activated Date Inactivated Comments 05/13/2017 12:43 PM 05/18/2017 7:07 PM * Full Code Date Activated Date Inactivated Comments 09/11/2016 2:06 PM 09/17/2016 5:51 PM Care Teams Ceramic Design Engineer Relationship Specialty Start Date End Date Winnie Morrow PCP - General Physician Haunted History Tour Guide 05/12/17
--- OUTSIDE RECORDS SUMMARY | 2024-05-15 18:38 | XMS_ITS | Encounter Summary ---
Author Organization [facility] Address [address] [place] [address] Care Team Providers Care News Photographer Name Role Phone Chase Livingston Primary Care Provider Winnie Morrow Primary Care Provider Tamra Valle APRN CODE NUMBER STAMPER Unavailable [phone] Tamra Valle APRN CODE NUMBER STAMPER Unavailable [phone] Reason for Visit * Reason Onset Date Comments MH/CD Inpatient 09/11/2016 Encounter Details Date Type Department Care Team ([facility] st Contact Info) Description 09/11/2016 Telephone [facility] Behavioral Health Intake [address] [place] [address] Generic, Behavioral Intake, MH/CD Inpatient Social History Tobacco Use Types Packs/Day Years Used Date Smoking Tobacco: Former Smokeless Tobacco: Former Comments:Quit in 2008 Alcohol Use Standard Drinks/Week Comments No 0 (1 standard drink = 0.6 oz pur e alcohol) Comments No Sex and Gender Information Value Date Recorded Sex Assigned at Not on file Legal Sex Female 3:20 AM CLOTH WINDER Gender Identity Not on file Sexual Orientation Not on file documented as of this encounter Miscellaneous Notes * Telephone Encounter - MarshaHermes henning - 09/11/2016 9:47 AM CDT Pt presents in [facility] er after sx attempt. B: pt ingested between 60-90 trazadone in sx attempt. Pt also has 20-30 lacerations on wrists from a air box tester, pt needing 51 stitches. Pt does not identify a utility systems repairer operator, states overwhelming depression, isolating no sleep past 5 days. Pt is eager for help and is Cooperative to admission. Poison control has been consulted and has medically cleared pt . A: dx depression, calm, cooperative, med stable. 72 hr hold. R: [email or web address]/[email or web address] documented in this encounter Plan of Treatment Not on file documented as of this encounter Visit Diagnoses Not on filedocumented in this encounter Care Teams News Photographer Relationship Specialty Start Date End Date [facility] [id number] [place] [address] PCP - General 09/11/16 05/11/17 Winnie Morrow [address] [place] [address] PCP - General Physician Superintendent Recreation 05/12/17 Tamra Valle APRN CODE NUMBER STAMPER [address] [place] [address] PCP - Assigned PCP 03/12/18 08/08/18 Tamra Valle APRN CODE NUMBER STAMPER [address] [place] [address] Assigned PCP 03/12/18 02/28/21 documented as of this encounter
--- OUTSIDE RECORDS SUMMARY | 2024-05-15 18:39 | XMS_ITS | Clinical Summary ---
Author Organization Counts include 234 beds at the [facility] Address [address] [place] [address] Care Team Providers Care Dye Jig Operator Name Role Phone Found, No Pcp MD Primary Care Provider Unavailab le Source Comments You are receiving this document as you are listed as the primary care provider,follow-up provider, or the patient has been referred to you for consultation.This is in compliance with the Medicare andMedicaid EHR Incentive Program,which states Providers who transition their patient to another setting of careor provider of care or refers their patient to another provider of care shouldprovide summary care record for each transition of care or referral. [employer] Allergies Active Allergy Reactions Criticality Noted Date Comments Bee Venom Anaphylaxis High 07/31/2015 Cyclobenzaprine 05/03/2004 PN: LW Reaction: Stimulation; HUT Comment: Psychosis ; HUT Reaction: Behavioral Disturbances; HUT Noted: [id number] Diphenhydramine 05/03/2004 PN: LW Reaction: Stimulation; HUT Comment: Adverse reaction; HUT Reaction: Agitation; HUT Severity: High; HUT Noted: [id number] Duloxetine Other, see comments 02/02/2016 HUT Reaction: Restless Legs/Feet; HUT Noted: [id number] Erythromycin 05/03/2004 PN: LW Reaction: HIVES; HUT Reaction: Hives; HUT Noted: [id number] Escitalopram Other, see comments 06/09/2010 HUT Reaction: Behavioral Disturbances; HUT Noted: [id number] Honey Bee Venom Anaphylaxis High 07/31/2015 Ibuprofen Other, see comments 12/17/2015 HUT Reaction: Stomach Upset; HUT Reaction Type: Intolerance; HUT Noted: [id number] Iodine-131 Other, see comments 11/17/2010 Pregabalin Other, see comments 02/10/2016 Psychosis; HUT Reaction: Mental Status Change; HUT Noted: [id number] Methocarbamol Other, see comments 05/13/2017 Tremors ; HUT Reaction: Tremors; HUT Noted: [id number] Naproxen Gastrointestinal 11/07/2009 HUT Reaction: Gastrointestinal; HUT Noted: [id number] Nsaids Other, see comments 11/17/2010 Olanzapine Other, see comments 04/10/2018 HUT Reaction: Restless Legs/Feet Penicillins 05/03/2004 PN: LW Reaction: HIVES; HUT Reaction: Hives; HUT Noted: [id number] Prochlorperazine 05/03/2004 PN: LW Reaction: Stimulation; HUT Comment: Compazine; HUT Reaction: Behavioral Disturbances; HUT Noted: [id number] Risperidone Anxiety 05/23/2017 Also stuttering ; HUT Comment: Also stuttering ; HUT Reaction: Anxiety; HUT Noted: [id number] Shellfish-Derived Products Anaphylaxis High 07/31/2015 HUT Reaction: Anaphylaxis; HUT Severity: High; HUT Noted: [id number] Sulfa Antibiotics 05/03/2004 PN: LW Reaction: Anaphylatic Rx; HUT Reaction: Hives; HUT Reaction: Angioedema; HUT Noted: [id number] Sumatriptan Tachycardia 07/03/2010 HUT Reaction: Tachycardia; HUT Noted: [id number] Tetracycline 05/03/2004 PN: LW Reaction: HIVES; HUT Reaction: Hives; HUT Noted: [id number] Venlafaxine Other, see comments 12/17/2015 Venlafaxine & Related Other, see comments 12/16 HUT Reaction: Mental Status Change Medications Medication Sig Dispensed Refills Start Date End Date Status amphetamine-dextroa mphetamine (ADDERALL) 20 MG tablet TK 1 T PO TID PRN 0 01/30/2018 Active ascorbic acid 500 MG tablet Take 500 mg by mouth. 08/08/2015 Active Cyanocobalamin (B-12) 1000 MCG TBCR Take 1,000 mcg by mouth. 09/17/2016 Active Cholecalciferol (VITAMIN D3) 5000 units TABS Take 5,000 Units by mouth. 04/22/2017 Active QUEtiapine (SEROQUEL) 50 MG tablet TK 1 T PO BID 0 02/03/2018 Active multivitamin with minerals tablet Take 1 Tablet by mouth. 09/17/2016 Active LORazepam (ATIVAN) 0.5 MG tablet TK 1 T PO BID PRN 03/03/2020 Acti ve methylPREDNISolone (MEDROL 21 TABLET DOSEPACK) 4 MG tabletIndications:C hronic bilateral low back pain without sciatica Follow package directions 21 Tablet 06/27/2021 Active gabapentin (NEURONTIN) 400 MG capsule Take 1 Capsule (400 mg) by mouth 4 times a day. 270 Capsule 1 02/05/2022 Active lamoTRIgine (LAMICTAL) 25 MG tablet Take 1 Tablet (25 mg) by mouth daily. 360 Tablet 02/05/2022 Active ferrous gluconate (FERGON) 324 (38 Fe) MG tabletIndications:R estless legs syndrome (RLS) Take 1 Tablet (324 mg) by mouth two times a day with meals. 180 Tablet 3 02/05/2022 Active aluminum chloride (DRYSOL) 20 % external solutionIndications :Axillary hyperhidrosis apply sparingly to skin with excessive sweating for 1-5 nights to get appropriate response 35 mL 02/05/2022 Active hydrocortisone 2.5 % cream Apply topically two times a day. For 2-3 weeks 30 g 1 02/05/2022 Active polyethylene glycol-electrolyte (PEG ELECTROLYTE) 236 g oral solution Take as directed in patient instructions: drink 2000mL at 6PM the evening before and 2000mL 4 hours before your procedure 4000 mL 04/28/2022 Active bisacodyl 5 MG enteric coated tablet Take 4 tablets by mouth once at 5PM the evening before your procedure. 4 Tablet 04/28/2022 Active ondansetron (ZOFRAN) 4 MG tablet Take 1 tablet by mouth every 6 hours as needed for nausea. 3 Tablet 04/28/2022 Active Active Problems Problem Noted Date Diagnosed Date Physical deconditioning 03/02/2019 Hernia of abdominal wall 03/02/2019 Opioid use disorder, severe, on maintenance ther apy 04/10/2018 Drug abuse 05/10/2017 Overview (05/12/2017): Pharmacy reports gabapetnin abuse According to the HOP FARM WORKER, between March 21 and May 07, 2017 she filled prescriptions for 240 tabs of 600 mg, 388 tabs of 300 mg, 150 tabs of 400 mg, 60 tabs of 100 mg. Bipolar affective disorder, current episode mixe d 05/06/2017 Chronic low back pain 04/21/2017 History of narcotic use 03/21/2017 History of migraine 03/21/2017 Migraine without status migrainosus, not intract able 09/27/2016 Sleep disturbance 08/11/2016 Status post gastric bypass for obesity 6 Attention deficit hyperactivity disorder 016 Fibromyalgia 02/10/2016 Severe episode of recurrent major depressive dis order 07/31/2015 Stimulant abuse 07/18/2015 Benzodiazepine overdose of undetermined intent 0 07/18/2015 Bipolar affective disorder 07/01/2015 Fibromyalgia 04/18/2012 B12 deficiency 07/27/2011 Recurrent cold sores 10/12/2010 Vitamin D deficiency 09/11/2010 Overview (04/06/2019): vitamin D deficiency OCD (obsessive compulsive disorder) 06/09/2010 Anemia 05/12/2010 ADD (attention deficit disorder) 05/12/2010 Insomnia 04/26/2010 Overview (04/06/2019): Insomnia, unspecified S/P gastric bypass 11/07/2009 Other abnormal Papanicolaou smear of cervix and cervical HPV(795.09) 11/07/2009 Sleep apnea 11/07/2009 Major depressive disorder, recurrent episode, se fabiano 11/07/2009 Overview (04/06/2019): depression Migraines 11/07/2009 Overview (04/06/2019): Horrible reaction to Imitrex Severe obesity (BMI 35.0-39.9) with comorbidity 11/07/2009 Resolved Problems Problem Noted Date Diagnosed Date Resolved Date CAREPLAN: CONTROLLED SUBSTANCE 08/11/2016 03/12/2020 Overview (08/11/2016): 08/11/2016 Patient currently using hydrocodone 5 mg tablets, 75 per month, for her fibromyalgia. It is my hope that she will be returning to the pain specialist in [place] this summer. Explained to her that I would be willing to use hydrocodone until that time. Encounter for long-term (cur rent) use of high-risk medication 03/08/2012 04/21/2017 Overview (04/06/2019): Controlled substance agreement for Adderall XR 20 mg daily, dispense 30 tabs monthly on file and signed 03/08/12. Designated pharmacy: [facility]. Prescribing physician: Dr Sha Renee. Diagnosis: ADD Pain medication agreement 01/04/2012 Overview (04/06/2019): Controlled substance agreement for Adderall XR 30mg Qty. 30 , Adderall 30mg 3 times a day Qty. 90 on file and signed 01/04/12. Designated pharmacy: [facility] Prescribing physician: Dr. Renee Diagnosis: ADD. 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 Tramadol 50 mg tablets number 60 per month. DVT of upper extremity (deep vein thrombosis) 07/03/19 11 05/23/2017 Overview (04/06/2019): At site of IV. 8.1.2009. Was on coumadin [facility] current use of ant icoagulant therapy 01/19/2010 01/16/2013 Overview (04/06/2019): [facility] (current) use of anticoagulants exterminator current use of ant icoagulant therapy 01/16/2010 09/10/2010 Overview (04/06/2019): [facility] (current) use of anticoagulants DVT (deep venous thrombosis) 01/09/2010 07/03/2010 Routine health maintenance 11/07/2009 1 06/21/2016 Overview (04/06/2019): cpx- 2 cholest- 207 Td- 7 Gastric ulceration 7 Overview (04/06/2019): Ulceration at anastomosis of Jesse-en-Y gastric bypass. [facility] 12/29-12/31/09 Immunizations Name Administration Dates Next Due DTaP 10/31/2001, 8,04/02/1997,1996,11/27/1996 HepA Ped/Adol (1-18 yrs) 09/13/2007 HepB Ped/Adol (0-18 yrs) 07/30/1997,10/11/1996 Hib (PRP-D) 01/06/1998 IPV (Polio) 10/31/2001 MMR 10/31/2001 Meningococcal, Unspecified Formulation 09/13/2007 Pneumococcal 7, PED 09/23/2000 Td 12/04/2002 Tdap 11/30/2012 Varicella 09/13/2007,10/25/1997 Family History Medical History Relation Name Comments [...] Used Date Smoking Tobacco: Former Cigarettes 1 10.7 0 06/06/1998 - 02/04/2009 Smokeless Tobacco: Never Alcohol Use Standard Drinks/Week Comments No 0 (1 standard drink = 0.6 oz pur e alcohol) PHQ-2 Answer Date Recorded PHQ-2 Score 2 02/05/2022 Sex and Gender Information Value Date Recorded Sex Assigned at Female 06/28/2021 5:52 PM LINK ASSEMBLER Gender Identity Female 06/28/2021 5:52 PM LINK ASSEMBLER Sexual Orientation Straight 06/28/2021 5: 52 PM LINK ASSEMBLER Last Filed Vital Signs Vital Sign Reading Time Taken Comments Blood Pressure 132/93 02/05/2022 10:16 AM CDT Pulse 110 02/05/2022 10:16 AM CDT Temperature 36.6 C (97.9 F) 06/27/2021 10:22 AM LINK ASSEMBLER Respiratory Rate 16 07/04/2019 12:32 PM LINK ASSEMBLER Oxygen Saturation 96% 07/04/2019 12:32 PM LINK ASSEMBLER Inhaled Oxygen Concentration - - Weight 121.1 kg (267 lb) 02/05/2022 10:13 AM CDT Height 177.8 cm (5' 10) 02/05/2022 10:13 AM CDT Body Mass Index 38.31 02/05/2022 10:13 AM CDT Plan of Treatment Health Maintenance Due Date Last Done Comments Hep C Screening (Preventive Services) 1968 Mammogram 1968 HepB (1) 1987 07/30/1997, 10/11/1996 FIT Colon Cancer Screening 2012 Zoster/Shingles (1 of 2) 2018 Medicare Annual Wellness Visit 02/05/2023 02/05/2022, 04/30/2019 SMI: Fasting Lipid 02/05/2023 02/05/2022, 04/30/2019 SMI: Hgb A1C 09/17/2023 09/16/2022, 0907/2021, 02/05/2022, Additional history exists COVID-19 Vaccine ( season) 2024 Influenza (#1) 2024 DTaP/Tdap/Td (9 - Tdap) 09/11/2026 09/12/19 17, 11/30/2012, 12/04/2002, Additional history exists Cervical Cancer Screening 02/05/20272021, 06/06/2008 (Completed) Hib Aged Out 01/06/1998 No longer eligi ble based on patient's age to complete this topic Pneumococcal Aged Out 09/23/2000 No longer eligi ble based on patient's age to complete this topic IPV (Polio) Aged Out 10/31/2001 No longer eligi ble based on patient's age to complete this topic HepA Aged Out 09/13/2007 No longer eligi ble based on patient's age to complete this topic MCV4 Aged Out 09/13/2007 No longer eligi ble based on patient's age to complete this topic HIV Screening (Preventive Services) Completed 04/30/2019 Procedures Procedure Name Priority Date/Time Associated Diagnosis Comments PAP TEST Routine 02/05/2022 1:33 PM CDT Screening for cervical cancer COMPREHENSIVE METABOLIC PANEL Routine 02/05/2022 10:59 AM CDT High risk medication use LIPID PANEL & DIRECT LDL (IF NEEDED) Routine 02/05/2022 10:59 AM CDT Screening cholesterol level HIV 1/2 AG/AB 4TH GEN Routine 04/30/2019 11:24 AM LINK ASSEMBLER Screening for HIV (human immunodeficiency virus) from Last 3 Months or Most Recently Relevant to Health Maintenance Results * PAP Test (02/05/2022 1:33 PM CDT) Case Report Pap Case: [id number] Authorizing Provider: Taylor Downing MD Collected: 02/05/2022 1333 Ordering Location: [facility] Received: 02/05/2022 1620 Practice First Screen: Bonita Schroeder CT (ASCP) Specimen: Pap Test, Routine, Cervix/Endocervix 02/25/2022 10:42 AM [facility] Pap Specimen Adequacy Satisfactory for evaluation, endocervical/israel sformation zone component present. 02/25/2022 10:42 AM [facility] Pap Interpretation (NILM) Negative for intraepithelial lesion or malignancy. 02/25/2022 10:42 AM [facility] Pap Other Findings Atrophy. 02/25/2022 10:42 AM [facility] Pap Disclaimer The Pap test is a screening test designed to aid in the detection of cervical cancer and its precursor lesions. It is not a diagnostic procedure and should not be used as the sole means of detecting cervical cancer. Both false-positive and false-negative results may occur. 02/25/2022 10:42 AM [facility] Gross Description The specimen is received in SurePath fixative and properly labeled. 1 Pap-stained SurePath slide is prepared. 02/25/2022 10:42 AM CDT [facility] Embedded Images 10:42 AM CDT [facility] Other Specimen Type ENTIRE ENDOCERVIX / Unknown 02/05/2022 1:33 PM CDT 02/05/2022 4:20 PM CDT Comment:LMP: Patient's last menstrual period was 04/26/2017. Taylor Downing MD LAB PATHOLOGY [facility] [address] [place] [address], [facility] [phone] * (ABNORMAL) Lipid Panel and Direct LDL(If Needed) (02/05/2022 10:59 AM CDT) Cholesterol 240(H) 0 - 199 mg/dL 02/05/2022 3:53 PM CDT [facility] Triglyceride 200(H) <=149 mg/dL 02/05/2022 3:53 PM CDT [facility] HDL Cholesterol 52 >=40 mg/dL 02/05/2022 3:53 PM CDT [facility] LDL, Calculated 148(H) <130 mg/dL 02/05/2022 3:53 PM CDT [facility] Non HDL Chol, Calculated 188(H) <=159 mg/dL 02/05/2022 3:53 PM CDT [facility] Cholesterol/HDL Ratio 4.6 02/05/2022 3:53 PM CDT [facility] Hours Fasting N/A 02/05/2022 3:53 PM CDT [facility] Blood Venipuncture / Unknown 02/05/2022 10:59 AM CDT 02/05/2022 10:59 AM CDT Taylor Downing MD LAB_1 [facility] [address] [address], [facility] [phone] [facility] [address] [place] [address], [facility] [phone] * Comp Metabolic Panel (02/05/2022 10:[address] [facility]) Sodium 142 136 - 145 mmol/L 02/05/2022 3:53 PM [facility] Potassium 3.8 3.5 - 5.1 mmol/L 02/05/2022 3:53 PM [facility] Chloride 107 98 - 109 mmol/L 02/05/2022 3:53 PM [facility] CO2 24 20 - 29 mmol/L 02/05/2022 3:53 PM [facility] Anion Gap 11 7 - 16 mmol/L 02/05/2022 3:53 PM [facility] Calcium 9.3 8.4 - 10.4 mg/dL 02/05/2022 3:53 PM [facility] BUN 9 7 - 26 mg/dL 02/05/2022 3:53 PM [facility] Creatinine 0.72 0.55 - 1.02 mg/dL 02/05/2022 3:53 PM [facility] GFR, Estimated >60 >60 mL/min/1. 73m2 02/05/2022 3:53 PM [facility] Alkaline Phosphatase 127 40 - 150 U/L 02/05/2022 3:53 PM [facility] AST (SGOT) 12 10 - 40 U/L 02/05/2022 3:53 PM [facility] ALT (SGPT) 27 0 - 55 U/L 02/05/2022 3:53 PM [facility] Bilirubin, Total 0.2 0.2 - 1.2 mg/dL 02/05/2022 3:53 PM [facility] Protein, Total 6.9 6.4 - 8.3 g/dL 02/05/2022 3:53 PM [facility] Albumin 3.6 3.5 - 5.0 g/dL 02/05/2022 3:53 PM [facility] Glucose 85 70 - 100 mg/dL 02/05/2022 3:53 PM [facility] Comment:The given reference range is for the fasting state. Non-fasting reference range for glucose is 70 - 180 mg/dL. Hours Fasting N/A 02/05/2022 3:53 PM CDT [facility] Blood Venipuncture / Unknown 02/05/2022 10:59 AM CDT 02/05/2022 10:59 AM CDT Taylor Downing MD LAB_1 Performing Organization Address City/[facility]/ZIP Co de Phone Number [facility] [address] [address], [facility] [phone] [facility] [address] [place] [address], [facility] [phone] * HIV 1/2 Ag/Ab 4th Generation (04/30/2019 11:24 AM LINK ASSEMBLER) [facility] HIV 1/2 Antigen/Anti body (4th generation) Negative (Non Reactive) Negative (Non Reactive) 04/30/2019 3:42 PM LINK ASSEMBLER [facility] Comment:HIV-1 p24 Antigen an d HIV-1/HIV-2 Antibody not detected Blood Venipuncture / Unknown 04/30/2019 11:24 AM LINK ASSEMBLER 04/30/2019 11:24 AM LINK ASSEMBLER Hilario Dupree PA-C LAB_1 Performing Organization Address [facility]/ZIP Co de Phone Number [facility] [address] [address], [facility] [phone] from Last 3 Months or Most Recently Relevant to Health Maintenance Advance Directives * Full Code (Latest Code Status on File) Date Activated Date Inactivated Comments 07/31/2015 3:00 AM 07/30/2015 6:00 PM * Full Code Date Activated Date Inactivated Comments 07/31/2015 3:00 AM 08/08/2015 4:50 AM Care Teams Dye Jig Operator Relationship Specialty Start Date End Date Found, No Pcp, [address] [place] [address] PCP - General 04/01/23
--- OUTSIDE RECORDS SUMMARY | 2024-05-15 18:39 | XMS_ITS | Encounter Summary ---
Author Organization [facility] Address [address] [place] [address] Care Team Providers Care Expense Clerk Name Role Phone Found, No Pcp Primary Care Provider Unavailab le Encounter Details Date Type Department Care Team (Latest Contact Info) Description 12/20/1994 [place] [address] [place] [address] Social History Tobacco Use Types Packs/Day Years Used Date Smoking Tobacco: Never Assessed Sex and Gender Information Value Date Recorded Sex Assigned at Female 06/28/2021 5:52 PM SUPERVISOR FABRICATION Gender Identity Female 06/28/2021 5:52 PM SUPERVISOR FABRICATION Sexual Orientation Straight 06/28/2021 5: 52 PM SUPERVISOR FABRICATION documented as of this encounter Plan of Treatment Not on file documented as of this encounter Visit Diagnoses Not on filedocumented in this encounter Care Teams Expense Clerk Relationship Specialty Start Date End Date Found, No Pcp, [address] [place] [address] PCP - General 04/01/23 documented as of this encounter
--- OUTSIDE RECORDS SUMMARY | 2024-05-15 18:39 | XMS_ITS | Encounter Summary ---
Author Organization [facility] Address [address] [place] [address] Care Team Providers Care Competitive Athlete Name Role Phone Found, No Pcp Primary Care Provider Unavailab le Encounter Details Date Type Department Care Team (Latest Contact Info) Description 08/13/1994 Orders Only Jared Stewart MD Social History Tobacco Use Types Packs/Day Years Used Date Smoking Tobacco: Never Assessed Sex and Gender Information Value Date Recorded Sex Assigned at Female 06/28/2021 5:52 PM TAPE SEWING MACHINE OPERATOR Gender Identity Female 06/28/2021 5:52 PM TAPE SEWING MACHINE OPERATOR Sexual Orientation Straight 06/28/2021 5: 52 PM TAPE SEWING MACHINE OPERATOR documented as of this encounter Plan of Treatment Not on file documented as of this encounter Visit Diagnoses Not on filedocumented in this encounter Care Teams Competitive Athlete Relationship Specialty Start Date End Date Found, No Pcp, [address] [place] [address] PCP - General 04/01/23 documented as of this encounter
--- OUTSIDE RECORDS SUMMARY | 2024-05-15 18:39 | XMS_ITS | Encounter Summary ---
Author Organization [facility] Address [address] [place] [address] Care Team Providers Care Program Aide Group Work Name Role Phone Found, No Pcp Primary Care Provider Unavailab le Encounter Details Date Type Department Care Team (Latest Contact Info) Description 11/29/1994 Orders Only Deja Horn Social History Tobacco Use Types Packs/Day Years Used Date Smoking Tobacco: Never Assessed Sex and Gender Information Value Date Recorded Sex Assigned at Female 06/28/2021 5:52 PM LANDSCAPE MAINTENANCE INTERNSHIP Gender Identity Female 06/28/2021 5:52 PM LANDSCAPE MAINTENANCE INTERNSHIP Sexual Orientation Straight 06/28/2021 5: 52 PM LANDSCAPE MAINTENANCE INTERNSHIP documented as of this encounter Plan of Treatment Not on file documented as of this encounter Visit Diagnoses Not on filedocumented in this encounter Care Teams Program Aide Group Work Relationship Specialty Start Date End Date Found, No Pcp, [address] [place] [address] PCP - General 04/01/23 documented as of this encounter
--- OUTSIDE RECORDS SUMMARY | 2024-05-15 18:39 | XMS_ITS | Encounter Summary ---
Author Organization [facility] Address [address] [place] [address] Care Team Providers Care Record Filing Clerk Name Role Phone Found, No Pcp Primary Care Provider Unavailab le Encounter Details Date Type Department Care Team (Latest Contact Info) Description 01/18/1995 [place] [address] [place] [address] Social History Tobacco Use Types Packs/Day Years Used Date Smoking Tobacco: Never Assessed Sex and Gender Information Value Date Recorded Sex Assigned at Female 06/28/2021 5:52 PM PATIENT SUPPORT TECH Gender Identity Female 06/28/2021 5:52 PM PATIENT SUPPORT TECH Sexual Orientation Straight 06/28/2021 5: 52 PM PATIENT SUPPORT TECH documented as of this encounter Plan of Treatment Not on file documented as of this encounter Visit Diagnoses Not on filedocumented in this encounter Care Teams Record Filing Clerk Relationship Specialty Start Date End Date Found, No Pcp, [address] [facility] [place] [address] PCP - General 04/01/23 documented as of this encounter
--- OUTSIDE RECORDS SUMMARY | 2024-05-15 18:39 | XMS_ITS | Encounter Summary ---
Author Organization [facility] Address [address] [place] [address] Care Team Providers Care Automobile Racer Name Role Phone Found, No Pcp Primary Care Provider Unavailab le Encounter Details Date Type Department Care Team (Latest Contact Info) Description 12/18/1994 Orders Only Kana Motta [facility] [address] [facility], [id number] Social History Tobacco Use Types Packs/Day Years Used Date Smoking Tobacco: Never Assessed Sex and Gender Information Value Date Recorded Sex Assigned at Female 06/28/2021 5:52 PM SUPERVISOR BEAM DEPARTMENT Gender Identity Female 06/28/2021 5:52 PM SUPERVISOR BEAM DEPARTMENT Sexual Orientation Straight 06/28/2021 5: 52 PM SUPERVISOR BEAM DEPARTMENT documented as of this encounter Plan of Treatment Not on file documented as of this encounter Visit Diagnoses Not on filedocumented in this encounter Care Teams Automobile Racer Relationship Specialty Start Date End Date Found, No Pcp, [address] [place] [address] PCP - General 04/01/23 documented as of this encounter
--- OUTSIDE RECORDS SUMMARY | 2024-05-15 18:39 | XMS_ITS | Encounter Summary ---
Author Organization [facility] Address [address] [place] [address] Care Team Providers Care Unix Analyst Name Role Phone Found, No Pcp Primary Care Provider Unavailab le Encounter Details Date Type Department Care Team (Latest Contact Info) Description 03/25/1995 [place] [address] [place] [address] Social History Tobacco Use Types Packs/Day Years Used Date Smoking Tobacco: Never Assessed Sex and Gender Information Value Date Recorded Sex Assigned at Female 06/28/2021 5:52 PM DITCH TENDER Gender Identity Female 06/28/2021 5:52 PM DITCH TENDER Sexual Orientation Straight 06/28/2021 5: 52 PM DITCH TENDER documented as of this encounter Plan of Treatment Not on file documented as of this encounter Visit Diagnoses Not on filedocumented in this encounter Care Teams Unix Analyst Relationship Specialty Start Date End Date Found, No Pcp, [address] [facility] [place] [address] PCP - General 04/01/23 documented as of this encounter
--- OUTSIDE RECORDS SUMMARY | 2024-05-15 18:39 | XMS_ITS | Encounter Summary ---
Author Organization [facility] Address [address] [place] [address] Care Team Providers Care Hand Roller Engraver Name Role Phone Found, No Pcp Primary Care Provider Unavailab le Encounter Details Date Type Department Care Team (Latest Contact Info) Description 10/15/1994 [place] [address] [place] [address] Social History Tobacco Use Types Packs/Day Years Used Date Smoking Tobacco: Never Assessed Sex and Gender Information Value Date Recorded Sex Assigned at Female 06/28/2021 5:52 PM IMMUNOLOGY SPECIALIST Gender Identity Female 06/28/2021 5:52 PM IMMUNOLOGY SPECIALIST Sexual Orientation Straight 06/28/2021 5: 52 PM IMMUNOLOGY SPECIALIST documented as of this encounter Plan of Treatment Not on file documented as of this encounter Visit Diagnoses Not on filedocumented in this encounter Care Teams Hand Roller Engraver Relationship Specialty Start Date End Date Found, No Pcp, [address] [facility] [address] PCP - General 04/01/23 documented as of this encounter
--- OUTSIDE RECORDS SUMMARY | 2024-05-15 18:39 | XMS_ITS | Encounter Summary ---
Author Organization [facility] Address [address] [place] [address] Care Team Providers Care Surfacer Name Role Phone Found, No Pcp Primary Care Provider Unavailab le Encounter Details Date Type Department Care Team (Latest Contact Info) Description 06/16/1994 Orders Only Jared Stewart MD Social History Tobacco Use Types Packs/Day Years Used Date Smoking Tobacco: Never Assessed Sex and Gender Information Value Date Recorded Sex Assigned at Female 06/28/2021 5:52 PM PERSONNEL SECURITY SPECIALIST Gender Identity Female 06/28/2021 5:52 PM PERSONNEL SECURITY SPECIALIST Sexual Orientation Straight 06/28/2021 5: 52 PM PERSONNEL SECURITY SPECIALIST documented as of this encounter Plan of Treatment Not on file documented as of this encounter Visit Diagnoses Not on filedocumented in this encounter Care Teams Surfacer Relationship Specialty Start Date End Date Found, No Pcp, [address] [place] [address] PCP - General 04/01/23 documented as of this encounter
--- OUTSIDE RECORDS SUMMARY | 2024-05-15 18:39 | XMS_ITS | Encounter Summary ---
Author Organization [facility] Address [address] [place] [address] Care Team Providers Care Immunopathologist Name Role Phone Found, No Pcp Primary Care Provider Unavailab le Encounter Details Date Type Department Care Team (Latest Contact Info) Description 08/25/1994 [place] [address] [place] [address] Social History Tobacco Use Types Packs/Day Years Used Date Smoking Tobacco: Never Assessed Sex and Gender Information Value Date Recorded Sex Assigned at Female 06/28/2021 5:52 PM DIRECTOR CONTENT MARKETING Gender Identity Female 06/28/2021 5:52 PM DIRECTOR CONTENT MARKETING Sexual Orientation Straight 06/28/2021 5: 52 PM DIRECTOR CONTENT MARKETING documented as of this encounter Plan of Treatment Not on file documented as of this encounter Visit Diagnoses Not on filedocumented in this encounter Care Teams Immunopathologist Relationship Specialty Start Date End Date Found, No Pcp, [address] [facility] [place] [address] PCP - General 04/01/23 documented as of this encounter
--- OUTSIDE RECORDS SUMMARY | 2024-05-15 18:39 | XMS_ITS | Encounter Summary ---
Author Organization [facility] Address [address] [place] [address] Care Team Providers Care Copy Lathe Operator Name Role Phone Found, No Pcp Primary Care Provider Unavailab le Encounter Details Date Type Department Care Team (Latest Contact Info) Description 09/03/1994 Orders Only Cornell Espinal Social History Tobacco Use Types Packs/Day Years Used Date Smoking Tobacco: Never Assessed Sex and Gender Information Value Date Recorded Sex Assigned at Female 06/28/2021 5:52 PM FARROWING MANAGER Gender Identity Female 06/28/2021 5:52 PM FARROWING MANAGER Sexual Orientation Straight 06/28/2021 5: 52 PM FARROWING MANAGER documented as of this encounter Plan of Treatment Not on file documented as of this encounter Visit Diagnoses Not on filedocumented in this encounter Care Teams Copy Lathe Operator Relationship Specialty Start Date End Date Found, No Pcp, [address] [place] [address] PCP - General 04/01/23 documented as of this encounter
--- OUTSIDE RECORDS SUMMARY | 2024-05-15 18:39 | XMS_ITS | Encounter Summary ---
Author Organization [facility] Address [address] [place] [address] Care Team Providers Care Camp Manager Name Role Phone Found, No Pcp Primary Care Provider Unavailab le Encounter Details Date Type Department Care Team (Latest Contact Info) Description 03/11/1995 Orders Only Jean Oshea MD [facility] [address] [place] [address] Social History Tobacco Use Types Packs/Day Years Used Date Smoking Tobacco: Never Assessed Sex and Gender Information Value Date Recorded Sex Assigned at Female 06/28/2021 5:52 PM MOTOR EQUIPMENT COMMANDING OFFICER Gender Identity Female 06/28/2021 5:52 PM MOTOR EQUIPMENT COMMANDING OFFICER Sexual Orientation Straight 06/28/2021 5: 52 PM MOTOR EQUIPMENT COMMANDING OFFICER documented as of this encounter Plan of Treatment Not on file documented as of this encounter Visit Diagnoses Not on filedocumented in this encounter Care Teams Camp Manager Relationship Specialty Start Date End Date Found, No Pcp, [address] [facility] [place] [address] PCP - General 04/01/23 documented as of this encounter
--- OUTSIDE RECORDS SUMMARY | 2024-05-15 18:39 | XMS_ITS | Encounter Summary ---
Author Organization [facility] Address [address] [place] [address] Care Team Providers Care Ibm Websphere Portal Developer Name Role Phone Found, No Pcp Primary Care Provider Unavailab le Encounter Details Date Type Department Care Team (Late st Contact Info) Description 06/26/1994 Orders Only [facility] Erasto Wade MD [facility] PRACTICE [address] [place], [place] [id number] Social History Tobacco Use Types Packs/Day Years Used Date Smoking Tobacco: Never Assessed Sex and Gender Information Value Date Recorded Sex Assigned at Female 06/28/2021 5:52 PM GEOTECHNICAL LABORATORY TECHNICIAN Gender Identity Female 06/28/2021 5:52 PM GEOTECHNICAL LABORATORY TECHNICIAN Sexual Orientation Straight 06/28/2021 5: 52 PM GEOTECHNICAL LABORATORY TECHNICIAN documented as of this encounter Plan of Treatment Not on file documented as of this encounter Visit Diagnoses Not on filedocumented in this encounter Care Teams Ibm Websphere Portal Developer Relationship Specialty Start Date End Date Found, No Pcp, [address] [place] [address] PCP - General 04/01/23 documented as of this encounter
--- OUTSIDE RECORDS SUMMARY | 2024-05-15 18:39 | XMS_ITS | Encounter Summary ---
Author Organization [employer] Address [address] [place] [address] Care Team Providers Care Stores Naval Name Role Phone Found, No Pcp Primary Care Provider Unavailab le Encounter Details Date Type Department Care Team (Latest Contact Info) Description 02/14/1995 [place] [address] [place] [address] Social History Tobacco Use Types Packs/Day Years Used Date Smoking Tobacco: Never Assessed Sex and Gender Information Value Date Recorded Sex Assigned at Female 06/28/2021 5:52 PM OYSTER CULTIVATOR Gender Identity Female 06/28/2021 5:52 PM OYSTER CULTIVATOR Sexual Orientation Straight 06/28/2021 5: 52 PM OYSTER CULTIVATOR documented as of this encounter Plan of Treatment Not on file documented as of this encounter Visit Diagnoses Not on filedocumented in this encounter Care Teams Stores Naval Relationship Specialty Start Date End Date Found, No Pcp, [address] [facility] [place] [address] PCP - General 04/01/23 documented as of this encounter
--- OUTSIDE RECORDS SUMMARY | 2024-05-15 18:39 | XMS_ITS | Encounter Summary ---
Author Organization [facility] Address [address] [place] [address] Care Team Providers Care Ager Tender Name Role Phone Found, No Pcp Primary Care Provider Unavailab le Encounter Details Date Type Department Care Team (Latest Contact Info) Description 09/08/1994 [place] [address] [place] [address] Social History Tobacco Use Types Packs/Day Years Used Date Smoking Tobacco: Never Assessed Sex and Gender Information Value Date Recorded Sex Assigned at Female 06/28/2021 5:52 PM ENGINEERING ASSOCIATE Gender Identity Female 06/28/2021 5:52 PM ENGINEERING ASSOCIATE Sexual Orientation Straight 06/28/2021 5: 52 PM ENGINEERING ASSOCIATE documented as of this encounter Plan of Treatment Not on file documented as of this encounter Visit Diagnoses Not on filedocumented in this encounter Care Teams Ager Tender Relationship Specialty Start Date End Date Found, No Pcp, [address] [facility] [place] [address] PCP - General 04/01/23 documented as of this encounter
--- OUTSIDE RECORDS SUMMARY | 2024-05-15 18:39 | XMS_ITS | Encounter Summary ---
Author Organization [employer] Address [address] [place] [address] Care Team Providers Care Striping Machine Operator Name Role Phone Found, No Pcp MD Primary Care Provider Unavailab le Reason for Referral * Procedure/Equipment (Routine) - Closed Specialty Diagnoses / Procedures Referred By Alejandro black Referred To Contact Diagnoses Encounter for long-term (current) [place] [address] [place] [address] Referral ID Status Reason Start Date Expiration Date Visits Re quested Visits Authorized [id number] Closed 01/18/2017 04/19/2018 1 1 Scheduling Instructions Your provider has recommended that you schedule a Lab Visit. A frozen food department manager will contact you within the next 3 business days to assist you in setting up this appointment. If you have not been contacted please call your clinic to schedule your appointment. Question Answer Appointment Urgency? Non-Urgent Reason for visit? Medication Refill Comments SCHEDULE THE FOLLOWING: - BASIC METABOLIC PANEL BY: Now (Not performed in the last 5 years for topiramate (TOPAMAX) 100 MG tablet) - BASIC METABOLIC PANEL BY: Now (Not performed in the last 5 years for topiramate (TOPAMAX) 100 MG tablet) - LAST QUALIFYING VISIT IN FAMILY PRACTICE: 09/27/2016 - NEXT SCHEDULED VISIT: None - NEXT LAB APPOINTMENT: None We recently received a refill request on one of your medications. While reviewing your chart, we noticed that you are going to be due for lab work within the next 3 months for the following medication: TOPIRAMATE (TOPAMAX) 100 MG TABLET You can schedule your appointment online at [email or web address] or by calling the appointment center at the phone number listed above. Thank you for choosing [employer] Beba Palma RN [facility] Nurses Encounter Details Date Type Department Care Team (Late st Contact Info) Description 01/17/2017 Refill Order [facility] [address] [place] [address] [place] [address] [place] [address] Social History Tobacco Use Types Packs/Day Years Used Date Smoking Tobacco: Never Sex and Gender Information Value Date Recorded Sex Assigned at Female 06/28/2021 5:52 PM PALLIATIVE CARE PHYSICIAN Gender Identity Female 06/28/2021 5:52 PM PALLIATIVE CARE PHYSICIAN Sexual Orientation Straight 06/28/2021 5: 52 PM PALLIATIVE CARE PHYSICIAN documented as of this encounter Nursing Notes * Nima Mora CMA - 01/18/2017 10:02 AM CDT Pt notified. Referral order placed in chart. Nima Mora CMA 01/18/2017, 10:02 AM documented in this encounter Plan of Treatment Scheduled Referrals Name Type Priority Associated Diagnoses Orde r Schedule Lab Visit Referral Routine Encounter for long-term (current) use of medications Ordered: 01/18/2017 documented as of this encounter Visit Diagnoses Diagnosis Encounter for long-term (current) use of medications- Primary Encounter for long-term (current) use of other medications documented in this encounter Care Teams Striping Machine Operator Relationship Specialty Start Date End Date Found, No PcpMD [address] [place] [address] PCP - General 04/01/23 documented as of this encounter
--- OUTSIDE RECORDS SUMMARY | 2024-05-15 18:39 | XMS_ITS | Encounter Summary ---
Author Organization [facility] Address [address] [place] [address] Care Team Providers Care Scientific Glass Blower Name Role Phone Found, No Pcp Primary Care Provider Unavailab le Encounter Details Date Type Department Care Team (Latest Contact Info) Description 04/12/1995 Orders Only Kolton Keller MD Social History Tobacco Use Types Packs/Day Years Used Date Smoking Tobacco: Never Assessed Sex and Gender Information Value Date Recorded Sex Assigned at Female 06/28/2021 5:52 PM ENTRY LEVEL DRAFTER Gender Identity Female 06/28/2021 5:52 PM ENTRY LEVEL DRAFTER Sexual Orientation Straight 06/28/2021 5: 52 PM ENTRY LEVEL DRAFTER documented as of this encounter Plan of Treatment Not on file documented as of this encounter Visit Diagnoses Not on filedocumented in this encounter Care Teams Scientific Glass Blower Relationship Specialty Start Date End Date Found, No Pcp, [address] [place] [address] PCP - General 04/01/23 documented as of this encounter
--- OUTSIDE RECORDS SUMMARY | 2024-05-15 18:39 | XMS_ITS | Encounter Summary ---
Author Organization [facility] Address [address] [place] [address] Care Team Providers Care Crate Liner Name Role Phone Found, No Pcp Primary Care Provider Unavailab le Encounter Details Date Type Department Care Team (Latest Contact Info) Description 11/10/1994 [place] [address] [place] [address] Social History Tobacco Use Types Packs/Day Years Used Date Smoking Tobacco: Never Assessed Sex and Gender Information Value Date Recorded Sex Assigned at Female 06/28/2021 5:52 PM POWDER COATER Gender Identity Female 06/28/2021 5:52 PM POWDER COATER Sexual Orientation Straight 06/28/2021 5: 52 PM POWDER COATER documented as of this encounter Plan of Treatment Not on file documented as of this encounter Visit Diagnoses Not on filedocumented in this encounter Care Teams Crate Liner Relationship Specialty Start Date End Date Found, No Pcp, [address] [facility] [place] [address] PCP - General 04/01/23 documented as of this encounter
--- OUTSIDE RECORDS SUMMARY | 2024-05-15 18:39 | XMS_ITS | Encounter Summary ---
Author Organization [facility] Address [address] [place] [address] Care Team Providers Care Environmental Sciences Professor Name Role Phone Found, No Pcp Primary Care Provider Unavailab le Encounter Details Date Type Department Care Team (Latest Contact Info) Description 10/13/1994 [place] [address] [place] [address] Social History Tobacco Use Types Packs/Day Years Used Date Smoking Tobacco: Never Assessed Sex and Gender Information Value Date Recorded Sex Assigned at Female 06/28/2021 5:52 PM ECHOCARDIOGRAPHY TECH Gender Identity Female 06/28/2021 5:52 PM ECHOCARDIOGRAPHY TECH Sexual Orientation Straight 06/28/2021 5: 52 PM ECHOCARDIOGRAPHY TECH documented as of this encounter Plan of Treatment Not on file documented as of this encounter Visit Diagnoses Not on filedocumented in this encounter Care Teams Environmental Sciences Professor Relationship Specialty Start Date End Date Found, No Pcp, [address] [facility] [place] [address] PCP - General 04/01/23 documented as of this encounter
--- OUTSIDE RECORDS SUMMARY | 2024-05-15 18:39 | XMS_ITS | Encounter Summary ---
Author Organization [facility] Address [address] [place] [address] Care Team Providers Care Swat Team Member Name Role Phone Found, No Pcp Primary Care Provider Unavailab le Encounter Details Date Type Department Care Team (Latest Contact Info) Description 12/13/1994 Orders Only Deja Horn Social History Tobacco Use Types Packs/Day Years Used Date Smoking Tobacco: Never Assessed Sex and Gender Information Value Date Recorded Sex Assigned at Female 06/28/2021 5:52 PM LASTEX THREAD WINDER Gender Identity Female 06/28/2021 5:52 PM LASTEX THREAD WINDER Sexual Orientation Straight 06/28/2021 5: 52 PM LASTEX THREAD WINDER documented as of this encounter Plan of Treatment Not on file documented as of this encounter Visit Diagnoses Not on filedocumented in this encounter Care Teams Swat Team Member Relationship Specialty Start Date End Date Found, No Pcp, [address] [place] [address] PCP - General 04/01/23 documented as of this encounter
--- OUTSIDE RECORDS SUMMARY | 2024-05-15 18:39 | XMS_ITS | Encounter Summary ---
Author Organization [facility] Address [address] [place] [address] Care Team Providers Care Mushroom Picker Name Role Phone Found, No Pcp Primary Care Provider Unavailab le Encounter Details Date Type Department Care Team (Latest Contact Info) Description 07/06/1995 [place] [address] [place] [address] Social History Tobacco Use Types Packs/Day Years Used Date Smoking Tobacco: Never Assessed Sex and Gender Information Value Date Recorded Sex Assigned at Female 06/28/2021 5:52 PM CLASSIFICATION COUNSELOR Gender Identity Female 06/28/2021 5:52 PM CLASSIFICATION COUNSELOR Sexual Orientation Straight 06/28/2021 5: 52 PM CLASSIFICATION COUNSELOR documented as of this encounter Plan of Treatment Not on file documented as of this encounter Visit Diagnoses Not on filedocumented in this encounter Care Teams Mushroom Picker Relationship Specialty Start Date End Date Found, No Pcp, [address] [facility] [place] [address] PCP - General 04/01/23 documented as of this encounter
--- OUTSIDE RECORDS SUMMARY | 2024-05-15 18:39 | XMS_ITS | Encounter Summary ---
Author Organization [facility] Address [address] [place] [address] Care Team Providers Care Professor In Family Studies Name Role Phone Found, No Pcp Primary Care Provider Unavailab le Encounter Details Date Type Department Care Team (Latest Contact Info) Description 11/19/1994 [place] [address] [place] [address] Social History Tobacco Use Types Packs/Day Years Used Date Smoking Tobacco: Never Assessed Sex and Gender Information Value Date Recorded Sex Assigned at Female 06/28/2021 5:52 PM SECURITIES VAULT SUPERVISOR Gender Identity Female 06/28/2021 5:52 PM SECURITIES VAULT SUPERVISOR Sexual Orientation Straight 06/28/2021 5: 52 PM SECURITIES VAULT SUPERVISOR documented as of this encounter Plan of Treatment Not on file documented as of this encounter Visit Diagnoses Not on filedocumented in this encounter Care Teams Professor In Family Studies Relationship Specialty Start Date End Date Found, No Pcp, [address] [facility] [place] [address] PCP - General 04/01/23 documented as of this encounter
--- OUTSIDE RECORDS SUMMARY | 2024-05-15 18:39 | XMS_ITS | Encounter Summary ---
Author Organization [facility] Address [address] [place] [address] Care Team Providers Care Database Manager Name Role Phone Found, No Pcp Primary Care Provider Unavailab le Encounter Details Date Type Department Care Team (Latest Contact Info) Description 08/15/1994 Orders Only Jared Stewart MD Social History Tobacco Use Types Packs/Day Years Used Date Smoking Tobacco: Never Assessed Sex and Gender Information Value Date Recorded Sex Assigned at Female 06/28/2021 5:52 PM EXPLOSIVE OPERATOR SUPERVISOR Gender Identity Female 06/28/2021 5:52 PM EXPLOSIVE OPERATOR SUPERVISOR Sexual Orientation Straight 06/28/2021 5: 52 PM EXPLOSIVE OPERATOR SUPERVISOR documented as of this encounter Plan of Treatment Not on file documented as of this encounter Visit Diagnoses Not on filedocumented in this encounter Care Teams Database Manager Relationship Specialty Start Date End Date Found, No Pcp, [address] [place] [address] PCP - General 04/01/23 documented as of this encounter
--- OUTSIDE RECORDS SUMMARY | 2024-05-15 18:39 | XMS_ITS | Encounter Summary ---
Author Organization [facility] Address [address] [place] [address] Care Team Providers Care Streetcar Operator Name Role Phone Found, No Pcp Primary Care Provider Unavailab le Encounter Details Date Type Department Care Team (Late st Contact Info) Description 10/25/1994 Orders Only [facility] Erasto Wade MD FAMILY PRACTICE [address] [place], [place] [id number] Social History Tobacco Use Types Packs/Day Years Used Date Smoking Tobacco: Never Assessed Sex and Gender Information Value Date Recorded Sex Assigned at Female 06/28/2021 5:52 PM CROP NUTRITION SCIENTIST Gender Identity Female 06/28/2021 5:52 PM CROP NUTRITION SCIENTIST Sexual Orientation Straight 06/28/2021 5: 52 PM CROP NUTRITION SCIENTIST documented as of this encounter Plan of Treatment Not on file documented as of this encounter Visit Diagnoses Not on filedocumented in this encounter Care Teams Streetcar Operator Relationship Specialty Start Date End Date Found, No Pcp, [address] [place] [address] PCP - General 04/01/23 documented as of this encounter
--- OUTSIDE RECORDS SUMMARY | 2024-05-15 18:39 | XMS_ITS | Encounter Summary ---
Author Organization [facility] Address [address] [place] [address] Care Team Providers Care Maintenance And Operations Supervisor Name Role Phone Found, No Pcp Primary Care Provider Unavailab le Encounter Details Date Type Department Care Team (Latest Contact Info) Description 01/03/1995 [place] [address] [place] [address] Social History Tobacco Use Types Packs/Day Years Used Date Smoking Tobacco: Never Assessed Sex and Gender Information Value Date Recorded Sex Assigned at Female 06/28/2021 5:52 PM DUST PULLER Gender Identity Female 06/28/2021 5:52 PM DUST PULLER Sexual Orientation Straight 06/28/2021 5: 52 PM DUST PULLER documented as of this encounter Plan of Treatment Not on file documented as of this encounter Visit Diagnoses Not on filedocumented in this encounter Care Teams Maintenance And Operations Supervisor Relationship Specialty Start Date End Date Found, No Pcp, [address] [facility] [place] [address] PCP - General 04/01/23 documented as of this encounter
--- OUTSIDE RECORDS SUMMARY | 2024-05-15 18:39 | XMS_ITS | Encounter Summary ---
Author Organization [employer] Address [address] [place] [address] Care Team Providers Care Person Investigator Name Role Phone Found, No Pcp Primary Care Provider Unavailab le Encounter Details Date Type Department Care Team (Latest Contact Info) Description 10/02/1994 Orders Only Toi Domingo MD [address] [place] [address] [id number] Social History Tobacco Use Types Packs/Day Years Used Date Smoking Tobacco: Never Assessed Sex and Gender Information Value Date Recorded Sex Assigned at Female 06/28/2021 5:52 PM MOTOR ROUTE CARRIER Gender Identity Female 06/28/2021 5:52 PM MOTOR ROUTE CARRIER Sexual Orientation Straight 06/28/2021 5: 52 PM MOTOR ROUTE CARRIER documented as of this encounter Plan of Treatment Not on file documented as of this encounter Visit Diagnoses Not on filedocumented in this encounter Care Teams Person Investigator Relationship Specialty Start Date End Date Found, No Pcp, [address] [place] [address] PCP - General 04/01/23 documented as of this encounter
== END 2024-05-15 18:41 | disposition left against medical advice (07) ==
LOC: ED 18:36
PROVIDERS: PCP Internal Medicine Gastroenterology
DX: Z53.21 Procedure and treatment not carried out due to patient leaving prior to being seen by health care provider (principal)

== ENCOUNTER 2024-10-17 18:07 | Emergency (ER) | payer MEDICARE, SELFPAY ==
--- OUTSIDE RECORDS SUMMARY | 2024-10-17 18:09 | XMS_ITS | Encounter Summary ---
Author Organization [place] Address [address] [place] [address] Care Team Providers Care Roll Builder Name Role Phone Clinic, [facility] Primary Care Provider Winnie Morrow Primary Care Provider [phone] Tamra Valle APRN STEAM SHOVEL OILER Unavailable Tamra Valle APRN STEAM SHOVEL OILER Unavailable [phone] [facility] Primary Care Provider Reason for Visit * Reason Onset Date Comments MH/CD Inpatient 09/11/2016 Encounter Details Date Type Department Care Team (Late st Contact Info) Description 09/11/2016 Telephone [facility] Behavioral Health Intake [address] [place] [address] Generic, Behavioral Intake, MH/CD Inpatient Social History Tobacco Use Types Packs/Day Years Used Date Smoking Tobacco: Former Smokeless Tobacco: Former Comments:Quit in 2008 Alcohol Use Standard Drinks/Week Comments No 0 (1 standard drink = 0.6 oz pur e alcohol) Adolescent Education Answer Date Record ed Getting School Help Needed Not on file 06/28 Interpersonal Safety Answer Date Record ed Do you feel physically and e motionally safe where you currently live? Yes 06/15/2024 Within the past 12 months, h ave you been hit, slapped, kicked or otherwise physically hurt by someone? No 06/15/2024 Within the past 12 months, h ave you been humiliated or emotionally abused in other ways by your partner or ex-partner? No 06/15/2024 Comments No Sex and Gender Information Value Date Recorded Sex Assigned at Female 05/24/2024 5:00 PM CATALOGUE MAKER Legal Sex Female 3:20 AM CATALOGUE MAKER Gender Identity Female 05/24/2024 5:00 PM CATALOGUE MAKER Sexual Orientation Straight 05/24/2024 5: 00 PM CATALOGUE MAKER documented as of this encounter Miscellaneous Notes * Telephone Encounter - Hermes Stanton - 09/11/2016 9:47 AM CDT [facility]x attempt. B: pt ingested between 60-90 trazadone in sx attempt. Pt also has 20-30 lacerations on wrists from a box maker wood, pt needing 51 stitches. Pt does not identify a adventure challenge instructor, states overwhelming depression, isolating no sleep past 5 days. Pt is eager for help and is Cooperative to admission. Poison control has been consulted and has medically cleared pt . A: dx depression, calm, cooperative, med stable. 72 hr hold. R: rittberg/20 documented in this encounter Plan of Treatment Not on file documented as of this encounter Visit Diagnoses Not on filedocumented in this encounter Care Teams Roll Builder Relationship Specialty Start Date End Date [facility], [facility] [id number] [place] [address] PCP - General 09/11/16 05/11/17 Winnie Morrow [address] [place] [address] PCP - General Physician Supervisor Backfilling 05/12/17 05/30/24 Tamra Valle APRN CNP [address] [place] [address] PCP - Assigned PCP 03/12/18 08/08/18 Clinic, [address] [address] PCP - General 05/31/24 Tamra Valle APRN [facility] [address] [place] [address] Assigned PCP 03/12/18 02/28/21 documented as of this encounter
--- OUTSIDE RECORDS SUMMARY | 2024-10-17 18:09 | XMS_ITS | Encounter Summary ---
Author Organization [employer] Address [address] [place] [address] Care Team Providers Care County Ordinary Name Role Phone Found, No Pcp Primary Care Provider Unavailab le Encounter Details Date Type Department Care Team (Latest Contact Info) Description 11/29/1994 Orders Only Deja Horn Social History Tobacco Use Types Packs/Day Years Used Date Smoking Tobacco: Never Assessed Comments Unknown Sex and Gender Information Value Date Recorded Sex Assigned at Female 06/28/2021 5:52 PM JUDGE'S CLERK Legal Sex Female 4:12 AM CDT Gender Identity Female 06/28/2021 5:52 PM JUDGE'S CLERK Sexual Orientation Straight 06/28/2021 5: 52 PM JUDGE'S CLERK documented as of this encounter Plan of Treatment Not on file documented as of this encounter Visit Diagnoses Not on filedocumented in this encounter Care Teams County Ordinary Relationship Specialty Start Date End Date Found, No Pcp, [address] [place] [address] PCP - General 04/01/23 documented as of this encounter
--- OUTSIDE RECORDS SUMMARY | 2024-10-17 18:09 | XMS_ITS | Clinical Summary ---
Author Organization [place] Address [facility] [place] [address] Care Team Providers Care Coal Getter Name Role Phone [facility] [place] Primary Care Provider Allergies Active Allergy Reactions Criticality Noted Date Comments Acetaminophen Itching,Rash Low 04/06/2023 Bee Venom Anaphylaxis High 07/31/2015 Bees Hives Medium 11/17/2010 Cephalosporins 10/18/2022 agitation Other Reaction(s): Agitation Cyclobenzaprine 05/03/2004 Other Reaction(s): Behavioral Disturbances PN: LW Reaction: Stimulation; HUT Comment: Psychosis ; HUT Reaction: Behavioral Disturbances; HUT Noted: [id number] Psychosis Duloxetine Hcl 06/28/2023 Restless legs/feet Diphenhydramine High 05/03/2004 aggravation Other Reaction(s): Agitation PN: LW Reaction: Stimulation; HUT Comment: Adverse reaction; HUT Reaction: Agitation; HUT Severity: High; HUT Noted: [id number] Adverse reaction Duloxetine Other (See Comments) 02/02/2016 Other Reaction(s): Restless Legs/Feet HUT Reaction: Restless Legs/Feet; HUT Noted: [id number] Venlafaxine 06/28/2023 Mental status change Erythromycin Hives 05/03/2004 PN: LW Reaction: HIVES; HUT Reaction: Hives; HUT Noted: [id number] Escitalopram Other (See Comments) 06/09/2010 Behavioral distrubance Other Reaction(s): Behavioral Disturbances HUT Reaction: Behavioral Disturbances; HUT Noted: [id number] Ibuprofen Other (See Comments) 12/17/2015 Other Reaction(s): Stomach Upset HUT Reaction: Stomach Upset; HUT Reaction Type: Intolerance; HUT Noted: [id number] Iodine-131 Other (See Comments) 11/17/2010 Methocarbamol Other (See Comments) 06/21/2014 Tremors Other Reaction(s): Tremors Tremors ; HUT Reaction: Tremors; HUT Noted: 20140621 Naproxen GI Disturbance 11/07/2009 Other Reaction(s): Gastrointestinal, GI Upset HUT Reaction: Gastrointestinal; HUT Noted: [id number] Nsaids GI Disturbance,Other (See Comments) 11/17/2010 Olanzapine Other (See Comments) 04/10/2018 Restless legs/feet HUT Reaction: Restless Legs/Feet Penicillins Hives 05/03/2004 PN: LW Reaction: HIVES; HUT Reaction: Hives; HUT Noted: [id number] Pregabalin Other (See Comments) 01/27/2014 Severe mood disturbance, worsened feelings of sadness/depression Other Reaction(s): Mental Status Change Psychosis; HUT Reaction: Mental Status Change; HUT Noted: 20151217 Prochlorperazine 05/03/2004 Behavioral distrubances Other Reaction(s): Behavioral Disturbances PN: LW Reaction: Stimulation; HUT Comment: Compazine; HUT Reaction: Behavioral Disturbances; HUT Noted: [id number] Compazine Risperidone Anxiety Low 05/23/2017 Anxiety, also stuttering Also stuttering ; HUT Comment: Also stuttering ; HUT Reaction: Anxiety; HUT Noted: 20170523 Also stuttering Shellfish Allergy Anaphylaxis High 11/17/2010 Shellfish-Derived Products Anaphylaxis High 07/31/2015 HUT Reaction: Anaphylaxis; HUT Severity: High; HUT Noted: [id number] Sulfa Antibiotics Hives,Angioedema 05/03/2004 PN: LW Reaction: Anaphylatic Rx; HUT Reaction: Hives; HUT Reaction: Angioedema; HUT Noted: [id number] Sumatriptan 07/03/2010 tachycardia Other Reaction(s): Tachycardia HUT Reaction: Tachycardia; HUT Noted: 20100703 Tetracycline Hives 05/03/2004 PN: LW Reaction: HIVES; HUT Reaction: Hives; HUT Noted: [id number] Medications * This document contains information received [...] to severe pain 15 tablet 4 Active amphetamine-dex troamphetamine (ADDERALL XR) 25 MG 24 hr capsule Take 25 mg by mouth daily. dextroamphetamin e-amphetamine ER 25 mg 24hr capsule,extend release 4 Active buprenorphine HCl-naloxone HCl (SUBOXONE) 8-[address] 1 Film under the tongue daily. 4 Active gabapentin (NEURONTIN) 300 MG capsule Pt states taking 600mg Tab 2 times a day 4 Active Lidocaine (TOPICAINE) 4 % GEL Apply topically. 4 Active lumateperone (CAPLYTA) 10.5 MG capsule Take 10.5 mg by mouth daily. 4 Active oxyCODONE (ROXICODONE) 5 MG tabletIndicatio ns:Anal fissure Take 1 tablet (5 mg) by mouth every 4 hours as needed for moderate to severe pain. 20 tablet 5 Active Active Problems Problem Noted Date Diagnosed [...] Provider to review and confirm.) Anemia Immunizations Immunization Administration Dates Next Due DTAP (<7y) 10/31/2001,01/06/1998,04/02/1997 ,02/05/1997,11/27/1996 HEPA 09/13/2007 HepB 07/30/1997,10/11/1996 MMR (MMRII) 10/31/2001 TD,PF 7+ (Tenivac) 12/04/2002 TDAP Vaccine (Adacel) 09/11/2016 Varicella (Varivax) 09/13/2007,10/25/1997 Family History Medical History Relation Comments Cardiovascular Father Non small cell L ymphoma Cerebrovascular Disease Father Mental Illness Maternal Grandmother Diabetes Son Type 1 Relation Status Comments Father Maternal Grandmother Son Social History Tobacco Use Types Packs/Day Years Used Date Smoking Tobacco: Former Cigarettes 0 10/18/1994 - 02/04/2009 Smokeless Tobacco: Never Tobacco Cessation:Counseling Given: Not Answered Comments:Quit in 2008 Alcohol Use Standard Drinks/Week [...] Sex Assigned at Female 05/24/2024 5:00 PM ROUTE SALES MANAGER Legal Sex Female 3:20 AM ROUTE SALES MANAGER Gender Identity Female 05/24/2024 5:00 PM ROUTE SALES MANAGER Sexual Orientation Straight 05/24/2024 5: 00 PM ROUTE SALES MANAGER Last Filed Vital Signs Vital Sign Reading Time Taken Comments Blood Pressure 137/78 06/15/2024 2:49 PM ROUTE SALES MANAGER Pulse 75 06/15/2024 2:49 PM ROUTE SALES MANAGER Temperature 36.8 C (98.2 F) 06/15/2024 2:49 PM ROUTE SALES MANAGER Respiratory Rate 18 06/15/2024 2:49 PM ROUTE SALES MANAGER Oxygen Saturation 99% 06/15/2024 2:49 PM ROUTE SALES MANAGER Inhaled Oxygen Concentration - - Weight 106.7 kg (235 lb 3.2 oz) 025 10:01 AM ROUTE SALES MANAGER Height 172.7 cm (5' 8) 06/30/2023 9:04 AM ROUTE SALES MANAGER Body Mass Index 35.76 06/30/2023 9:04 AM ROUTE SALES MANAGER Plan of Treatment Health Maintenance Due Date Last Done Comments ADVANCE CARE PLANNING 1968 ANNUAL REVIEW OF HM ORDERS 1968 CT COLONOGRAPHY 1968 FLEX SIG 1968 MAMMO SCREENING 1968 sDNA (Cologuard) 1968 MEDICARE ANNUAL WELLNESS VISIT 03/02/1995 03/02/1994 HEPATITIS B IMMUNIZATION (3 of 3 - 19+ 3-dose series) 09/24/1997 07/30/1997, 07/30/1997, 10/11/1996, Additional history exists FIT 12/28/2010 12/28/2009, 07/2009, 07/04/2008 Pneumococcal Vaccine: 50+ Years (1 of 1 - PCV) 2018 ZOSTER IMMUNIZATION (1 of 2) 2018 DIABETES SCREENING 05/12/2020 05/12/2017, 0 09/11/2016, 03/01/2011, Additional history exists LIPID 09/12/2021 09/12/2016 COVID-19 Vaccine ( - season) 2024 PHQ-2 (once per calendar year) 2024 INFLUENZA VACCINE (Season Ended) 2025 PAP 02/05/2025 02/05/2022, 11/25/2011 DTAP/TDAP/TD IMMUNIZATION (9 - Td or Tdap) 09/11/2026 09/11/2016, 11/30/2012, 12/04/2002, Additional history exists COLONOSCOPY 10/18/2032 10/18/2022 COLORECTAL CANCER SCREENING 10/18/2032 MENINGITIS IMMUNIZATION Aged Out 09/13/2007 No l onger eligible based on patient's age to complete this topic HEPATITIS C SCREENING Completed 02/28/2011 HIV SCREENING Completed 04/30/2019 HPV IMMUNIZATION Aged Out No longer e ligible based on patient's age to complete this topic Procedures Procedure Name Priority Date/Time Associated Diagnosis Comments BASIC METABOLIC PANEL STAT 05/12/2017 9:17 PM ROUTE SALES MANAGER LIPID PROFILE Routine 09/12/2016 7:48 AM CDT HEPATITIS C ANTIBODY Routine 02/28/2011 4:10 AM CDT OCCULT BLOOD STOOL STAT 12/28/2009 10 :18 PM CDT from Last 3 Months or Most Recently Relevant to Health Maintenance Results * Basic metabolic panel (05/12/2017 9:17 PM ROUTE SALES MANAGER) Sodium 137 133 - 144 mmol/L 05/12/2017 9:48 PM [facility] Potassium 3.7 3.4 - 5.3 mmol/L 05/12/2017 9:48 PM [facility] Comment:Specimen slightly he molyzed, potassium may be falsely elevated Chloride 104 94 - 109 mmol/L 05/12/2017 9:48 PM [facility] Carbon Dioxide 23 20 - 32 mmol/L 05/12/2017 9:48 PM [facility] Anion Gap 10 3 - 14 mmol/L 05/12/2017 9:48 PM [facility] Glucose 96 70 - 99 mg/dL 05/12/2017 9:48 PM [facility] Urea Nitrogen 17 7 - 30 mg/dL 05/12/2017 9:48 PM [facility] Creatinine 0.72 0.52 - 1.04 mg/dL 05/12/2017 9:48 PM [facility] GFR Estimate 86 >60 mL/min/1.7 m2 05/12/2017 9:48 PM [facility] Comment:Non GFR Calc GFR Estimate If Black >90 >60 mL/min/1.7 m2 05/12/2017 9:48 PM [facility] Comment: GFR Calc Calcium 8.7 8.5 - 10.1 mg/dL 05/12/2017 9:48 PM [facility] Blood specimen (specimen) 05/12/2017 9:17 PM ROUTE SALES MANAGER 05/12/2017 9:26 PM ROUTE SALES MANAGER us Bebeto Tadeo MD LAB - BLOOD ORDERABLES Fi nal Result [facility] [place] [address], [facility] [phone] * (ABNORMAL) Lipid panel (09/12/2016 7:48 AM CDT) Cholesterol 253(H) <200 mg/dL [facility] Comment:Desirable: <200 mg/d l Triglycerides 118 <150 mg/dL [facility] HDL Cholesterol 82 >49 mg/dL [facility] LDL Cholesterol Calculated 147(H) <100 mg/dL [facility] Comment: Above desirable: 100-129 mg/dl Borderline High: 130-159 mg/dL High: 160-189 mg/dL Very high: >189 mg/dl Non HDL Cholesterol 171(H) <130 mg/dL [facility] Comment: Above Desirable: 130-159 mg/dl Borderline high: 160-189 mg/dl High: 190-219 mg/dl Very high: >219 mg/dl Blood specimen (specimen) 09/12/2016 7:48 AM CDT 09/12/2016 7:58 AM CDT us Maribel Stovall MD LAB - BLOOD ORDERABLES Yane l Result [address] [address] * Hepatitis C antibody (02/28/2011 4:10 AM CDT) Hepatitis C Antibody Negative NEG [facility] 02/28/2011 4:10 AM CDT 02/28/2011 4:19 AM CDT us Hilario Aponte MD LAB - BLOOD ORDERABLES Fi nal Result [facility] [address] [place] [address] * (ABNORMAL) Occult blood stool (12/28/2009 10:18 PM CDT) Occult Blood Positive(A ) NEG [facility] 12/28/2009 10:1 8 PM CDT 12/28/2009 10:24 PM CDT Genie Kern MD LAB - STOOLS ORDERABLES Final Result [facility] from Last 3 Months or Most Recently Relevant to Health Maintenance Insurance MEDICARE MEDICARE MEDICARE Advance Directives For more information, please contact: [phone] * Full Code (Latest Code Status on File) Date Activated Date Inactivated Comments 05/13/2017 12:43 PM 05/18/2017 7:07 PM * Full Code Date Activated Date Inactivated Comments 09/11/2016 2:06 PM 09/17/2016 5:51 PM Care Teams Coal Getter Relationship Specialty Start Date End [facility] [address] PCP - General 05/31/24
--- OUTSIDE RECORDS SUMMARY | 2024-10-17 18:09 | XMS_ITS | Encounter Summary ---
Author Organization [email or web address] Address [address] [place] [address] Care Team Providers Care Certified Breastfeeding Educator Name Role Phone Found, No Pcp MD Primary Care Provider Unavailab le Reason for Referral * Procedure/Equipment (Routine) - Closed Specialty Diagnoses / Procedures Referred By Contisidro black Referred To Contact Diagnoses Encounter for long-term (current) [place] [address] [place] [address] Phone: tel: fax: Referral ID Status Reason Start Date Expiration Date Visits Re quested Visits Authorized [id number] Closed 01/18/2017 04/19/2018 1 1 Scheduling Instructions Your provider has recommended that you schedule a Lab Visit. A italian tutor will contact you within the next 3 [...] You can schedule your appointment online at [employer] or by calling the appointment center at the phone number listed above. Thank you for choosing [email or web address]. Beba Palma RN [facility] Nurses Encounter Details Date Type Department Care Team (Late st Contact Info) Description 01/17/2017 Refill Order [facility] [address] [place] [address] [place] [address] [place], [place] [id number] Social History Tobacco Use Types Packs/Day Years Used Date Smoking Tobacco: Never Comments No Sex and Gender Information Value Date Recorded Sex Assigned at Female 06/28/2021 5:52 PM COMPONENT INSPECTOR Legal Sex Female 4:12 AM CDT Gender Identity Female 06/28/2021 5:52 PM COMPONENT INSPECTOR Sexual Orientation Straight 06/28/2021 5: 52 PM COMPONENT INSPECTOR documented as of this encounter Nursing [...] medications documented in this encounter Care Teams Certified Breastfeeding Educator Relationship Specialty Start Date End Date Found, No Pcp, [address] [place] [address] PCP - General 04/01/23 documented as of this encounter
--- OUTSIDE RECORDS SUMMARY | 2024-10-17 18:09 | XMS_ITS | Encounter Summary ---
Author Organization [place] Address [address] [facility] [place] [address] Care Team Providers Care Concession Worker Name Role Phone None Primary Care Provider Unavailabl e Bandar Novak MD Primary Care Provider [phone] Verified, No Ref-Primary Primary Care Provider [facility] Primary Care Provider Winnie Morrow Primary Care Provider Tamra Valle APRN PROPELLER TESTER Unavailable Tamra Valle APRN PROPELLER TESTER Unavailable [facility] Primary Care Provider Encounter Details Date Type Department Care Team (Late st Contact Info) Description 07/19/2012 Abstract [facility] [address] [place] [id number] Zoila Mccoy PA-C [address] [place] [address] Social History Tobacco Use Types Packs/Day Years Used Date Smoking Tobacco: Former Comments:Quit in 2008 Alcohol Use Standard Drinks/Week Comments No 0 (1 standard drink = 0.6 oz pur e alcohol) Comments Unknown Sex and Gender Information Value Date Recorded Sex Assigned at Female 05/24/2024 5:00 PM DESIZING MACHINE OPERATOR HEAD END Legal Sex Female 3:20 AM DESIZING MACHINE OPERATOR HEAD END Gender Identity Female 05/24/2024 5:00 PM DESIZING MACHINE OPERATOR HEAD END Sexual Orientation Straight 05/24/2024 5: 00 PM DESIZING MACHINE OPERATOR HEAD END documented as of this encounter Plan of Treatment Not on file documented as of this encounter Visit Diagnoses Not on filedocumented in this encounter Care Teams Concession Worker Relationship Specialty Start Date End Date None PCP - General 02/28/11 10/02/12 Bandar Novak MD [facility] [address] [place] [address] PCP - General Family Practice 10/03/12 09/14/15 Verified, No Ref-Primary PCP - General 09/15/15 09/10/[address] [facility] [address] [place] [address] PCP - General 09/11/16 05/11/17 Winnie Morrow [address] [place] [address] PCP - General Physician Stamp Clerk 05/12/17 05/30/24 Tamra Valle APRN PROPELLER TESTER [address] [place] [address] PCP - Assigned PCP 03/12/18 08/08/[address] [address] PCP - General 05/31/24 Tamra Valle APRN PROPELLER TESTER [address] [place] [address] Assigned PCP 03/12/18 02/28/21 documented as of this encounter
--- OUTSIDE RECORDS SUMMARY | 2024-10-17 18:09 | XMS_ITS | Encounter Summary ---
Author Organization [place] Address [address] [place] [address] Care Team Providers Care Optical Design Engineer Name Role Phone Winnie Morrow Primary Care Provider [phone] Tamra Valle APRN CABLE RIGGER Unavailable [phone] Tamra Valle APRN CABLE RIGGER Unavailable [phone] [facility] Primary Care Provider Reason for Visit * Reason Onset Date Comments MH/CD Inpatient 05/12/2017 Encounter Details Date Type Department Care Team (Late st Contact Info) Description 05/12/2017 Telephone [facility] Behavioral Health Intake [address] [place] [address] Generic, Behavioral Intake, MH/CD Inpatient [...] Sex Assigned at Female 05/24/2024 5:00 PM YEAST STACKER Legal Sex Female 3:20 AM YEAST STACKER Gender Identity Female 05/24/2024 5:00 PM YEAST STACKER Sexual Orientation Straight 05/24/2024 5: 00 PM YEAST STACKER documented as of this encounter Miscellaneous Notes * Telephone Encounter - Rey Diamond - 05/13/2017 9:10 AM YEAST STACKER B - Pt. Can contract for safety on Unit and will notify staff if having any urges of self harm Per Cesar GAYTAN w/ [facility] ED , U tox neg , Affect in ED is cooperative and calm and help seeking A - VOL R - admit to / Dr. Gama paged at 8:59AM / Dr. Gama accepting for Dr. Otriz / [place] [address] RN Jessy 10.02AM / [facility] ED LUCILA Guerrero notified 10:04AM T STACKER * Telephone Encounter - Catarina Kirk - 05/12/2017 10:34 PM CST S: Tricia Truong from [facility] DEC called with report; requesting admit on pt due to SI with a plan to overdose on medications B: hx dx of depression; pt has history of a previous admission to [facility] for mental health in September of this year; pt reports history of a previous suicide attempt by cutting wrists; pt admitsto taking approx 14 pills (per blueprinting and photocopy supervisor, dosage unknown) of her mother's vicodin prescription todaybecause she wanted to feel better; blueprinting and photocopy supervisor states she is unsure if PC was [...] caller, pt has been medically cleared through [facility] ED; caller states she is unsure if PC was contacted while pt was in ED regarding her ingestion of Vicodin earlier today; voluntary/cooperative-pt agrees to sign self in; utox needs to be collected R: adult mental health at [facility] is at capacity at this time; pt added to wait list for placement, and will remain in ED until an appropriate bed is available; Tricia Truong in [facility] notified that pt has been placed on wait list at this time T STACKER documented in this encounter Plan of Treatment Not on file documented as of this encounter Visit Diagnoses Not on filedocumented in this encounter Care Teams Optical Design Engineer Relationship Specialty Start Date End Date Winnie Morrow PCP - General Physician Accounts Receivable Assistant 05/12/17 05/30/24 Tamra Valle APRN CABLE RIGGER [address] [place] [address] PCP - Assigned PCP 03/12/18 08/08/[address] [address] PCP - General 05/31/24 Tamra Valle APRN CABLE RIGGER [address] [place] [address] Assigned PCP 03/12/18 02/28/21 documented as of this encounter
--- OUTSIDE RECORDS SUMMARY | 2024-10-17 18:09 | XMS_ITS | Encounter Summary ---
Author Organization [facility] Address [address] [place] [address] Care Team Providers Care Locator Name Role Phone Found, No Pcp Primary Care Provider Unavailab le Encounter Details Date Type Department Care Team (Latest Contact Info) Description 07/06/1995 [place] [address] [place] [address] Social History Tobacco Use Types Packs/Day Years Used Date Smoking Tobacco: Never Assessed Comments Unknown Sex and Gender Information Value Date Recorded Sex Assigned at Female 06/28/2021 5:52 PM SMOKE CONTROL SUPERVISOR Legal Sex Female 4:12 AM CDT Gender Identity Female 06/28/2021 5:52 PM SMOKE CONTROL SUPERVISOR Sexual Orientation Straight 06/28/2021 5: 52 PM SMOKE CONTROL SUPERVISOR documented as of this encounter Plan of Treatment Not on file documented as of this encounter Visit Diagnoses Not on filedocumented in this encounter Care Teams Locator Relationship Specialty Start Date End Date Found, No Pcp, [address] [place] [address] PCP - General 04/01/23 documented as of this encounter
--- OUTSIDE RECORDS SUMMARY | 2024-10-17 18:10 | XMS_ITS | Encounter Summary ---
Author Organization [facility] Address [address] [place] [address] Care Team Providers Care Doughmaker Name Role Phone Found, No Pcp Primary Care Provider Unavailab le Encounter Details Date Type Department Care Team (Latest Contact Info) Description 09/08/1994 [place] [address] [place] [address] Social History Tobacco Use Types Packs/Day Years Used Date Smoking Tobacco: Never Assessed Comments Unknown Sex and Gender Information Value Date Recorded Sex Assigned at Female 06/28/2021 5:52 PM SFDC CONSULTANT Legal Sex Female 4:12 AM CDT Gender Identity Female 06/28/2021 5:52 PM SFDC CONSULTANT Sexual Orientation Straight 06/28/2021 5: 52 PM SFDC CONSULTANT documented as of this encounter Plan of Treatment Not on file documented as of this encounter Visit Diagnoses Not on filedocumented in this encounter Care Teams Doughmaker Relationship Specialty Start Date End Date Found, No Pcp, [address] [place] [address] PCP - General 04/01/23 documented as of this encounter
--- OUTSIDE RECORDS SUMMARY | 2024-10-17 18:10 | XMS_ITS | Encounter Summary ---
Author Organization [facility] Address [address] [place] [address] Care Team Providers Care Cloud Subject Matter Expert Name Role Phone Found, No Pcp Primary Care Provider Unavailab le Encounter Details Date Type Department Care Team (Latest Contact Info) Description 08/15/1994 Orders Only Jared Stewart MD Social History Tobacco Use Types Packs/Day Years Used Date Smoking Tobacco: Never Assessed Comments Unknown Sex and Gender Information Value Date Recorded Sex Assigned at Female 06/28/2021 5:52 PM HOME VISITOR Legal Sex Female 4:12 AM CDT Gender Identity Female 06/28/2021 5:52 PM HOME VISITOR Sexual Orientation Straight 06/28/2021 5: 52 PM HOME VISITOR documented as of this encounter Plan of Treatment Not on file documented as of this encounter Visit Diagnoses Not on filedocumented in this encounter Care Teams Cloud Subject Matter Expert Relationship Specialty Start Date End Date Found, No Pcp, [address] [place] [address] PCP - General 04/01/23 documented as of this encounter
--- OUTSIDE RECORDS SUMMARY | 2024-10-17 18:10 | XMS_ITS | Encounter Summary ---
Author Organization [facility] Address [address] [place] [address] Care Team Providers Care Senior Financial Consultant Name Role Phone Found, No Pcp Primary Care Provider Unavailab le Encounter Details Date Type Department Care Team (Latest Contact Info) Description 01/03/1995 [place] [address] [place] [address] Social History Tobacco Use Types Packs/Day Years Used Date Smoking Tobacco: Never Assessed Comments Unknown Sex and Gender Information Value Date Recorded Sex Assigned at Female 06/28/2021 5:52 PM GYNECOLOGY TEACHER Legal Sex Female 4:12 AM CDT Gender Identity Female 06/28/2021 5:52 PM GYNECOLOGY TEACHER Sexual Orientation Straight 06/28/2021 5: 52 PM GYNECOLOGY TEACHER documented as of this encounter Plan of Treatment Not on file documented as of this encounter Visit Diagnoses Not on filedocumented in this encounter Care Teams Senior Financial Consultant Relationship Specialty Start Date End Date Found, No Pcp, [address] [place] [address] PCP - General 04/01/23 documented as of this encounter
--- OUTSIDE RECORDS SUMMARY | 2024-10-17 18:10 | XMS_ITS | Encounter Summary ---
Author Organization [facility] Address [address] [place] [address] Care Team Providers Care Microfilm Camera Operator Name Role Phone Found, No Pcp Primary Care Provider Unavailab le Encounter Details Date Type Department Care Team (Latest Contact Info) Description 12/18/1994 Orders Only Kana Motta [facility] [address] [facility], [id number] Social History Tobacco Use Types Packs/Day Years Used Date Smoking Tobacco: Never Assessed Comments Unknown Sex and Gender Information Value Date Recorded Sex Assigned at Female 06/28/2021 5:52 PM ANGLE FURNACEMAN Legal Sex Female 4:12 AM CDT Gender Identity Female 06/28/2021 5:52 PM ANGLE FURNACEMAN Sexual Orientation Straight 06/28/2021 5: 52 PM ANGLE FURNACEMAN documented as of this encounter Plan of Treatment Not on file documented as of this encounter Visit Diagnoses Not on filedocumented in this encounter Care Teams Microfilm Camera Operator Relationship Specialty Start Date End Date Found, No Pcp, [address] [place] [address] PCP - General 04/01/23 documented as of this encounter
--- OUTSIDE RECORDS SUMMARY | 2024-10-17 18:10 | XMS_ITS | Encounter Summary ---
Author Organization [facility] Address [address] [place] [address] Care Team Providers Care Shipping Receiving Clerk Name Role Phone Found, No Pcp Primary Care Provider Unavailab le Encounter Details Date Type Department Care Team (Latest Contact Info) Description 11/10/1994 [place] [address] [place] [address] Social History Tobacco Use Types Packs/Day Years Used Date Smoking Tobacco: Never Assessed Comments Unknown Sex and Gender Information Value Date Recorded Sex Assigned at Female 06/28/2021 5:52 PM TEST LEAD Legal Sex Female 4:12 AM CDT Gender Identity Female 06/28/2021 5:52 PM TEST LEAD Sexual Orientation Straight 06/28/2021 5: 52 PM TEST LEAD documented as of this encounter Plan of Treatment Not on file documented as of this encounter Visit Diagnoses Not on filedocumented in this encounter Care Teams Shipping Receiving Clerk Relationship Specialty Start Date End Date Found, No Pcp, [address] [place] [address] PCP - General 04/01/23 documented as of this encounter
--- OUTSIDE RECORDS SUMMARY | 2024-10-17 18:10 | XMS_ITS | Encounter Summary ---
Author Organization [facility] Address [address] [place] [address] Care Team Providers Care Hogshead Builder Name Role Phone Found, No Pcp Primary Care Provider Unavailab le Encounter Details Date Type Department Care Team (Latest Contact Info) Description 10/02/1994 Orders Only Toi Domingo MD Social History Tobacco Use Types Packs/Day Years Used Date Smoking Tobacco: Never Assessed Comments Unknown Sex and Gender Information Value Date Recorded Sex Assigned at Female 06/28/2021 5:52 PM BACK HOE OPERATOR Legal Sex Female 4:12 AM CDT Gender Identity Female 06/28/2021 5:52 PM BACK HOE OPERATOR Sexual Orientation Straight 06/28/2021 5: 52 PM BACK HOE OPERATOR documented as of this encounter Plan of Treatment Not on file documented as of this encounter Visit Diagnoses Not on filedocumented in this encounter Care Teams Hogshead Builder Relationship Specialty Start Date End Date Found, No Pcp, [address] [place] [address] PCP - General 04/01/23 documented as of this encounter
--- OUTSIDE RECORDS SUMMARY | 2024-10-17 18:10 | XMS_ITS | Encounter Summary ---
Author Organization [facility] Address [address] [place] [address] Care Team Providers Care Waste Collector Name Role Phone Found, No Pcp Primary Care Provider Unavailab le Encounter Details Date Type Department Care Team (Latest Contact Info) Description 09/03/1994 Orders Only Cornell Espinal Social History Tobacco Use Types Packs/Day Years Used Date Smoking Tobacco: Never Assessed Comments Unknown Sex and Gender Information Value Date Recorded Sex Assigned at Female 06/28/2021 5:52 PM ROUTE RIDER Legal Sex Female 4:12 AM CDT Gender Identity Female 06/28/2021 5:52 PM ROUTE RIDER Sexual Orientation Straight 06/28/2021 5: 52 PM ROUTE RIDER documented as of this encounter Plan of Treatment Not on file documented as of this encounter Visit Diagnoses Not on filedocumented in this encounter Care Teams Waste Collector Relationship Specialty Start Date End Date Found, No Pcp, [address] [place] [address] PCP - General 04/01/23 documented as of this encounter
--- OUTSIDE RECORDS SUMMARY | 2024-10-17 18:10 | XMS_ITS | Encounter Summary ---
Author Organization [facility] Address [address] [place] [address] Care Team Providers Care Qc Lab Technician Name Role Phone Found, No Pcp Primary Care Provider Unavailab le Encounter Details Date Type Department Care Team (Latest Contact Info) Description 06/16/1994 Orders Only Jared Stewart MD Social History Tobacco Use Types Packs/Day Years Used Date Smoking Tobacco: Never Assessed Comments Unknown Sex and Gender Information Value Date Recorded Sex Assigned at Female 06/28/2021 5:52 PM ORDNANCE HANDLER Legal Sex Female 4:12 AM CDT Gender Identity Female 06/28/2021 5:52 PM ORDNANCE HANDLER Sexual Orientation Straight 06/28/2021 5: 52 PM ORDNANCE HANDLER documented as of this encounter Plan of Treatment Not on file documented as of this encounter Visit Diagnoses Not on filedocumented in this encounter Care Teams Qc Lab Technician Relationship Specialty Start Date End Date Found, No Pcp, [address] [place] [address] PCP - General 04/01/23 documented as of this encounter
--- OUTSIDE RECORDS SUMMARY | 2024-10-17 18:10 | XMS_ITS | Encounter Summary ---
Author Organization [facility] Address [address] [place] [address] Care Team Providers Care Farm Crew Member Name Role Phone Found, No Pcp Primary Care Provider Unavailab le Encounter Details Date Type Department Care Team (Late st Contact Info) Description 06/26/1994 Orders Only [facility] Erasto Wade MD [facility] [address] [place], [place] [id number] Social History Tobacco Use Types Packs/Day Years Used Date Smoking Tobacco: Never Assessed Comments Unknown Sex and Gender Information Value Date Recorded Sex Assigned at Female 06/28/2021 5:52 PM SHIPPING SUPPORT Legal Sex Female 4:12 AM CDT Gender Identity Female 06/28/2021 5:52 PM SHIPPING SUPPORT Sexual Orientation Straight 06/28/2021 5: 52 PM SHIPPING SUPPORT documented as of this encounter Plan of Treatment Not on file documented as of this encounter Visit Diagnoses Not on filedocumented in this encounter Care Teams Farm Crew Member Relationship Specialty Start Date End Date Found, No Pcp, [address] [place] [address] PCP - General 04/01/23 documented as of this encounter
--- OUTSIDE RECORDS SUMMARY | 2024-10-17 18:10 | XMS_ITS | Encounter Summary ---
Author Organization [facility] Address [address] [place] [address] Care Team Providers Care Recruitment Coordinator Name Role Phone Found, No Pcp Primary Care Provider Unavailab le Encounter Details Date Type Department Care Team (Latest Contact Info) Description 11/19/1994 [place] [address] [place] [address] Social History Tobacco Use Types Packs/Day Years Used Date Smoking Tobacco: Never Assessed Comments Unknown Sex and Gender Information Value Date Recorded Sex Assigned at Female 06/28/2021 5:52 PM INDUSTRIAL MAINTENANCE TECH Legal Sex Female 4:12 AM CDT Gender Identity Female 06/28/2021 5:52 PM INDUSTRIAL MAINTENANCE TECH Sexual Orientation Straight 06/28/2021 5: 52 PM INDUSTRIAL MAINTENANCE TECH documented as of this encounter Plan of Treatment Not on file documented as of this encounter Visit Diagnoses Not on filedocumented in this encounter Care Teams Recruitment Coordinator Relationship Specialty Start Date End Date Found, No Pcp, [address] [place] [address] PCP - General 04/01/23 documented as of this encounter
--- OUTSIDE RECORDS SUMMARY | 2024-10-17 18:10 | XMS_ITS | Encounter Summary ---
Author Organization [facility] Address [address] [place] [address] Care Team Providers Care Engraver Machine Name Role Phone Found, No Pcp Primary Care Provider Unavailab le Encounter Details Date Type Department Care Team (Latest Contact Info) Description 01/18/1995 [place] [address] [place] [address] Social History Tobacco Use Types Packs/Day Years Used Date Smoking Tobacco: Never Assessed Comments Unknown Sex and Gender Information Value Date Recorded Sex Assigned at Female 06/28/2021 5:52 PM MANAGING DIRECTOR Legal Sex Female 4:12 AM CDT Gender Identity Female 06/28/2021 5:52 PM MANAGING DIRECTOR Sexual Orientation Straight 06/28/2021 5: 52 PM MANAGING DIRECTOR documented as of this encounter Plan of Treatment Not on file documented as of this encounter Visit Diagnoses Not on filedocumented in this encounter Care Teams Engraver Machine Relationship Specialty Start Date End Date Found, No Pcp, [address] [place] [address] PCP - General 04/01/23 documented as of this encounter
--- OUTSIDE RECORDS SUMMARY | 2024-10-17 18:10 | XMS_ITS | Encounter Summary ---
Author Organization [facility] Address [address] [place] [address] Care Team Providers Care Wheel Shop Supervisor Name Role Phone Found, No Pcp Primary Care Provider Unavailab le Encounter Details Date Type Department Care Team (Latest Contact Info) Description 08/25/1994 [place] [address] [place] [address] Social History Tobacco Use Types Packs/Day Years Used Date Smoking Tobacco: Never Assessed Comments Unknown Sex and Gender Information Value Date Recorded Sex Assigned at Female 06/28/2021 5:52 PM FLATWORK FEEDER Legal Sex Female 4:12 AM CDT Gender Identity Female 06/28/2021 5:52 PM FLATWORK FEEDER Sexual Orientation Straight 06/28/2021 5: 52 PM FLATWORK FEEDER documented as of this encounter Plan of Treatment Not on file documented as of this encounter Visit Diagnoses Not on filedocumented in this encounter Care Teams Wheel Shop Supervisor Relationship Specialty Start Date End Date Found, No Pcp, [address] [place] [address] PCP - General 04/01/23 documented as of this encounter
--- OUTSIDE RECORDS SUMMARY | 2024-10-17 18:10 | XMS_ITS | Encounter Summary ---
Author Organization [facility] Address [address] [place] [address] Care Team Providers Care Career Information Specialist Name Role Phone Found, No Pcp Primary Care Provider Unavailab le Encounter Details Date Type Department Care Team (Latest Contact Info) Description 02/14/1995 [place] [address] [place] [address] Social History Tobacco Use Types Packs/Day Years Used Date Smoking Tobacco: Never Assessed Comments Unknown Sex and Gender Information Value Date Recorded Sex Assigned at Female 06/28/2021 5:52 PM TAR KETTLE RUNNER Legal Sex Female 4:12 AM CDT Gender Identity Female 06/28/2021 5:52 PM TAR KETTLE RUNNER Sexual Orientation Straight 06/28/2021 5: 52 PM TAR KETTLE RUNNER documented as of this encounter Plan of Treatment Not on file documented as of this encounter Visit Diagnoses Not on filedocumented in this encounter Care Teams Career Information Specialist Relationship Specialty Start Date End Date Found, No Pcp, [address] [place] [address] PCP - General 04/01/23 documented as of this encounter
--- OUTSIDE RECORDS SUMMARY | 2024-10-17 18:10 | XMS_ITS | Encounter Summary ---
Author Organization [facility] Address [address] [place] [address] Care Team Providers Care Manager E Commerce Name Role Phone Found, No Pcp Primary Care Provider Unavailab le Encounter Details Date Type Department Care Team (Latest Contact Info) Description 08/13/1994 Orders Only Jared Stewart MD Social History Tobacco Use Types Packs/Day Years Used Date Smoking Tobacco: Never Assessed Comments Unknown Sex and Gender Information Value Date Recorded Sex Assigned at Female 06/28/2021 5:52 PM FUNERAL PROFESSIONAL Legal Sex Female 4:12 AM CDT Gender Identity Female 06/28/2021 5:52 PM FUNERAL PROFESSIONAL Sexual Orientation Straight 06/28/2021 5: 52 PM FUNERAL PROFESSIONAL documented as of this encounter Plan of Treatment Not on file documented as of this encounter Visit Diagnoses Not on filedocumented in this encounter Care Teams Manager E Commerce Relationship Specialty Start Date End Date Found, No Pcp, [address] [place] [address] PCP - General 04/01/23 documented as of this encounter
--- OUTSIDE RECORDS SUMMARY | 2024-10-17 18:10 | XMS_ITS | Clinical Summary ---
Author Organization [facility] Address [address] [place] [address] Care Team Providers Care Student Dean Name Role Phone Found, No Pcp MD [...] for each transition of care or referral. Modernizing Medicine Allergies Active Allergy Reactions Criticality Noted Date [...] 12/16 HUT Reaction: Mental Status Change Medications * This document contains information received from the source organization and may not represent a complete record from that organization. amphetamine-dextr oamphetamine (ADDERALL) 20 MG tablet TK 1 T PO TID PRN 0 8 Active ascorbic acid 500 MG tablet Take 500 mg by mouth. 6 Active Cyanocobalamin (B-12) 1000 MCG TBCR Take 1,000 mcg by mouth. 7 Active Cholecalciferol (VITAMIN D3) 5000 units TABS Take 5,000 Units by mouth. 7 Active QUEtiapine (SEROQUEL) 50 MG tablet TK 1 T PO BID 0 8 Active multivitamin with minerals tablet Take 1 Tablet by mouth. 7 Active LORazepam (ATIVAN) 0.5 MG tablet TK 1 T PO BID PRN 0 Active methylPREDNISolon e (MEDROL 21 TABLET DOSEPACK) 4 MG tabletIndications :Chronic bilateral low back pain without sciatica Follow package directions 21 Tablet 2 Active gabapentin (NEURONTIN) 400 MG capsule Take 1 Capsule (400 mg) by mouth 4 times a day. 270 Capsule 1 2 Active lamoTRIgine (LAMICTAL) 25 MG tablet Take 1 Tablet (25 mg) by mouth daily. 360 Tablet 2 Active ferrous gluconate (FERGON) 324 (38 Fe) MG tabletIndications :Restless legs syndrome (RLS) Take 1 Tablet (324 mg) by mouth two times a day with meals. 180 Tablet 3 2 Active aluminum chloride (DRYSOL) 20 % external solutionIndicatio ns:Axillary hyperhidrosis apply sparingly to skin with excessive sweating for 1-5 nights to get appropriate response 35 mL 2 Active hydrocortisone 2.5 % cream Apply topically two times a day. For 2-3 weeks 30 g 1 2 Active polyethylene glycol-electrolyt e (PEG ELECTROLYTE) 236 g oral solution Take as directed in patient instructions: drink 2000mL at 6PM the evening before and 2000mL 4 hours before your procedure 4000 mL 2 Active bisacodyl 5 MG enteric coated tablet Take 4 tablets by mouth once at 5PM the evening before your procedure. 4 Tablet 2 Active ondansetron (ZOFRAN) 4 MG tablet Take 1 tablet by mouth every 6 hours as needed for nausea. 3 Tablet 2 Active Active Problems Problem Noted Date Diagnosed Date Physical deconditioning 03/02/2019 Hernia of abdominal wall 03/02/2019 Opioid use disorder, severe, on maintenance ther apy 04/10/2018 Drug abuse 05/10/2017 Overview (05/12/2017): Pharmacy reports gabapetnin abuse According to the SCALING MACHINE OPERATOR, between March 21 and May 07, 2017 [...] returning to the pain specialist in [place] this summer. Explained to her that I would be willing to use hydrocodone until that time. Encounter for long-term (cur rent) use of high-risk medication 03/08/2012 04/21/2017 Overview (04/06/2019): Controlled substance agreement for Adderall XR 20 mg daily, dispense 30 tabs monthly on file and signed 03/08/12. Designated pharmacy: [facility]. Prescribing physician: Dr Sha Renee. Diagnosis: ADD Pain medication agreement 01/04/2012 Overview (04/06/2019): Controlled substance agreement for Adderall XR 30mg Qty. 30 , Adderall 30mg 3 times a day Qty. 90 on file and signed 01/04/12. Designated pharmacy: [facility] Prescribing physician: Dr. Renee Diagnosis: ADD. Ayanna Campuzano Gilberto CHILD CARE CENTRE MANAGER 01/04/2012 1:27 PM Migraines 11/03/2011 01/16/2013 Insomnia 03/23/2011 01/16/2013 Overview (04/06/2019): Insomnia, unspecified Pain medication agreement 12/25/2010 Overview (04/06/2019): MS Contin 30 mg tablets number 60 per month. Tramadol 50 mg tablets number 60 per month. DVT of upper extremity (deep vein thrombosis) 07/03/19 11 05/23/2017 Overview (04/06/2019): At site of IV. 8.1.2009. 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 [facility] 12/29-12/31/09 Immunizations Immunization Administration Dates Next Due DTaP 10/31/2001, 8,04/02/1997,1996,11/27/1996 [...] Answer Date Recorded PHQ-2 Score 2 02/05/2022 Comments No Sex and Gender Information Value Date Recorded Sex Assigned at Female 06/28/2021 5:52 PM DESK OPERATOR Legal Sex Female 4:12 AM CDT Gender Identity Female 06/28/2021 5:52 PM DESK OPERATOR Sexual Orientation Straight 06/28/2021 5: 52 PM DESK OPERATOR Last Filed Vital Signs Vital Sign Reading Time Taken Comments Blood Pressure 132/93 02/05/2022 10:16 AM CDT Pulse 110 02/05/2022 10:16 AM CDT Temperature 36.6 C (97.9 F) 06/27/2021 10:22 AM DESK OPERATOR Respiratory Rate 16 07/04/2019 12:32 PM DESK OPERATOR Oxygen Saturation 96% 07/04/2019 12:32 PM DESK OPERATOR Inhaled Oxygen Concentration - - Weight 121.1 kg (267 lb) 02/05/2022 10:13 AM CDT Height 177.8 cm (5' 10) 02/05/2022 10:13 AM CDT Body Mass Index 38.31 02/05/2022 10:13 AM CDT Plan of Treatment Health Maintenance Due Date Last Done Comments Hep C Screening (Preventive Services) 1968 Mammogram 1968 HepB Vaccine (1) 1987 07/30/1997, 10/11/1996 FIT Colon Cancer Screening 2012 Pneumococcal Vaccine 50+ Yrs (1 of 1 - PCV) 2018 Zoster/Shingles Vaccine (1 of 2) 2018 Medicare Annual Wellness Visit 02/05/2023 02/05/2022, 04/30/2019 SMI: Fasting Lipid 02/05/2023 02/05/2022, 04/30/2019 SMI: Hgb A1C 09/17/2023 09/16/2022, 09/0 07/2021, 02/05/2022, Additional history exists COVID-19 Vaccine ( - 2023- season) 2024 Influenza Vaccine (Season Ended) 2025 DTaP/Tdap/Td Vaccine (9 - Tdap) 09/11/2026 09/11/2016, 11/30/2012, 12/04/2002, Additional history exists Cervical Cancer Screening 02/05/20272021, 02/05/2022, 06/06/2008 (Completed) Hib Vaccine Aged Out 01/06/1998 No longer eligi ble based on patient's age to complete this topic IPV (Polio) Vaccine Aged Out 10/31/2001 No longe r eligible based on patient's age to complete this topic HepA Vaccine Aged Out 09/13/2007 No longer eligi ble based on patient's age to complete this topic HIV Screening (Preventive Services) Completed 04/30/2019 MCV4 Vaccine Aged Out No longer eligi ble based on patient's age to complete this topic Meningococcal B Vaccine Aged Out No l onger eligible based on patient's age to complete this topic Procedures Procedure Name Priority Date/Time Associated Diagnosis Comments CYTOLOGY (PAP) Routine 02/05/2022 1:33 PM CDT Screening for cervical cancer COMPREHENSIVE METABOLIC PANEL Routine 02/05/2022 10:59 AM CDT High risk medication use LIPID PANEL & DIRECT LDL (IF NEEDED) Routine 02/05/2022 10:59 AM CDT Screening cholesterol level HIV 1/2 AG/AB 4TH GEN Routine 04/30/2019 11:24 AM DESK OPERATOR Screening for HIV (human immunodeficiency virus) from Last 3 Months or Most Recently Relevant to Health Maintenance Results * PAP Test (02/05/2022 1:33 PM CDT) Case Report Pap Case: [id number] Authorizing Provider: Taylor Downing MD Collected: 02/05/2022 1333 Ordering Location: [facility] Received: 02/05/2022 1620 Practice First Screen: Bonita Schroeder CT (ASCP) Specimen: Pap Test, Routine, Cervix/Endocervix 02/25/2022 10:42 AM [facility] Pap Specimen Adequacy Satisfactory for evaluation, endocervical/israel sformation zone component present. 02/25/2022 10:42 AM [facility] Pap Interpretation (NILM) Negative for intraepithelial lesion or malignancy. 02/25/2022 10:42 AM [facility] at 1042 CDT Pap Other Findings Atrophy. 02/25/2022 10:42 AM [facility] Pap Disclaimer The Pap test is a screening test designed to aid in the detection of cervical cancer and its precursor lesions. It is not a diagnostic procedure and should not be used as the sole means of detecting cervical cancer. Both false-positive and false-negative results may occur. 02/25/2022 10:42 AM [facility] Gross Description The specimen is received in SurePath fixative and properly labeled. 1 Pap-stained SurePath slide is prepared. 02/25/2022 10:42 AM [facility] Embedded Images 10:42 AM [facility] Other Specimen Type ENTIRE ENDOCERVIX / Unknown 02/05/2022 1:33 PM CDT 02/05/2022 4:20 PM CDT Comment:LMP: Patient's last menstrual period was 04/26/2017. Taylor Downing MD LAB PATHOLOGY Final Result Performing Organization Address City/State/[facility] [place] [address], [facility] [phone] * (ABNORMAL) Lipid Panel and Direct LDL(If Needed) (02/05/2022 10:59 AM CDT) Cholesterol 240(H) 0 - 199 mg/dL 02/05/2022 3:53 PM CDT [facility] Triglyceride 200(H) <=149 mg/dL 02/05/2022 3:53 PM T [facility] HDL Cholesterol 52 >=40 mg/dL 02/05/2022 3:53 PM CDT [facility] LDL, Calculated 148(H) <130 mg/dL 02/05/2022 3:53 PM T [facility] Non HDL Chol, Calculated 188(H) <=159 mg/dL 02/05/2022 3:53 PM T [facility] Cholesterol/HDL Ratio 4.6 02/05/2022 3:53 PM T [facility] Hours Fasting N/A 02/05/2022 3:53 PM CDT [facility] Blood Venipuncture / Unknown 02/05/2022 10:59 AM CDT 02/05/2022 10:59 AM CDT us Taylor Downing MD LAB_1 Final Result [facility] [address] [address], [facility] [phone] [facility] [address] [place] [address], [facility] [phone] * Comp Metabolic Panel (02/05/2022 10:59 AM CDT) Sodium 142 136 - 145 mmol/L 02/05/2022 3:53 PM T [facility] Potassium 3.8 3.5 - 5.1 mmol/L 02/05/2022 3:53 PM T [facility] Chloride 107 98 - 109 mmol/L 02/05/2022 3:53 PM T [facility] CO2 24 20 - 29 mmol/L 02/05/2022 3:53 PM [facility] Anion Gap 11 7 - 16 mmol/L 02/05/2022 3:53 PM T [facility] Calcium 9.3 8.4 - 10.4 mg/dL 02/05/2022 3:53 PM T [facility] BUN 9 7 - 26 mg/dL 02/05/2022 3:53 PM T [facility] Creatinine 0.72 0.55 - 1.02 mg/dL 02/05/2022 3:53 PM T [facility] GFR, Estimated >60 >60 mL/min/1. 73m2 02/05/2022 3:53 PM T [facility] Alkaline Phosphatase 127 40 - 150 U/L 02/05/2022 3:53 PM T [facility] AST (SGOT) 12 10 - 40 U/L 02/05/2022 3:53 PM T [facility] ALT (SGPT) 27 0 - 55 U/L 02/05/2022 3:53 PM T [facility] Bilirubin, Total 0.2 0.2 - 1.2 mg/dL 02/05/2022 3:53 PM T [facility] Protein, Total 6.9 6.4 - 8.3 g/dL 02/05/2022 3:53 PM CDT [facility] Albumin 3.6 3.5 - 5.0 g/dL 02/05/2022 3:53 PM CDT [facility] Glucose 85 70 - 100 mg/dL 02/05/2022 3:53 PM CDT [facility] Comment:The given reference range is for the fasting state. Non-fasting reference range for glucose is 70 - 180 mg/dL. Hours Fasting N/A 02/05/2022 3:53 PM CDT [facility] Blood Venipuncture / Unknown 02/05/2022 10:59 AM CDT 02/05/2022 10:59 AM CDT us Taylor Downing MD LAB_1 Final Result Performing Organization Address [facility] de Phone Number [facility] [address] [place] [address], [facility] [phone] [facility] [address] [place] [address], [facility] [phone] * HIV 1/2 Ag/Ab 4th Generation (04/30/2019 11:24 AM DESK OPERATOR) [facility] HIV 1/2 Antigen/Anti body (4th generation) Negative (Non Reactive) Negative (Non Reactive) 04/30/2019 3:42 PM DESK OPERATOR [facility] Comment:HIV-1 p24 Antigen an d HIV-1/HIV-2 Antibody not detected Blood Venipuncture / Unknown 04/30/2019 11:24 AM DESK OPERATOR 04/30/2019 11:24 AM DESK OPERATOR us Hilario Dupree PA-C LAB_1 Final Resul t Performing Organization Address [facility]/ZIP Co de Phone Number [facility] [address] [place] [address], [facility] [phone] from Last 3 Months or Most Recently Relevant to Health Maintenance Insurance MEDICARE MEDICARE Advance Directives * Full Code (Latest Code Status on File) Date Activated Date Inactivated Comments 07/31/2015 3:00 AM 07/30/2015 6:00 PM * Full Code Date Activated Date Inactivated Comments 07/31/2015 3:00 AM 08/08/2015 4:50 AM Care Teams Student Dean Relationship Specialty Start Date End Date Found, No Pcp, [address] [place] [address] PCP - General 04/01/23
--- OUTSIDE RECORDS SUMMARY | 2024-10-17 18:10 | XMS_ITS | Encounter Summary ---
Author Organization [facility] Address [address] [place] [address] Care Team Providers Care Vehicle Check In Clerk Name Role Phone Found, No Pcp Primary Care Provider Unavailab le Encounter Details Date Type Department Care Team (Latest Contact Info) Description 04/12/1995 Orders Only Kolton Keller MD Social History Tobacco Use Types Packs/Day Years Used Date Smoking Tobacco: Never Assessed Comments Unknown Sex and Gender Information Value Date Recorded Sex Assigned at Female 06/28/2021 5:52 PM ELECTRICAL CAD TECHNICIAN Legal Sex Female 4:12 AM CDT Gender Identity Female 06/28/2021 5:52 PM ELECTRICAL CAD TECHNICIAN Sexual Orientation Straight 06/28/2021 5: 52 PM ELECTRICAL CAD TECHNICIAN documented as of this encounter Plan of Treatment Not on file documented as of this encounter Visit Diagnoses Not on filedocumented in this encounter Care Teams Vehicle Check In Clerk Relationship Specialty Start Date End Date Found, No Pcp, [address] [place] [address] PCP - General 04/01/23 documented as of this encounter
--- OUTSIDE RECORDS SUMMARY | 2024-10-17 18:10 | XMS_ITS | Encounter Summary ---
Author Organization [facility] Address [address] [place] [address] Care Team Providers Care Gang Hemstitching Machine Operator Name Role Phone Found, No Pcp Primary Care Provider Unavailab le Encounter Details Date Type Department Care Team (Latest Contact Info) Description 12/20/1994 [place] [address] [place] [address] Social History Tobacco Use Types Packs/Day Years Used Date Smoking Tobacco: Never Assessed Comments Unknown Sex and Gender Information Value Date Recorded Sex Assigned at Female 06/28/2021 5:52 PM RESISTOR WINDER Legal Sex Female 4:12 AM CDT Gender Identity Female 06/28/2021 5:52 PM RESISTOR WINDER Sexual Orientation Straight 06/28/2021 5: 52 PM RESISTOR WINDER documented as of this encounter Plan of Treatment Not on file documented as of this encounter Visit Diagnoses Not on filedocumented in this encounter Care Teams Gang Hemstitching Machine Operator Relationship Specialty Start Date End Date Found, No Pcp, [address] [place] [address] PCP - General 04/01/23 documented as of this encounter
--- OUTSIDE RECORDS SUMMARY | 2024-10-17 18:10 | XMS_ITS | Encounter Summary ---
Author Organization [facility] Address [address] [place] [address] Care Team Providers Care Washateria Attendant Name Role Phone Found, No Pcp Primary Care Provider Unavailab le Encounter Details Date Type Department Care Team (Latest Contact Info) Description 03/11/1995 Orders Only Jean Oshea MD [facility] [address] [place] [address] Social History Tobacco Use Types Packs/Day Years Used Date Smoking Tobacco: Never Assessed Comments Unknown Sex and Gender Information Value Date Recorded Sex Assigned at Female 06/28/2021 5:52 PM PRINCIPLE SOFTWARE ENGINEER Legal Sex Female 4:12 AM CDT Gender Identity Female 06/28/2021 5:52 PM PRINCIPLE SOFTWARE ENGINEER Sexual Orientation Straight 06/28/2021 5: 52 PM PRINCIPLE SOFTWARE ENGINEER documented as of this encounter Plan of Treatment Not on file documented as of this encounter Visit Diagnoses Not on filedocumented in this encounter Care Teams Washateria Attendant Relationship Specialty Start Date End Date Found, No Pcp, [address] [place] [address] PCP - General 04/01/23 documented as of this encounter
--- OUTSIDE RECORDS SUMMARY | 2024-10-17 18:10 | XMS_ITS | Encounter Summary ---
Author Organization [facility] Address [address] [place] [address] Care Team Providers Care Car Repairer Helper Name Role Phone Found, No Pcp Primary Care Provider Unavailab le Encounter Details Date Type Department Care Team (Latest Contact Info) Description 03/25/1995 [place] [address] [place] [address] Social History Tobacco Use Types Packs/Day Years Used Date Smoking Tobacco: Never Assessed Comments Unknown Sex and Gender Information Value Date Recorded Sex Assigned at Female 06/28/2021 5:52 PM ATM TECHNICIAN Legal Sex Female 4:12 AM CDT Gender Identity Female 06/28/2021 5:52 PM ATM TECHNICIAN Sexual Orientation Straight 06/28/2021 5: 52 PM ATM TECHNICIAN documented as of this encounter Plan of Treatment Not on file documented as of this encounter Visit Diagnoses Not on filedocumented in this encounter Care Teams Car Repairer Helper Relationship Specialty Start Date End Date Found, No Pcp, [address] [place] [address] PCP - General 04/01/23 documented as of this encounter
--- OUTSIDE RECORDS SUMMARY | 2024-10-17 18:10 | XMS_ITS | Encounter Summary ---
Author Organization [facility] Address [address] [place] [address] Care Team Providers Care Marker Delivery Name Role Phone Found, No Pcp Primary Care Provider Unavailab le Encounter Details Date Type Department Care Team (Late st Contact Info) Description 10/25/1994 Orders Only [facility] Erasto Wade MD [facility] [address] [place], [place] [id number] Social History Tobacco Use Types Packs/Day Years Used Date Smoking Tobacco: Never Assessed Comments Unknown Sex and Gender Information Value Date Recorded Sex Assigned at Female 06/28/2021 5:52 PM CYLINDER FILLER Legal Sex Female 4:12 AM CDT Gender Identity Female 06/28/2021 5:52 PM CYLINDER FILLER Sexual Orientation Straight 06/28/2021 5: 52 PM CYLINDER FILLER documented as of this encounter Plan of Treatment Not on file documented as of this encounter Visit Diagnoses Not on filedocumented in this encounter Care Teams Marker Delivery Relationship Specialty Start Date End Date Found, No Pcp, [address] [place] [place] [address] PCP - General 04/01/23 documented as of this encounter
--- OUTSIDE RECORDS SUMMARY | 2024-10-17 18:10 | XMS_ITS | Encounter Summary ---
Author Organization [facility] Address [address] [place] [address] Care Team Providers Care Automotive Paint Technician Name Role Phone Found, No Pcp Primary Care Provider Unavailab le Encounter Details Date Type Department Care Team (Latest Contact Info) Description 12/13/1994 Orders Only Deja Horn Social History Tobacco Use Types Packs/Day Years Used Date Smoking Tobacco: Never Assessed Comments Unknown Sex and Gender Information Value Date Recorded Sex Assigned at Female 06/28/2021 5:52 PM CUSTOM BIKE BUILDER Legal Sex Female 4:12 AM CDT Gender Identity Female 06/28/2021 5:52 PM CUSTOM BIKE BUILDER Sexual Orientation Straight 06/28/2021 5: 52 PM CUSTOM BIKE BUILDER documented as of this encounter Plan of Treatment Not on file documented as of this encounter Visit Diagnoses Not on filedocumented in this encounter Care Teams Automotive Paint Technician Relationship Specialty Start Date End Date Found, No Pcp, [address] [place] [address] PCP - General 04/01/23 documented as of this encounter
--- OUTSIDE RECORDS SUMMARY | 2024-10-17 18:10 | XMS_ITS | Encounter Summary ---
Author Organization [facility] Address [address] [place] [address] Care Team Providers Care Business Services Assistant Name Role Phone Found, No Pcp Primary Care Provider Unavailab le Encounter Details Date Type Department Care Team (Latest Contact Info) Description 10/13/1994 [place] [address] [place] [address] Social History Tobacco Use Types Packs/Day Years Used Date Smoking Tobacco: Never Assessed Comments Unknown Sex and Gender Information Value Date Recorded Sex Assigned at Female 06/28/2021 5:52 PM LITERACY CONSULTANT Legal Sex Female 4:12 AM CDT Gender Identity Female 06/28/2021 5:52 PM LITERACY CONSULTANT Sexual Orientation Straight 06/28/2021 5: 52 PM LITERACY CONSULTANT documented as of this encounter Plan of Treatment Not on file documented as of this encounter Visit Diagnoses Not on filedocumented in this encounter Care Teams Business Services Assistant Relationship Specialty Start Date End Date Found, No Pcp, [address] [place] [address] PCP - General 04/01/23 documented as of this encounter
--- OUTSIDE RECORDS SUMMARY | 2024-10-17 18:10 | XMS_ITS | Encounter Summary ---
Author Organization [facility] Address [address] [place] [address] Care Team Providers Care Plate Worker Name Role Phone Found, No Pcp Primary Care Provider Unavailab le Encounter Details Date Type Department Care Team (Latest Contact Info) Description 10/15/1994 [place] [address] [place] [address] Social History Tobacco Use Types Packs/Day Years Used Date Smoking Tobacco: Never Assessed Comments Unknown Sex and Gender Information Value Date Recorded Sex Assigned at Female 06/28/2021 5:52 PM BLOOD BANK COORDINATOR Legal Sex Female 4:12 AM CDT Gender Identity Female 06/28/2021 5:52 PM BLOOD BANK COORDINATOR Sexual Orientation Straight 06/28/2021 5: 52 PM BLOOD BANK COORDINATOR documented as of this encounter Plan of Treatment Not on file documented as of this encounter Visit Diagnoses Not on filedocumented in this encounter Care Teams Plate Worker Relationship Specialty Start Date End Date Found, No Pcp, [address] [place] [address] PCP - General 04/01/23 documented as of this encounter
[2024-10-17 18:19] VITALS: BP 128/84; PULSE 96; RESP 20; TEMP 37.2; O2SAT 97; BMI 34.0
== END 2024-10-17 19:06 | disposition left against medical advice (07) ==
LOC: ED 19:01
PROVIDERS: PCP Internal Medicine Gastroenterology
DX: Z53.21 Procedure and treatment not carried out due to patient leaving prior to being seen by health care provider (principal)

== ENCOUNTER 2024-10-19 15:51 | Emergency (ER) | payer MEDICARE, SELFPAY ==
[2024-10-19 15:54] VITALS: BP 153/81; PULSE 82; RESP 18; TEMP 36.9; O2SAT 100; BMI 34.4
== END 2024-10-19 17:24 | disposition left against medical advice (07) ==
LOC: ED 17:09
PROVIDERS: PCP Internal Medicine Gastroenterology
DX: Z53.21 Procedure and treatment not carried out due to patient leaving prior to being seen by health care provider (principal)